=== PATIENT | female | born 1940 | race Caucasian/White ===

== ENCOUNTER 2018-01-03 17:01 | Observation (INO) | payer MEDICARE ==
[~2018-01-03] VITALS: Ht 162.6 cm; Wt 50.0 kg
[~2018-01-03 17:01] MED LIST: Z.0.NO CURRENT MEDS
[2018-01-03 17:28] VITALS: BP 103/55; PULSE 83; RESP 20; TEMP 98.4; O2SAT 91
[2018-01-03] MEDS ORDERED: LISI-515 PO (17:45)
[2018-01-03] MEDS ORDERED: ZOLO25TA PO (17:45)
[2018-01-03] MEDS ORDERED: SODIUM CHLOR 0.9% 1000 ML INJ 1,000 ML IV SCH (17:55)
[2018-01-03] MEDS ORDERED: SODIUM CHLORIDE 0.9% FLUSH 10 ML FLUSH IV FLUSH PRN ×2 (18:00→22:45)
[2018-01-03 18:01] VITALS: RESP 16; O2SAT 95
--- NOTE | 2018-01-03 18:01 | PD ---
HPI Chief Complaint: GI Complaint Time Seen by Provider: 17:40 Travel History International Travel<30 days: No Contact w/Intl Traveler<30days: No Traveled to known affect area: No History of Present Illness HPI 77-year-old female with PMH of anxiety, hypertension presents to the ED for evaluation at 3 day history of watery diarrhea. Patient estimates one episode of diarrhea every 30 minutes. She denies fevers, chills, nausea, vomiting, abdominal pain, dysuria, back pain. She states that she was recently hospitalized in [place]. She denies recent use of antibiotics. She denies alcohol use. She's never had a problem like this before. No treatment attempted at home. PFSH Past Medical History Arthritis: No Asthma: No Heart Rhythm Problems: No Cardiovascular Problems: No High Cholesterol: No Chest Pain: No Congestive Heart Failure: No COPD: No Cerebrovascular Accident: No Diminished Hearing: No GERD: No Genitourinary: No Headaches: No Hepatitis: No Hiatal Hernia: No Hypertension: Yes Kidney Stones: No Musculoskeletal: Yes Neurologic: Yes Reproductive: No Respiratory: No Migraines: No Myocardial Infarction: No Renal Failure: No Seizures: No Sleep Apnea: No Ulcer: No Past Surgical History Abdominal Surgery: Yes (APPENDECTOMY) Appendectomy: Yes Cardiac Surgery: No Section: Yes (X2) Cholecystectomy: No Ear Surgery: No Endocrine Surgery: No Eye Surgery: No Genitourinary Surgery: No Gynecologic Surgery: No Oral Surgery: Yes Thoracic Surgery: No Other Surgery: Yes Social History Alcohol Use: Yes ("WINE") Tobacco Use: No (DENIES) Substance Use: No (DENIES) Allergies-Medications (Allergen,Severity, Reaction): Coded Allergies: penicillin G (Verified Adverse Reaction, Severe, Nausea/Vomiting, 01/03/18) Reported Meds & Prescriptions Reported Meds & Active Scripts Active Flagyl (Metronidazole) 500 Mg Tab 500 Mg PO TID 14 Days Reported Zoloft (Sertraline HCl) 25 Mg Tab 25 Mg PO DAILY Lisinopril 20 Mg Tab 20 Mg PO DAILY Review of Systems Except as stated in HPI: all other systems reviewed are Neg Physical Exam Narrative GENERAL: Well-nourished, well-developed anxious white female in no acute distress. SKIN: Focused skin assessment warm/dry. HEAD: Normocephalic. EYES: No scleral icterus. No injection or drainage. NECK: Supple, trachea midline. No JVD or lymphadenopathy. CARDIOVASCULAR: Regular rate and rhythm without murmurs, gallops, or rubs. RESPIRATORY: Breath sounds clear and equal bilaterally. No accessory muscle use. GASTROINTESTINAL: Abdomen soft, non-tender, nondistended. Active bowel sounds. MUSCULOSKELETAL: No cyanosis, or edema. BACK: Nontender without obvious deformity. No CVA tenderness. Data Data Last Documented VS Vital Signs Date Time Temp Pulse Resp B/P (MAP) Pulse Ox O2 Delivery O2 Flow Rate FiO2 01/03/18 18:01 16 95 01/03/18 17:28 98.4 83 103/55 (71) Orders Orders Complete Blood Count With Diff (01/03/18 17:55) Comprehensive Metabolic Panel (01/03/18 17:55) Urinalysis - C+S If Indicated (01/03/18 17:55) Iv Access Insert/Monitor (01/03/18 17:55) Ecg Monitoring (01/03/18 17:55) Oximetry (01/03/18 17:55) Sodium Chlor 0.9% 1000 Ml Inj (Ns 1000 M (01/03/18 17:55) Sodium Chloride 0.9% Flush (Ns Flush) (01/03/18 18:00) C Diff Toxin Pcr (01/03/18 17:55) Stool Ova And Parasite Screen (01/03/18 17:55) ^Bedside Commode (01/03/18 17:55) ^ Straight Catheter (01/03/18 20:29) Metronidazole (Flagyl) (01/03/18 20:45) Alcohol Withdrawal Asmt-Ciwa ONCE (01/03/18 22:02) Flumazenil Inj (Romazicon Inj) (01/03/18 22:15) Lorazepam (Ativan) (01/03/18 22:15) Lorazepam Inj (Ativan Inj) (01/03/18 22:15) Lorazepam (Ativan) (01/03/18 22:15) Lorazepam Inj (Ativan Inj) (01/03/18 22:15) Lorazepam Inj (Ativan Inj) (01/03/18 22:15) Lorazepam Inj (Ativan Inj) (01/03/18 22:15) Psych Screen (01/03/18 22:03) Admit Order (Ed Use Only) (01/03/18 22:28) Labs Laboratory Tests Test 01/03/18 18:00 White Blood Count 12.9 TH/MM3 Red Blood Count 4.33 MIL/MM3 Hemoglobin 11.2 GM/DL Hematocrit 34.3 % Mean Corpuscular Volume 79.3 FL Mean Corpuscular Hemoglobin 25.8 PG Mean Corpuscular Hemoglobin Concent 32.6 % Red Cell Distribution Width 16.4 % Platelet Count 611 TH/MM3 Mean Platelet Volume 8.1 FL Neutrophils (%) (Auto) 86.8 % Lymphocytes (%) (Auto) 7.8 % Monocytes (%) (Auto) 4.4 % Eosinophils (%) (Auto) 0.1 % Basophils (%) (Auto) 0.9 % Neutrophils # (Auto) 11.2 TH/MM3 Lymphocytes # (Auto) 1.0 TH/MM3 Monocytes # (Auto) 0.6 TH/MM3 Eosinophils # (Auto) 0.0 TH/MM3 Basophils # (Auto) 0.1 TH/MM3 CBC Comment DIFF FINAL Differential Comment Blood Urea Nitrogen 9 MG/DL Creatinine 0.60 MG/DL Random Glucose 123 MG/DL Total Protein 7.0 GM/DL Albumin 2.9 GM/DL Calcium Level 8.7 MG/DL Alkaline Phosphatase 100 U/L Aspartate Amino Transf (AST/SGOT) 22 U/L Alanine Aminotransferase (ALT/SGPT) 16 U/L Total Bilirubin 0.2 MG/DL Sodium Level 133 MEQ/L Potassium Level 4.1 MEQ/L Chloride Level 97 MEQ/L Carbon Dioxide Level 18.8 MEQ/L Anion Gap 17 MEQ/L Estimat Glomerular Filtration Rate 97 ML/MIN [facility] Medical Decision Making Medical Screen Exam Complete: Yes Emergency Medical Condition: Yes Differential Diagnosis c difficile versus dehydration versus metabolic derangement versus other Narrative Course 77-year-old female with PMH of anxiety, hypertension presents to the ED for evaluation at 3 day history of watery diarrhea. Patient estimates one episode of diarrhea every 30 minutes. She denies fevers, chills, nausea, vomiting, abdominal pain, dysuria, back pain. She states that she was recently hospitalized in [place]. She denies recent use of antibiotics. She denies alcohol use. Temp 98.4, BP 103/55 on presentation. On exam this is a white female in no acute distress. Abdominal exam is unremarkable. The room smells like C. difficile. IV was established. Patient was administered 1 L normal saline. CBC: W BC 12.9. Hemoglobin 11.2. CMP: Sodium 133, chloride 97. BUN 9, creatinine 0.60. Glucose 123. Patient had no other episodes of diarrhea in the ED. She has been unable to produce a urine sample. She refuses catheterization for specimen. Initial plan was to discharge the patient with Flagyl and follow up by her primary care. However discharge the patient states that she does not want to go home. She has several conflicting stories as to where she lives and provides a phone number to case management. Case management spoke with the daughter states that the patient is a chronic alcoholic and has not lived at her [place] address for over 8 years. The daughter states that the last she heard the patient was admitted by court order to a psychiatric hospital in [place]. After discussing with this this with the patient she states that the hospital in [place] put her in ambulance and delivered her to warm and but is unable to say specifically where she was dropped off. Conveniently the patient has all her belongings at bedside. Patient was placed on CIWA protocol. Psych screen was ordered. I discussed patient with Dr. Navarro who agrees to accept the patient to the medicine service.. We'll observe the patient overnight and attempt SNF placement before discharge. Referrals: Primary Care Physician Patient Instructions: General Instructions Med/Other Pt SpecificInfo: Prescription(s) given Radha Prado Jan 03, 2018 18:01
[2018-01-03 18:26] LABS: AUTOMATED NEUTROPHIL # 11.2 TH/MM3 (1.8-7.7); BASOPHIL # 0.1 TH/MM3 (0-0.2); BASOPHIL % 0.9 % (0.0-2.0); EOSINOPHIL % 0.1 % (0.0-4.0); HEMATOCRIT 34.3 % (35.0-46.0); HEMOGLOBIN 11.2 GM/DL (11.6-15.3); LYMPH % 7.8 % (9.0-44.0); MEAN CELL VOLUME 79.3 FL (80.0-100.0); MEAN CORPUSCULAR HEMOGLOBIN 25.8 PG (27.0-34.0); MEAN CORPUSCULAR HGB CONC 32.6 % (32.0-36.0); MEAN PLATELET VOLUME 8.1 FL (7.0-11.0); MONO % 4.4 % (0.0-8.0); MONOCYTE # 0.6 TH/MM3 (0-0.9); NEUT % 86.8 % (16.0-70.0); PLATELET COUNT 611 TH/MM3 (150-450); RED BLOOD COUNT 4.33 MIL/MM3 (4.00-5.30); RED CELL DISTRIBUTION WIDTH 16.4 % (11.6-17.2); WHITE BLOOD COUNT 12.9 TH/MM3 (4.0-11.0)
[2018-01-03 18:39] LABS: ALBUMIN 2.9 GM/DL (3.4-5.0); AST (GOT) 22 U/L (15-37); BICARBONATE 18.8 MEQ/L (21.0-32.0); BLOOD UREA NITROGEN 9 MG/DL (7-18); CALCIUM 8.7 MG/DL (8.5-10.1); CHLORIDE 97 MEQ/L (98-107); GLOMERULAR FILTRATION RATE 97 ML/MIN (>89); GLUCOSE,RANDOM 123 MG/DL (74-106); SODIUM (NA) 133 MEQ/L (136-145)
[2018-01-03 18:42] LABS: ALKALINE PHOSPHATASE 100 U/L (45-117); ALT (GPT) 16 U/L (10-53); TOTAL BILIRUBIN ADULT 0.2 MG/DL (0.2-1.0)
[2018-01-03] MEDS ORDERED: METR-1 PO (20:40)
[2018-01-03] MEDS ORDERED: metroNIDAZOLE 500 MG TAB PO ONE (20:45)
[2018-01-03] MEDS ORDERED: LORazepam 2 MG TAB PO PRN (22:15)
[2018-01-03] MEDS ORDERED: FLUMAZENIL 0.5 MG/5 ML VIAL IV PUSH PRN (22:15)
[2018-01-03] MEDS ORDERED: LORazepam 1 MG TAB PO PRN (22:15)
[2018-01-03] MEDS ORDERED: LORazepam 2 MG/ML VIAL IV PUSH PRN ×4 (22:15)
--- NOTE | 2018-01-03 22:43 | HHI.HP ---
[facility] Unknown Admission Diagnosis r/o c difficile Diagnoses: (1) Diarrhea Diagnosis: Principal (2) Dehydration Diagnosis: Principal (3) Alcohol abuse Diagnosis: Principal Travel History International Travel<30 Days: No Contact w/Intl Traveler <30 Da: No Traveled to Known Affected Are: No History of Present Illness This is a 77-year-old female with a PMH of Anxiety, HTN and Alcohol Abuse who presented to the ER with complaints of watery diarrhea and abdominal pain x3 days. Pt poor historian, difficult to obtain history from, but states she was recently admitted to a Hospital in [place], however does not believe she was on antibiotics. Has been having approx 10 episodes of watery diarrhea per day. No nausea or vomiting. Reports generalized abdominal pain, non-radiating, no alleviating factors. On arrival, BP 103/55, HR 83, O2 sat 91% on RA, Afebrile. WBC 12.9. Chemistry unremarkable except for AG 17. LFTs normal. No further episodes of diarrhea while in the ER. s/p Flagyl PO. Daughter from out of state relayed pt w/ h/o chronic alcohol abuse, recently discharged from Hospital and living in a Hotel in [facility], however pt decided to leave there and called EMS. Currently homeless. Daughter concerned as pt unable to care for self. Review of Systems Except as stated in HPI: all other systems reviewed are Neg ROS: 14 point review of systems otherwise negative. Past Family Social History Past Medical History PMH: Anxiety, HTN and Alcohol Abuse Past Surgical History PAST SURGICAL HISTORY: Appendectomy, Allergies: Coded Allergies: penicillin G (Verified Adverse Reaction, Severe, Nausea/Vomiting, 01/03/18) Family History PAST FAMILY HISTORY: Reviewed. No h/o DM or CAD Social History PAST SOCIAL HISTORY: Positive for alcohol abuse, patient will not quantify. Negative for tobacco or drugs Physical Exam Vital Signs Vital Signs Date Time Temp Pulse Resp B/P (MAP) Pulse Ox O2 Delivery O2 Flow Rate FiO2 01/03/18 18:01 16 95 01/03/18 17:49 20 01/03/18 17:28 98.4 83 20 103/55 (92) 91 Physical Exam PE: GENERAL: Elderly female in no acute distress. HEENT: PERRLA, EOMI. No scleral icterus or conjunctival pallor. No lid lag or facial droop. CARDIOVASCULAR: Regular rate and rhythm. No obvious murmurs to auscultation. No chest tenderness to palpation. RESPIRATORY: No obvious rhonchi or wheezing. Clear to auscultation. Breath sounds equal bilaterally. GASTROINTESTINAL: Abdomen soft, non-tender, nondistended. BS normal. MUSCULOSKELETAL: Extremities without clubbing, cyanosis, or edema. No obvious deformities. NEUROLOGICAL: Awake, alert and oriented x4. No focal neurologic deficits. Moving both upper and lower extremities spontaneously. Laboratory Laboratory Tests Test 01/03/18 18:00 White Blood Count 12.9 Red Blood Count 4.33 Hemoglobin 11.2 Hematocrit 34.3 Mean Corpuscular Volume 79.3 Mean Corpuscular Hemoglobin 25.8 Mean Corpuscular Hemoglobin Concent 32.6 Red Cell Distribution Width 16.4 Platelet Count 611 Mean Platelet Volume 8.1 Neutrophils (%) (Auto) 86.8 Lymphocytes (%) (Auto) 7.8 Monocytes (%) (Auto) 4.4 Eosinophils (%) (Auto) 0.1 Basophils (%) (Auto) 0.9 Neutrophils # (Auto) 11.2 Lymphocytes # (Auto) 1.0 Monocytes # (Auto) 0.6 Eosinophils # (Auto) 0.0 Basophils # (Auto) 0.1 CBC Comment DIFF FINAL Differential Comment Blood Urea Nitrogen 9 Creatinine 0.60 Random Glucose 123 Total Protein 7.0 Albumin 2.9 Calcium Level 8.7 Alkaline Phosphatase 100 Aspartate Amino Transf (AST/SGOT) 22 Alanine Aminotransferase (ALT/SGPT) 16 Total Bilirubin 0.2 Sodium Level 133 Potassium Level 4.1 Chloride Level 97 Carbon Dioxide Level 18.8 Anion Gap 17 Estimat Glomerular Filtration Rate 97 Result Diagram: 01/03/18 1800 01/03/18 1800 Caprini VTE Risk Assessment Caprini VTE Risk Assessment: No/Low Risk (score <= 1) Caprini Risk Assessment Model Point Value = 1 Point Value = 2 Point Value = 3 Point Value = 5 Age 41-60 Minor surgery BMI > 25 kg/m2 Swollen legs Varicose veins or History of unexplained or recurrent spontaneous Oral contraceptives or hormone replacement Sepsis (< 1 month) Serious lung disease, including pneumonia (< 1 month) Abnormal pulmonary function Acute myocardial infarction Congestive heart failure (< 1 month) History of inflammatory bowel disease Medical patient at bed rest Age 61-74 Arthroscopic surgery Major open surgery (> 45 min) Laparoscopic surgery (> 45 min) Malignancy Confined to bed (> 72 hours) Immobilizing plaster cast Central venous access Age >= 75 History of VTE Family history of VTE Factor V Leiden Prothrombin [id number] Lupus anticoagulant Anticardiolipin antibodies Elevated serum homocysteine Heparin-induced thrombocytopenia Other congenital or acquired thrombophilia Stroke (< 1 month) Elective arthroplasty Hip, pelvis, or leg fracture Acute spinal cord injury (< 1 month) Prophylaxis Regimen Total Risk Factor Score Risk Level Prophylaxis Regimen 0-1 Low Early ambulation 2 Moderate Order ONE of the following: *Sequential Compression Device (SCD) *Heparin 5000 units SQ BID 3-4 Higher Order ONE of the following medications: *Heparin 5000 units SQ TID *Enoxaparin/Lovenox 40 mg SQ daily (WT < 150 kg, CrCl > 30 mL/min) *Enoxaparin/Lovenox 30 mg SQ daily (WT < 150 kg, CrCl > 10-29 mL/min) *Enoxaparin/Lovenox 30 mg SQ BID (WT < 150 kg, CrCl > 30 mL/min) AND/OR *Sequential Compression Device (SCD) 5 or more Highest Order ONE of the following medications: *Heparin 5000 units SQ TID (Preferred with Epidurals) *Enoxaparin/Lovenox 40 mg SQ daily (WT < 150 kg, CrCl > 30 mL/min) *Enoxaparin/Lovenox 30 mg SQ daily (WT < 150 kg, CrCl > 10-29 mL/min) *Enoxaparin/Lovenox 30 mg SQ BID (WT < 150 kg, CrCl > 30 mL/min) AND *Sequential Compression Device (SCD) Assessment and Plan Problem List: (1) Diarrhea ICD Code: R19.7 - Diarrhea, unspecified (2) Dehydration ICD Code: E86.0 - Dehydration (3) Alcohol abuse ICD Code: F10.10 - Alcohol abuse, uncomplicated Assessment and Plan A/P: 1. Diarrhea: reports watery diarrhea x3 days, no diarrhea while in ER. C diff /stool studies pending. WBC 12. S/p Flagyl in ER, will continue w/ empiric treatment on Flagyl 500mg po tid. 2. Dehydration: secondary to above, IVF for hydration. Check U/a to eval for underlying UTI. Repeat labs in am. 3. Alcohol Abuse: Daughter reports chronic alcohol abuse, pt denies. CIWA, Seizure Precautions, MVT/Thiamine/Folate replacement. 4. DVT Prophylaxis: SCD/Teds. 5. Social work for d/c planning as needed, Daughter states pt is currently Homeless, unable to care for self. 6. Case discussed at length w/ ER physician, labs/records/imaging reviewed by me. Marian Navarro MD Jan 03, 2018 22:43
[2018-01-03] MEDS ORDERED: SENNOSIDES 8.6 MG TAB PO PRN (22:45)
[2018-01-03] MEDS ORDERED: BISACODYL 10 MG SUPP RECTAL PRN (22:45)
[2018-01-03] MEDS ORDERED: ONDANSETRON HCL 4 MG/2 ML VIAL IVP PRN (22:45)
[2018-01-03] MEDS ORDERED: MAGNESIUM HYDROXIDE SUSP 30 ML CUP PO PRN (22:45)
[2018-01-03] MEDS ORDERED: ACETAMINOPHEN 325 MG TAB PO PRN (22:45)
[2018-01-03] MEDS ORDERED: LACTULOSE SYRUP 20 GM/30 ML CUP PO PRN (22:45)
[2018-01-03] MEDS: SODIUM CHLOR 0.9% 1000 ML INJ 1,000 ML IV SCH (23:15)
[2018-01-04 00:28] VITALS: BP 124/59; PULSE 61; RESP 18; TEMP 98.3; O2SAT 94
[2018-01-04] MEDS ORDERED: ZOLPIDEM TARTRATE 5 MG TAB PO ONE ×2 (01:30→23:30)
[2018-01-04 03:50] VITALS: BP 119/55; PULSE 78; RESP 18; TEMP 98.4; O2SAT 92
[2018-01-04 05:31] LABS: ALBUMIN 2.8 GM/DL (3.4-5.0); AST (GOT) 22 U/L (15-37); BLOOD UREA NITROGEN 6 MG/DL (7-18); CALCIUM 8.3 MG/DL (8.5-10.1); CHLORIDE 101 MEQ/L (98-107); CREATININE 0.48 MG/DL (0.50-1.00); GLOMERULAR FILTRATION RATE 125 ML/MIN (>89); GLUCOSE,RANDOM 73 MG/DL (74-106); SODIUM (NA) 134 MEQ/L (136-145)
[2018-01-04 05:33] LABS: ALT (GPT) 14 U/L (10-53)
[2018-01-04 05:35] LABS: ALKALINE PHOSPHATASE 86 U/L (45-117); TOTAL BILIRUBIN ADULT 0.3 MG/DL (0.2-1.0); TOTAL PROTEIN 6.4 GM/DL (6.4-8.2)
[2018-01-04] MEDS: metroNIDAZOLE 500 MG TAB PO SCH ×3 (06:04→21:48)
[2018-01-04 06:48] LABS: AUTOMATED NEUTROPHIL # 5.2 TH/MM3 (1.8-7.7); BASOPHIL # 0.1 TH/MM3 (0-0.2); EOSINOPHIL # 0.1 TH/MM3 (0-0.4); HEMATOCRIT 32.4 % (35.0-46.0); HEMOGLOBIN 10.8 GM/DL (11.6-15.3); LYMPH % 18.1 % (9.0-44.0); LYMPHOCYTE # 1.4 TH/MM3 (1.0-4.8); MEAN CELL VOLUME 78.7 FL (80.0-100.0); MEAN CORPUSCULAR HEMOGLOBIN 26.3 PG (27.0-34.0); MEAN CORPUSCULAR HGB CONC 33.4 % (32.0-36.0); MEAN PLATELET VOLUME 8.2 FL (7.0-11.0); MONO % 8.6 % (0.0-8.0); MONOCYTE # 0.6 TH/MM3 (0-0.9); NEUT % 69.3 % (16.0-70.0); PLATELET COUNT 553 TH/MM3 (150-450); RED BLOOD COUNT 4.11 MIL/MM3 (4.00-5.30); RED CELL DISTRIBUTION WIDTH 16.4 % (11.6-17.2); WHITE BLOOD COUNT 7.5 TH/MM3 (4.0-11.0)
[2018-01-04 08:29] VITALS: BP 123/84; PULSE 69; RESP 12; TEMP 97.8; O2SAT 93
[2018-01-04] MEDS: SODIUM CHLOR 0.9% 1000 ML INJ 1,000 ML IV SCH ×2 (08:41→18:41)
[2018-01-04] MEDS: DOCUSATE SODIUM 50 MG/SENNA 8.6 MG TAB PO SCH ×2 (09:00→21:00)
[2018-01-04 11:02] VITALS: BP 133/63; PULSE 62; RESP 16; TEMP 98.2; O2SAT 95
[2018-01-04] MEDS: SODIUM CHLORIDE 0.9% FLUSH 10 ML FLUSH IV FLUSH SCH ×2 (13:55→21:00)
[2018-01-04 14:58] VITALS: BP 143/65; PULSE 65; RESP 16; TEMP 99; O2SAT 95
[2018-01-04] MEDS: SERTRALINE HCL 50 MG TAB PO SCH (16:17)
[2018-01-04] MEDS ORDERED: PILL SPLITTER OTHER PRN (16:30)
--- NOTE | 2018-01-04 18:38 | HHI.PR ---
Subjective Remarks Patient says she continues with nausea, vomiting, diarrhea. Objective Vital Signs Date Time Temp Pulse Resp B/P (MAP) Pulse Ox O2 Delivery O2 Flow Rate FiO2 01/04/18 14:58 99.0 65 16 143/65 (91) 95 01/04/18 11:02 98.2 62 16 133/63 (86) 95 01/04/18 08:29 97.8 69 12 123/84 (97) 93 01/04/18 03:50 98.4 78 18 119/55 (76) 92 01/04/18 00:28 98.3 61 18 124/59 (80) 94 I/O 01/03/18 01/03/18 01/03/18 01/04/18 01/04/18 01/04/18 07:00 15:00 23:00 07:00 15:00 23:00 Intake Total 500 ml 2550 ml Output Total 400 ml 300 ml Balance 100 ml 2250 ml Intake Oral 500 ml 750 ml IV Total 1800 ml Output Urine Total 400 ml Stool Total 300 ml Result Diagram: 01/04/1840401/04/18404 Objective Remarks GENERAL: Patient sitting up in bed. Appears comfortable. Nonbloody emesis at bedside. SKIN: Warm and dry. HEAD: Normocephalic. EYES: No scleral icterus. No injection or drainage. NECK: Supple, trachea midline. No JVD. CARDIOVASCULAR: Regular rate and rhythm without murmurs, gallops, or rubs. RESPIRATORY: Breath sounds equal bilaterally. No accessory muscle use. GASTROINTESTINAL: Abdomen soft, non-tender, nondistended. MUSCULOSKELETAL: No cyanosis, or edema. BACK: Nontender without obvious deformity. No CVA tenderness. A/P Assessment and Plan //Diarrhea: reports watery diarrhea x3 days, no diarrhea while in ER. C diff/ stool studies pending. WBC 12. S/p Flagyl in ER, will continue w/ empiric treatment on Flagyl 500mg po tid. = Diarrhea continues. Negative C. difficile. Continue antibiotics. Follow-up stool cryptosporidium and Giardia. Consult gastroenterology. //Dehydration: secondary to above, IVF for hydration. Check U/a to eval for underlying UTI. Repeat labs in am. //Alcohol Abuse: Daughter reports chronic alcohol abuse, pt denies. CIWA, Seizure Precautions, MVT/Thiamine/Folate replacement. //DVT Prophylaxis: SCD/Teds. Discharge Planning Pending gastroenterology evaluation. Still with intractable nausea, vomiting, diarrhea. Davian Seaman MD Jan 04, 2018 18:38
[2018-01-04 19:51] LABS: BILIRUBIN, URINE NEG (NEG); BLOOD, URINE SMALL (NEG); GLUCOSE,URINE NEG (NEG); KETONE, URINE NEG (NEG); NITRITE,URINE NEG (NEG); PH, URINE 7.5 (5.0-8.5); SQUAMOUS EPITHELIAL CELL URINE 1 /hpf (0-5); URINE COLOR COLORLESS (YELLW/STRAW); URINE LEUKOCYTE ESTERASE NEG (NEG)
[2018-01-04 21:22] VITALS: BP 133/63; PULSE 61; RESP 17; TEMP 98.5; O2SAT 93
[2018-01-05 00:26] VITALS: BP 131/69; PULSE 65; RESP 17; TEMP 98.2; O2SAT 93
[2018-01-05 03:46] VITALS: BP 155/67; PULSE 67; RESP 18; TEMP 98.2; O2SAT 92
[2018-01-05] MEDS: metroNIDAZOLE 500 MG TAB PO SCH ×3 (05:47→20:41)
[2018-01-05] MEDS: SODIUM CHLOR 0.9% 1000 ML INJ 1,000 ML IV SCH ×2 (05:47→13:55)
[2018-01-05 07:27] LABS: AUTOMATED NEUTROPHIL # 5.7 TH/MM3 (1.8-7.7); BASOPHIL # 0.1 TH/MM3 (0-0.2); BASOPHIL % 1.3 % (0.0-2.0); EOSINOPHIL # 0.2 TH/MM3 (0-0.4); EOSINOPHIL % 2.6 % (0.0-4.0); HEMATOCRIT 31.4 % (35.0-46.0); HEMOGLOBIN 10.4 GM/DL (11.6-15.3); LYMPH % 13.1 % (9.0-44.0); MEAN CELL VOLUME 78.5 FL (80.0-100.0); MEAN CORPUSCULAR HEMOGLOBIN 26.1 PG (27.0-34.0); MEAN CORPUSCULAR HGB CONC 33.3 % (32.0-36.0); MEAN PLATELET VOLUME 8.4 FL (7.0-11.0); MONO % 8.1 % (0.0-8.0); MONOCYTE # 0.6 TH/MM3 (0-0.9); NEUT % 74.9 % (16.0-70.0); PLATELET COUNT 529 TH/MM3 (150-450); RED CELL DISTRIBUTION WIDTH 16.1 % (11.6-17.2); WHITE BLOOD COUNT 7.7 TH/MM3 (4.0-11.0)
[2018-01-05 07:47] LABS: ALBUMIN 2.7 GM/DL (3.4-5.0); CALCIUM 8.3 MG/DL (8.5-10.1); CREATININE 0.37 MG/DL (0.50-1.00); MAGNESIUM 1.5 MG/DL (1.5-2.5); PHOSPHORUS 3.6 MG/DL (2.5-4.9)
[2018-01-05 08:25] VITALS: BP 128/58; PULSE 68; RESP 12; TEMP 98.1; O2SAT 90
[2018-01-05] MEDS: DOCUSATE SODIUM 50 MG/SENNA 8.6 MG TAB PO SCH ×2 (09:00→20:41)
[2018-01-05] MEDS: SERTRALINE HCL 50 MG TAB PO SCH (09:23)
[2018-01-05] MEDS: SODIUM CHLORIDE 0.9% FLUSH 10 ML FLUSH IV FLUSH SCH ×2 (09:24→20:41)
--- NOTE | 2018-01-05 09:54 | PD.CONS ---
HPI History of Present Illness This is a 77 year old female who was admitted to the hospital on 01/03/18. Patient is a poor historian but is answering some simple questions appropriately. Patient notes uncontrolled brown watery diarrhea and abdominal pain for 3 days before admission. Patient did note some nausea and vomiting 3 on 01/04/18 after coming to the hospital. Currently no nausea vomiting this a.m. According to the record patient had been living with her daughter in the [place] area but had also been treated in a facility for depression and anxiety. She left the facility; she is not sure why but then called EMS to bring her to the hospital. She does have some generalized abdominal soreness to light palpation, temp is 99, hemoglobin 10.4. Patient also notes some dysphagia when swallowing her meds and states this is been going on for greater than 6 months. She does state EGD and colonoscopy a long time ago but doesn't remember any other details. According to the note patient has chronic alcohol abuse. She states that she was a wine drinker daily, but has had no alcohol in at least 2 months. Patient states she is a , no history of tobacco abuse. (Adela Villegas) PFSH Past Medical History Anxiety, HTN and Alcohol Abuse Depression POOR historian Past Surgical History PAST SURGICAL HISTORY: Appendectomy, (Adela Villegas) Coded Allergies: penicillin G (Verified Adverse Reaction, Severe, Nausea/Vomiting, 01/03/18) Medications Administered Medications Medications (Trade) Dose Ordered Sig/Ruby Route PRN Reason Start Time Stop Time Status Last Admin Dose Admin Sodium Chloride 1,000 ml @ 100 mls/hr Q10H IV 01/03/18 22:41 01/05/18 05:47 Sodium Chloride (NS Flush) 2 ml BID IV FLUSH 01/04/18 09:00 01/05/18 09:24 Ondansetron HCl (Zofran Inj) 4 mg Q6H PRN IVP NAUSEA OR VOMITING 01/03/18 22:45 01/04/18 19:29 Oxycodone HCl (Roxicodone) 10 mg Q4H PRN PO PAIN SCALE 6 TO 10 01/03/18 22:45 01/04/18 17:04 Metronidazole (Flagyl) 500 mg Q8HR PO 3/26/18 06:00 01/05/18 05:47 Sertraline HCl (Zoloft) 25 mg DAILY PO 01/04/18 16:15 01/05/18 09:23 Family History PAST FAMILY HISTORY: Reviewed. No h/o DM or CAD Social History PAST SOCIAL HISTORY: Positive for alcohol abuse, daily wine consumption, but states none in the past 2 months. Negative for tobacco or drugs Patient is (Adela Villegas) Review of Systems Gastrointestinal: COMPLAINS OF: Diarrhea, Nausea, Vomiting, Difficulty Swallowing (heels) (Adela Villegas) GI Exam Vitals I&O Vital Signs Date Time Temp Pulse Resp B/P (MAP) Pulse Ox O2 Delivery O2 Flow Rate FiO2 01/05/18 08:25 98.1 68 12 128/58 (81) 90 01/05/18 03:46 98.2 67 18 155/67 (96) 92 01/05/18 00:26 98.2 65 17 131/69 (89) 93 01/04/18 21:22 98.5 61 17 133/63 (86) 93 01/04/18 14:58 99.0 65 16 143/65 (91) 95 01/04/18 11:02 98.2 62 16 133/63 (86) 95 I/O 01/04/18 01/04/18 01/04/18 01/05/18 01/05/18 01/05/18 07:00 15:00 23:00 07:00 15:00 23:00 Intake Total 500 ml 2550 ml Output Total 400 ml 300 ml Balance 100 ml 2250 ml Intake Oral 500 ml 750 ml IV Total 1800 ml Output Urine Total 400 ml Stool Total 300 ml Laboratory Test 01/04/18 18:54 01/05/18 06:05 Urine Color COLORLESS Urine Turbidity CLEAR Urine pH 7.5 Urine Specific Yoder 1.004 Urine Protein NEG mg/dL Urine Glucose (UA) NEG mg/dL Urine Ketones NEG mg/dL Urine Occult Blood SMALL Urine Nitrite NEG Urine Bilirubin NEG Urine Urobilinogen LESS THAN 2.0 MG/DL Urine Leukocyte Esterase NEG Urine RBC 1 /hpf Urine Squamous Epithelial Cells 1 /hpf Microscopic Urinalysis Comment CULT NOT INDICATED White Blood Count 7.7 TH/MM3 Red Blood Count 4.00 MIL/MM3 Hemoglobin 10.4 GM/DL Hematocrit 31.4 % Mean Corpuscular Volume 78.5 FL Mean Corpuscular Hemoglobin 26.1 PG Mean Corpuscular Hemoglobin Concent 33.3 % Red Cell Distribution Width 16.1 % Platelet Count 529 TH/MM3 Mean Platelet Volume 8.4 FL Neutrophils (%) (Auto) 74.9 % Lymphocytes (%) (Auto) 13.1 % Monocytes (%) (Auto) 8.1 % Eosinophils (%) (Auto) 2.6 % Basophils (%) (Auto) 1.3 % Neutrophils # (Auto) 5.7 TH/MM3 Lymphocytes # (Auto) 1.0 TH/MM3 Monocytes # (Auto) 0.6 TH/MM3 Eosinophils # (Auto) 0.2 TH/MM3 Basophils # (Auto) 0.1 TH/MM3 CBC Comment DIFF FINAL Differential Comment Blood Urea Nitrogen 3 MG/DL Creatinine 0.37 MG/DL Random Glucose 99 MG/DL Albumin 2.7 GM/DL Calcium Level 8.3 MG/DL Phosphorus Level 3.6 MG/DL Magnesium Level 1.5 MG/DL Sodium Level 136 MEQ/L Potassium Level 4.1 MEQ/L Chloride Level 103 MEQ/L Carbon Dioxide Level 25.0 MEQ/L Anion Gap 8 MEQ/L Estimat Glomerular Filtration Rate 169 ML/MIN Date/Time Source Procedure Growth Status 01/04/18 08:45 Stool Stool Cryptosporidium Exam Pending Received 01/04/18 08:45 Stool Stool Giardia Antigen (AIXA) Pending Received Physical Examination HEENT: Pupils round and reactive to light; normocephalic; atraumatic; no jaundice. Borderline frail NECK: Neck is supple, CHEST: Chest is clear, no obvious rhonchi CARDIAC: Regular rate and rhythm ABDOMEN: Flat, Soft, nondistended, enteral I's tenderness to light palpation; no hepatosplenomegaly; bowel sounds are present in all four quadrants. EXTREMITIES: No clubbing, cyanosis, or edema. SKIN: Turgor no rash; no jaundice. ELECTROPHYSIOLOGY NURSE PRACTITIONER: Oriented to current place, can answer simple questions (Adela Villegas) Assessment and Plan Plan Watery diarrhea onset approximately 5 days ago, incontinent, controlled for now , negative C. difficile Generalized abdominal pain probable secondary to the diarrhea and cramping Dysphagia greater than 6 months problems especially with pills. Nausea and vomiting within the past 24 hours Anemia probable secondary to her chronic diseases currently stable at 10.[address] of the abdomen with contrast today. If Negative will proceed with EGD and colonoscopy PPI Zofran as needed Flagyl by mouth Consent for EGD colonoscopy in the a.m. may possibly need esophageal dilatation Nothing by mouth except for needed meds at midnight Clear liquids today Magnesium citrate prep 3 bottles, 2 today and one in the early a.m. Further recommendations will be based on symptoms and findings Discussed alcohol abstinence Consider physical therapy evaluation for her stamina and discharge planning Patient was seen per myself and Dr. Nunn and, note was prepared on his behalf (Adela Villegas) Physician Comments Patient seen and examined Agree with above Continue with current supportive care Monitor labs Plan for an EGD and a colonoscopy tomorrow (Mandeep Nunn MD) Adela Villegas Jan 05, 2018 09:54 Mandeep Nunn MD Jan 05, 2018 22:10
[2018-01-05] MEDS ORDERED: DIATRIZOATE MEGLUM/DIATRIZOATE SOD 9 ML CUP PO ONE (10:14)
[2018-01-05 11:01] VITALS: BP 136/63; PULSE 72; RESP 16; TEMP 98; O2SAT 93
[2018-01-05] MEDS: MAGNESIUM CITRATE SOLN 300 ML BTL PO SCH ×2 (12:04→17:33)
--- NOTE | 2018-01-05 14:11 | HHI.PR ---
Subjective Remarks Patient reports further episode of loose diarrhea today. Some nausea with IV contrast p.o., this has improved. Denies any chest pain or shortness of breath. Objective Vital Signs Date Time Temp Pulse Resp B/P (MAP) Pulse Ox O2 Delivery O2 Flow Rate FiO2 01/05/18 11:01 98.0 72 16 136/63 (87) 93 01/05/18 08:25 98.1 68 12 128/58 (81) 90 01/05/18 03:46 98.2 67 18 155/67 (96) 92 01/05/18 00:26 98.2 65 17 131/69 (89) 93 01/04/18 21:22 98.5 61 17 133/63 (86) 93 01/04/18 14:58 99.0 65 16 143/65 (91) 95 I/O 01/04/18 01/04/18 01/04/18 01/05/18 01/05/18 01/05/18 07:00 15:00 23:00 07:00 15:00 23:00 Intake Total 500 ml 2550 ml 900 ml Output Total 400 ml 300 ml Balance 100 ml 2250 ml 900 ml Intake Oral 500 ml 750 ml IV Total 1800 ml 900 ml Output Urine Total 400 ml Stool Total 300 ml Result Diagram: 01/05/1860401/05/18 06 Objective Remarks GENERAL: Patient sitting up in bed. Appears comfortable. SKIN: Warm and dry. HEAD: Normocephalic. EYES: No scleral icterus. No injection or drainage. NECK: Supple, trachea midline. No JVD. CARDIOVASCULAR: Regular rate and rhythm without murmurs, gallops, or rubs. RESPIRATORY: Breath sounds equal bilaterally. No accessory muscle use. GASTROINTESTINAL: Abdomen soft, non-tender, nondistended. MUSCULOSKELETAL: No cyanosis, or edema. BACK: Nontender without obvious deformity. No CVA tenderness. A/P Assessment and Plan //Diarrhea: reports watery diarrhea x3 days, no diarrhea while in ER. C diff/ stool studies pending. WBC 12. S/p Flagyl in ER, will continue w/ empiric treatment on Flagyl 500mg po tid. = Diarrhea continues. Negative C. difficile. Continue antibiotics. Follow-up stool cryptosporidium and Giardia. Consult gastroenterology. = Continues. Gastroenterology following. Appreciate assistance. Plan for endoscopy tomorrow. CT abdomen and pelvis read pending. //Dehydration: secondary to above, IVF for hydration. Check U/a to eval for underlying UTI. Repeat labs in am. = Improved. Continue IV fluids. //Alcohol Abuse: Daughter reports chronic alcohol abuse, pt denies. CIWA, Seizure Precautions, MVT/Thiamine/Folate replacement. = No signs of withdrawal. Stop CIWA protocol. //DVT Prophylaxis: SCD/Teds. Discharge Planning Likely endoscopy tomorrow. Still with diarrhea. Still with intractable nausea , vomiting, diarrhea. Davian Seaman MD Jan 05, 2018 14:11
--- NOTE | 2018-01-05 14:12 | RADRPT ---
EXAM DATE/TIME: 01/05/2018 13:31 [place] COMPARISON: No previous studies available for comparison. INDICATIONS : Abdominal pain and diarrhea ORAL CONTRAST: Prescribed oral contrast ingested. RADIATION DOSE: 4.49 CTDIvol (mGy) MEDICAL HISTORY : Hypertension. SURGICAL HISTORY : Appendectomy. ENCOUNTER: Initial ACUITY: 1 day PAIN SCALE: 3/10 LOCATION: abdomen TECHNIQUE: Volumetric scanning of the abdomen and pelvis was performed. Using automated exposure control and ad justment of the mA and/or kV according to patient size, radiation dose was kept as low as reasonably achievable to obtain optimal diagnostic quality images. DICOM format image data is available electro nically for review and comparison. FINDINGS: Small bilateral pleural effusions. Mild distal aortic disease at the bases. No acute findings in the liver, spleen, adrenals, kidneys or pancreas. Calcified granulomata present in the liver and spleen. There is no free fluid. No bowel obstruction. No adenopathy. There is fixation proximal left femur. Numerous colonic diverticula present without evidence for dive rticulitis. CONCLUSION: 1. Small bilateral pleural effusions with mild distal airway disease at the lung bases. 2. Previous amandeep fixation proximal left femur. Colonic diverticula without evidence for diverticulitis . Dallas Barragan MD on January 05, 2018 at 14:06 Board Certified Radiologist. This report was verified electronically.
[2018-01-05 15:18] VITALS: BP 126/58; PULSE 72; RESP 16; TEMP 98.5; O2SAT 88
[2018-01-05] MEDS ORDERED: ZOLPIDEM TARTRATE 5 MG TAB PO ONE (23:00)
[2018-01-05 23:04] VITALS: BP 154/67; PULSE 75; RESP 18; O2SAT 95
[2018-01-06] MEDS: SODIUM CHLOR 0.9% 1000 ML INJ 1,000 ML IV SCH ×3 (00:41→20:41)
[2018-01-06] MEDS ORDERED: LACTATED RINGER'S 1000 ML IV PRN (03:00)
[2018-01-06] MEDS ORDERED: SODIUM CHLORID 0.9% 500 ML IV PRN (03:00)
[2018-01-06] MEDS ORDERED: CHLORHEXIDINE GLUCONATE 2 % 1 PACK (2 CLOTHS) TOPICAL PRN (03:00)
[2018-01-06] MEDS ORDERED: POVIDONE IODINE 5% (ANTISEPSIS KIT) 4 APPLICATIONS EACH NARE PRN (03:00)
[2018-01-06] MEDS ORDERED: MAGNESIUM CITRATE SOLN 300 ML BTL PO ONE (04:30)
[2018-01-06] MEDS: metroNIDAZOLE 500 MG TAB PO SCH ×3 (04:58→21:16)
[2018-01-06 04:59] VITALS: BP 148/67; PULSE 81; RESP 16; TEMP 99; O2SAT 87
[2018-01-06 07:55] VITALS: BP 165/73; PULSE 67; RESP 16; TEMP 98.2; O2SAT 92
[2018-01-06] MEDS: DOCUSATE SODIUM 50 MG/SENNA 8.6 MG TAB PO SCH ×2 (09:03→21:00)
[2018-01-06] MEDS: SERTRALINE HCL 50 MG TAB PO SCH (09:04)
[2018-01-06] MEDS ORDERED: LORazepam 2 MG/ML VIAL IV PUSH ONE (09:30)
[2018-01-06] MEDS: SODIUM CHLORIDE 0.9% FLUSH 10 ML FLUSH IV FLUSH SCH ×2 (10:14→21:00)
[2018-01-06] MEDS ORDERED: PROPOFOL 200 MG/20 ML AMP IV ONE (12:00)
[2018-01-06] MEDS ORDERED: LIDOCAINE HCL 1% PF 5 ML SYRINGE OTHER ONE (12:00)
[2018-01-06 16:05] VITALS: BP 140/63; PULSE 65; RESP 16; TEMP 98; O2SAT 92
--- NOTE | 2018-01-06 20:45 | PD.PROCEDR ---
GI Procedure PROCEDURE PERFORMED EGD with biopsy and dilation followed by a colonoscopy with snare polypectomy and biopsy and cautery INDICATION FOR PROCEDURE Dysphagia, abdominal pain, diarrhea PROCEDURE: The procedure, risks and benefits were discussed with Ms. Lewis and informed consent was obtained. Anesthesia sedated her with Diprivan. She was placed in the left lateral decubitus position. EGD: The Pentax videoscope was introduced through the oropharynx and advanced to the second portion of the duodenum under direct visualization. Retroflexion was performed in the stomach. FINDINGS: The esophagus there was a severe proximal esophageal stricture that prevented the scope from advancing and so a guidewire was placed and a dilation was performed with a savory dilator size 10 and then 12 postdilatation view reveals a medium size rent and I was able to advance the scope at this point just distal to this stricture was an area of erythema and friability suggestive of esophagitis of unclear significance this was biopsied The stomach there was a moderate size hiatal hernia otherwise the gastric mucosa appeared to be unremarkable and within normal limits The duodenum appeared to be unremarkable and within normal limits random biopsies were taken for further evaluation of diarrhea Colonoscopy: The Pentax videoscope was introduced through the rectum and advanced to cecum where the ileocecal valve and appendiceal orifice were identified. Retroflexion was performed in the rectum. Colonic prep was good FINDINGS: Colonic withdrawal time greater than 6 minutes. As the scope was slowly withdrawn colonic mucosa was carefully inspected the patient was noted to have a couple of AVMs in the cecum these were cauterized there was a significant amount of erythema noted in the cecum and ascending colon and it was not quite clear with this was some form of neovascularization versus other and so random biopsies were taken for further evaluation especially from the proximal descending colon this would also be helpful for evaluation of diarrhea as the scope was further withdrawn the patient was noted to have several polyps there was a medium sized sessile polyp in the ascending colon and a smaller polyp in the sigmoid and rectum all polyps were excised using hot snare technique and were retrieved for further evaluation patient was also noted to have scattered diverticuli throughout the colon most significant though in the descending and sigmoid random biopsies were taken from the descending colon for further evaluation of diarrhea and on retroflexion in the rectum noted medium size internal hemorrhoids and rectal examination did reveal medium size external hemorrhoids ESTIMATED BLOOD LOSS: None SPECIMENS REMOVED: Biopsies from the esophagus and the duodenum and the colon COMPLICATIONS: None IMPRESSION: Esophageal stricture Esophagitis Hiatal hernia Cecal AVMs A ascending colon erythema Colon polyps Diverticulosis Internal and external hemorrhoids PLAN: Await biopsies High-fiber diet Monitor labs and transfuse as needed Colonoscopy in 1 year Endoscopy as needed with possible dilation Recommend PPI Mandeep Nunn MD Jan 06, 2018 20:45
[2018-01-06 20:57] VITALS: BP 140/60; PULSE 75; RESP 16; TEMP 98; O2SAT 92
[2018-01-06] MEDS: ZOLPIDEM TARTRATE 5 MG TAB PO PRN (21:16)
--- NOTE | 2018-01-06 22:49 | EKG ---
Date Performed: 01/05/2018 Time Performed: 16:08:46 PTAGE: 77 years EKG: Sinus rhythm NORMAL ECG NO PREVIOUS TRACING DOCTOR: Mayra Tracey Interpretating Date/Time 01/06/2018 22:48:02
--- NOTE | 2018-01-06 23:57 | HHI.PR ---
Subjective Remarks patient reports continued diarrhea, however this may be secondary to colonic prep. Denies any vomiting today. Objective Vital Signs Date Time Temp Pulse Resp B/P (MAP) Pulse Ox O2 Delivery O2 Flow Rate FiO2 01/06/18 20:57 98.0 75 16 140/60 (86) 92 01/06/18 16:05 98.0 65 16 140/63 (88) 92 01/06/18 07:55 98.2 67 16 165/73 (103) 92 01/06/18 04:59 99.0 81 16 148/67 (94) 87 I/O 01/06/18 01/06/18 01/06/18 01/07/18 01/07/18 01/07/18 07:00 15:00 23:00 07:00 15:00 23:00 Intake Total 700 ml Balance 700 ml Other 700 ml Result Diagram: 01/05/1860401/05/18604 Objective Remarks GENERAL: Patient sitting up in bed. Appears comfortable. exam unchanged from yesterday SKIN: Warm and dry. HEAD: Normocephalic. EYES: No scleral icterus. No injection or drainage. NECK: Supple, trachea midline. No JVD. CARDIOVASCULAR: Regular rate and rhythm without murmurs, gallops, or rubs. RESPIRATORY: Breath sounds equal bilaterally. No accessory muscle use. GASTROINTESTINAL: Abdomen soft, non-tender, nondistended. MUSCULOSKELETAL: No cyanosis, or edema. BACK: Nontender without obvious deformity. No CVA tenderness. A/P Assessment and Plan //Diarrhea: reports watery diarrhea x3 days, no diarrhea while in ER. C diff/ stool studies pending. WBC 12. S/p Flagyl in ER, will continue w/ empiric treatment on Flagyl 500mg po tid. = Diarrhea continues. Negative C. difficile. Continue antibiotics. Follow-up stool cryptosporidium and Giardia. Consult gastroenterology. = Continues. Gastroenterology following. Appreciate assistance. Plan for endoscopy tomorrow. CT abdomen and pelvis read pending. =endoscopy with a Senning colitis. Continue management as per GI. Cryptosporidium and Giardia PCR pending. Who //esophageal stricture status post dilation on 01/06. Follow-up GI as outpatient //Dehydration: secondary to above, IVF for hydration. Check U/a to eval for underlying UTI. Repeat labs in am. = Improved. Continue IV fluids. //Alcohol Abuse: Daughter reports chronic alcohol abuse, pt denies. CIWA, Seizure Precautions, MVT/Thiamine/Folate replacement. = No signs of withdrawal. Stop CIWA protocol. //DVT Prophylaxis: SCD/Teds. Discharge Planning still diarrhea. If stable, can likely discharge home tomorrow. Davian Seaman MD Jan 06, 2018 23:57
[2018-01-07 03:27] VITALS: BP 147/70; PULSE 70; RESP 15; TEMP 98.3; O2SAT 92
[2018-01-07] MEDS: metroNIDAZOLE 500 MG TAB PO SCH ×3 (05:20→22:02)
[2018-01-07] MEDS: SODIUM CHLOR 0.9% 1000 ML INJ 1,000 ML IV SCH ×2 (05:21→16:41)
[2018-01-07 05:54] VITALS: BP 134/64; PULSE 71; RESP 18; TEMP 98.3; O2SAT 94
[2018-01-07 06:59] LABS: AUTOMATED NEUTROPHIL # 6.6 TH/MM3 (1.8-7.7); BASOPHIL # 0.1 TH/MM3 (0-0.2); BASOPHIL % 0.8 % (0.0-2.0); EOSINOPHIL # 0.5 TH/MM3 (0-0.4); HEMATOCRIT 32.2 % (35.0-46.0); HEMOGLOBIN 10.9 GM/DL (11.6-15.3); LYMPHOCYTE # 0.9 TH/MM3 (1.0-4.8); MEAN CELL VOLUME 78.7 FL (80.0-100.0); MEAN CORPUSCULAR HEMOGLOBIN 26.5 PG (27.0-34.0); MEAN CORPUSCULAR HGB CONC 33.7 % (32.0-36.0); MEAN PLATELET VOLUME 8.2 FL (7.0-11.0); MONO % 7.2 % (0.0-8.0); MONOCYTE # 0.6 TH/MM3 (0-0.9); PLATELET COUNT 496 TH/MM3 (150-450); RED CELL DISTRIBUTION WIDTH 16.8 % (11.6-17.2); WHITE BLOOD COUNT 8.7 TH/MM3 (4.0-11.0)
[2018-01-07 07:58] VITALS: BP 145/66; PULSE 66; RESP 16; TEMP 98.2; O2SAT 92
[2018-01-07] MEDS: DOCUSATE SODIUM 50 MG/SENNA 8.6 MG TAB PO SCH ×2 (09:00→21:00)
[2018-01-07] MEDS: SERTRALINE HCL 50 MG TAB PO SCH (09:04)
[2018-01-07] MEDS: SODIUM CHLORIDE 0.9% FLUSH 10 ML FLUSH IV FLUSH SCH ×2 (09:36→22:03)
--- NOTE | 2018-01-07 10:37 | HHI.GIFU ---
Subjective Remarks Pt with continued loose stool and incontinence Per RN she spoke with pts daughter who states pt was not taking care of herself and was often covered in feces She was supposed to be at a rehab in [place] for alcohol However, pt was transported from a local [facility] to the hospital Per RN she has been refusing to eat Pt minimally answering my questions (Caryl Rutherford) Objective Vitals I&O Vital Signs Date Time Temp Pulse Resp B/P (MAP) Pulse Ox O2 Delivery O2 Flow Rate FiO2 01/07/18 07:58 98.2 66 16 145/66 (92) 92 01/07/18 05:54 98.3 71 18 134/64 (87) 94 01/07/18 03:27 98.3 70 15 147/70 (95) 92 01/06/18 20:57 98.0 75 16 140/60 (86) 92 01/06/18 16:05 98.0 65 16 140/63 (88) 92 I/O 01/06/18 01/06/18 01/06/18 01/07/18 01/07/18 01/07/18 07:00 15:00 23:00 07:00 15:00 23:00 Intake Total 700 ml Balance 700 ml Other 700 ml Laboratory Laboratory Tests Test 01/07/18 06:29 White Blood Count 8.7 Red Blood Count 4.10 Hemoglobin 10.9 Hematocrit 32.2 Mean Corpuscular Volume 78.7 Mean Corpuscular Hemoglobin 26.5 Mean Corpuscular Hemoglobin Concent 33.7 Red Cell Distribution Width 16.8 Platelet Count 496 Mean Platelet Volume 8.2 Neutrophils (%) (Auto) 76.0 Lymphocytes (%) (Auto) 10.0 Monocytes (%) (Auto) 7.2 Eosinophils (%) (Auto) 6.0 Basophils (%) (Auto) 0.8 Neutrophils # (Auto) 6.6 Lymphocytes # (Auto) 0.9 Monocytes # (Auto) 0.6 Eosinophils # (Auto) 0.5 Basophils # (Auto) 0.1 CBC Comment DIFF FINAL Differential Comment Date/Time Source Procedure Growth Status 01/04/18 08:45 Stool Stool Cryptosporidium Exam Pending Received 01/04/18 08:45 Stool Stool Giardia Antigen (AIXA) Pending Received Imaging Last Impressions Abdomen/Pelvis CT 01/05/18 0000 Signed Impressions: Service Date/Time: Friday, January 05, 2018 13:31 - CONCLUSION: 1. Small bilateral pleural effusions with mild distal airway disease at the lung bases. 2. Previous amandeep fixation proximal left femur. Colonic diverticula without evidence for diverticulitis. Dallas Barragan MD Physical Exam HEENT: Normocephalic; atraumatic CHEST: Even/unlabored CARDIAC: RRR Abdomen: Soft, nondistended, nontender, bowel sounds active MOISTURE METER OPERATOR: No focal deficits; alert and oriented times three. (Caryl Rutherford) Assessment and Plan Plan Assessment: - Diarrhea- States for a few days prior to arrival. However RN spoke with daughter who states that pt was having issues with incontinence and was not taking care of herself and would be covered in feces. C. Diff negative. Ova and parasites pending. Will add enteric pathogen stool culture. S/P colonoscopy (01/06)- --> Cecal AVMs. Ascending colon erythema. Colon polyps. Diverticulosis. Internal and external hemorrhoids. - Dysphagia- S/P EGD (01/06) --> Esophageal stricture. Esophagitis. Hiatal hernia. - Poor PO intake- Per RN pt is refusing to eat - ETOH abuse- pt was supposed to be in a rehab in [place]? however she state she is currently living in a hotel in [facility], unclear when last ETOH drink was CT abdomen and pelvis WO IV contrast (01/05) --> Colonic diverticula without evidence for diverticulitis. Plan Encourage PO intake Stool enteric pathogens Probiotics Start Cholestyramine EGD/colon biopsies pending Monitor stool count Alcohol withdraw per attending Further recommendations based on clinical course Pt has been seen and examined by myself and Dr. Nunn and this note is written on his behalf (Caryl Rutherford) Physician Comments Seen and examined Agree with above Continue with current supportive care Monitor labs (Mandeep Nunn MD) Caryl Rutherford Jan 07, 2018 10:37 Mandeep Nunn MD Jan 07, 2018 22:04
[2018-01-07 12:15] VITALS: BP 164/76; PULSE 62; RESP 16; TEMP 98.7; O2SAT 92
[2018-01-07 16:00] VITALS: BP 135/65; PULSE 63; RESP 16; TEMP 98.1; O2SAT 94
--- NOTE | 2018-01-07 18:41 | HHI.PR ---
Subjective Remarks She says the diarrhea continues. Denies any chest pain or shortness of breath. Objective Vital Signs Date Time Temp Pulse Resp B/P (MAP) Pulse Ox O2 Delivery O2 Flow Rate FiO2 01/07/18 16:00 98.1 63 16 135/65 (88) 94 01/07/18 12:15 98.7 62 16 164/76 (105) 92 01/07/18 07:58 98.2 66 16 145/66 (92) 92 01/07/18 05:54 98.3 71 18 134/64 (87) 94 01/07/18 03:27 98.3 70 15 147/70 (95) 92 01/06/18 20:57 98.0 75 16 140/60 (86) 92 I/O 01/06/18 01/06/18 01/06/18 01/07/18 01/07/18 01/07/18 07:00 15:00 23:00 07:00 15:00 23:00 Intake Total 700 ml Balance 700 ml Other 700 ml Result Diagram: 01/07/18 0629 01/05/18 0605 Objective Remarks GENERAL: Patient sitting up in bed. Appears comfortable. Oriented to place, not to year. As before SKIN: Warm and dry. HEAD: Normocephalic. EYES: No scleral icterus. No injection or drainage. NECK: Supple, trachea midline. No JVD. CARDIOVASCULAR: Regular rate and rhythm without murmurs, gallops, or rubs. RESPIRATORY: Breath sounds equal bilaterally. No accessory muscle use. GASTROINTESTINAL: Abdomen soft, non-tender, nondistended. MUSCULOSKELETAL: No cyanosis, or edema. BACK: Nontender without obvious deformity. No CVA tenderness. A/P Assessment and Plan //Diarrhea: reports watery diarrhea x3 days, no diarrhea while in ER. C diff/ stool studies pending. WBC 12. S/p Flagyl in ER, will continue w/ empiric treatment on Flagyl 500mg po tid. = Diarrhea continues. Negative C. difficile. Continue antibiotics. Follow-up stool cryptosporidium and Giardia. Consult gastroenterology. = Continues. Gastroenterology following. Appreciate assistance. Plan for endoscopy tomorrow. CT abdomen and pelvis read pending. =endoscopy with a Senning colitis. Continue management as per GI. Cryptosporidium and Giardia PCR pending. Who = Diarrhea continues. GI following. Starting cholestyramine. If diarrhea can be controlled, hopefully can discharge to SNF. Difficult discharge. Appreciate case management assistance. Will check stool ova and parasites //esophageal stricture status post dilation on 01/06. Follow-up GI as outpatient //Dehydration: secondary to above, IVF for hydration. Check U/a to eval for underlying UTI. Repeat labs in am. = Improved. Continue IV fluids. //Alcohol Abuse: Daughter reports chronic alcohol abuse, pt denies. CIWA, Seizure Precautions, MVT/Thiamine/Folate replacement. = No signs of withdrawal. = Patient received single dose of Ativan today for self-reported anxiety as per my discussion with nurse. Will stop CIWAprotocol //Suspected chronic dementia. Patient unable to take care of self. Will go back to daughter's house. Diarrhea has made mass in multiple hotel rooms. Hopefully can get diarrhea control and discharge to SNF. //DVT Prophylaxis: SCD/Teds. Discharge Planning still diarrhea. Patient cannot be discharged home due to dementia. Cannot go home with daughter due social issues. Case management following. Appreciate assistance. Davian Seaman MD Jan 07, 2018 18:41
[2018-01-07 20:22] VITALS: BP 133/65; PULSE 69; RESP 16; TEMP 98.8; O2SAT 96
[2018-01-07] MEDS: CHOLESTYRAMINE 4 GM PACKET PO SCH (21:00)
[2018-01-07] MEDS: ZOLPIDEM TARTRATE 5 MG TAB PO PRN (22:02)
[2018-01-08] VITALS (7 sets, daily range): BP systolic 139–164; BP diastolic 64–96; PULSE 66–78; RESP 16; TEMP 98–99.1; O2SAT 92–96
[2018-01-08] MEDS: SODIUM CHLOR 0.9% 1000 ML INJ 1,000 ML IV SCH ×3 (02:41→21:16)
[2018-01-08] MEDS: metroNIDAZOLE 500 MG TAB PO SCH ×3 (06:03→21:12)
[2018-01-08] MEDS: CHOLESTYRAMINE 4 GM PACKET PO SCH ×2 (08:29→21:00)
[2018-01-08] MEDS: DOCUSATE SODIUM 50 MG/SENNA 8.6 MG TAB PO SCH ×2 (08:30→21:00)
[2018-01-08] MEDS: SERTRALINE HCL 50 MG TAB PO SCH (08:31)
[2018-01-08] MEDS: LACTOBACILLUS ACIDOPHILUS TAB PO SCH (08:31)
[2018-01-08] MEDS: SODIUM CHLORIDE 0.9% FLUSH 10 ML FLUSH IV FLUSH SCH ×2 (08:31→21:00)
--- NOTE | 2018-01-08 09:07 | HHI.GIFU ---
Subjective Remarks Pt resting in bed in NAD. c/o of nausea and diarrhea still. "I just want to be left alone." (Joanna Mark [facility]) Objective Vitals I&O Vital Signs Date Time Temp Pulse Resp B/P (MAP) Pulse Ox O2 Delivery O2 Flow Rate FiO2 01/08/18 08:19 99.1 70 16 148/70 (96) 96 01/08/18 03:51 98.3 66 16 146/96 (113) 93 01/08/18 00:05 98.8 78 16 161/83 (109) 95 01/07/18 20:22 98.8 69 16 133/65 (87) 96 01/07/18 16:00 98.1 63 16 135/65 (88) 94 01/07/18 12:15 98.7 62 16 164/76 (105) 92 Laboratory Date/Time Source Procedure Growth Status 01/04/18 08:45 Stool Stool Cryptosporidium Exam - Final NEGATIVE - NO CRYPTOSPORIDIUM ANTIGEN... Complete 01/04/18 08:45 Stool Stool Giardia Antigen (AIXA) - Final NEGATIVE - NO GIARDIA ANTIGEN DETECTE... Complete Imaging Last Impressions Abdomen/Pelvis CT 01/05/18 0000 Signed Impressions: Service Date/Time: Friday, January 05, 2018 13:31 - CONCLUSION: 1. Small bilateral pleural effusions with mild distal airway disease at the lung bases. 2. Previous amandeep fixation proximal left femur. Colonic diverticula without evidence for diverticulitis. Dallas Barragan MD Physical Exam HEENT: Normocephalic; atraumatic CHEST: Even/unlabored CARDIAC: RRR Abdomen: Soft, nondistended, nontender, bowel sounds active POSTAGE MACHINE OPERATOR: No focal deficits; alert and oriented times three. (Joanna Mark [facility]) Assessment and Plan Plan Assessment: - Diarrhea- States for a few days prior to arrival. However RN spoke with daughter who states that pt was having issues with incontinence and was not taking care of herself and would be covered in feces. C. Diff negative. Ova and parasites pending. Will add enteric pathogen stool culture. S/P colonoscopy (01/06)- --> Cecal AVMs. Ascending colon erythema. Colon polyps. Diverticulosis. Internal and external hemorrhoids. - Dysphagia- S/P EGD (01/06) --> Esophageal stricture. Esophagitis. Hiatal hernia. - Poor PO intake- Per RN pt is refusing to eat - ETOH abuse- pt was supposed to be in a rehab in [place]? however she state she is currently living in a hotel in [facility], unclear when last ETOH drink was CT abdomen and pelvis WO IV contrast (01/05) --> Colonic diverticula without evidence for diverticulitis. 01/08/18 still with diarrhea, nausea. stool studies pending. bx pending. Plan Encourage PO intake await Stool enteric pathogens Probiotics continue cholestyramine await EGD/colon biopsies supportive care Pt has been seen and examined by myself and Dr. Nunn and this note is written on his behalf (Joanna Mark) Physician Comments Patient seen and examined Agree with above Continue with current supportive care Monitor labs May use Lomotil or Imodium so as to slow down the diarrhea and obviously need to avoid laxatives (Mandeep Nunn MD) Joanna Mark Jan 08, 2018 09:07 Mandeep Nunn MD Jan 08, 2018 23:42
--- NOTE | 2018-01-08 16:28 | HHI.PR ---
Subjective Remarks Patient says the diarrhea continues. Denies any chest pain or shortness of breath. Says she is very anxious, Zoloft helped her in the past, she would like to restart it. Objective Vital Signs Date Time Temp Pulse Resp B/P (MAP) Pulse Ox O2 Delivery O2 Flow Rate FiO2 01/08/18 15:35 98.3 67 16 139/68 (91) 92 01/08/18 12:30 98.0 78 16 164/67 (99) 95 01/08/18 08:19 99.1 70 16 148/70 (96) 96 01/08/18 03:51 98.3 66 16 146/96 (113) 93 01/08/18 00:05 98.8 78 16 161/83 (109) 95 01/07/18 20:22 98.8 69 16 133/65 (87) 96 I/O 01/07/18 01/07/18 01/07/18 01/08/18 01/08/18 01/08/18 07:00 15:00 23:00 07:00 15:00 23:00 # Voids 1 # Bowel Movements 1 Result Diagram: 01/07/18 0629 01/05/18 0605 Objective Remarks GENERAL: Patient sitting up in bed. Appears comfortable. Oriented to place, not to year. No change from previously SKIN: Warm and dry. HEAD: Normocephalic. EYES: No scleral icterus. No injection or drainage. NECK: Supple, trachea midline. No JVD. CARDIOVASCULAR: Regular rate and rhythm without murmurs, gallops, or rubs. RESPIRATORY: Breath sounds equal bilaterally. No accessory muscle use. GASTROINTESTINAL: Abdomen soft, non-tender, nondistended. MUSCULOSKELETAL: No cyanosis, or edema. BACK: Nontender without obvious deformity. No CVA tenderness. A/P Assessment and Plan //Diarrhea: reports watery diarrhea x3 days, no diarrhea while in ER. C diff/ stool studies pending. WBC 12. S/p Flagyl in ER, will continue w/ empiric treatment on Flagyl 500mg po tid. = Diarrhea continues. Negative C. difficile. Continue antibiotics. Follow-up stool cryptosporidium and Giardia. Consult gastroenterology. = Continues. Gastroenterology following. Appreciate assistance. Plan for endoscopy tomorrow. CT abdomen and pelvis read pending. =endoscopy with a Senning colitis. Continue management as per GI. Cryptosporidium and Giardia PCR pending. Who = Diarrhea continues. GI following. Starting cholestyramine. If diarrhea can be controlled, hopefully can discharge to SNF. Difficult discharge. Appreciate case management assistance. Will check stool ova and parasites //esophageal stricture status post dilation on 01/06. Follow-up GI as outpatient //Dehydration: secondary to above, IVF for hydration. Check U/a to eval for underlying UTI. Repeat labs in am. = Improved. Continue IV fluids. //Alcohol Abuse: Daughter reports chronic alcohol abuse, pt denies. CIWA, Seizure Precautions, MVT/Thiamine/Folate replacement. = No signs of withdrawal. = Patient received single dose of Ativan today for self-reported anxiety as per my discussion with nurse. Will stop CIWAprotocol /Depression. Patient does appears somewhat anxious with flat affect. Will restart Zoloft //Suspected chronic dementia. Patient unable to take care of self. Will go back to daughter's house. Diarrhea has made mass in multiple hotel rooms. Hopefully can get diarrhea control and discharge to SNF. //DVT Prophylaxis: SCD/Teds. Discharge Planning still diarrhea. Patient cannot be discharged home due to dementia. Cannot go home with daughter due social issues. Case management following. Appreciate assistance. Davian Seaman MD Jan 08, 2018 16:28
[2018-01-08] MEDS: ALPRAZolam 0.25 MG TAB PO PRN (16:55)
[2018-01-08] MEDS: ZOLPIDEM TARTRATE 5 MG TAB PO PRN (21:12)
[2018-01-09 03:23] VITALS: BP 126/58; PULSE 65; RESP 16; TEMP 98.6; O2SAT 94
[2018-01-09] MEDS: metroNIDAZOLE 500 MG TAB PO SCH ×2 (06:51→13:26)
[2018-01-09 07:23] VITALS: BP 136/63; PULSE 60; RESP 18; TEMP 98.7; O2SAT 94
[2018-01-09] MEDS: SODIUM CHLOR 0.9% 1000 ML INJ 1,000 ML IV SCH (08:41)
[2018-01-09] MEDS: CHOLESTYRAMINE 4 GM PACKET PO SCH (09:00)
[2018-01-09] MEDS: DOCUSATE SODIUM 50 MG/SENNA 8.6 MG TAB PO SCH (09:00)
[2018-01-09] MEDS: LACTOBACILLUS ACIDOPHILUS TAB PO SCH (09:47)
[2018-01-09] MEDS: SODIUM CHLORIDE 0.9% FLUSH 10 ML FLUSH IV FLUSH SCH (09:47)
[2018-01-09] MEDS: SERTRALINE HCL 50 MG TAB PO SCH (09:47)
[2018-01-09] MEDS: ALPRAZolam 0.25 MG TAB PO PRN (09:51)
--- NOTE | 2018-01-09 10:02 | HHI.GIFU ---
Subjective Remarks Resting in the bed watching TV early a.m. States she is still going to bedside commode with loose diarrhea stools but is showing some gradual improvement Doesn't know exactly how many stools in the past 24 hours but still greater than 5 patient states Afebrile Still has some mild mid abdominal discomfort (Adela Villegas) Objective Vitals I&O Vital Signs Date Time Temp Pulse Resp B/P (MAP) Pulse Ox O2 Delivery O2 Flow Rate FiO2 01/09/18 07:23 98.7 60 18 136/63 (87) 94 01/09/18 03:23 98.6 65 16 126/58 (80) 94 01/08/18 23:23 98.4 67 16 156/74 (101) 93 01/08/18 20:52 98.4 69 16 140/64 (89) 95 01/08/18 15:35 98.3 67 16 139/68 (91) 92 01/08/18 12:30 98.0 78 16 164/67 (99) 95 I/O 01/08/18 01/08/18 01/08/18 01/09/18 01/09/18 01/09/18 07:00 15:00 23:00 07:00 15:00 23:00 # Voids 1 1 # Bowel Movements 1 Laboratory Date/Time Source Procedure Growth Status 01/08/18 21:22 Stool Stool Cryptosporidium Exam Pending Received 01/08/18 21:22 Stool Stool Giardia Antigen (AIXA) Pending Received Imaging Last Impressions Abdomen/Pelvis CT 01/05/18 0000 Signed Impressions: Service Date/Time: Friday, January 05, 2018 13:31 - CONCLUSION: 1. Small bilateral pleural effusions with mild distal airway disease at the lung bases. 2. Previous amandeep fixation proximal left femur. Colonic diverticula without evidence for diverticulitis. Dallas Barragan MD Physical Exam HEENT: Normocephalic; atraumatic CHEST: Even/unlabored CARDIAC: RRR Abdomen: Soft, nondistended, nontender, bowel sounds active FINISH OFF OPERATOR: No focal deficits; alert and oriented times three. (Adela Villegas) Assessment and Plan Plan Assessment: - Diarrhea- States for a few days prior to arrival. However RN spoke with daughter who states that pt was having issues with incontinence and was not taking care of herself and would be covered in feces. C. Diff negative. Ova and parasites pending. Will add enteric pathogen stool culture. S/P colonoscopy (01/06)- --> Cecal AVMs. Ascending colon erythema. Colon polyps. Diverticulosis. Internal and external hemorrhoids. - Dysphagia- S/P EGD (01/06) --> Esophageal stricture. Esophagitis. Hiatal hernia. - Poor PO intake- Per RN pt is refusing to eat - ETOH abuse- pt was supposed to be in a rehab in [place]? however she state she is currently living in a hotel in [facility], unclear when last ETOH drink was CT abdomen and pelvis WO IV contrast (01/05) --> Colonic diverticula without evidence for diverticulitis. 01/08/18 still with diarrhea, nausea. stool studies pending. bx pending. 01/09/18, patient continues greater than 5 diarrhea stools a day she states, getting up to bedside commode. Still has some mid abdominal discomfort but does state gradual improvement. Current hemoglobin 10.9 without obvious bleeding. Stool studies negative for pathogens. Mild gradual improvement with abdominal pain and diarrhea. Plan Encourage PO intake and diet Probiotics continue cholestyramine Anti-emetics Flagyl await EGD/colon biopsies supportive care Monitor hemoglobin and labs Pt has been seen and examined by myself and Dr. Nunn and this note is written on his behalf (Adela Villegas) Physician Comments Patient seen and examined Agree with above Monitor labs I did stop all her laxatives I am starting Imodium for diarrhea Her biopsies are basically unremarkable as far as cause for diarrhea the polyps were benign Continue with current supportive care (Mandeep Nunn MD) Adela Villegas Jan 09, 2018 10:02 Mandeep Nunn MD Jan 09, 2018 15:33
[2018-01-09 13:16] VITALS: BP 169/72; PULSE 58; RESP 16; TEMP 98.1; O2SAT 95
[2018-01-09] MEDS ORDERED: LOPERAMIDE HCL 2 MG CAP PO PRN (13:30)
[2018-01-09] MEDS ORDERED: ALPR.25 PO ×2 (13:59→14:18)
[2018-01-09] MEDS ORDERED: LISI-515 PO ×2 (13:59→14:18)
[2018-01-09] MEDS ORDERED: LOPE2CAP2 PO ×2 (13:59→14:18)
[2018-01-09] MEDS ORDERED: VITA100T54 PO ×2 (14:03→14:18)
--- NOTE | 2018-01-09 14:10 | HHI.PR ---
Subjective Remarks She is feeling well. Reports diarrhea is improving. Objective Vital Signs Date Time Temp Pulse Resp B/P (MAP) Pulse Ox O2 Delivery O2 Flow Rate FiO2 01/09/18 13:16 98.1 58 16 169/72 (104) 95 01/09/18 07:23 98.7 60 18 136/63 (87) 94 01/09/18 03:23 98.6 65 16 126/58 (80) 94 01/08/18 23:23 98.4 67 16 156/74 (101) 93 01/08/18 20:52 98.4 69 16 140/64 (89) 95 01/08/18 15:35 98.3 67 16 139/68 (91) 92 I/O 01/08/18 01/08/18 01/08/18 01/09/18 01/09/18 01/09/18 07:00 15:00 23:00 07:00 15:00 23:00 # Voids 1 1 # Bowel Movements 1 Result Diagram: 01/07/18 0629 01/05/18 0605 Objective Remarks GENERAL: Patient sitting up in bed. Appears comfortable. Patient alert and oriented 4. Oriented to date, year SKIN: Warm and dry. HEAD: Normocephalic. EYES: No scleral icterus. No injection or drainage. NECK: Supple, trachea midline. No JVD. CARDIOVASCULAR: Regular rate and rhythm without murmurs, gallops, or rubs. RESPIRATORY: Breath sounds equal bilaterally. No accessory muscle use. GASTROINTESTINAL: Abdomen soft, non-tender, nondistended. MUSCULOSKELETAL: No cyanosis, or edema. BACK: Nontender without obvious deformity. No CVA tenderness. A/P Assessment and Plan //Diarrhea: reports watery diarrhea x3 days, no diarrhea while in ER. C diff/ stool studies pending. WBC 12. S/p Flagyl in ER, will continue w/ empiric treatment on Flagyl 500mg po tid. = Diarrhea continues. Negative C. difficile. Continue antibiotics. Follow-up stool cryptosporidium and Giardia. Consult gastroenterology. = Continues. Gastroenterology following. Appreciate assistance. Plan for endoscopy tomorrow. CT abdomen and pelvis read pending. =endoscopy with a Senning colitis. Continue management as per GI. Cryptosporidium and Giardia PCR pending. Who = Diarrhea continues. GI following. Starting cholestyramine. If diarrhea can be controlled, hopefully can discharge to SNF. Difficult discharge. Appreciate case management assistance. Will check stool ova and parasites = Failure improved on loperamide and cholestyramine. GI assistance appreciated. //esophageal stricture status post dilation on 01/06. Follow-up GI as outpatient //Dehydration: secondary to above, IVF for hydration. Check U/a to eval for underlying UTI. Repeat labs in am. = Improved. Continue IV fluids. //Alcohol Abuse: Daughter reports chronic alcohol abuse, pt denies. CIWA, Seizure Precautions, MVT/Thiamine/Folate replacement. = No signs of withdrawal. = Patient received single dose of Ativan today for self-reported anxiety as per my discussion with nurse. Will stop CIWAprotocol /Depression. Patient does appears somewhat anxious with flat affect. Will restart Zoloft //Suspected chronic dementia. Patient unable to take care of self. Will go back to daughter's house. Diarrhea has made mess in multiple hotel rooms. Hopefully can get diarrhea control and discharge to SNF. = Patient is oriented 4. Likely some degree of vitamin deficiency which has improved. Thiamine. //DVT Prophylaxis: SCD/Teds. Discharge Planning Dementia has improved. Diarrhea has improved. Discharge. Davian Seaman MD Jan 09, 2018 14:10
[2018-01-09] MEDS ORDERED: CHOL4POW3 PO ×2 (14:15→14:18)
[2018-01-09] MEDS ORDERED: ZOLO25TA PO (14:18)
--- NOTE | 2018-01-09 14:21 | HHI.DS ---
Discharge Summary Admission Date Jan 03, 2018 at 22:30 Discharge Date: Jan 09, 2018 Admitting Diagnosis r/o c difficile (1) Diarrhea ICD Code: R19.7 - Diarrhea, unspecified (2) Dehydration ICD Code: E86.0 - Dehydration (3) Alcohol abuse ICD Code: F10.10 - Alcohol abuse, uncomplicated Brief History - From Admission This is a 77-year-old female with a PMH of Anxiety, HTN and Alcohol Abuse who presented to the ER with complaints of watery diarrhea and abdominal pain x3 days. Pt poor historian, difficult to obtain history from, but states she was recently admitted to a Hospital in [place], however does not believe she was on antibiotics. Has been having approx 10 episodes of watery diarrhea per day. No nausea or vomiting. Reports generalized abdominal pain, non-radiating, no alleviating factors. On arrival, BP 103/55, HR 83, O2 sat 91% on RA, Afebrile. WBC 12.9. Chemistry unremarkable except for AG 17. LFTs normal. No further episodes of diarrhea while in the ER. s/p Flagyl PO. Daughter from out of state relayed pt w/ h/o chronic alcohol abuse, recently discharged from Hospital and living in a Hotel in [facility], however pt decided to leave there and called EMS. Currently homeless. Daughter concerned as pt unable to care for self. CBC/BMP: 01/07/18 0629 01/05/18 0605 Significant Findings Laboratory Tests Test 01/07/18 06:29 Hemoglobin 10.9 GM/DL (11.6-15.3) Hematocrit 32.2 % (35.0-46.0) Mean Corpuscular Volume 78.7 FL (80.0-100.0) Mean Corpuscular Hemoglobin 26.5 PG (27.0-34.0) Platelet Count 496 TH/MM3 (150-450) Neutrophils (%) (Auto) 76.0 % (16.0-70.0) Eosinophils (%) (Auto) 6.0 % (0.0-4.0) Lymphocytes # (Auto) 0.9 TH/MM3 (1.0-4.8) Eosinophils # (Auto) 0.5 TH/MM3 (0-0.4) Imaging Last Impressions Abdomen/Pelvis CT 01/05/18 0000 Signed Impressions: Service Date/Time: Friday, January 05, 2018 13:31 - CONCLUSION: 1. Small bilateral pleural effusions with mild distal airway disease at the lung bases. 2. Previous amandeep fixation proximal left femur. Colonic diverticula without evidence for diverticulitis. Dallas Barragan MD Hospital Course //Diarrhea: reports watery diarrhea x3 days, no diarrhea while in ER. C diff/ stool studies pending. WBC 12. S/p Flagyl in ER, will continue w/ empiric treatment on Flagyl 500mg po tid. = Diarrhea continues. Negative C. difficile. Continue antibiotics. Follow-up stool cryptosporidium and Giardia. Consult gastroenterology. = Continues. Gastroenterology following. Appreciate assistance. Plan for endoscopy tomorrow. CT abdomen and pelvis read pending. =endoscopy with a Senning colitis. Continue management as per GI. Cryptosporidium and Giardia PCR pending. Who = Diarrhea continues. GI following. Starting cholestyramine. If diarrhea can be controlled, hopefully can discharge to SNF. Difficult discharge. Appreciate case management assistance. Will check stool ova and parasites = Failure improved on loperamide and cholestyramine. GI assistance appreciated. //esophageal stricture status post dilation on 01/06. Follow-up GI as outpatient //Dehydration: secondary to above, IVF for hydration. Check U/a to eval for underlying UTI. Repeat labs in am. = Improved. Continue IV fluids. //Alcohol Abuse: Daughter reports chronic alcohol abuse, pt denies. CIWA, Seizure Precautions, MVT/Thiamine/Folate replacement. = No signs of withdrawal. = Patient received single dose of Ativan today for self-reported anxiety as per my discussion with nurse. Will stop CIWAprotocol /Depression. Patient does appears somewhat anxious with flat affect. Will restart Zoloft //Suspected chronic dementia. Patient unable to take care of self. Will go back to daughter's house. Diarrhea has made mess in multiple hotel rooms. Hopefully can get diarrhea control and discharge to SNF. = Patient is oriented 4. Likely some degree of vitamin deficiency which has improved. Thiamine. //DVT Prophylaxis: SCD/Teds. Discharge Planning Dementia has improved. Diarrhea has improved. Discharge. Pt Condition on Discharge: Good Discharge Disposition: Discharge Home Discharge Time: > 30 minutes Discharge Instructions DIET: Follow Instructions for: As Tolerated, No Restrictions Activities you can perform: Regular-No Restrictions Follow up Referrals: Gastroenterology - 1 Week with Mandeep Nunn MD PCP Follow-up - 1 Week New Medications: Cholestyramine (Cholestyramine) 4 Gm/Dose Powd 4 GM PO BID for Dyslipidemia, #1 CAN 0 Refills 1 level scoopful of powder contains 4 grams of cholestyramine. Thiamine (Vitamin B-1) 100 Mg Tab 100 MG PO DAILY for Nutritional Supplement for 30 Days, #30 TAB 0 Refills Alprazolam (Xanax) 0.25 Mg Tab 0.25 MG PO Q8H PRN for ANXIETY for 30 Days, #20 TAB Loperamide HCl (Hm Loperamide HCl) 2 Mg Cap 2 MG PO Q6H PRN for diarrhea for 30 Days, #120 CAP Changed Medications: Lisinopril (Lisinopril) 20 Mg Tab 20 MG PO DAILY for 30 Days, #30 TAB 0 Refills (Medication details modified) Sertraline (Zoloft) 25 Mg Tab 25 MG PO DAILY for Depression Control, #30 TAB 0 Refills (Medication details modified) Davian Seaman MD Jan 09, 2018 14:21
== END 2018-01-09 17:43 | disposition home or self-care (01) ==
LOC: NEPE 17:01 → NEDA 22:30 → NEPGCP 23:32
PROVIDERS: ADMIT Internal Medicine; ATTEND Internal Medicine
DX: R19.7 Diarrhea, unspecified (principal); E86.0 Dehydration; F10.10 Alcohol abuse, uncomplicated; K22.2 Esophageal obstruction; K20.9 Esophagitis, unspecified; K44.9 Diaphragmatic hernia without obstruction or gangrene; K63.5 Polyp of colon; K55.20 Angiodysplasia of colon without hemorrhage; K57.90 Diverticulosis of intestine, part unspecified, without perforation or abscess without bleeding; K64.4 Residual hemorrhoidal skin tags; K64.8 Other hemorrhoids; D64.9 Anemia, unspecified; E56.9 Vitamin deficiency, unspecified; I10 Essential (primary) hypertension; F41.9 Anxiety disorder, unspecified
CPT/HCPCS: 00813; 43239; 43248; 45380; 45385; 74176; 80053; 80069; 81001; 83735; 85025; 87328; 87329; 87493; 87506; 88305; 88312; 93005; 96361; 96374; 97161; 99285; C1769; G0378; G8987; G8988; J2060; J2405; J7030; J7120; Q9963

== ENCOUNTER 2018-01-10 18:46 | Inpatient (IN) | payer MEDICARE ==
[~2018-01-10] VITALS: Ht 162.6 cm; Wt 46.5 kg
[~2018-01-10 18:46] MED LIST changes: +ALPR.25 PO; +CHOL4POW3 PO; +LISI-515 PO; +LOPE2CAP2 PO; +VITA100T54 PO; -Z.0.NO CURRENT MEDS; +ZOLO25TA PO
[2018-01-10 19:22] VITALS: BP 99/55; PULSE 72; RESP 17; TEMP 98.4; O2SAT 95
--- NOTE | 2018-01-10 20:28 | PD ---
HPI Chief Complaint: Psychiatric Symptoms Time Seen by Provider: 19:14 Travel History International Travel<30 days: No Contact w/Intl Traveler<30days: No Traveled to known affect area: No History of Present Illness HPI Patient is a 77 -year-old female presenting to the emergency department under Valadez act for psychiatric evaluation. Patient was found disoriented, it was assumed that she had been drinking. She reported that she wanted to . Patient continues to state that she wants to and that nobody cares about her. She denies any drug or alcohol use. She states that she has not been eating or drinking because she does not feel like it. She has been having several episodes of loose stools. She is not forthcoming with any further information. [facility] Past Medical History Anxiety: Yes Depression: Yes Gastrointestinal Disorders: Yes (chronic diarrhea) Hypertension: Yes Psychiatric: Yes Tetanus Vaccination: Unknown Past Surgical History Abdominal Surgery: Yes (APPENDECTOMY) Appendectomy: Yes Section: Yes (X2) Oral Surgery: Yes Other Surgery: Yes (breast augmentation) Social History Alcohol Use: Yes ("WINE") Tobacco Use: No Substance Use: No Allergies-Medications (Allergen,Severity, Reaction): Coded Allergies: penicillin G (Verified Adverse Reaction, Severe, Nausea/Vomiting, 01/10/18) Reported Meds & Prescriptions Reported Meds & Active Scripts Active Cholestyramine 4 Gm/Dose Powd 4 Gm PO BID 1 level scoopful of powder contains 4 grams of cholestyramine. Vitamin B-1 (Thiamine HCl) 100 Mg Tab 100 Mg PO DAILY 30 Days Xanax (Alprazolam) 0.25 Mg Tab 0.25 Mg PO Q8H PRN 30 Days Hm Loperamide HCl (Loperamide HCl) 2 Mg Cap 2 Mg PO Q6H PRN 30 Days Lisinopril 20 Mg Tab 20 Mg PO DAILY 30 Days Zoloft (Sertraline HCl) 25 Mg Tab 25 Mg PO DAILY Review of Systems ROS Limitations: Refused Except as stated in HPI: all other systems reviewed are Neg Psychiatric: Positive: Depression, Suicidal Ideations Physical Exam Narrative GENERAL: Disheveled, thin elderly female. In no acute distress. SKIN: Warm and dry. Mild erythema to bilateral buttocks HEAD: Atraumatic. Normocephalic. EYES: Pupils equal and round. No scleral icterus. No injection or drainage. ENT: No nasal bleeding or discharge. Mucous membranes pink and moist. NECK: Trachea midline. No JVD. CARDIOVASCULAR: Regular rate and rhythm. RESPIRATORY: No accessory muscle use. Clear to auscultation. Breath sounds equal bilaterally. GASTROINTESTINAL: Abdomen soft, non-tender, nondistended. Hepatic and splenic margins not palpable. MUSCULOSKELETAL: Extremities without clubbing, cyanosis, or edema. No obvious deformities. NEUROLOGICAL: Awake and alert. No obvious cranial nerve deficits. Motor grossly within normal limits. Five out of 5 muscle strength in the arms and legs. Normal speech. PSYCHIATRIC: Depressed mood and flat affect Data Data Last Documented VS Vital Signs Date Time Temp Pulse Resp B/P (MAP) Pulse Ox O2 Delivery O2 Flow Rate FiO2 01/10/18 19:22 98.4 72 17 99/55 (70) 95 Orders Orders Complete Blood Count With Diff (01/10/18 19:37) Comprehensive Metabolic Panel (01/10/18 19:37) Thyroid Stimulating Hormone (01/10/18 19:37) Psych Screen (01/10/18 19:37) Alcohol (Ethanol) (01/10/18 19:37) Salicylates (Aspirin) (01/10/18 19:37) Tylenol (Acetaminophen) (01/10/18 19:37) Labs Laboratory Tests Test 01/10/18 20:05 White Blood Count 10.3 TH/MM3 Red Blood Count 4.75 MIL/MM3 Hemoglobin 12.6 GM/DL Hematocrit 38.4 % Mean Corpuscular Volume 80.7 FL Mean Corpuscular Hemoglobin 26.4 PG Mean Corpuscular Hemoglobin Concent 32.7 % Red Cell Distribution Width 17.8 % Platelet Count 494 TH/MM3 Mean Platelet Volume 8.6 FL Neutrophils (%) (Auto) 78.7 % Lymphocytes (%) (Auto) 11.8 % Monocytes (%) (Auto) 7.3 % Eosinophils (%) (Auto) 1.2 % Basophils (%) (Auto) 1.0 % Neutrophils # (Auto) 8.1 TH/MM3 Lymphocytes # (Auto) 1.2 TH/MM3 Monocytes # (Auto) 0.8 TH/MM3 Eosinophils # (Auto) 0.1 TH/MM3 Basophils # (Auto) 0.1 TH/MM3 CBC Comment DIFF FINAL Differential Comment Blood Urea Nitrogen 4 MG/DL Creatinine 0.54 MG/DL Random Glucose 87 MG/DL Total Protein 7.1 GM/DL Albumin 3.0 GM/DL Calcium Level 7.9 MG/DL Alkaline Phosphatase 87 U/L Aspartate Amino Transf (AST/SGOT) 200 U/L Alanine Aminotransferase (ALT/SGPT) 50 U/L Total Bilirubin 0.3 MG/DL Sodium Level 132 MEQ/L Potassium Level 3.2 MEQ/L Chloride Level 100 MEQ/L Carbon Dioxide Level 17.4 MEQ/L Anion Gap 15 MEQ/L Estimat Glomerular Filtration Rate 109 ML/MIN Thyroid Stimulating Hormone 3rd Gen 1.440 uIU/ML Salicylates Level LESS THAN 1.7 MG/DL Acetaminophen Level LESS THAN 2.0 MCG/ML Ethyl Alcohol Level 312 MG/DL [facility] Medical Decision Making Medical Screen Exam Complete: Yes Emergency Medical Condition: Yes Medical Record Reviewed: Yes Interpretation(s) Laboratory Tests Test 01/10/18 20:05 White Blood Count 10.3 TH/MM3 Red Blood Count 4.75 MIL/MM3 Hemoglobin 12.6 GM/DL Hematocrit 38.4 % Mean Corpuscular Volume 80.7 FL Mean Corpuscular Hemoglobin 26.4 PG Mean Corpuscular Hemoglobin Concent 32.7 % Red Cell Distribution Width 17.8 % Platelet Count 494 TH/MM3 Mean Platelet Volume 8.6 FL Neutrophils (%) (Auto) 78.7 % Lymphocytes (%) (Auto) 11.8 % Monocytes (%) (Auto) 7.3 % Eosinophils (%) (Auto) 1.2 % Basophils (%) (Auto) 1.0 % Neutrophils # (Auto) 8.1 TH/MM3 Lymphocytes # (Auto) 1.2 TH/MM3 Monocytes # (Auto) 0.8 TH/MM3 Eosinophils # (Auto) 0.1 TH/MM3 Basophils # (Auto) 0.1 TH/MM3 CBC Comment DIFF FINAL Differential Comment Blood Urea Nitrogen 4 MG/DL Creatinine 0.54 MG/DL Random Glucose 87 MG/DL Total Protein 7.1 GM/DL Albumin 3.0 GM/DL Calcium Level 7.9 MG/DL Alkaline Phosphatase 87 U/L Aspartate Amino Transf (AST/SGOT) 200 U/L Alanine Aminotransferase (ALT/SGPT) 50 U/L Total Bilirubin 0.3 MG/DL Sodium Level 132 MEQ/L Potassium Level 3.2 MEQ/L Chloride Level 100 MEQ/L Carbon Dioxide Level 17.4 MEQ/L Anion Gap 15 MEQ/L Estimat Glomerular Filtration Rate 109 ML/MIN Thyroid Stimulating Hormone 3rd Gen 1.440 uIU/ML Salicylates Level LESS THAN 1.7 MG/DL Acetaminophen Level LESS THAN 2.0 MCG/ML Ethyl Alcohol Level 312 MG/DL Vital Signs Date Time Temp Pulse Resp B/P (MAP) Pulse Ox O2 Delivery O2 Flow Rate FiO2 01/10/18 19:22 98.4 72 17 99/55 (70) 95 Differential Diagnosis Dementia versus depression versus suicidal ideations versus metabolic abnormality versus intoxication versus other Narrative Course Patient presented under Valadez act for psychiatric evaluation after being found disoriented from suspected alcohol intoxication. Patient denies alcohol use. Discussed with case management. Patient was discharged from [facility] yesterday evening at 530, transport took her to a home in [place], nurse case management believes it was her daughter's home. She was not allowed into her daughter's home, the male at the residents gave patient an unknown amount of money and transport brought her back to the hospital lobby. She sat here for an unknown amount of time is uncertain where she went after that. Apparently she has been going from hotel to hotel, case management stated that she had allegedly been destroying hotel rooms. She has been having bowel movements in the room. Patient was admitted on 01/04/18 for diarrhea, dehydration and suspected alcohol abuse. Patient was placed on CIWA protocol however she never exhibited any signs of withdrawal according to discharge summary. Mental health screening discussed with the patient. Psychiatric screen ordered. Labs reviewed, CBC with no acute finding. Chemistry with a sodium of 132, potassium 3.2, AST 200, oral potassium replacement ordered. Alcohol level is 312. IV access and IV fluids ordered. Patient was initially refusing. Will attempt again. Patient is medically cleared for psychiatric evaluation at this time. Patient will likely need case management involvement for placement as she cannot care for herself. Diagnosis Primary Impression: Medical clearance for psychiatric admission Additional Impression: Suicidal ideation Condition: Stable Carrie Chinchilla Jan 10, 2018 20:28
[2018-01-10 20:47] LABS: AUTOMATED NEUTROPHIL # 8.1 TH/MM3 (1.8-7.7); BASOPHIL # 0.1 TH/MM3 (0-0.2); EOSINOPHIL # 0.1 TH/MM3 (0-0.4); EOSINOPHIL % 1.2 % (0.0-4.0); HEMATOCRIT 38.4 % (35.0-46.0); HEMOGLOBIN 12.6 GM/DL (11.6-15.3); LYMPH % 11.8 % (9.0-44.0); LYMPHOCYTE # 1.2 TH/MM3 (1.0-4.8); MEAN CELL VOLUME 80.7 FL (80.0-100.0); MEAN CORPUSCULAR HEMOGLOBIN 26.4 PG (27.0-34.0); MEAN CORPUSCULAR HGB CONC 32.7 % (32.0-36.0); MEAN PLATELET VOLUME 8.6 FL (7.0-11.0); MONO % 7.3 % (0.0-8.0); MONOCYTE # 0.8 TH/MM3 (0-0.9); NEUT % 78.7 % (16.0-70.0); PLATELET COUNT 494 TH/MM3 (150-450); RED BLOOD COUNT 4.75 MIL/MM3 (4.00-5.30); RED CELL DISTRIBUTION WIDTH 17.8 % (11.6-17.2); WHITE BLOOD COUNT 10.3 TH/MM3 (4.0-11.0)
[2018-01-10 21:15] LABS: AST (GOT) 200 U/L (15-37); BICARBONATE 17.4 MEQ/L (21.0-32.0); BLOOD UREA NITROGEN 4 MG/DL (7-18); CALCIUM 7.9 MG/DL (8.5-10.1); CHLORIDE 100 MEQ/L (98-107); CREATININE 0.54 MG/DL (0.50-1.00); GLOMERULAR FILTRATION RATE 109 ML/MIN (>89); GLUCOSE,RANDOM 87 MG/DL (74-106); SODIUM (NA) 132 MEQ/L (136-145)
[2018-01-10 21:16] LABS: ALT (GPT) 50 U/L (10-53)
[2018-01-10 21:26] LABS: ACETAMINOPHEN LESS THAN 2.0 MCG/ML (10.0-30.0); ALKALINE PHOSPHATASE 87 U/L (45-117); TOTAL BILIRUBIN ADULT 0.3 MG/DL (0.2-1.0); TOTAL PROTEIN 7.1 GM/DL (6.4-8.2)
[2018-01-10] MEDS ORDERED: POTASSIUM CHLORIDE 20 MEQ CONTROLLED RELEASE TAB PO ONE (21:45)
[2018-01-10] MEDS ORDERED: SODIUM CHLOR 0.9% 1000 ML INJ 1,000 ML IV ONE (22:00)
[2018-01-10] MEDS ORDERED: ZINC OXIDE 40% OINT 60 GM TUBE TOPICAL ONE (22:00)
[2018-01-10] MEDS ORDERED: POTASSIUM CHLOR 20 MEQ PREMIX 100 ML IV ONE (22:15)
[2018-01-11 04:00] VITALS: PULSE 84; RESP 16; O2SAT 94
[2018-01-11] MEDS ORDERED: LORazepam 0.5 MG TAB PO PRN (08:45)
[2018-01-11] MEDS ORDERED: LORazepam 2 MG/ML VIAL IM PRN ×2 (08:45)
[2018-01-11] MEDS ORDERED: FLUMAZENIL 0.5 MG/5 ML VIAL IV PUSH PRN (08:45)
[2018-01-11] MEDS ORDERED: LORazepam 2 MG/ML VIAL IV PUSH PRN ×4 (08:45)
[2018-01-11] MEDS ORDERED: ALUMINUM/MAGNESIUM/SIMETH 30 ML CUP PO PRN (08:45)
[2018-01-11] MEDS ORDERED: LORazepam 2 MG TAB PO PRN (08:45)
[2018-01-11] MEDS ORDERED: MAGNESIUM HYDROXIDE SUSP 30 ML CUP PO PRN (08:45)
[2018-01-11] MEDS ORDERED: LORazepam 1 MG TAB PO PRN (08:45)
[2018-01-11] MEDS ORDERED: NICOTINE 21 MG/24 HR PATCH T-DERMAL SCH (09:00)
[2018-01-11] MEDS: SERTRALINE HCL 50 MG TAB PO SCH (10:00)
[2018-01-11] MEDS: LISINOPRIL 20 MG TAB PO SCH (10:00)
[2018-01-11] MEDS: THIAMINE HCL 100 MG TAB PO SCH (10:00)
[2018-01-11 10:15] VITALS: BP 143/63
[2018-01-11 10:37] VITALS: BP 145/67; PULSE 80; RESP 18; TEMP 98; O2SAT 97
[2018-01-11] MEDS: LORazepam 1 MG TAB PO PRN (10:56)
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
--- NOTE | 2018-01-11 17:16 | PD.CONS ---
HPI Service [facility] Hospitalists Consult Requested By Ruben De La Cruz MD. Reason for Consult Medical management. Primary Care Physician Unknown Diagnoses: History of Present Illness This is a pleasant 77 y/o Female with Hypertension, Anxiety disorder, alcohol abuse, who was recently admitted due to Diarrhea, and Abdominal pain, She was discharged on January 09 2018, received Flagyl in emergency room, and continue Empiric management with Flagyl 500 mg TID, Negative C Diff, has Esophageal Stricture status post Dilation 01/06, Dehydration improved with IV fluids, has Depression, discharged on Cholestyramine, Thiamine, Alprazolam, Loperamide Admitted by Psychiatry specialist with Suspected Major Neurocognitive disorder with behavioral disturbance, Rule out alcohol induced major NCD, Neurodegenerative NCD, Pseudo-Dementia, cognitive impairment due to GMC, alcohol dependence the patient was brought in to ER under Valadez act, told officers she wanted to and was disoriented in an intoxicated state. Alcohol level on presentation here was 312. will need placement as per Psychiatry specialist, consulted Neuropsychology, also asked for head CT, RPR, HIV, hepatitis panel as well as B12, MMA, thiamine , RBC folate, ammonia level as part of a neurocognitive disorder workup. Check CMP. Review of Systems Constitutional: DENIES: Fever, Chills, Change in appetite Endocrine: DENIES: Heat/cold intolerance Eyes: DENIES: Blurred vision, Eye pain Except as stated in HPI: all other systems reviewed are Neg Past Family Social History Allergies: Coded Allergies: penicillin G (Verified Adverse Reaction, Severe, Nausea/Vomiting, 01/10/18) Past Medical History Anxiety disorder Hypertension Alcohol Abuse Past Surgical History Appendectomy C Section Reported Medications Reported Meds & Active Scripts Active Cholestyramine 4 Gm/Dose Powd 4 Gm PO BID 1 level scoopful of powder contains 4 grams of cholestyramine. Vitamin B-1 (Thiamine HCl) 100 Mg Tab 100 Mg PO DAILY 30 Days Xanax (Alprazolam) 0.25 Mg Tab 0.25 Mg PO Q8H PRN 30 Days Hm Loperamide HCl (Loperamide HCl) 2 Mg Cap 2 Mg PO Q6H PRN 30 Days Lisinopril 20 Mg Tab 20 Mg PO DAILY 30 Days Zoloft (Sertraline HCl) 25 Mg Tab 25 Mg PO DAILY Active Ordered Medications Current Medications Medications (Trade) Dose Ordered Sig/Ruby Route Start Time Stop Time Status Last Admin (Questran 4 Gm Pkt) 4 gm BID@0700,1900 PO 01/11/18 19:00 (Prinivil) 20 mg DAILY PO 01/11/18 10:00 01/11/18 10:00 (Imodium) 2 mg Q6H PRN PO 01/11/18 08:45 (Zoloft) 25 mg DAILY PO 01/11/18 10:00 Future Hold (Vitamin B1) 100 mg DAILY PO 01/11/18 10:00 01/11/18 10:00 (Ativan) 0.5 mg Q12H PRN PO 01/11/18 08:45 Future Hold (Ativan Inj) 0.5 mg Q12H PRN IM 01/11/18 08:45 Future Hold (Tylenol) 650 mg Q4H PRN PO 01/11/18 08:45 (Milk Of Magnesia Liq) 30 ml DAILY PRN PO 01/11/18 08:45 (Mag-Al Plus Susp Liq) 30 ml Q6H PRN PO 01/11/18 08:45 (Romazicon Inj) 0.2 mg Q1M PRN IV PUSH 01/11/18 08:45 (Ativan) 1 mg Q4H PRN PO 01/11/18 08:45 01/11/18 10:56 (Ativan Inj) 1 mg Q4H PRN IV PUSH 01/11/18 08:45 (Ativan) 2 mg Q2H PRN PO 01/11/18 08:45 (Ativan Inj) 2 mg Q2H PRN IV PUSH 01/11/18 08:45 (Ativan Inj) 2 mg Q1H PRN IV PUSH 01/11/18 08:45 (Ativan Inj) 2 mg Q15M PRN IV PUSH 01/11/18 08:45 (Folate) 1 mg DAILY PO 01/12/18 09:00 Family History Asked and denied. Social History Positive for alcohol abuse, patient will not quantify. Negative for tobacco or drugs Physical Exam Vital Signs Vital Signs Date Time Temp Pulse Resp B/P (MAP) Pulse Ox O2 Delivery O2 Flow Rate FiO2 01/11/18 10:37 98.0 80 18 145/67 (93) 97 01/11/18 10:15 72 16 143/63 (89) 96 01/11/18 04:00 84 16 94 Room Air 01/10/18 19:22 98.4 72 17 99/55 (32) 95 Physical Exam GENERAL: Elderly female in no acute distress. HEENT: PERRLA, EOMI. No scleral icterus or conjunctival pallor. No lid lag or facial droop. CARDIOVASCULAR: Regular rate and rhythm. No obvious murmurs to auscultation. No chest tenderness to palpation. RESPIRATORY: No obvious rhonchi or wheezing. Clear to auscultation. Breath sounds equal bilaterally. GASTROINTESTINAL: Abdomen soft, non-tender, nondistended. BS normal. MUSCULOSKELETAL: Extremities without clubbing, cyanosis, or edema. No obvious deformities. NEUROLOGICAL: Awake, alert and oriented x4. No focal neurologic deficits. Moving both upper and lower extremities spontaneously. Laboratory Laboratory Tests Test 01/10/18 20:05 White Blood Count 10.3 Red Blood Count 4.75 Hemoglobin 12.6 Hematocrit 38.4 Mean Corpuscular Volume 80.7 Mean Corpuscular Hemoglobin 26.4 Mean Corpuscular Hemoglobin Concent 32.7 Red Cell Distribution Width 17.8 Platelet Count 494 Mean Platelet Volume 8.6 Neutrophils (%) (Auto) 78.7 Lymphocytes (%) (Auto) 11.8 Monocytes (%) (Auto) 7.3 Eosinophils (%) (Auto) 1.2 Basophils (%) (Auto) 1.0 Neutrophils # (Auto) 8.1 Lymphocytes # (Auto) 1.2 Monocytes # (Auto) 0.8 Eosinophils # (Auto) 0.1 Basophils # (Auto) 0.1 CBC Comment DIFF FINAL Differential Comment Blood Urea Nitrogen 4 Creatinine 0.54 Random Glucose 87 Total Protein 7.1 Albumin 3.0 Calcium Level 7.9 Alkaline Phosphatase 87 Aspartate Amino Transf (AST/SGOT) 200 Alanine Aminotransferase (ALT/SGPT) 50 Total Bilirubin 0.3 Sodium Level 132 Potassium Level 3.2 Chloride Level 100 Carbon Dioxide Level 17.4 Anion Gap 15 Estimat Glomerular Filtration Rate 109 Thyroid Stimulating Hormone 3rd Gen 1.440 Salicylates Level LESS THAN 1.7 Acetaminophen Level LESS THAN 2.0 Ethyl Alcohol Level 312 Result Diagram: 01/10/18200401/10/182004 Imaging No new Imaging studies. Assessment and Plan Assessment and Plan 1. Major Neurocognitive Disorder with behavioral disturbance seen inside Psychiatric Unit, to rule out Alcohol ;induced major NCD, Neurodegenerative NCD. as per Psychiatry specialist 2. Hypertension to continue home medicines 3. Alcohol intoxication and abuse on CIWA protocol, strongly recommended to stop drinking behavior 4. Recent admission with Diarrhea was on Flagyl, Negative C Diff, has Esophageal Stricture status post Dilation 01/06 5. Pseudodementia 6. Electrolyte derangement probable related to alcohol abuse, receiving replacement DVT prophylaxis patient is active no need for chemical prophylaxis at this time. Following laboratory asked by Psychiatry specialist. Code Status Full code Discussed Condition With patient and nurse in the room. Nish Weber MD Jan 11, 2018 17:16
[2018-01-11] MEDS: CHOLESTYRAMINE 4 GM PACKET PO SCH (18:13)
[2018-01-11] MEDS: LOPERAMIDE HCL 2 MG CAP PO PRN (22:21)
[2018-01-12 06:33] VITALS: BP 138/64; PULSE 77; RESP 18; TEMP 98.4; O2SAT 97
[2018-01-12] MEDS: CHOLESTYRAMINE 4 GM PACKET PO SCH ×2 (06:49→18:29)
[2018-01-12] MEDS: THIAMINE HCL 100 MG TAB PO SCH (08:54)
[2018-01-12] MEDS: LISINOPRIL 20 MG TAB PO SCH (08:54)
[2018-01-12] MEDS: FOLIC ACID 1 MG TAB PO SCH (08:54)
--- NOTE | 2018-01-12 09:10 | HHI.PYPN ---
Subjective Chief Complaint: Self-care deficit, possible NCD Remarks Patient seen and examined. Chart reviewed. Case discussed with nursing staff reports patient refused laboratories but has been no real behavioral problem. Case discussed in treatment team. On my examination today, patient continues to refuse laboratories even after I explained their import. She complains of anxiety but does not appear anxious, and in context this complaint seems to be in service of seeking for benzodiazepines. I have emphasized that the Ativan she has ordered is for withdrawal. She denies any SI or HI. No depressive symptoms reported. No psychotic symptoms. No physical complaints. Review of Systems ROS Limitations: Poor Historian Except as stated in HPI: all other systems reviewed are Neg Mental Status Examination Appearance: Disheveled Consciousness: Alert Orientation: Person, Place (At least) Motor Activity: Other (No motor abnormalities noted. No signs of withdrawal noted.) Speech: Unremarkable Language: Adequate Fund of Knowledge: Inadequate Attention and Concentration: Inadequate Memory: Impaired Mood: Other (Calm) Affect: Blunt Thought Process & Associations: Other (slowed) Thought Content: Other (Some poverty of thought) Hallucination Type: None Delusion Type: None Suicidal Ideation: No Homicidal Ideation: No Insight: Poor Judgment: Poor Results Labs Patient refused lab work. Head CT ordered, pending. Vitals/IOs Vital Signs Date Time Temp Pulse Resp B/P (MAP) Pulse Ox O2 Delivery O2 Flow Rate FiO2 01/12/18 06:33 98.4 77 18 138/64 (88) 97 01/11/18 04:00 Room Air Intake and Output 01/12/18 01/12/18 01/13/18 08:00 16:00 00:00 Intake Total 120 ml Balance 120 ml Assessment & Plan Problem List: (1) Dementia with behavioral disturbance ICD Codes: F03.91 - Unspecified dementia with behavioral disturbance (2) Alcohol dependence ICD Codes: F10.20 - Alcohol dependence, uncomplicated Assessment & Plan Awaiting neuropsych eval and OT eval. Continue CIWA for any withdrawal. Although patient does not wish family to serve as HCS, I have asked counselor to see whether we may contact them for collateral. Hospitalist input appreciated. Continue to monitor on the inpatient unit. Continue other medications and care as ordered. Justification for Cont. Inpt. Concern for impairment in self-care. Risk for decompensation in less restrictive environment. Discharge Planning Pending further observation Request HC Surrog/Guard Advoc?: Yes Chaiffetz,Ruben B. MD Jan 12, 2018 09:10
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
--- NOTE | 2018-01-12 12:22 | PD.WCN.NOT ---
Wound Consult Description: Wound consult ordered by Dr.Caliendo HANDY for buttocks rash Communicated with: Viviana SIFUENTES, Recommendation: 1. Encourage patient to reposition every 2 hours for comfort and offloading 2. Apply Desitin zinc cream and Remedy antifungal cream 50/50 mix to inner buttocks as needed for incontinence/ loose stools Additional Information: Patient was seen today by automobile service writer in [facility] adult psyche today.Patient resting with eyes closed upon writers arrival verbal consent obtained to visualize buttocks area.Patient noted to have blanchable erythema to inner buttocks in which automobile service writer suspects moisture/incontinence/fungal associated erythema.Inner buttocks cleansed with normal saline pat dry ,left open to air till creams available then nurse Viviana will apply.Patient repositioned to left side for comfort bed left in lowest position for safety. Vy Hernández [facility] Jan 12, 2018 12:22
[2018-01-12] MEDS: ACETAMINOPHEN 325 MG TAB PO PRN (12:53)
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
--- NOTE | 2018-01-12 13:14 | HHI.PR ---
Subjective Remarks Follow-up visit for diarrhea, dehydration, and alcohol abuse. Patient recently hydrated with IV fluids, stool testing negative, seen and evaluated by GI services. Patient reports no BM today, denies any abdominal pain or discomfort. She does endorse nausea, no vomiting. Denies any fevers, chills, headache, dizziness, cough, shortness of breath or chest pain. She repots that she is having anxiety today, more than before. Objective Vitals Vital Signs Date Time Temp Pulse Resp B/P (MAP) Pulse Ox O2 Delivery O2 Flow Rate FiO2 01/12/18 06:33 98.4 77 18 138/64 (88) 97 I/O 01/11/18 01/11/18 01/11/18 01/12/18 01/12/18 01/12/18 07:00 15:00 23:00 07:00 15:00 23:00 Intake Total 1100 ml 120 ml 120 ml Balance 1100 ml 120 ml 120 ml Intake Oral 120 ml 120 ml IV Total 1100 ml Result Diagram: 01/10/18200401/10/182004 Objective Remarks GENERAL: Well developed, elderly female who appears stated age ambulating in the gongora in no acute distress. SKIN: Warm and dry. HEAD: Normocephalic. EYES: No scleral icterus. No injection or drainage. NECK: Supple, trachea midline. No JVD. CARDIOVASCULAR: Regular rate and rhythm without murmurs, gallops, or rubs. RESPIRATORY: Breath sounds equal bilaterally. No accessory muscle use. No rhonchi, wheezing or crackles noted. GASTROINTESTINAL: Abdomen soft, non-tender, nondistended. Normoactive bowel sounds, no guarding. MUSCULOSKELETAL: No cyanosis, or edema. NEUROLOGICAL: Patient is awake, alert, and oriented. Moving all extremities spontaneously, ambulating without assistance. No facial droop, speech is clear. A/P Assessment and Plan 77-year-old female with past medical history of anxiety, hypertension, and alcohol abuse recently treated for acute dehydration secondary to diarrhea. She was discharged home however [place] acted by law enforcement after she was found to be intoxicated with suicidal statements. Patient is now in inpatient psychiatry unit, [facility] consulted to assist with ongoing medical management. Dementia/ suicidal statements Anxiety - Treatment per psychiatry, appreciate treatment Diarrhea Dehydration Nausea w/o vomiting - Recently DC from CDU on 01/09, stool testing negative, IV hydration - GI consulted, started on Cholestyramine and Imodium as needed, no diarrhea today reported - S/p colonoscopy in 01/06: Cecal AVMs. Ascending colon erythema. Colon polyps. Diverticulosis. Internal and external hemorrhoids. s/p EGD on 01/06: Esophageal stricture. Esophagitis. Hiatal hernia. Pending biopsies, follow-up as outpatient with GI services. - esophageal strictures s/p dilation on 01/06. Reports eating and drinking without issues. -Hemodynamically stable, BMP pending - Zofran as needed for nausea or vomiting Alcohol abuse - [facility] protocol - LFT's pending, prior AST elevated at 200, likely due to ETOH abuse, check hepatitis panel - Thiamine and B12 pending - Monitor or withdraws and if needed transfer to medical psych floor. DVT prophylaxis-ambulation Discussed with nurse and patient. Frank Couch Jan 12, 2018 13:14
[2018-01-12] MEDS ORDERED: ZINC OXIDE 40% OINT 60 GM TUBE TOPICAL PRN (14:45)
[2018-01-12] MEDS ORDERED: ONDANSETRON ODT 4 MG TAB PO PRN (16:45)
[2018-01-12 16:49] LABS: ALBUMIN 2.9 GM/DL (3.4-5.0); BICARBONATE 21.7 MEQ/L (21.0-32.0); BLOOD UREA NITROGEN 3 MG/DL (7-18); CALCIUM 8.4 MG/DL (8.5-10.1); CHLORIDE 98 MEQ/L (98-107); CREATININE 0.56 MG/DL (0.50-1.00); GLOMERULAR FILTRATION RATE 105 ML/MIN (>89); GLUCOSE,RANDOM 91 MG/DL (74-106); SODIUM (NA) 131 MEQ/L (136-145)
[2018-01-12 16:50] LABS: ALT (GPT) 43 U/L (10-53); AST (GOT) 58 U/L (15-37); CHOLESTEROL 163 MG/DL (120-200); TRIGLYCERIDES 110 MG/DL (42-150)
[2018-01-12 17:16] LABS: ALKALINE PHOSPHATASE 86 U/L (45-117); CHOLESTEROL/ HDL RATIO 2.93 RATIO; HDL CHOLESTEROL 55.6 MG/DL (40.0-60.0); LDL CHOLESTEROL 85 MG/DL (0-99); TOTAL BILIRUBIN ADULT 0.4 MG/DL (0.2-1.0); TOTAL PROTEIN 6.6 GM/DL (6.4-8.2)
[2018-01-12 18:27] VITALS: BP 115/56; PULSE 65; RESP 16; TEMP 98.4; O2SAT 97
[2018-01-12 18:30] LABS: HEMOGLOBIN A1C 5.9 % (4.3-6.0)
[2018-01-13 06:02] VITALS: BP 112/56; PULSE 76; RESP 18; TEMP 98.1; O2SAT 95
[2018-01-13] MEDS: CHOLESTYRAMINE 4 GM PACKET PO SCH ×2 (06:42→19:56)
[2018-01-13] MEDS: FOLIC ACID 1 MG TAB PO SCH (08:27)
[2018-01-13] MEDS: THIAMINE HCL 100 MG TAB PO SCH (08:27)
[2018-01-13] MEDS: LISINOPRIL 20 MG TAB PO SCH (08:27)
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
[2018-01-13] MEDS: LORazepam 1 MG TAB PO PRN ×2 (12:45→20:54)
[2018-01-13] MEDS ORDERED: POTASSIUM CHLORIDE 10 MEQ CONTROLLED RELEASE TAB PO ONE (13:30)
[2018-01-13] MEDS ORDERED: SODIUM CHLORIDE 1 GRAM TAB PO SCH (13:30)
--- NOTE | 2018-01-13 13:35 | HHI.PR ---
Subjective Remarks Follow-up visit for diarrhea, dehydration, and alcohol abuse. Patient seen and examined in the day room today, reports she continues to have ongoing soft stools, denies any nausea, vomiting, or abdominal pain. She denies any fevers, chills, cough, shortness of breath, dizziness or lightheadedness. Spoke with nurse who does not voice any acute concerns other than patient's anxiety. Objective Vitals Vital Signs Date Time Temp Pulse Resp B/P (MAP) Pulse Ox O2 Delivery O2 Flow Rate FiO2 01/13/18 06:02 98.1 76 18 112/56 (74) 95 01/12/18 18:27 98.4 65 16 115/56 (75) 97 I/O 01/12/18 01/12/18 01/12/18 01/13/18 01/13/18 01/13/18 07:00 15:00 23:00 07:00 15:00 23:00 Intake Total 120 ml Balance 120 ml Intake Oral 120 ml Result Diagram: 01/10/18200401/12/18 1555 Objective Remarks GENERAL: Well developed, elderly female who appears stated age ambulating in the gongora in no acute distress. SKIN: Warm and dry. HEAD: Normocephalic. EYES: No scleral icterus. No injection or drainage. NECK: Supple, trachea midline. No JVD. CARDIOVASCULAR: Regular rate and rhythm without murmurs, gallops, or rubs. RESPIRATORY: Breath sounds equal bilaterally. No accessory muscle use. No rhonchi, wheezing or crackles noted. GASTROINTESTINAL: Abdomen soft, non-tender, nondistended. Normoactive bowel sounds, no guarding. MUSCULOSKELETAL: No cyanosis, or edema. NEUROLOGICAL: Patient is awake, alert, and oriented. Moving all extremities spontaneously, ambulating without assistance. No facial droop, speech is clear. A/P Assessment and Plan 77-year-old female with past medical history of anxiety, hypertension, and alcohol abuse recently treated for acute dehydration secondary to diarrhea. She was discharged home however [place] acted by law enforcement after she was found to be intoxicated with suicidal statements. Patient is now in inpatient psychiatry unit, [facility] consulted to assist with ongoing medical management. Dementia/ suicidal statements Anxiety - Treatment per psychiatry, appreciate treatment Diarrhea Dehydration Nausea w/o vomiting - Recently DC from CDU on 01/09, stool testing negative, IV hydration - GI consulted, started on Cholestyramine and Imodium as needed, soft stools reported today - S/p colonoscopy in 01/06: Cecal AVMs. Ascending colon erythema. Colon polyps. Diverticulosis. Internal and external hemorrhoids. s/p EGD on 01/06: Esophageal stricture. Esophagitis. Hiatal hernia. Pending biopsies, follow-up as outpatient with GI services. - esophageal strictures s/p dilation on 01/06. Reports eating and drinking without issues. -Hemodynamically stable, BMP from yesterday reviewed with hyponatremia and hypokalemia. P.o. replacements - Zofran as needed for nausea or vomiting Elevated LFTs -AST elevated initially at 200--> 58 -Hepatitis panel with positive hep B surface antigen, hep B core IgM antibody negative. 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 -Can follow-up as outpatient determine if this is chronic infection. Hyponatremia Hypokalemia -Likely due to ongoing diarrhea. -Potassium p.o. replacement today, start sodium tablets 1 g daily, continue following labs Alcohol abuse - CIWA protocol - LFT's pending, prior AST elevated at 200, likely due to ETOH abuse - Thiamine and B12 pending - Monitor or withdraws and if needed transfer to medical psych floor. DVT prophylaxis-ambulation Discussed with nurse and patient. Frank Couch Jan 13, 2018 13:35
[2018-01-13 18:04] VITALS: BP 103/52; PULSE 78; RESP 18; TEMP 98.2; O2SAT 96
[2018-01-13 20:11] LABS: BICARBONATE 25.1 MEQ/L (21.0-32.0); CALCIUM 7.7 MG/DL (8.5-10.1); CREATININE 0.49 MG/DL (0.50-1.00); MAGNESIUM 1.2 MG/DL (1.5-2.5)
[2018-01-14] MEDS: CHOLESTYRAMINE 4 GM PACKET PO SCH ×2 (06:17→06:24)
[2018-01-14 06:25] VITALS: BP 108/58; PULSE 75; RESP 15; TEMP 98.1; O2SAT 98
[2018-01-14] MEDS ORDERED: POTASSIUM CHLORIDE 10 MEQ CONTROLLED RELEASE TAB PO ONE (07:00)
[2018-01-14] MEDS ORDERED: MAGNESIUM OXIDE 400 MG TAB PO ONE ×2 (07:30→18:30)
[2018-01-14 09:15] LABS: BICARBONATE 25.5 MEQ/L (21.0-32.0)
[2018-01-14 09:20] LABS: CALCIUM 8.2 MG/DL (8.5-10.1); CREATININE 0.59 MG/DL (0.50-1.00)
[2018-01-14] MEDS: THIAMINE HCL 100 MG TAB PO SCH (09:36)
[2018-01-14] MEDS: FOLIC ACID 1 MG TAB PO SCH (09:36)
[2018-01-14] MEDS: SODIUM CHLORIDE 1 GRAM TAB PO SCH ×2 (09:36→21:29)
[2018-01-14] MEDS: SERTRALINE HCL 50 MG TAB PO SCH (09:39)
[2018-01-14 11:17] LABS: METHYLMALONIC ACID 0.18 nmol/mL (<=0.40)
--- NOTE | 2018-01-14 12:45 | HHI.PYPN ---
Subjective Chief Complaint: Self-care deficit, probable NCD Remarks Patient seen and examined with nurse following [place] [address]. Chart reviewed. Case discussed with nursing staff. On my exam, patient is somewhat dysphoric. She denies SI presently but says in a somewhat petulant fashion "I might soon. I just don't care." She wants to be placed on Zoloft 75mg daily and says that this was the dose she took most recently. However, nurse has contacted pharmacy, and patient was prescribed Celexa most recently and has not had Zoloft in almost 2 years. Continues to minimize EtOH use and functional impairment prior to admission. No acute physical complaints. Patient's case was presented to the [employer] court and placed in continuance for 4 weeks with daughter to serve as health care surrogate. Review of Systems ROS Limitations: Poor Historian Except as stated in HPI: all other systems reviewed are Neg Mental Status Examination Appearance: Disheveled Consciousness: Alert Orientation: Person, Place (At least) Motor Activity: Other (No signs of withdrawal noted.) Speech: Unremarkable Language: Adequate Fund of Knowledge: Inadequate Attention and Concentration: Inadequate Memory: Impaired Mood: Other (Dysphoric) Affect: Blunt Thought Process & Associations: Other (slowed) Thought Content: Other (ongoing poverty of thought) Hallucination Type: None Delusion Type: None Suicidal Ideation: No Suicidal Plan: No Suicidal Intention: No Homicidal Ideation: No Insight: Poor Judgment: Poor Results Labs Test 01/13/18 19:10 01/14/18 08:24 Blood Urea Nitrogen 2 MG/DL 2 MG/DL Creatinine 0.49 MG/DL 0.59 MG/DL Random Glucose 111 MG/DL 113 MG/DL Calcium Level 7.7 MG/DL 8.2 MG/DL Magnesium Level 1.2 MG/DL Sodium Level 131 MEQ/L 134 MEQ/L Potassium Level 3.2 MEQ/L 3.6 MEQ/L Chloride Level 98 MEQ/L 100 MEQ/L Carbon Dioxide Level 25.1 MEQ/L 25.5 MEQ/L Anion Gap 8 MEQ/L 9 MEQ/L Estimat Glomerular Filtration Rate 122 ML/MIN 99 ML/MIN Labs reviewed Vitals/IOs Vital Signs Date Time Temp Pulse Resp B/P (MAP) Pulse Ox O2 Delivery O2 Flow Rate FiO2 01/14/18 06:25 98.1 75 15 108/58 (75) 98 01/11/18 04:00 Room Air Intake and Output 01/14/18 01/14/18 01/15/18 08:00 16:00 00:00 Intake Total 120 ml Balance 120 ml Assessment & Plan Problem List: (1) Dementia with behavioral disturbance ICD Codes: F03.91 - Unspecified dementia with behavioral disturbance (2) Alcohol dependence ICD Codes: F10.20 - Alcohol dependence, uncomplicated Assessment & Plan Plan to titrate Zoloft, slowly in light of GI issues, back to previously reported 75mg dose to target dysphoria. Monitor use of CIWA Ativan. CIWA scores seem driven primarily by anxiety, and patient has sought for benzos earlier in the hospital stay; I have discussed this issue with nursing. To consider d/c'ing CIWA tomorrow as patient is now several days from last EtOH. Continue to monitor on inpatient unit. Continue other medications and care as ordered. Justification for Cont. Inpt. Risk for decompensation in less restrictive environment. Discharge Planning Placement. Case discussed with counselor. Request HC Surrog/Guard Advoc?: Yes Ruben De La Cruz MD Jan 14, 2018 12:45
--- NOTE | 2018-01-14 17:20 | HHI.PR ---
Subjective Remarks Follow-up visit for diarrhea, dehydration, and alcohol abuse. Patient seen and examined in day room today. She denies any fevers, chills, nausea, vomiting, headache, dizziness, cough, shortness of breath or chest pain. Reports that she continues to have diarrhea, 4 bowel movements today. She denies requesting any thing for diarrhea or any abdominal pain or discomfort. Eating and drinking with no issues. She continues to complain of anxiety and states that she is been unable to get Ativan. Spoke with nurse who reports patient had episode of vomiting early this morning following administration of magnesium and potassium. Patient has also not voiced any diarrhea to nurse. Objective Vitals Vital Signs Date Time Temp Pulse Resp B/P (MAP) Pulse Ox O2 Delivery O2 Flow Rate FiO2 01/14/18 06:25 98.1 75 15 108/58 (75) 98 01/13/18 18:04 98.2 78 18 103/52 (69) 96 I/O 01/13/18 01/13/18 01/13/18 01/14/18 01/14/18 01/14/18 07:00 15:00 23:00 07:00 15:00 23:00 Intake Total 480 ml 120 ml 1320 ml Balance 480 ml 120 ml 1320 ml Intake Oral 480 ml 120 ml 1320 ml # Voids 2 2 # Bowel Movements 2 Result Diagram: 01/10/18200401/14/18 0824 Objective Remarks GENERAL: Well developed, elderly female who appears stated age ambulating in the [place] in no acute distress. SKIN: Warm and dry. HEAD: Normocephalic. EYES: No scleral icterus. No injection or drainage. NECK: Supple, trachea midline. No JVD. CARDIOVASCULAR: Regular rate and rhythm without murmurs, gallops, or rubs. RESPIRATORY: Breath sounds equal bilaterally. No accessory muscle use. No rhonchi, wheezing or crackles noted. GASTROINTESTINAL: Abdomen soft, non-tender, nondistended. Normoactive bowel sounds, no guarding. MUSCULOSKELETAL: No cyanosis, or edema. NEUROLOGICAL: Patient is awake, alert, and oriented. Moving all extremities spontaneously, ambulating without assistance. No facial droop, speech is clear. A/P Assessment and Plan 77-year-old female with past medical history of anxiety, hypertension, and alcohol abuse recently treated for acute dehydration secondary to diarrhea. She was discharged home however [place] acted by law enforcement after she was found to be intoxicated with suicidal statements. Patient is now in inpatient psychiatry unit, [facility] consulted to assist with ongoing medical management. Dementia/ suicidal statements Anxiety - Treatment per psychiatry, appreciate treatment Diarrhea Dehydration Nausea w/o vomiting - Recently DC from CDU on 01/09, stool testing negative, IV hydration - GI recommended cholestyramine and Imodium as needed, diarrhea continues today. -Increase Questran to 3 times a day, Lactinex, discussed with nurse to administer Imodium. - S/p colonoscopy in 01/06: Cecal AVMs. Ascending colon erythema. Colon polyps. Diverticulosis. Internal and external hemorrhoids. s/p EGD on 01/06: Esophageal stricture. Esophagitis. Hiatal hernia. Pending biopsies, follow-up as outpatient with GI services. - esophageal strictures s/p dilation on 01/06. Reports eating and drinking without issues. -Hemodynamically stable - Zofran as needed for nausea or vomiting Elevated LFTs -AST elevated initially at 200--> 58 -Hepatitis panel with positive hep B surface antigen, hep B core IgM antibody negative. 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 -Can follow-up as outpatient determine if this is chronic infection. Hyponatremia Hypokalemia Hypomagnesemia -Likely due to ongoing diarrhea. -BMP this morning with sodium 134, potassium 3.6. Continue sodium tabs 1 g twice daily -Magnesium yesterday night 1.2, replaced with 800 p.o. however vomited shortly after. Will administer today -Recheck labs tomorrow HTN, controlled - BP this AM 108/58, discontinue lisinopril -Continue monitoring blood pressure Alcohol abuse - CIWA protocol - LFT's pending, prior AST elevated at 200, likely due to ETOH abuse - Thiamine and B12 WML DVT prophylaxis-ambulation Discussed with nurse and patient. Frank Couch Jan 14, 2018 17:20
[2018-01-14 18:10] VITALS: BP 114/56; PULSE 71; RESP 16; TEMP 98; O2SAT 97
[2018-01-14] MEDS ORDERED: MAGNESIUM OXIDE 400 MG TAB PO SCH (21:00)
[2018-01-14] MEDS: LACTOBACILLUS ACIDOPHILUS TAB PO SCH (21:28)
[2018-01-14] MEDS: LORazepam 1 MG TAB PO PRN (21:28)
[2018-01-15 04:44] VITALS: BP 117/68; PULSE 76; RESP 16; TEMP 98; O2SAT 98
[2018-01-15] MEDS: SODIUM CHLORIDE 1 GRAM TAB PO SCH ×3 (09:00→22:10)
[2018-01-15] MEDS: CHOLESTYRAMINE 4 GM PACKET PO SCH ×3 (09:00→18:00)
[2018-01-15] MEDS: THIAMINE HCL 100 MG TAB PO SCH (11:00)
[2018-01-15] MEDS: FOLIC ACID 1 MG TAB PO SCH (11:00)
[2018-01-15] MEDS: MAGNESIUM OXIDE 400 MG TAB PO SCH ×2 (11:01→22:10)
[2018-01-15] MEDS: LACTOBACILLUS ACIDOPHILUS TAB PO SCH ×2 (11:01→22:10)
[2018-01-15] MEDS: SERTRALINE HCL 50 MG TAB PO SCH (11:03)
--- NOTE | 2018-01-15 13:52 | HHI.PYPN ---
Subjective Chief Complaint: Self-care deficit, probable NCD Remarks Patient seen and examined. Chart reviewed. Case discussed with nursing staff. On my examination today, the patient is sitting in the day area. She does seem to be in much better spirits today. She was complaining of some anxiety overnight, and I believe the CIWA score is being driven by complaints of anxiety as she has no other signs of withdrawal. No SI or HI. Mood is subjectively improved. No side effects from medications. No physical complaints. I did endeavor to reach out to patient's daughter/HCS to discuss addition of an as needed anxiolytic and left a voicemail requesting a call back. Review of Systems ROS Limitations: Poor Historian Except as stated in HPI: all other systems reviewed are Neg Mental Status Examination Appearance: Disheveled Consciousness: Alert Orientation: Person, Place Motor Activity: Other (No signs of any withdrawal noted) Speech: Unremarkable Language: Adequate Fund of Knowledge: Inadequate Attention and Concentration: Inadequate Memory: Impaired Mood: Other (Mood improved today) Affect: Other (Significantly more euthymic today) Thought Process & Associations: Other (slowed) Thought Content: Other (ongoing poverty of thought) Hallucination Type: None Delusion Type: None Suicidal Ideation: No Suicidal Plan: No Suicidal Intention: No Homicidal Ideation: No Insight: Poor Judgment: Poor Results Labs Labs reviewed Vitals/IOs Vital Signs Date Time Temp Pulse Resp B/P (MAP) Pulse Ox O2 Delivery O2 Flow Rate FiO2 01/15/18 04:44 98.0 76 16 117/68 (84) 98 Intake and Output 01/15/18 01/15/18 01/16/18 08:00 16:00 00:00 Intake Total 720 ml Balance 720 ml Assessment & Plan Problem List: (1) Dementia with behavioral disturbance ICD Codes: F03.91 - Unspecified dementia with behavioral disturbance (2) Alcohol dependence ICD Codes: F10.20 - Alcohol dependence, uncomplicated Assessment & Plan Titrate Zoloft to 50 mg daily for mood as improvement today likely reflects day- to-day variation. I would like to provide the patient with an as needed anxiolytic and would likely prefer a non-benzodiazepine option given her history of alcohol use issues. Continue to monitor on the inpatient unit. Continue other medications and care as ordered. Justification for Cont. Inpt. Risk for decompensation in less restrictive environment. Medication changes. Discharge Planning Possible placement. Request HC Surrog/Guard Advoc?: Yes Ruben De La Cruz MD Jan 15, 2018 13:52
--- NOTE | 2018-01-15 15:01 | HHI.PR ---
Subjective Remarks Follow-up visit for diarrhea, dehydration, and alcohol abuse. Patient seen and examined in the day room today, she continues to complain of anxiety. Reports that she has ongoing diarrhea. Denies any abdominal pain or discomfort, eating and drinking without issues, denies nausea, vomiting or abdominal pain. Spoke with nurse who has not had any repots from patient regarding diarrhea, patient also refused AM labs and some of her medications. Spent time discussing with patient the importance of labs as well as medication indications, is agreeable to have labs drawn. Objective Vitals Vital Signs Date Time Temp Pulse Resp B/P (MAP) Pulse Ox O2 Delivery O2 Flow Rate FiO2 01/15/18 04:44 98.0 76 16 117/68 (84) 98 01/14/18 18:10 98.0 71 16 114/56 (75) 97 I/O 01/14/18 01/14/18 01/14/18 01/15/18 01/15/18 01/15/18 07:00 15:00 23:00 07:00 15:00 23:00 Intake Total 120 ml 1560 ml 240 ml 480 ml Balance 120 ml 1560 ml 240 ml 480 ml Intake Oral 120 ml 1560 ml 240 ml 480 ml # Voids 2 2 # Bowel Movements 2 Result Diagram: 01/14/18 0824 Objective Remarks GENERAL: Well developed, elderly female who appears stated age ambulating in the [place] in no acute distress. SKIN: Warm and dry. HEAD: Normocephalic. EYES: No scleral icterus. No injection or drainage. NECK: Supple, trachea midline. No JVD. CARDIOVASCULAR: Regular rate and rhythm without murmurs, gallops, or rubs. RESPIRATORY: Breath sounds equal bilaterally. No accessory muscle use. No rhonchi, wheezing or crackles noted. GASTROINTESTINAL: Abdomen soft, non-tender, nondistended. Normoactive bowel sounds, no guarding. MUSCULOSKELETAL: No cyanosis, or edema. NEUROLOGICAL: Patient is awake, alert, and oriented. Moving all extremities spontaneously, ambulating without assistance. No facial droop, speech is clear. A/P Assessment and Plan 77-year-old female with past medical history of anxiety, hypertension, and alcohol abuse recently treated for acute dehydration secondary to diarrhea. She was discharged home however [place] acted by law enforcement after she was found to be intoxicated with suicidal statements. Patient is now in inpatient psychiatry unit, [facility] consulted to assist with ongoing medical management. Dementia/ suicidal statements Anxiety - Treatment per psychiatry, appreciate treatment Diarrhea Dehydration Nausea w/o vomiting - Recently DC from CDU on 01/09, stool testing negative, IV hydration - GI recommended cholestyramine and Imodium as needed -Increase Questran to 3 times a day, Lactinex, discussed with nurse to administer Imodium. - S/p colonoscopy in 01/06: Cecal AVMs. Ascending colon erythema. Colon polyps. Diverticulosis. Internal and external hemorrhoids. s/p EGD on 01/06: Esophageal stricture. Esophagitis. Hiatal hernia. Pending biopsies, follow-up as outpatient with GI services. - esophageal strictures s/p dilation on 01/06. Reports eating and drinking without issues. -Hemodynamically stable - Patient refusing Questran, discussed trying Imodium Elevated LFTs -AST elevated initially at 200--> 58 -Hepatitis panel with positive hep B surface antigen, hep B core IgM antibody negative. 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 -Can follow-up as outpatient determine if this is chronic infection. Hyponatremia Hypokalemia Hypomagnesemia -Likely due to ongoing diarrhea. -BMP on 12/14 sodium 134, potassium 3.6. Continue sodium tabs 1 g twice daily -Magnesium 400mg BID -Labs not yet done today, patient is agreeable now. Discussed with nurse who will be calling lab. HTN, controlled - BP this AM 117/68, off lisinopril -Continue monitoring blood pressure Alcohol abuse - [facility] protocol - LFT's pending, prior AST elevated at 200, likely due to ETOH abuse - Thiamine and B12 WML DVT prophylaxis-ambulation Discussed with nurse and patient. Frank Couch Jan 15, 2018 15:01
[2018-01-15] MEDS: LOPERAMIDE HCL 2 MG CAP PO PRN (16:06)
[2018-01-15 17:23] VITALS: BP 132/68; PULSE 70; RESP 20; TEMP 98.7; O2SAT 96
[2018-01-15] MEDS: ACETAMINOPHEN 325 MG TAB PO PRN (22:10)
[2018-01-16 06:07] VITALS: BP 129/58; PULSE 69; RESP 15; TEMP 98.2; O2SAT 95
[2018-01-16] MEDS: CHOLESTYRAMINE 4 GM PACKET PO SCH ×2 (09:00→13:00)
[2018-01-16] MEDS: SODIUM CHLORIDE 1 GRAM TAB PO SCH (09:32)
[2018-01-16] MEDS: FOLIC ACID 1 MG TAB PO SCH (09:32)
[2018-01-16] MEDS: MAGNESIUM OXIDE 400 MG TAB PO SCH (09:32)
[2018-01-16] MEDS: SERTRALINE HCL 50 MG TAB PO SCH (09:33)
[2018-01-16] MEDS: THIAMINE HCL 100 MG TAB PO SCH (09:33)
[2018-01-16] MEDS: LACTOBACILLUS ACIDOPHILUS TAB PO SCH ×2 (09:33→21:00)
--- NOTE | 2018-01-16 13:31 | HHI.PYPN ---
Subjective Chief Complaint: Self-care deficit, probable NCD Remarks Reviewed electronic medical record discussed case with staff. Follow-up was performed in the exam room with nurse present. Patient advises that she has not been sleeping at all but reports that her appetite is better. Staff states that she has been compliant with her medications. Patient reports feeling depressed and admits to a history of depression. Her mood is fairly good although she becomes irritable during interview and states "I do not understand why I have to have someone signed for me for my medications". Her affect is fairly euthymic. Call has been placed in the message left to receive consent from the court ordered guardian for Atarax as needed and diphenhydramine to help with sleep. Nurse reports patient has not needed the [facility] protocol. Mental Status Examination Appearance: Disheveled Consciousness: Alert Orientation: Person, Place Motor Activity: Other (No signs of any withdrawal noted) Speech: Unremarkable Language: Adequate Fund of Knowledge: Inadequate Attention and Concentration: Inadequate Memory: Impaired Mood: Other (Mood improved today) Affect: Other (Significantly more euthymic today) Thought Process & Associations: Other (slowed) Thought Content: Other (ongoing poverty of thought) Hallucination Type: None Delusion Type: None Suicidal Ideation: No Suicidal Plan: No Suicidal Intention: No Homicidal Ideation: No Insight: Poor Judgment: Poor Results Vitals/IOs Vital Signs Date Time Temp Pulse Resp B/P (MAP) Pulse Ox O2 Delivery O2 Flow Rate FiO2 01/16/18 06:07 98.2 69 15 129/58 (81) 95 Assessment & Plan Problem List: (1) Dementia with behavioral disturbance ICD Codes: F03.91 - Unspecified dementia with behavioral disturbance (2) Alcohol dependence ICD Codes: F10.20 - Alcohol dependence, uncomplicated Assessment & Plan Estimated LOS: Placement and discharge planning in progress. Per nurse there appears to be tissues with placement. Patient will continue to be stabilized on her medication. Justification for Cont. Inpt. Moving this patient to a lower level of care would likely result in a decompensation. She has been deemed to lack capacity for self care. Request HC Surrog/Guard Advoc?: Yes Tonya Marin Jan 16, 2018 13:31
--- NOTE | 2018-01-16 14:46 | HHI.PR ---
Subjective Remarks Follow-up visit for diarrhea, dehydration, and alcohol abuse. Patient seen and examined in her room, reports she is ongoing diarrhea but it is not much. Denies any fevers, chills, nausea, vomiting, headache, dizziness, cough, shortness of breath or chest pain. Discussed with nurse who continues to encourage patient to provide stool sample. Objective Vitals Vital Signs Date Time Temp Pulse Resp B/P (MAP) Pulse Ox O2 Delivery O2 Flow Rate FiO2 01/16/18 06:07 98.2 69 15 129/58 (81) 95 01/15/18 17:23 98.7 70 20 132/68 (89) 96 I/O 01/15/18 01/15/18 01/15/18 01/16/18 01/16/18 01/16/18 07:00 15:00 23:00 07:00 15:00 23:00 Intake Total 240 ml 480 ml 2280 ml Balance 240 ml 480 ml 2280 ml Intake Oral 240 ml 480 ml 2280 ml # Voids 3 # Bowel Movements 2 Result Diagram: 01/14/18 0824 Objective Remarks GENERAL: Well developed, elderly female who appears stated age ambulating in the [place] in no acute distress. SKIN: Warm and dry. HEAD: Normocephalic. EYES: No scleral icterus. No injection or drainage. NECK: Supple, trachea midline. No JVD. CARDIOVASCULAR: Regular rate and rhythm without murmurs, gallops, or rubs. RESPIRATORY: Breath sounds equal bilaterally. No accessory muscle use. No rhonchi, wheezing or crackles noted. GASTROINTESTINAL: Abdomen soft, non-tender, nondistended. Normoactive bowel sounds, no guarding. MUSCULOSKELETAL: No cyanosis, or edema. NEUROLOGICAL: Patient is awake, alert, and oriented. Moving all extremities spontaneously, ambulating without assistance. No facial droop, speech is clear. A/P Assessment and Plan 77-year-old female with past medical history of anxiety, hypertension, and alcohol abuse recently treated for acute dehydration secondary to diarrhea. She was discharged home however [place] acted by law enforcement after she was found to be intoxicated with suicidal statements. Patient is now in inpatient psychiatry unit, [facility] consulted to assist with ongoing medical management. Dementia/ suicidal statements Anxiety - Treatment per psychiatry, appreciate treatment Diarrhea Dehydration Nausea w/o vomiting - Recently DC from CDU on 01/09, stool testing negative, IV hydration - GI recommended cholestyramine and Imodium as needed -Increase Questran to 3 times a day, Lactinex, discussed with nurse to administer Imodium. - S/p colonoscopy in 01/06: Cecal AVMs. Ascending colon erythema. Colon polyps. Diverticulosis. Internal and external hemorrhoids. s/p EGD on 01/06: Esophageal stricture. Esophagitis. Hiatal hernia. Pending biopsies, follow-up as outpatient with GI services. - esophageal strictures s/p dilation on 01/06. Reports eating and drinking without issues. -Hemodynamically stable - Patient refusing Questran, will DC this since she is not taking it - Discussed C.diff stool testing with patient and nursing. Elevated LFTs -AST elevated initially at 200--> 58 -Hepatitis panel with positive hep B surface antigen, hep B core IgM antibody negative. 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 -Can follow-up as outpatient determine if this is chronic infection. Hyponatremia Hypokalemia Hypomagnesemia -Likely due to ongoing diarrhea. -BMP on 12/14 sodium 134, potassium 3.6. - D/C PO mag as this could contribute to diarrhea, D/C Na as last check with close to normal - Order labs for tomorrow at 10am in the hopes that patient will not refuse to state it is too early. HTN, controlled - BP stable, off lisinopril -Continue monitoring blood pressure Alcohol abuse - [facility] protocol - LFT's pending, prior AST elevated at 200, likely due to ETOH abuse - Thiamine and B12 WML DVT prophylaxis-ambulation Discussed with nurse and patient. Frank Couch Jan 16, 2018 14:46
[2018-01-16 17:42] VITALS: BP 128/58; PULSE 62; RESP 15; TEMP 98; O2SAT 96
[2018-01-16] MEDS: ACETAMINOPHEN 325 MG TAB PO PRN ×2 (18:11→22:23)
[2018-01-17 05:47] VITALS: BP 137/63; PULSE 55; RESP 17; TEMP 98.2; O2SAT 95
[2018-01-17] MEDS: LACTOBACILLUS ACIDOPHILUS TAB PO SCH ×2 (09:00→20:39)
[2018-01-17] MEDS: THIAMINE HCL 100 MG TAB PO SCH (09:00)
[2018-01-17] MEDS: FOLIC ACID 1 MG TAB PO SCH (09:00)
[2018-01-17] MEDS: SERTRALINE HCL 50 MG TAB PO SCH (09:07)
[2018-01-17 13:25] LABS: CALCIUM 7.8 MG/DL (8.5-10.1); CREATININE 0.5 MG/DL (0.50-1.00); MAGNESIUM 1.6 MG/DL (1.5-2.5)
--- NOTE | 2018-01-17 14:54 | HHI.PR ---
Subjective Remarks Follow-up visit for diarrhea, dehydration, and alcohol abuse. Patient seen and examined in bed, she repots that she has been doing "okay". Had 2 BM today, and one yesterday. Denies any fevers chills, nausea, vomiting. Spoke with nurse who reports no acute concerns. Objective Vitals Vital Signs Date Time Temp Pulse Resp B/P (MAP) Pulse Ox O2 Delivery O2 Flow Rate FiO2 01/17/18 05:47 98.2 55 17 137/63 (87) 95 01/16/18 19:19 16 01/16/18 17:42 98.0 62 15 128/58 (81) 96 I/O 01/16/18 01/16/18 01/16/18 01/17/18 01/17/18 01/17/18 07:00 15:00 23:00 07:00 15:00 23:00 Intake Total 240 ml Balance 240 ml Intake Oral 240 ml Result Diagram: 01/17/18 1238 Objective Remarks GENERAL: Well developed, elderly female who appears stated age ambulating in the [place] in no acute distress. SKIN: Warm and dry. HEAD: Normocephalic. EYES: No scleral icterus. No injection or drainage. NECK: Supple, trachea midline. No JVD. CARDIOVASCULAR: Regular rate and rhythm without murmurs, gallops, or rubs. RESPIRATORY: Breath sounds equal bilaterally. No accessory muscle use. No rhonchi, wheezing or crackles noted. GASTROINTESTINAL: Abdomen soft, non-tender, nondistended. Normoactive bowel sounds, no guarding. MUSCULOSKELETAL: No cyanosis, or edema. NEUROLOGICAL: Patient is awake, alert, and oriented. Moving all extremities spontaneously, ambulating without assistance. No facial droop, speech is clear. A/P Assessment and Plan 77-year-old female with past medical history of anxiety, hypertension, and alcohol abuse recently treated for acute dehydration secondary to diarrhea. She was discharged home however [place] acted by law enforcement after she was found to be intoxicated with suicidal statements. Patient is now in inpatient psychiatry unit, [facility] consulted to assist with ongoing medical management. Dementia/ suicidal statements Anxiety - Treatment per psychiatry, appreciate treatment Diarrhea Dehydration Nausea w/o vomiting - Recently DC from CDU on 01/09, stool testing negative, IV hydration - GI recommended cholestyramine and Imodium as needed -Increase Questran to 3 times a day, Lactinex, discussed with nurse to administer Imodium. - S/p colonoscopy in 01/06: Cecal AVMs. Ascending colon erythema. Colon polyps. Diverticulosis. Internal and external hemorrhoids. s/p EGD on 01/06: Esophageal stricture. Esophagitis. Hiatal hernia. Pending biopsies, follow-up as outpatient with GI services. - esophageal strictures s/p dilation on 01/06. Reports eating and drinking without issues. -Hemodynamically stable - Patient refusing Questran, will DC this since she is not taking it - Discussed C.diff stool testing with patient and nursing. Elevated LFTs -AST elevated initially at 200--> 58 -Hepatitis panel with positive hep B surface antigen, hep B core IgM antibody negative. 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 -Can follow-up as outpatient determine if this is chronic infection. Hyponatremia Hypokalemia Hypomagnesemia - NA toady 131, will resume Na 1gram tab daily - Mag 1.6 - can monitor periodically HTN, controlled - BP stable, off lisinopril -Continue monitoring blood pressure Alcohol abuse - CIWA protocol - LFT's pending, prior AST elevated at 200, likely due to ETOH abuse - Thiamine and B12 WML DVT prophylaxis-ambulation Discussed with nurse and patient. [facility] will sign off, please reconsult if needed. Frank Couch Jan 17, 2018 14:54
[2018-01-17] MEDS: ACETAMINOPHEN 325 MG TAB PO PRN ×2 (16:09→20:49)
--- NOTE | 2018-01-17 16:20 | HHI.PYPN ---
Subjective Chief Complaint: Self-care deficit, probable NCD Remarks Reviewed electronic medical records and discussed case with staff. Nurse reports that patient has been compliant with her sertraline but none of her other medications. Court-appointed guardian never returned my call from yesterday. Patient reports that she is "not so good". She states that she has a lot of problems but would prefer not to discuss them. She states that she has not really slept and that her appetite has been "better". Patient again expresses her dissatisfaction at being held involuntarily. Mental Status Examination Appearance: Disheveled Consciousness: Alert Orientation: Person, Place Motor Activity: Other (No signs of any withdrawal noted) Speech: Unremarkable Language: Adequate Fund of Knowledge: Inadequate Attention and Concentration: Inadequate Memory: Impaired Mood: Sad Affect: Sad Thought Process & Associations: Other (slowed) Thought Content: Other (ongoing poverty of thought) Hallucination Type: None Delusion Type: None Suicidal Ideation: No Suicidal Plan: No Suicidal Intention: No Homicidal Ideation: No Insight: Poor Judgment: Poor Results Labs Test 01/17/18 12:38 01/17/18 15:55 Blood Urea Nitrogen 3 MG/DL Creatinine 0.50 MG/DL Random Glucose 95 MG/DL Calcium Level 7.8 MG/DL Magnesium Level 1.6 MG/DL Sodium Level 131 MEQ/L Potassium Level 3.8 MEQ/L Chloride Level 97 MEQ/L Carbon Dioxide Level 25.0 MEQ/L Anion Gap 9 MEQ/L Estimat Glomerular Filtration Rate 119 ML/MIN Vitals/IOs Vital Signs Date Time Temp Pulse Resp B/P (MAP) Pulse Ox O2 Delivery O2 Flow Rate FiO2 01/17/18 05:47 98.2 55 17 137/63 (87) 95 Intake and Output 01/17/18 01/17/18 01/18/18 08:00 16:00 00:00 Intake Total 240 ml Balance 240 ml Assessment & Plan Problem List: (1) Dementia with behavioral disturbance ICD Codes: F03.91 - Unspecified dementia with behavioral disturbance (2) Alcohol dependence ICD Codes: F10.20 - Alcohol dependence, uncomplicated Assessment & Plan Estimated LOS: We will continue to attempt to get consent for medication. Days Justification for Cont. Inpt. Moving this patient to a lower level of care would likely result in decompensation. Request HC Surrog/Guard Advoc?: Yes Tonya Marin Jan 17, 2018 16:20
[2018-01-17 18:26] VITALS: BP 111/52; PULSE 77; RESP 16; TEMP 98.1; O2SAT 96
[2018-01-18] MEDS: LOPERAMIDE HCL 2 MG CAP PO PRN (01:48)
[2018-01-18 06:15] VITALS: BP 124/57; PULSE 93; RESP 16; TEMP 100; O2SAT 92
[2018-01-18] MEDS: THIAMINE HCL 100 MG TAB PO SCH (08:43)
[2018-01-18] MEDS: LACTOBACILLUS ACIDOPHILUS TAB PO SCH ×3 (08:44→18:26)
[2018-01-18] MEDS: FOLIC ACID 1 MG TAB PO SCH (09:00)
[2018-01-18] MEDS: SERTRALINE HCL 50 MG TAB PO SCH (09:00)
[2018-01-18] MEDS: VANCOMYCIN 500 MG VIAL (FOR ORAL USE ONLY) PO SCH ×4 (09:00→20:22)
[2018-01-18] MEDS: SODIUM CHLORIDE 1 GRAM TAB PO SCH (09:00)
--- NOTE | 2018-01-18 10:49 | HHI.PYPN ---
Subjective Chief Complaint: Self-care deficit, probable NCD Remarks Patient seen and examined. Chart reviewed. I note the patient has tested positive for C. difficile and that Dr. Blankenship has reconsult of the hospitalist, who has started the patient on oral vancomycin. The patient will be moved to the medical psychiatric unit for further management. On my examination today, the patient presents as somewhat irritable and dysphoric. She complains of ongoing anxiety. She denies any SI or HI. Denies any AVH. No side effects from medications. Patient complains of ongoing diarrhea. Spoke with patient's daughter/HCS Della Varghese over the phone. We discuss diarrhea/C. difficile and treatment of this problem. We discuss discharge planning, and Ms. Varghese notes that she is looking at facilities to accept the patient now. We discussed patient's complaints of anxiety and discussed the various pharmacotherapeutic agents that might be utilized for this problem. After discussion of R/B/A for various agents, we settle on addition of low- dose typical antipsychotic. QTc was wnl when last checked in December. Review of Systems ROS Limitations: Poor Historian Except as stated in HPI: all other systems reviewed are Neg Mental Status Examination Appearance: Disheveled Consciousness: Alert Orientation: Person, Place Motor Activity: Other (No signs of any withdrawal noted. No motoric abnormalities noted.) Speech: Unremarkable Language: Adequate Fund of Knowledge: Inadequate Attention and Concentration: Inadequate Memory: Impaired Mood: Anxious Affect: Anxious, Other (Dysphoric) Thought Process & Associations: Other (slowed) Thought Content: Other (ongoing poverty of thought) Hallucination Type: None Delusion Type: None Suicidal Ideation: No Suicidal Plan: No Suicidal Intention: No Homicidal Ideation: No Insight: Poor Judgment: Poor Results Labs Test 01/17/18 12:38 01/17/18 15:55 Blood Urea Nitrogen 3 MG/DL Creatinine 0.50 MG/DL Random Glucose 95 MG/DL Calcium Level 7.8 MG/DL Magnesium Level 1.6 MG/DL Sodium Level 131 MEQ/L Potassium Level 3.8 MEQ/L Chloride Level 97 MEQ/L Carbon Dioxide Level 25.0 MEQ/L Anion Gap 9 MEQ/L Estimat Glomerular Filtration Rate 119 ML/MIN Stool C. difficile Toxin (PCR) POSITIVE Stl C. difficile Toxin Epiderm 027 PRESUMPTIVE POSITIVE Labs reviewed. In addition to C. difficile positivity, note mild hyponatremia. Vitals/IOs Vital Signs Date Time Temp Pulse Resp B/P (MAP) Pulse Ox O2 Delivery O2 Flow Rate FiO2 01/18/18 06:15 100.0 93 16 124/57 (79) 92 Intake and Output 01/18/18 01/18/18 01/19/18 08:00 16:00 00:00 Intake Total 480 ml Balance 480 ml Assessment & Plan Problem List: (1) Dementia with behavioral disturbance ICD Codes: F03.91 - Unspecified dementia with behavioral disturbance (2) Alcohol dependence ICD Codes: F10.20 - Alcohol dependence, uncomplicated Assessment & Plan Add low-dose Haldol 0.5 mg every 8 hours as needed for anxiety. Continue Zoloft as ordered. Patient is on salt tabs for hyponatremia, monitor. Transfer from geropsychiatry unit to medical psychiatric unit. Hospitalist input appreciated. Continue other medications and care as ordered. Justification for Cont. Inpt. Complicating conditions. Medication changes. Risk for decompensation in less restrictive environment. Discharge Planning Placement. Case discussed with counselor. Request HC Surrog/Guard Advoc?: Yes Ruben De La Cruz MD Jan 18, 2018 10:49
--- NOTE | 2018-01-18 14:01 | HHI.PR ---
Subjective Remarks Follow-up visit for diarrhea, dehydration, and alcohol abuse. Patient seen and examined in bed, she repots that today she has had 4 BM's. She denies any abdominal pain or discomfort, does repots nausea but no vomiting. Discussed the importance of oral hydration given diarrhea and is asking for Ana Paula Mariama to drink. She denies any fevers, chills, headache, dizziness, lightheadedness, SOB , cough or chest pain. Objective Vitals Vital Signs Date Time Temp Pulse Resp B/P (MAP) Pulse Ox O2 Delivery O2 Flow Rate FiO2 01/18/18 06:15 100.0 93 16 124/57 (79) 92 01/17/18 18:26 98.1 77 16 111/52 (71) 96 01/17/18 17:10 16 I/O 01/17/18 01/17/18 01/17/18 01/18/18 01/18/18 01/18/18 07:00 15:00 23:00 07:00 15:00 23:00 Intake Total 240 ml 480 ml 480 ml Balance 240 ml 480 ml 480 ml Intake Oral 240 ml 480 ml 480 ml # Voids 3 1 # Bowel Movements 3 2 Result Diagram: 01/17/18 1238 Objective Remarks GENERAL: Well developed, elderly female who appears stated age in no acute distress. SKIN: Warm and dry. HEAD: Normocephalic. EYES: No scleral icterus. No injection or drainage. NECK: Supple, trachea midline. No JVD. CARDIOVASCULAR: Regular rate and rhythm without murmurs, gallops, or rubs. RESPIRATORY: Breath sounds equal bilaterally. No accessory muscle use. No rhonchi, wheezing or crackles noted. GASTROINTESTINAL: Abdomen soft, non-tender, nondistended. Hyperactive bowel sounds, no guarding. MUSCULOSKELETAL: No cyanosis, or edema. NEUROLOGICAL: Patient is awake, alert, and oriented. Moving all extremities spontaneously, ambulating without assistance. No facial droop, speech is clear. A/P Assessment and Plan 77-year-old female with past medical history of anxiety, hypertension, and alcohol abuse recently treated for acute dehydration secondary to diarrhea. She was discharged home however [place] acted by law enforcement after she was found to be intoxicated with suicidal statements. Patient is now in inpatient psychiatry unit, [facility] consulted to assist with ongoing medical management. Dementia/ suicidal statements Anxiety - Treatment per psychiatry, appreciate treatment C.diff 027 + - Recently DC from CDU on 01/09, stool testing negative, IV hydration - GI recommended cholestyramine and Imodium as needed - S/p colonoscopy in 01/06: Cecal AVMs. Ascending colon erythema. Colon polyps. Diverticulosis. Internal and external hemorrhoids. s/p EGD on 01/06: Esophageal stricture. Esophagitis. Hiatal hernia. Pending biopsies, follow-up as outpatient with GI services. - esophageal strictures s/p dilation on 01/06. - Hemodynamically stable - C.diff +, started on PO Vancomycin - Reluctant on taking Questran, continue Lactinex - Discussed with patient PO hydration, monitor CBC and BMP closely for dehydration, if needed give IVF. -T-Max 100.0, labs yet to be drawn, discussed with nurse. Please call lab to request lab draw. - Special contact Isolation Elevated LFTs -AST elevated initially at 200--> 58 -Hepatitis panel with positive hep B surface antigen, hep B core IgM antibody negative. 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 -Can follow-up as outpatient determine if this is chronic infection. Hyponatremia Hypokalemia Hypomagnesemia - NA yesterday 131, Na 1gram tab daily - Labs yet to be drawn HTN, controlled - BP stable, off lisinopril -Continue monitoring blood pressure Alcohol abuse - CIWA protocol - LFT's pending, prior AST elevated at 200, likely due to ETOH abuse - Thiamine and B12 WML DVT prophylaxis-ambulation Discussed with nurse and patient. Frank Couch Jan 18, 2018 14:01
[2018-01-18 18:00] VITALS: BP 125/57; PULSE 83; RESP 18; TEMP 98.2; O2SAT 94
[2018-01-19 05:33] VITALS: BP 138/75; PULSE 69; RESP 17; TEMP 97.7; O2SAT 95
[2018-01-19 08:49] LABS: AUTOMATED NEUTROPHIL # 10.2 TH/MM3 (1.8-7.7); BASOPHIL % 0.3 % (0.0-2.0); EOSINOPHIL # 0.1 TH/MM3 (0-0.4); EOSINOPHIL % 0.6 % (0.0-4.0); HEMATOCRIT 36.2 % (35.0-46.0); HEMOGLOBIN 11.8 GM/DL (11.6-15.3); LYMPH % 5.9 % (9.0-44.0); LYMPHOCYTE # 0.7 TH/MM3 (1.0-4.8); MEAN CELL VOLUME 79.4 FL (80.0-100.0); MEAN CORPUSCULAR HEMOGLOBIN 25.9 PG (27.0-34.0); MEAN CORPUSCULAR HGB CONC 32.6 % (32.0-36.0); MEAN PLATELET VOLUME 8.4 FL (7.0-11.0); MONO % 4.6 % (0.0-8.0); MONOCYTE # 0.5 TH/MM3 (0-0.9); NEUT % 88.6 % (16.0-70.0); PLATELET COUNT 455 TH/MM3 (150-450); RED BLOOD COUNT 4.56 MIL/MM3 (4.00-5.30); RED CELL DISTRIBUTION WIDTH 17.8 % (11.6-17.2); WHITE BLOOD COUNT 11.5 TH/MM3 (4.0-11.0)
[2018-01-19] MEDS: FOLIC ACID 1 MG TAB PO SCH (08:53)
[2018-01-19] MEDS: SODIUM CHLORIDE 1 GRAM TAB PO SCH (08:53)
[2018-01-19] MEDS: LACTOBACILLUS ACIDOPHILUS TAB PO SCH ×3 (08:53→17:30)
[2018-01-19] MEDS: SERTRALINE HCL 50 MG TAB PO SCH (08:54)
[2018-01-19] MEDS: VANCOMYCIN 500 MG VIAL (FOR ORAL USE ONLY) PO SCH ×4 (08:57→20:44)
[2018-01-19] MEDS: THIAMINE HCL 100 MG TAB PO SCH (08:57)
[2018-01-19 09:07] LABS: BICARBONATE 26.6 MEQ/L (21.0-32.0); CALCIUM 8.2 MG/DL (8.5-10.1); CREATININE 0.48 MG/DL (0.50-1.00)
--- NOTE | 2018-01-19 09:23 | HHI.PYPN ---
Subjective Chief Complaint: Self-care deficit, probable NCD Remarks Patient seen and examined. Chart reviewed. Patient has not required any Haldol p.r.n.. Case discussed with nursing staff. Case discussed in treatment team. Counselor informs me that patient has been accepted at [facility] but cannot go there today as they do not have any isolation rooms available given patient's C. difficile. On my examination today, the patient reports that her anxiety is somewhat decreased and "not quite as bad." She seems to be in better spirits generally and smiles at intervals. She denies any SI or HI. No side effects from medications. Continues to complain of diarrhea but no other physical complaints. I have encouraged ample hydration. Review of Systems Except as stated in HPI: all other systems reviewed are Neg Mental Status Examination Appearance: Disheveled Consciousness: Alert Orientation: Person, Place Motor Activity: Other (No motor abnormalities noted) Speech: Unremarkable Language: Adequate Fund of Knowledge: Inadequate Attention and Concentration: Inadequate Memory: Impaired Mood: Anxious (Decreased) Affect: Other (Less dysphoric) Thought Process & Associations: Other (slowed) Thought Content: Other (ongoing poverty of thought) Hallucination Type: None Delusion Type: None Suicidal Ideation: No Homicidal Ideation: No Insight: Poor Judgment: Poor Results Labs Test 01/19/18 08:24 White Blood Count 11.5 TH/MM3 Red Blood Count 4.56 MIL/MM3 Hemoglobin 11.8 GM/DL Hematocrit 36.2 % Mean Corpuscular Volume 79.4 FL Mean Corpuscular Hemoglobin 25.9 PG Mean Corpuscular Hemoglobin Concent 32.6 % Red Cell Distribution Width 17.8 % Platelet Count 455 TH/MM3 Mean Platelet Volume 8.4 FL Neutrophils (%) (Auto) 88.6 % Lymphocytes (%) (Auto) 5.9 % Monocytes (%) (Auto) 4.6 % Eosinophils (%) (Auto) 0.6 % Basophils (%) (Auto) 0.3 % Neutrophils # (Auto) 10.2 TH/MM3 Lymphocytes # (Auto) 0.7 TH/MM3 Monocytes # (Auto) 0.5 TH/MM3 Eosinophils # (Auto) 0.1 TH/MM3 Basophils # (Auto) 0.0 TH/MM3 CBC Comment DIFF FINAL Differential Comment Blood Urea Nitrogen 4 MG/DL Creatinine 0.48 MG/DL Random Glucose 95 MG/DL Calcium Level 8.2 MG/DL Sodium Level 131 MEQ/L Potassium Level 3.8 MEQ/L Chloride Level 97 MEQ/L Carbon Dioxide Level 26.6 MEQ/L Anion Gap 7 MEQ/L Estimat Glomerular Filtration Rate 125 ML/MIN Labs reviewed. Mild leukocytosis. Ongoing mild hyponatremia. No evidence of renal compromise. Vitals/IOs Vital Signs Date Time Temp Pulse Resp B/P (MAP) Pulse Ox O2 Delivery O2 Flow Rate FiO2 01/19/18 05:33 97.7 69 17 138/75 (96) 95 Intake and Output 01/19/18 01/19/18 01/20/18 08:00 16:00 00:00 Intake Total 120 ml 120 ml Balance 120 ml 120 ml Assessment & Plan Problem List: (1) Dementia with behavioral disturbance ICD Codes: F03.91 - Unspecified dementia with behavioral disturbance (2) Alcohol dependence ICD Codes: F10.20 - Alcohol dependence, uncomplicated Assessment & Plan Continue Zoloft and Haldol p.r.n. as ordered. Hospitalist input noted and appreciated. Continue to monitor on inpatient unit. Continue other medications and care as ordered. Justification for Cont. Inpt. Complicating conditions. Risk for decompensation in less restrictive environment. Discharge Planning Placement Request HC Surrog/Guard Advoc?: Yes Ruben De La Cruz MD Jan 19, 2018 09:23
[2018-01-19] MEDS: HALOPERIDOL 0.5 MG TAB PO PRN ×2 (14:12→22:29)
--- NOTE | 2018-01-19 15:50 | HHI.PR ---
Subjective Remarks Follow-up visit for diarrhea, dehydration, and alcohol abuse. Patient seen and examined. Patient still with loose stools but has decreased in frequency. States she has had 3 or 4 today which is better than yesterday. She denies any nausea or vomiting. She reports occasional mild abdominal cramping. She denies any fever or chills. Objective Vitals Vital Signs Date Time Temp Pulse Resp B/P (MAP) Pulse Ox O2 Delivery O2 Flow Rate FiO2 01/19/18 05:33 97.7 69 17 138/75 (96) 95 01/18/18 18:00 98.2 83 18 125/57 (79) 94 I/O 01/18/18 01/18/18 01/18/18 01/19/18 01/19/18 01/19/18 07:00 15:00 23:00 07:00 15:00 23:00 Intake Total 480 ml 120 ml 120 ml 120 ml 240 ml Balance 480 ml 120 ml 120 ml 120 ml 240 ml Intake Oral 480 ml 120 ml 120 ml 120 ml 240 ml # Voids 1 1 1 # Bowel Movements 2 Result Diagram: 01/19/1882301/19/18823 Objective Remarks GENERAL: Well developed, elderly female who appears stated age in no acute distress. Awake and alert. SKIN: Warm and dry. HEAD: Atraumatic. Normocephalic. EYES: EOMI. No scleral icterus. No injection or drainage. NECK: Supple, trachea midline. CARDIOVASCULAR: Regular rate and rhythm without murmurs, gallops, or rubs. RESPIRATORY: Breath sounds equal bilaterally. Non labored. No rhonchi, wheezing or crackles noted. GASTROINTESTINAL: Abdomen soft, non-tender, nondistended. No guarding. MUSCULOSKELETAL: No cyanosis, or edema. NEUROLOGICAL: Patient is awake, alert, and oriented. Moving all extremities spontaneously. Nonfocal. Speech is clear. PSYCHIATRIC: Calm and cooperative. Medications and IVs Current Medications Medications (Trade) Dose Ordered Sig/Ruby Route Start Time Stop Time Status Last Admin (Prinivil) 20 mg DAILY PO 01/11/18 10:00 Future Hold 01/13/18 08:27 (Vitamin B1) 100 mg DAILY PO 01/11/18 10:00 01/19/18 08:57 (Tylenol) 650 mg Q4H PRN PO 01/11/18 08:45 01/17/18 20:49 (Milk Of Magnesia Liq) 30 ml DAILY PRN PO 01/11/18 08:45 (Mag-Al Plus Susp Liq) 30 ml Q6H PRN PO 01/11/18 08:45 (Folate) 1 mg DAILY PO 01/12/18 09:00 01/19/18 08:53 (Desitin 40% Oint) 1 applic DAILY PRN TOPICAL 01/12/18 14:45 01/13/18 10:02 (Zofran Odt) 4 mg Q6H PRN PO 01/12/18 16:45 01/12/18 21:55 (Zoloft) 50 mg DAILY PO 01/16/18 09:00 01/19/18 08:54 (Sodium Chloride) 1 gm DAILY PO 01/18/18 09:00 01/19/18 08:53 (Lactinex) 1 tab TID PO 01/18/18 09:00 01/19/18 12:44 (VANCOMYCIN for oral use only) 125 mg QID PO 01/18/18 09:00 01/19/18 12:44 (Haldol) 0.5 mg Q8H PRN PO 01/18/18 11:45 01/19/18 14:12 A/P Assessment and Plan 77-year-old female with past medical history of anxiety, hypertension, and alcohol abuse recently treated for acute dehydration secondary to diarrhea. She was discharged home however [place] acted by law enforcement after she was found to be intoxicated with suicidal statements. Patient is now in inpatient psychiatry unit, [facility] consulted to assist with ongoing medical management. Dementia/ suicidal statements Anxiety - Management per psychiatric team C.diff 027 + - Recently DC from CDU on 01/09, stool testing negative, IV hydration - GI recommended cholestyramine and Imodium as needed - S/p colonoscopy in 01/06: Cecal AVMs. Ascending colon erythema. Colon polyps. Diverticulosis. Internal and external hemorrhoids. s/p EGD on 01/06: Esophageal stricture. Esophagitis. Hiatal hernia. Pending biopsies, follow-up as outpatient with GI services. - esophageal strictures s/p dilation on 01/06. - Hemodynamically stable - continue on PO Vancomycin - Reluctant on taking Questran, continue Lactinex - Discussed with patient PO hydration, monitor CBC and BMP closely for dehydration, if needed give IVF. - Special contact Isolation Elevated LFTs -AST elevated initially at 200--> 58 -Hepatitis panel with positive hep B surface antigen, hep B core IgM antibody negative. 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 -Can follow-up as outpatient determine if this is chronic infection. Hyponatremia, appears chronic, Na 132 03/12/09 Hypokalemia Hypomagnesemia - NA yesterday 131, Na 1gram tab daily - K 3.8. Mag level added on/pending - continue to monitor HTN, controlled - BP stable, off lisinopril - Continue monitoring blood pressure Alcohol abuse - CIWA protocol - MVI/Thiamin/Folate daily - monitor for signs of withdrawal Transaminitis - likely 2/2 EtOH use - trending down - avoid nephrotoxic agents DVT prophylaxis-ambulation Jacqueline Amaya Jan 19, 2018 15:50
[2018-01-19 18:08] VITALS: BP 128/62; PULSE 68; RESP 16; TEMP 97.9; O2SAT 95
[2018-01-19] MEDS: ACETAMINOPHEN 325 MG TAB PO PRN (20:45)
[2018-01-20 05:35] VITALS: BP 138/65; PULSE 62; RESP 16; TEMP 98.1; O2SAT 95
[2018-01-20] MEDS: MULTIVITAMIN TAB PO SCH (09:00)
[2018-01-20] MEDS ORDERED: MAGNESIUM OXIDE 400 MG TAB PO SCH (09:00)
[2018-01-20] MEDS: FOLIC ACID 1 MG TAB PO SCH (09:00)
[2018-01-20] MEDS: LACTOBACILLUS ACIDOPHILUS TAB PO SCH ×3 (09:00→17:25)
[2018-01-20] MEDS: THIAMINE HCL 100 MG TAB PO SCH (09:00)
[2018-01-20] MEDS: SODIUM CHLORIDE 1 GRAM TAB PO SCH (09:00)
[2018-01-20] MEDS: SERTRALINE HCL 50 MG TAB PO SCH (09:00)
[2018-01-20] MEDS: VANCOMYCIN 500 MG VIAL (FOR ORAL USE ONLY) PO SCH ×4 (09:00→20:42)
[2018-01-20] MEDS: HALOPERIDOL 0.5 MG TAB PO PRN ×2 (09:49→22:25)
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
[2018-01-20] MEDS ORDERED: WALKER WHEELS/F1 MIS (11:42)
[2018-01-20] MEDS: NYSTATIN 100,000 U/GM PWD 15 GM BTL TOPICAL SCH ×2 (11:45→20:55)
--- NOTE | 2018-01-20 11:52 | HHI.PR ---
Subjective Remarks Follow-up visit for diarrhea, dehydration, and alcohol abuse. Patient seen and examined. Patient complaining of nausea this morning. Reports one episode of diarrhea. (+)abdominal cramping. Denies any fever or chills. Denies any vomiting. She denies any dysuria. Discussed with nursing staff. Objective Vitals Vital Signs Date Time Temp Pulse Resp B/P (MAP) Pulse Ox O2 Delivery O2 Flow Rate FiO2 01/20/18 05:35 98.1 62 16 138/65 (89) 95 01/19/18 18:08 97.9 68 16 128/62 (84) 95 I/O 01/19/18 01/19/18 01/19/18 01/20/18 01/20/18 01/20/18 07:00 15:00 23:00 07:00 15:00 23:00 Intake Total 120 ml 240 ml 2040 ml 0 ml 240 ml Balance 120 ml 240 ml 2040 ml 0 ml 240 ml Intake Oral 120 ml 240 ml 2040 ml 0 ml 240 ml # Voids 1 1 2 Result Diagram: 01/19/1882301/19/1824 Objective Remarks GENERAL: Well developed, elderly female who appears stated age in no acute distress. Awake and alert. Lying in hospital bed. SKIN: Warm and dry. Erythematous rash with few satellite lesions along intergluteal folds with small amount of loose stool noted along buttock crease. HEAD: Atraumatic. Normocephalic. EYES: EOMI. No scleral icterus. No injection or drainage. NECK: Supple, trachea midline. CARDIOVASCULAR: Regular rate and rhythm without murmurs, gallops, or rubs. RESPIRATORY: Breath sounds equal bilaterally. Non labored. No rhonchi, wheezing or crackles noted. GASTROINTESTINAL: Abdomen soft, nondistended. No guarding. (+)Mild tenderness to palpation diffusely. (+)BS. MUSCULOSKELETAL: No cyanosis, or edema. NEUROLOGICAL: Patient is awake, alert, and oriented. Moving all extremities spontaneously. Nonfocal. Speech is clear. PSYCHIATRIC: Calm and cooperative. Medications and IVs Current Medications Medications (Trade) Dose Ordered Sig/Ruby Route Start Time Stop Time Status Last Admin (Prinivil) 20 mg DAILY PO 01/11/18 10:00 Future Hold 01/13/18 08:27 (Vitamin B1) 100 mg DAILY PO 01/11/18 10:00 01/20/18 09:00 (Tylenol) 650 mg Q4H PRN PO 01/11/18 08:45 01/19/18 20:45 (Milk Of Magnesia Liq) 30 ml DAILY PRN PO 01/11/18 08:45 (Mag-Al Plus Susp Liq) 30 ml Q6H PRN PO 01/11/18 08:45 (Folate) 1 mg DAILY PO 01/12/18 09:00 01/20/18 09:00 (Desitin 40% Oint) 1 applic DAILY PRN TOPICAL 01/12/18 14:45 01/13/18 10:02 (Zofran Odt) 4 mg Q6H PRN PO 01/12/18 16:45 01/12/18 21:55 (Zoloft) 50 mg DAILY PO 01/16/18 09:00 01/20/18 09:00 (Sodium Chloride) 1 gm DAILY PO 01/18/18 09:00 01/20/18 09:00 (Lactinex) 1 tab TID PO 01/18/18 09:00 01/20/18 09:00 (VANCOMYCIN for oral use only) 125 mg QID PO 01/18/18 09:00 01/20/18 09:00 (Haldol) 0.5 mg Q8H PRN PO 01/18/18 11:45 01/20/18 09:49 (Theragran) 1 tab DAILY PO 01/20/18 09:00 01/20/18 09:00 (Mag-Ox) 400 mg Q12HR PO 01/20/18 09:00 01/20/18 21:01 A/P Assessment and Plan 77-year-old female with past medical history of anxiety, hypertension, and alcohol abuse recently treated for acute dehydration secondary to diarrhea. She was discharged home however [place] acted by law enforcement after she was found to be intoxicated with suicidal statements. Patient is now in inpatient psychiatry unit, [facility] consulted to assist with ongoing medical management. Dementia/ suicidal statements Anxiety - Management per psychiatric team C.diff 027 + - Recently DC from CDU on 01/09, stool testing negative, IV hydration - GI recommended cholestyramine and Imodium as needed - S/p colonoscopy in 01/06: Cecal AVMs. Ascending colon erythema. Colon polyps. Diverticulosis. Internal and external hemorrhoids. s/p EGD on 01/06: Esophageal stricture. Esophagitis. Hiatal hernia s/p dilation. Pending biopsies, follow-up as outpatient with GI services. - continue on PO Vancomycin - Reluctant on taking Questran, continue Lactinex - Discussed with patient PO hydration, monitor CBC and BMP closely for dehydration, if needed give IVF. - Special contact Isolation - 01/19 c/o nausea, abdominal cramping, patient is afebrile, repeat lab studies, UA ordered yesterday still pending, new nursing order placed to obtain UA specimen Candidal intertrigo - erythematous rash with few satellite lesions along intergluteal folds - Nystatin - keep area clean of stool. Discussed with nursing staff - discussed with patient repositioning every 2 hours for comfort and offloading Transaminitis -suspect secondary to EtOH use -avoid hepatotoxic agents -AST elevated initially at 200--> 58 -Hepatitis panel with positive hep B surface antigen, hep B core IgM antibody negative. 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 -Can follow-up as outpatient determine if this is chronic infection. Hyponatremia, appears chronic, Na 132 03/12/09 Hypokalemia Hypomagnesemia - NA yesterday 131, Na 1gram tab daily, repeat CMP - K 3.8. - Mag level low normal, give po repletion x 2 doses - continue to monitor HTN, controlled - BP stable, off lisinopril - Continue monitoring blood pressure Alcohol abuse - [facility] protocol - MVI/Thiamin/Folate daily - monitor for signs of withdrawal DVT prophylaxis-Heparin sq Jacqueline Amaya Jan 20, 2018 11:52
[2018-01-20 14:07] LABS: AUTOMATED NEUTROPHIL # 8.4 TH/MM3 (1.8-7.7); BASOPHIL % 0.4 % (0.0-2.0); EOSINOPHIL # 0.1 TH/MM3 (0-0.4); EOSINOPHIL % 1.4 % (0.0-4.0); HEMATOCRIT 34.1 % (35.0-46.0); HEMOGLOBIN 11.1 GM/DL (11.6-15.3); LYMPH % 6.3 % (9.0-44.0); LYMPHOCYTE # 0.6 TH/MM3 (1.0-4.8); MEAN CELL VOLUME 78.9 FL (80.0-100.0); MEAN CORPUSCULAR HEMOGLOBIN 25.8 PG (27.0-34.0); MEAN CORPUSCULAR HGB CONC 32.7 % (32.0-36.0); MEAN PLATELET VOLUME 8.6 FL (7.0-11.0); MONO % 8.5 % (0.0-8.0); MONOCYTE # 0.9 TH/MM3 (0-0.9); NEUT % 83.4 % (16.0-70.0); PLATELET COUNT 456 TH/MM3 (150-450); RED BLOOD COUNT 4.32 MIL/MM3 (4.00-5.30); RED CELL DISTRIBUTION WIDTH 17.5 % (11.6-17.2); WHITE BLOOD COUNT 10.1 TH/MM3 (4.0-11.0)
[2018-01-20 14:25] LABS: ALBUMIN 2.7 GM/DL (3.4-5.0); AST (GOT) 22 U/L (15-37); BICARBONATE 27.9 MEQ/L (21.0-32.0); BLOOD UREA NITROGEN 4 MG/DL (7-18); CALCIUM 8.1 MG/DL (8.5-10.1); CHLORIDE 95 MEQ/L (98-107); CREATININE 0.45 MG/DL (0.50-1.00); GLOMERULAR FILTRATION RATE 135 ML/MIN (>89); GLUCOSE,RANDOM 83 MG/DL (74-106); SODIUM (NA) 131 MEQ/L (136-145)
[2018-01-20 14:27] LABS: ALT (GPT) 19 U/L (10-53); PHOSPHORUS 3.4 MG/DL (2.5-4.9)
[2018-01-20 14:29] LABS: ALKALINE PHOSPHATASE 86 U/L (45-117); TOTAL BILIRUBIN ADULT 0.2 MG/DL (0.2-1.0); TOTAL PROTEIN 6.4 GM/DL (6.4-8.2)
--- NOTE | 2018-01-20 14:47 | HHI.PYPN ---
Subjective Chief Complaint: Self-care deficit, probable NCD Remarks Reviewed electronic medical record discussed case with staff. Follow-up was conducted in patient's room. Patient remains under contact precautions due to her diagnosis of C. difficile. Her mood is irritated as is her affect. She reports that she has not been sleeping very well and her appetite has been okay. Mental Status Examination Appearance: Disheveled Consciousness: Alert Orientation: Person, Place Motor Activity: Other (No motor abnormalities noted) Speech: Unremarkable Language: Adequate Fund of Knowledge: Inadequate Attention and Concentration: Inadequate Memory: Impaired Mood: Anxious (Decreased) Affect: Other (Less dysphoric) Thought Process & Associations: Other (slowed) Thought Content: Other (ongoing poverty of thought) Hallucination Type: None Delusion Type: None Suicidal Ideation: No Homicidal Ideation: No Insight: Poor Judgment: Poor Results Labs Test 01/20/18 13:30 White Blood Count 10.1 TH/MM3 Red Blood Count 4.32 MIL/MM3 Hemoglobin 11.1 GM/DL Hematocrit 34.1 % Mean Corpuscular Volume 78.9 FL Mean Corpuscular Hemoglobin 25.8 PG Mean Corpuscular Hemoglobin Concent 32.7 % Red Cell Distribution Width 17.5 % Platelet Count 456 TH/MM3 Mean Platelet Volume 8.6 FL Neutrophils (%) (Auto) 83.4 % Lymphocytes (%) (Auto) 6.3 % Monocytes (%) (Auto) 8.5 % Eosinophils (%) (Auto) 1.4 % Basophils (%) (Auto) 0.4 % Neutrophils # (Auto) 8.4 TH/MM3 Lymphocytes # (Auto) 0.6 TH/MM3 Monocytes # (Auto) 0.9 TH/MM3 Eosinophils # (Auto) 0.1 TH/MM3 Basophils # (Auto) 0.0 TH/MM3 CBC Comment DIFF FINAL Differential Comment Blood Urea Nitrogen 4 MG/DL Creatinine 0.45 MG/DL Random Glucose 83 MG/DL Total Protein 6.4 GM/DL Albumin 2.7 GM/DL Calcium Level 8.1 MG/DL Phosphorus Level 3.4 MG/DL Alkaline Phosphatase 86 U/L Aspartate Amino Transf (AST/SGOT) 22 U/L Alanine Aminotransferase (ALT/SGPT) 19 U/L Total Bilirubin 0.2 MG/DL Sodium Level 131 MEQ/L Potassium Level 3.7 MEQ/L Chloride Level 95 MEQ/L Carbon Dioxide Level 27.9 MEQ/L Anion Gap 8 MEQ/L Estimat Glomerular Filtration Rate 135 ML/MIN Lipase 130 U/L Vitals/IOs Vital Signs Date Time Temp Pulse Resp B/P (MAP) Pulse Ox O2 Delivery O2 Flow Rate FiO2 01/20/18 05:35 98.1 62 16 138/65 (89) 95 Intake and Output 01/20/18 01/20/18 01/21/18 08:00 16:00 00:00 Intake Total 240 ml 240 ml Balance 240 ml 240 ml Assessment & Plan Problem List: (1) Dementia with behavioral disturbance ICD Codes: F03.91 - Unspecified dementia with behavioral disturbance (2) Alcohol dependence ICD Codes: F10.20 - Alcohol dependence, uncomplicated Assessment & Plan Estimated LOS: Patient is currently being treated for C. difficile. Safe placement is being sought. Discharge planning is in progress. Days Justification for Cont. Inpt. Moving this patient to a lower level of care would likely result in decompensation. Request HC Surrog/Guard Advoc?: Yes Tonya Marin Jan 20, 2018 14:47
[2018-01-20 18:00] VITALS: BP 142/64; PULSE 66; RESP 16; TEMP 98.2; O2SAT 98
[2018-01-20 19:38] LABS: BILIRUBIN, URINE NEG (NEG); BLOOD, URINE NEG (NEG); GLUCOSE,URINE NEG (NEG); KETONE, URINE NEG (NEG); NITRITE,URINE NEG (NEG); PH, URINE 6.5 (5.0-8.5); SQUAMOUS EPITHELIAL CELL URINE 1 /hpf (0-5); URINE COLOR LIGHT-YELLOW (YELLW/STRAW); URINE LEUKOCYTE ESTERASE SMALL (NEG)
[2018-01-20] MEDS: HEPARIN SODIUM - SQ 10,000 UNITS/ML VIAL SQ SCH (20:46)
[2018-01-20] MEDS: ACETAMINOPHEN 325 MG TAB PO PRN (22:25)
[2018-01-21 06:00] VITALS: BP 131/65; PULSE 64; RESP 18; TEMP 97.6; O2SAT 93
[2018-01-21] MEDS: LACTOBACILLUS ACIDOPHILUS TAB PO SCH ×3 (09:15→18:00)
[2018-01-21] MEDS: SERTRALINE HCL 50 MG TAB PO SCH (09:15)
[2018-01-21] MEDS: FOLIC ACID 1 MG TAB PO SCH (09:15)
[2018-01-21] MEDS: MULTIVITAMIN TAB PO SCH (09:15)
[2018-01-21] MEDS: THIAMINE HCL 100 MG TAB PO SCH (09:15)
[2018-01-21] MEDS: SODIUM CHLORIDE 1 GRAM TAB PO SCH ×2 (09:15→20:23)
[2018-01-21] MEDS: VANCOMYCIN 500 MG VIAL (FOR ORAL USE ONLY) PO SCH ×4 (09:15→20:22)
[2018-01-21] MEDS: HEPARIN SODIUM - SQ 10,000 UNITS/ML VIAL SQ SCH ×2 (09:22→20:22)
[2018-01-21] MEDS: NYSTATIN 100,000 U/GM PWD 15 GM BTL TOPICAL SCH ×2 (09:23→20:23)
--- NOTE | 2018-01-21 10:56 | HHI.PYPN ---
Subjective Chief Complaint: Self-care deficit, probable NCD Remarks Patient seen and examined. Chart reviewed. Case discussed with nurse. Case discussed with counselor. Nurse reports that patient complains of some ongoing depressive symptoms. On my examination today, the patient reports that she feels a little bit better. Anxiety level is decreased, and patient reports that Haldol p.r.n. was at least partially helpful for this indication. No SI or HI. No side effects from medications. Diarrhea is abating and patient has no other acute physical complaints. Review of Systems ROS Limitations: Poor Historian Except as stated in HPI: all other systems reviewed are Neg Mental Status Examination Appearance: Disheveled (improving) Consciousness: Alert Orientation: Person, Place Motor Activity: Other (no abnormal motor movements noted) Speech: Unremarkable Language: Adequate Fund of Knowledge: Inadequate Attention and Concentration: Inadequate Memory: Impaired Mood: Other (mildly dysphoric) Affect: Blunt Thought Process & Associations: Other (slowed) Thought Content: Other (ongoing poverty of thought) Hallucination Type: None Delusion Type: None Suicidal Ideation: No Homicidal Ideation: No Insight: Poor Judgment: Poor Results Labs Test 01/20/18 13:30 White Blood Count 10.1 TH/MM3 Red Blood Count 4.32 MIL/MM3 Hemoglobin 11.1 GM/DL Hematocrit 34.1 % Mean Corpuscular Volume 78.9 FL Mean Corpuscular Hemoglobin 25.8 PG Mean Corpuscular Hemoglobin Concent 32.7 % Red Cell Distribution Width 17.5 % Platelet Count 456 TH/MM3 Mean Platelet Volume 8.6 FL Neutrophils (%) (Auto) 83.4 % Lymphocytes (%) (Auto) 6.3 % Monocytes (%) (Auto) 8.5 % Eosinophils (%) (Auto) 1.4 % Basophils (%) (Auto) 0.4 % Neutrophils # (Auto) 8.4 TH/MM3 Lymphocytes # (Auto) 0.6 TH/MM3 Monocytes # (Auto) 0.9 TH/MM3 Eosinophils # (Auto) 0.1 TH/MM3 Basophils # (Auto) 0.0 TH/MM3 CBC Comment DIFF FINAL Differential Comment Blood Urea Nitrogen 4 MG/DL Creatinine 0.45 MG/DL Random Glucose 83 MG/DL Total Protein 6.4 GM/DL Albumin 2.7 GM/DL Calcium Level 8.1 MG/DL Phosphorus Level 3.4 MG/DL Alkaline Phosphatase 86 U/L Aspartate Amino Transf (AST/SGOT) 22 U/L Alanine Aminotransferase (ALT/SGPT) 19 U/L Total Bilirubin 0.2 MG/DL Sodium Level 131 MEQ/L Potassium Level 3.7 MEQ/L Chloride Level 95 MEQ/L Carbon Dioxide Level 27.9 MEQ/L Anion Gap 8 MEQ/L Estimat Glomerular Filtration Rate 135 ML/MIN Lipase 130 U/L Labs reviewed. Mild microcytic anemia noted; will monitor. Vitals/IOs Vital Signs Date Time Temp Pulse Resp B/P (MAP) Pulse Ox O2 Delivery O2 Flow Rate FiO2 01/21/18 06:00 97.6 64 18 131/65 (87) 93 Intake and Output 01/21/18 01/21/18 01/22/18 08:00 16:00 00:00 Intake Total 360 ml Balance 360 ml Assessment & Plan Problem List: (1) Dementia with behavioral disturbance ICD Codes: F03.91 - Unspecified dementia with behavioral disturbance (2) Alcohol dependence ICD Codes: F10.20 - Alcohol dependence, uncomplicated Assessment & Plan Titrate Zoloft 75 mg daily to manage dysphoria. Hospitalist input noted and appreciated. Continue to monitor on the inpatient unit. Continue other medications and care as ordered. Justification for Cont. Inpt. Complicating condition. Risk for decompensation in less restrictive environment. Discharge Planning Placement following resolution of C. difficile diarrhea. Request HC Surrog/Guard Advoc?: Yes Ruben De La Cruz MD Jan 21, 2018 10:56
--- NOTE | 2018-01-21 11:42 | HHI.PR ---
Subjective Remarks Follow-up visit for diarrhea, dehydration, and alcohol abuse. Patient seen and examined. Patient reports she feels a little better today. 3 loose stools yesterday, none so far today. Mild nausea but no vomiting. Able to eat breakfast. No fever or chills. No chest pain or dyspnea. No dysuria. Objective Vitals Vital Signs Date Time Temp Pulse Resp B/P (MAP) Pulse Ox O2 Delivery O2 Flow Rate FiO2 01/21/18 06:00 97.6 64 18 131/65 (87) 93 01/20/18 18:00 98.2 66 16 142/64 (90) 98 I/O 01/20/18 01/20/18 01/20/18 01/21/18 01/21/18 01/21/18 07:00 15:00 23:00 07:00 15:00 23:00 Intake Total 0 ml 960 ml 1080 ml 360 ml Balance 0 ml 960 ml 1080 ml 360 ml Intake Oral 0 ml 960 ml 1080 ml 360 ml # Voids 2 1 Result Diagram: 01/20/18 1330 01/20/18 1330 Objective Remarks GENERAL: Well developed, elderly female who appears stated age in no acute distress. Awake and alert. Sitting up in hospital bed. SKIN: Warm and dry. Erythematous rash with few satellite lesions along intergluteal folds with small amount of loose stool noted along buttock crease. HEAD: Atraumatic. Normocephalic. EYES: EOMI. No scleral icterus. No injection or drainage. NECK: Supple, trachea midline. CARDIOVASCULAR: Regular rate and rhythm without murmurs, gallops, or rubs. RESPIRATORY: Breath sounds equal bilaterally. Non labored. No rhonchi, wheezing or crackles noted. GASTROINTESTINAL: Abdomen soft, nondistended. No guarding. (+)Mild tenderness to palpation diffusely. (+)BS. MUSCULOSKELETAL: No cyanosis, or edema. NEUROLOGICAL: Patient is awake, alert, and oriented. Moving all extremities spontaneously. Nonfocal. Speech is clear. PSYCHIATRIC: Calm and cooperative. Medications and IVs Current Medications Medications (Trade) Dose Ordered Sig/Ruby Route Start Time Stop Time Status Last Admin (Prinivil) 20 mg DAILY PO 01/11/18 10:00 Future Hold 01/13/18 08:27 (Vitamin B1) 100 mg DAILY PO 01/11/18 10:00 01/21/18 09:15 (Tylenol) 650 mg Q4H PRN PO 01/11/18 08:45 01/20/18 22:25 (Milk Of Magnesia Liq) 30 ml DAILY PRN PO 01/11/18 08:45 (Mag-Al Plus Susp Liq) 30 ml Q6H PRN PO 01/11/18 08:45 (Folate) 1 mg DAILY PO 01/12/18 09:00 01/21/18 09:15 (Desitin 40% Oint) 1 applic DAILY PRN TOPICAL 01/12/18 14:45 01/13/18 10:02 (Zofran Odt) 4 mg Q6H PRN PO 01/12/18 16:45 01/12/18 21:55 (Zoloft) 50 mg DAILY PO 01/16/18 09:00 01/21/18 09:15 (Sodium Chloride) 1 gm DAILY PO 01/18/18 09:00 01/21/18 09:15 (Lactinex) 1 tab TID PO 01/18/18 09:00 01/21/18 09:15 (VANCOMYCIN for oral use only) 125 mg QID PO 01/18/18 09:00 01/21/18 09:15 (Haldol) 0.5 mg Q8H PRN PO 01/18/18 11:45 01/20/18 22:25 (Theragran) 1 tab DAILY PO 01/20/18 09:00 01/21/18 09:15 (Heparin Inj) 5,000 units Q12HR SQ 01/20/18 21:00 01/21/18 09:22 (Mycostatin Powder) 1 applic Q12HR TOPICAL 01/20/18 11:45 01/21/18 09:23 A/P Assessment and Plan 77-year-old female with past medical history of anxiety, hypertension, and alcohol abuse recently treated for acute dehydration secondary to diarrhea. She was discharged home however [place] acted by law enforcement after she was found to be intoxicated with suicidal statements. Patient is now in inpatient psychiatry unit, [facility] consulted to assist with ongoing medical management. Dementia/ suicidal statements Anxiety - Management per psychiatric team C.diff 027 + - Recently DC from CDU on 01/09, stool testing negative, IV hydration - GI recommended cholestyramine and Imodium as needed - S/p colonoscopy in 01/06: Cecal AVMs. Ascending colon erythema. Colon polyps. Diverticulosis. Internal and external hemorrhoids. s/p EGD on 01/06: Esophageal stricture. Esophagitis. Hiatal hernia s/p dilation. Pending biopsies, follow-up as outpatient with GI services. - continue on PO Vancomycin - Reluctant on taking Questran, continue Lactinex - Discussed with patient PO hydration, monitor CBC and BMP closely for dehydration, if needed give IVF. - Special contact Isolation - 01/20 c/o nausea, abdominal cramping, patient is afebrile, UA unremarkable, white count WNL - 01/21 patient better today, still with nausea but mild, no vomiting. Tolerated breakfast. No loose stools so far today. Candidal intertrigo - erythematous rash with few satellite lesions along intergluteal folds - Nystatin - keep area clean of stool. Discussed with nursing staff - discussed with patient repositioning every 2 hours for comfort and offloading Transaminitis, resolved -suspect secondary to EtOH use -avoid hepatotoxic agents -Hepatitis panel with positive hep B surface antigen, hep B core IgM antibody negative. 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 -Can follow-up as outpatient determine if this is chronic infection. Hyponatremia, appears chronic, Na 132 03/12/09 Hypokalemia Hypomagnesemia - NA 131, increase salt tabs to BID - K 3.8. - Mag level low normal, give po repletion x 2 doses - continue to monitor HTN, controlled - BP stable, off lisinopril - Continue monitoring blood pressure Alcohol abuse - [facility] protocol - MVI/Thiamin/Folate daily - monitor for signs of withdrawal DVT prophylaxis-Heparin sq Jacqueline Amaya Jan 21, 2018 11:42
[2018-01-21] MEDS ORDERED: PILL SPLITTER OTHER PRN (14:00)
[2018-01-21 18:20] VITALS: BP 141/63; PULSE 70; RESP 17; TEMP 97.9; O2SAT 96
[2018-01-21] MEDS: ACETAMINOPHEN 325 MG TAB PO PRN (20:23)
[2018-01-21] MEDS: HALOPERIDOL 0.5 MG TAB PO PRN (22:12)
[2018-01-22] MEDS: SODIUM CHLORIDE 1 GRAM TAB PO SCH ×3 (08:36→22:02)
[2018-01-22] MEDS: MULTIVITAMIN TAB PO SCH (08:36)
[2018-01-22] MEDS: SERTRALINE HCL 50 MG TAB PO SCH (08:39)
[2018-01-22] MEDS: LACTOBACILLUS ACIDOPHILUS TAB PO SCH ×3 (08:41→18:00)
[2018-01-22] MEDS: FOLIC ACID 1 MG TAB PO SCH (08:41)
[2018-01-22] MEDS: THIAMINE HCL 100 MG TAB PO SCH (08:41)
[2018-01-22] MEDS: HEPARIN SODIUM - SQ 10,000 UNITS/ML VIAL SQ SCH ×2 (08:45→21:40)
[2018-01-22] MEDS: VANCOMYCIN 500 MG VIAL (FOR ORAL USE ONLY) PO SCH ×4 (08:48→21:39)
[2018-01-22] MEDS: NYSTATIN 100,000 U/GM PWD 15 GM BTL TOPICAL SCH ×2 (08:48→21:40)
--- NOTE | 2018-01-22 09:52 | HHI.PYPN ---
Subjective Chief Complaint: Self-care deficit, probable NCD Remarks Reviewed electronic medical record and discussed case with staff. Follow-up performed in patient's room. Patient found sitting up on bed watching television alert and oriented. Her mood seems improved and her affect is euthymic. She states that she feels better has had no diarrhea today. She does state that she has difficulty sleeping at night but, her appetite has been okay. She reports feeling a little anxious. Mental Status Examination Appearance: Disheveled (improving) Consciousness: Alert Orientation: Person, Place Motor Activity: Other (no abnormal motor movements noted) Speech: Unremarkable Language: Adequate Fund of Knowledge: Inadequate Attention and Concentration: Inadequate Memory: Impaired Mood: Other (mildly dysphoric) Affect: Blunt Thought Process & Associations: Other (slowed) Thought Content: Other (ongoing poverty of thought) Hallucination Type: None Delusion Type: None Suicidal Ideation: No Homicidal Ideation: No Insight: Poor Judgment: Poor Results Vitals/IOs Vital Signs Date Time Temp Pulse Resp B/P (MAP) Pulse Ox O2 Delivery O2 Flow Rate FiO2 01/21/18 18:20 97.9 70 17 141/63 (89) 96 Intake and Output 01/22/18 01/22/18 01/23/18 08:00 16:00 00:00 Intake Total 0 ml 360 ml Balance 0 ml 360 ml Assessment & Plan Problem List: (1) Dementia with behavioral disturbance ICD Codes: F03.91 - Unspecified dementia with behavioral disturbance (2) Alcohol dependence ICD Codes: F10.20 - Alcohol dependence, uncomplicated Assessment & Plan Estimated LOS: Patient continues to be treated for C. difficile. Awaiting safe placement. Days Justification for Cont. Inpt. Moving this patient to a lower level of care would likely result in decompensation. Awaiting for safe placement. Request HC Surrog/Guard Advoc?: Yes Tonya Marin Jan 22, 2018 09:52
--- NOTE | 2018-01-22 12:49 | HHI.PR ---
Subjective Remarks Follow-up visit for diarrhea, dehydration, and alcohol abuse. Patient seen and examined. Patient reports that she feels okay. No diarrhea today. Discussed with nursing staff, 3 BMs yesterday that were slightly more formed and pasty. She continues to have mild nausea but is able to tolerate breakfast and lunch although she does not like what [place] stirrups. She reports intermittent mild abdominal cramping. She denies any dysuria. Denies any fever or chills. Denies any chest pain or shortness of breath. Objective Vitals Vital Signs Date Time Temp Pulse Resp B/P (MAP) Pulse Ox O2 Delivery O2 Flow Rate FiO2 01/21/18 18:20 97.9 70 17 141/63 (89) 96 I/O 01/21/18 01/21/18 01/21/18 01/22/18 01/22/18 01/22/18 07:00 15:00 23:00 07:00 15:00 23:00 Intake Total 720 ml 1920 ml 0 ml 360 ml Balance 720 ml 1920 ml 0 ml 360 ml Intake Oral 720 ml 1920 ml 0 ml 360 ml # Voids 4 2 # Bowel Movements 4 2 Result Diagram: 01/20/18 1330 01/20/18 1330 Objective Remarks GENERAL: Well developed, elderly female who appears stated age in no acute distress. Awake and alert. Sitting up in hospital bed watching TV. SKIN: Warm and dry. HEAD: Atraumatic. Normocephalic. EYES: EOMI. No scleral icterus. No injection or drainage. NECK: Supple, trachea midline. CARDIOVASCULAR: Regular rate and rhythm without murmurs, gallops, or rubs. RESPIRATORY: Breath sounds equal bilaterally. Non labored. No rhonchi, wheezing or crackles noted. GASTROINTESTINAL: Abdomen soft, nondistended. No guarding. (+)Mild tenderness to palpation diffusely. (+)BS. MUSCULOSKELETAL: No cyanosis, or edema. NEUROLOGICAL: Patient is awake, alert, and oriented. Moving all extremities spontaneously. Nonfocal. Speech is clear. PSYCHIATRIC: Calm and cooperative. Medications and IVs Current Medications Medications (Trade) Dose Ordered Sig/Ruby Route Start Time Stop Time Status Last Admin (Prinivil) 20 mg DAILY PO 01/11/18 10:00 Future Hold 01/13/18 08:27 (Vitamin B1) 100 mg DAILY PO 01/11/18 10:00 01/22/18 08:41 (Tylenol) 650 mg Q4H PRN PO 01/11/18 08:45 01/21/18 20:23 (Milk Of Magnesia Liq) 30 ml DAILY PRN PO 01/11/18 08:45 (Mag-Al Plus Susp Liq) 30 ml Q6H PRN PO 01/11/18 08:45 (Folate) 1 mg DAILY PO 01/12/18 09:00 01/22/18 08:41 (Desitin 40% Oint) 1 applic DAILY PRN TOPICAL 01/12/18 14:45 01/13/18 10:02 (Zofran Odt) 4 mg Q6H PRN PO 01/12/18 16:45 01/12/18 21:55 (Lactinex) 1 tab TID PO 01/18/18 09:00 01/22/18 08:41 (VANCOMYCIN for oral use only) 125 mg QID PO 01/18/18 09:00 01/22/18 08:48 (Haldol) 0.5 mg Q8H PRN PO 01/18/18 11:45 01/21/18 22:12 (Theragran) 1 tab DAILY PO 01/20/18 09:00 01/22/18 08:36 (Heparin Inj) 5,000 units Q12HR SQ 01/20/18 21:00 01/22/18 08:45 (Mycostatin Powder) 1 applic Q12HR TOPICAL 01/20/18 11:45 01/22/18 08:48 (Sodium Chloride) 1 gm BID PO 01/21/18 21:00 01/22/18 08:36 (Zoloft) 75 mg DAILY PO 01/22/18 09:00 01/22/18 08:39 (Pill Splitter) 1 ea UNSCH PRN OTHER 01/21/18 14:00 A/P Assessment and Plan 77-year-old female with past medical history of anxiety, hypertension, and alcohol abuse recently treated for acute dehydration secondary to diarrhea. She was discharged home however [place] acted by law enforcement after she was found to be intoxicated with suicidal statements. Patient is now in inpatient psychiatry unit, [facility] consulted to assist with ongoing medical management. Dementia/ suicidal statements Anxiety - Management per psychiatric team C.diff 027 + - Recently DC from CDU on 3/31, stool testing negative, IV hydration - GI recommended cholestyramine and Imodium as needed - S/p colonoscopy in 01/06: Cecal AVMs. Ascending colon erythema. Colon polyps. Diverticulosis. Internal and external hemorrhoids. s/p EGD on 01/06: Esophageal stricture. Esophagitis. Hiatal hernia s/p dilation. Pending biopsies, follow-up as outpatient with GI services. - continue on PO Vancomycin - continue Lactinex - Special contact Isolation - 01/20 c/o nausea, abdominal cramping, patient is afebrile, UA unremarkable, white count WNL - 01/21 patient better today, still with nausea but mild, no vomiting. Tolerated breakfast. No loose stools so far today. - 01/22 improving, no loose stool so far today. Discussed with nursing staff , 3 pasty BMs yesterday. Candidal intertrigo - erythematous rash with few satellite lesions along intergluteal folds - Nystatin application BID - keep area clean of stool. Discussed with nursing staff - discussed with patient repositioning every 2 hours for comfort and offloading Transaminitis, resolved -suspect secondary to EtOH use -avoid hepatotoxic agents -Hepatitis panel with positive hep B surface antigen, hep B core IgM antibody negative. 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 -Can follow-up as outpatient determine if this is chronic infection. Hyponatremia, appears chronic, Na 132 03/12/09 Hypokalemia Hypomagnesemia - NA 131, increase salt tabs to BID, repeat sodium level tomorrow - K 3.8. - Mag level low normal, give po repletion x 2 doses - continue to monitor HTN, chronic - BP slightly elevated, will resume lisinopril at lower dose of 5 mg daily - Continue monitoring blood pressure and adjust treatment accordingly Alcohol abuse - [facility] protocol - MVI/Thiamin/Folate daily - monitor for signs of withdrawal DVT prophylaxis-Heparin sq Discussed with patient, nursing staff Jacqueline Amaya Jan 22, 2018 12:49
[2018-01-22] MEDS: HALOPERIDOL 0.5 MG TAB PO PRN ×2 (13:48→22:00)
[2018-01-22 18:21] VITALS: BP 149/67; PULSE 69; RESP 16; TEMP 97.7; O2SAT 95
[2018-01-22] MEDS: ACETAMINOPHEN 325 MG TAB PO PRN (18:39)
[2018-01-23 06:00] VITALS: BP 170/73; PULSE 67; RESP 18; TEMP 98.5; O2SAT 97
[2018-01-23] MEDS ORDERED: LISINOPRIL 5 MG TAB PO SCH (09:00)
--- NOTE | 2018-01-23 09:43 | HHI.PYPN ---
Subjective Chief Complaint: Self-care deficit, probable NCD Remarks Patient was seen today for psychiatric reevaluation. Patient was calm, cooperative, logical, coherent and relevant. The patient reports feeling much better today. She denies suicidal and homicidal ideation, she denies visual and auditory hallucinations. She reports good sleep, denies side effects of medication, reports good appetite. Mental Status Examination Appearance: Disheveled (improving) Consciousness: Alert Orientation: Person, Place Motor Activity: Other (no abnormal motor movements noted) Speech: Unremarkable Language: Adequate Fund of Knowledge: Inadequate Attention and Concentration: Inadequate Memory: Impaired Mood: Other (mildly dysphoric) Affect: Blunt Thought Process & Associations: Other (slowed) Thought Content: Other (ongoing poverty of thought) Hallucination Type: None Delusion Type: None Suicidal Ideation: No Homicidal Ideation: No Insight: Poor Judgment: Poor Results Vitals/IOs Vital Signs Date Time Temp Pulse Resp B/P (MAP) Pulse Ox O2 Delivery O2 Flow Rate FiO2 01/23/18 06:00 98.5 67 18 170/73 (105) 97 Intake and Output 01/23/18 01/23/18 01/24/18 08:00 16:00 00:00 Intake Total 720 ml Balance 720 ml Assessment & Plan Problem List: (1) Dementia with behavioral disturbance ICD Codes: F03.91 - Unspecified dementia with behavioral disturbance Assessment & Plan: Continue current psychotropic regimen. Brief supportive psychotherapy provided. (2) Alcohol dependence ICD Codes: F10.20 - Alcohol dependence, uncomplicated Assessment & Plan Estimated LOS: days Justification for Cont. Inpt. Patient has an elevated risk to decompensate at a lower level of care. Request HC Surrog/Guard Advoc?: Yes Te Rutherford MD Jan 23, 2018 09:43
--- NOTE | 2018-01-23 09:57 | HHI.PR ---
Subjective Remarks Follow-up visit for diarrhea, dehydration, and alcohol abuse. Patient seen and examined. Patient states she feels better today. 3 pasty BMs yesterday, none so far today. Patient reports her nausea has improved. She denies any fever or chills. Denies any chest pain or dyspnea. Reports mild intermittent cramping. Denies any dysuria. Objective Vitals Vital Signs Date Time Temp Pulse Resp B/P (MAP) Pulse Ox O2 Delivery O2 Flow Rate FiO2 01/23/18 06:00 98.5 67 18 170/73 (105) 97 01/22/18 19:39 20 01/22/18 18:21 97.7 69 16 149/67 (94) 95 I/O 01/22/18 01/22/18 01/22/18 01/23/18 01/23/18 01/23/18 07:00 15:00 23:00 07:00 15:00 23:00 Intake Total 0 ml 960 ml 1320 ml 960 ml 720 ml Balance 0 ml 960 ml 1320 ml 960 ml 720 ml Intake Oral 0 ml 960 ml 1320 ml 960 ml 720 ml # Voids 2 1 # Bowel Movements 2 1 Result Diagram: 01/20/18 1330 01/20/18 1330 Objective Remarks GENERAL: Well developed, elderly female who appears stated age in no acute distress. Lying in bed asleep but easily awakens to voice. SKIN: Warm and dry. HEAD: Atraumatic. Normocephalic. EYES: EOMI. No scleral icterus. No injection or drainage. NECK: Supple, trachea midline. CARDIOVASCULAR: Regular rate and rhythm without murmurs, gallops, or rubs. RESPIRATORY: Breath sounds equal bilaterally. Non labored. No rhonchi, wheezing or crackles noted. GASTROINTESTINAL: Abdomen soft, nondistended. No guarding. (+)Mild tenderness to palpation diffusely. (+)BS. MUSCULOSKELETAL: No cyanosis, or edema. NEUROLOGICAL: Asleep, easily awakens to voice. Moving all extremities spontaneously. Nonfocal. Speech is clear. PSYCHIATRIC: Calm and cooperative. Medications and IVs Current Medications Medications (Trade) Dose Ordered Sig/Ruby Route Start Time Stop Time Status Last Admin (Vitamin B1) 100 mg DAILY PO 01/11/18 10:00 01/22/18 08:41 (Tylenol) 650 mg Q4H PRN PO 01/11/18 08:45 01/22/18 18:39 (Milk Of Magnesia Liq) 30 ml DAILY PRN PO 01/11/18 08:45 (Mag-Al Plus Susp Liq) 30 ml Q6H PRN PO 01/11/18 08:45 (Folate) 1 mg DAILY PO 01/12/18 09:00 01/22/18 08:41 (Desitin 40% Oint) 1 applic DAILY PRN TOPICAL 01/12/18 14:45 01/13/18 10:02 (Zofran Odt) 4 mg Q6H PRN PO 01/12/18 16:45 01/12/18 21:55 (Lactinex) 1 tab TID PO 01/18/18 09:00 01/22/18 18:00 (VANCOMYCIN for oral use only) 125 mg QID PO 01/18/18 09:00 01/22/18 21:39 (Haldol) 0.5 mg Q8H PRN PO 01/18/18 11:45 01/22/18 22:00 (Theragran) 1 tab DAILY PO 01/20/18 09:00 01/22/18 08:36 (Heparin Inj) 5,000 units Q12HR SQ 01/20/18 21:00 01/22/18 21:40 (Mycostatin Powder) 1 applic Q12HR TOPICAL 01/20/18 11:45 01/22/18 21:40 (Sodium Chloride) 1 gm BID PO 01/21/18 21:00 01/22/18 22:02 (Zoloft) 75 mg DAILY PO 01/22/18 09:00 01/22/18 08:39 (Pill Splitter) 1 ea UNSCH PRN OTHER 01/21/18 14:00 (Prinivil) 5 mg DAILY PO 01/23/18 09:00 A/P Assessment and Plan 77-year-old female with past medical history of anxiety, hypertension, and alcohol abuse recently treated for acute dehydration secondary to diarrhea. She was discharged home however [place] acted by law enforcement after she was found to be intoxicated with suicidal statements. Patient is now in inpatient psychiatry unit, [facility] consulted to assist with ongoing medical management. Dementia/ suicidal statements Anxiety - Management per psychiatric team C.diff 027 + - Recently DC from CDU on 01/09, stool testing negative, IV hydration - GI recommended cholestyramine and Imodium as needed - S/p colonoscopy in 01/06: Cecal AVMs. Ascending colon erythema. Colon polyps. Diverticulosis. Internal and external hemorrhoids. s/p EGD on 01/06: Esophageal stricture. Esophagitis. Hiatal hernia s/p dilation. Pending biopsies, follow-up as outpatient with GI services. - continue on PO Vancomycin - continue Lactinex - Special contact Isolation - 01/20 c/o nausea, abdominal cramping, patient is afebrile, UA unremarkable, white count WNL - 01/21 patient better today, still with nausea but mild, no vomiting. Tolerated breakfast. No loose stools so far today. - 01/22 improving, no loose stool so far today. Discussed with nursing staff , 3 pasty BMs yesterday. -01/23, continues to improve. stools more formed. No BM yet today. Continue to monitor. Candidal intertrigo - erythematous rash with few satellite lesions along intergluteal folds - Nystatin application BID - keep area clean of stool. Discussed with nursing staff - discussed with patient repositioning every 2 hours for comfort and offloading Transaminitis, resolved -suspect secondary to EtOH use -avoid hepatotoxic agents -Hepatitis panel with positive hep B surface antigen, hep B core IgM antibody negative. 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 -Can follow-up as outpatient determine if this is chronic infection. Hyponatremia, appears chronic, Na 132 03/12/09 Hypokalemia Hypomagnesemia - NA 131, increase salt tabs to BID, repeat sodium level pending - K 3.8. - Mag level low normal, give po repletion x 2 doses - continue to monitor Poor po intake -continue on MVI -add Enlive shakes and ensure pudding with meals -Treasury Director consulted, appreciate assistance -please weigh patient today and record in EMR HTN, chronic - BP elevated, resumed on lisinopril at lower dose of 5 mg daily, first dose today - Continue monitoring blood pressure and adjust treatment accordingly Alcohol abuse - [facility] protocol - MVI/Thiamin/Folate daily - monitor for signs of withdrawal DVT prophylaxis-Heparin sq Discussed with patient, nursing staff BEAR Green Shannon PA Jan 23, 2018 09:57
[2018-01-23] MEDS: FOLIC ACID 1 MG TAB PO SCH (10:18)
[2018-01-23] MEDS: LACTOBACILLUS ACIDOPHILUS TAB PO SCH ×3 (10:18→17:57)
[2018-01-23] MEDS: MULTIVITAMIN TAB PO SCH (10:19)
[2018-01-23] MEDS: SODIUM CHLORIDE 1 GRAM TAB PO SCH ×2 (10:19→21:24)
[2018-01-23] MEDS: VANCOMYCIN 500 MG VIAL (FOR ORAL USE ONLY) PO SCH ×4 (10:25→21:24)
[2018-01-23] MEDS: THIAMINE HCL 100 MG TAB PO SCH (10:25)
[2018-01-23] MEDS: SERTRALINE HCL 50 MG TAB PO SCH (10:26)
[2018-01-23] MEDS: HEPARIN SODIUM - SQ 10,000 UNITS/ML VIAL SQ SCH ×3 (10:27→21:25)
[2018-01-23] MEDS: NYSTATIN 100,000 U/GM PWD 15 GM BTL TOPICAL SCH ×2 (10:43→21:00)
[2018-01-23] MEDS: HALOPERIDOL 0.5 MG TAB PO PRN (13:45)
[2018-01-23 15:20] LABS: BICARBONATE 30.3 MEQ/L (21.0-32.0); CREATININE 0.4 MG/DL (0.50-1.00); MAGNESIUM 1.6 MG/DL (1.5-2.5)
[2018-01-23 17:15] VITALS: BP 161/70; PULSE 67; RESP 16; TEMP 98.5; O2SAT 97
[2018-01-23] MEDS: ACETAMINOPHEN 325 MG TAB PO PRN (17:57)
[2018-01-24] MEDS: HALOPERIDOL 0.5 MG TAB PO PRN ×3 (00:09→21:49)
[2018-01-24 06:10] VITALS: BP 178/76; PULSE 69; RESP 18; TEMP 97.6; O2SAT 95
[2018-01-24] MEDS: VANCOMYCIN 500 MG VIAL (FOR ORAL USE ONLY) PO SCH ×4 (09:25→21:49)
[2018-01-24] MEDS: FOLIC ACID 1 MG TAB PO SCH (09:25)
[2018-01-24] MEDS: LACTOBACILLUS ACIDOPHILUS TAB PO SCH ×3 (09:26→17:32)
[2018-01-24] MEDS: LISINOPRIL 10 MG TAB PO SCH (09:26)
[2018-01-24] MEDS: THIAMINE HCL 100 MG TAB PO SCH (09:28)
[2018-01-24] MEDS: MULTIVITAMIN TAB PO SCH (09:28)
[2018-01-24] MEDS: SERTRALINE HCL 50 MG TAB PO SCH (09:30)
[2018-01-24] MEDS: NYSTATIN 100,000 U/GM PWD 15 GM BTL TOPICAL SCH ×2 (09:45→21:50)
[2018-01-24] MEDS: HEPARIN SODIUM - SQ 10,000 UNITS/ML VIAL SQ SCH ×2 (09:46→21:00)
[2018-01-24] MEDS: SODIUM CHLORIDE 1 GRAM TAB PO SCH ×2 (09:46→21:49)
--- NOTE | 2018-01-24 10:22 | HHI.PR ---
Subjective Remarks Follow-up visit for diarrhea, dehydration, and alcohol abuse. Patient seen and examined. Patient reports feeling tired today. Still with diarrhea but more formed. She denies any fever or chills. Denies any chest pain or dyspnea. She reports intermittent nausea but denies any vomiting. She also endorses intermittent abdominal cramping. She denies any dysuria. Discussed with BEAR Green. Objective Vitals Vital Signs Date Time Temp Pulse Resp B/P (MAP) Pulse Ox O2 Delivery O2 Flow Rate FiO2 01/24/18 06:10 97.6 69 18 178/76 (110) 95 01/23/18 18:57 20 01/23/18 17:15 98.5 67 16 161/70 (100) 97 I/O 01/23/18 01/23/18 01/23/18 01/24/18 01/24/18 01/24/18 07:00 15:00 23:00 07:00 15:00 23:00 Intake Total 960 ml 1200 ml 1180 ml 240 ml 600 ml Balance 960 ml 1200 ml 1180 ml 240 ml 600 ml Intake Oral 960 ml 1200 ml 1180 ml 240 ml 600 ml # Voids 1 1 # Bowel Movements 1 1 Result Diagram: 01/20/18 1330 01/23/18 1445 Objective Remarks GENERAL: Well developed, elderly female who appears stated age in no acute distress. Awake and alert. Lying in bed. SKIN: Warm and dry. HEAD: Atraumatic. Normocephalic. EYES: EOMI. No scleral icterus. No injection or drainage. NECK: Supple, trachea midline. CARDIOVASCULAR: Regular rate and rhythm without murmurs, gallops, or rubs. RESPIRATORY: Breath sounds equal bilaterally. Non labored. No rhonchi, wheezing or crackles noted. GASTROINTESTINAL: Abdomen soft, nondistended. No guarding. (+)Mild tenderness to palpation diffusely. (+)BS. MUSCULOSKELETAL: No cyanosis, or edema. NEUROLOGICAL: Awake and alert. Moving all extremities spontaneously. Nonfocal. Speech is clear. PSYCHIATRIC: Calm and cooperative. Medications and IVs Current Medications Medications (Trade) Dose Ordered Sig/Ruby Route Start Time Stop Time Status Last Admin (Vitamin B1) 100 mg DAILY PO 01/11/18 10:00 01/24/18 09:28 (Tylenol) 650 mg Q4H PRN PO 01/11/18 08:45 01/23/18 17:57 (Milk Of Magnesia Liq) 30 ml DAILY PRN PO 01/11/18 08:45 (Mag-Al Plus Susp Liq) 30 ml Q6H PRN PO 01/11/18 08:45 (Folate) 1 mg DAILY PO 01/12/18 09:00 01/24/18 09:25 (Desitin 40% Oint) 1 applic DAILY PRN TOPICAL 01/12/18 14:45 01/13/18 10:02 (Zofran Odt) 4 mg Q6H PRN PO 01/12/18 16:45 01/12/18 21:55 (Lactinex) 1 tab TID PO 01/18/18 09:00 01/24/18 09:26 (VANCOMYCIN for oral use only) 125 mg QID PO 01/18/18 09:00 01/24/18 09:25 (Haldol) 0.5 mg Q8H PRN PO 01/18/18 11:45 01/24/18 00:09 (Theragran) 1 tab DAILY PO 01/20/18 09:00 01/24/18 09:28 (Heparin Inj) 5,000 units Q12HR SQ 01/20/18 21:00 01/23/18 10:27 (Mycostatin Powder) 1 applic Q12HR TOPICAL 01/20/18 11:45 01/23/18 21:00 (Sodium Chloride) 1 gm BID PO 01/21/18 21:00 01/24/18 09:46 (Zoloft) 75 mg DAILY PO 01/22/18 09:00 01/24/18 09:30 (Pill Splitter) 1 ea UNSCH PRN OTHER 01/21/18 14:00 (Prinivil) 10 mg DAILY PO 01/24/18 09:00 01/24/18 09:26 A/P Assessment and Plan 77-year-old female with past medical history of anxiety, hypertension, and alcohol abuse recently treated for acute dehydration secondary to diarrhea. She was discharged home however [place] acted by law enforcement after she was found to be intoxicated with suicidal statements. Patient is now in inpatient psychiatry unit, [facility] consulted to assist with ongoing medical management. Dementia/ suicidal statements Anxiety - Management per psychiatric team C.diff 027 + - Recently DC from CDU on 01/09, stool testing negative, IV hydration - GI recommended cholestyramine and Imodium as needed - S/p colonoscopy in 01/06: Cecal AVMs. Ascending colon erythema. Colon polyps. Diverticulosis. Internal and external hemorrhoids. s/p EGD on 01/06: Esophageal stricture. Esophagitis. Hiatal hernia s/p dilation. Pending biopsies, follow-up as outpatient with GI services. - continue on PO Vancomycin - continue Lactinex - Special contact Isolation - 01/20 c/o nausea, abdominal cramping, patient is afebrile, UA unremarkable, white count WNL - 01/21 patient better today, still with nausea but mild, no vomiting. Tolerated breakfast. No loose stools so far today. - 01/22 improving, no loose stool so far today. Discussed with nursing staff , 3 pasty BMs yesterday. - 01/23, continues to improve. stools more formed. No BM yet today. Continue to monitor. - 01/24, increased fatigue today. Still with diarrhea but more formed per nursing staff. Afebrile. Does not appear septic. VSS. Obtain CBC. Check Vit D level. Candidal intertrigo - erythematous rash with few satellite lesions along intergluteal folds - Nystatin application BID - keep area clean of stool. Discussed with nursing staff - discussed with patient repositioning every 2 hours for comfort and offloading Transaminitis, resolved -suspect secondary to EtOH use -avoid hepatotoxic agents -Hepatitis panel with positive hep B surface antigen, hep B core IgM antibody negative. 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 -Can follow-up as outpatient determine if this is chronic infection. Hyponatremia, appears chronic, Na 132 03/12/09 Hypokalemia Hypomagnesemia - NA 131, increased salt tabs to BID, repeat sodium level 133 - K 3.8. - continue to monitor Poor po intake - continue on MVI - Puppet Developer consulted, appreciate assistance. Calorie count 01/24 - 01/26 with recs 01/27 - Enlive shakes and ensure pudding with meals - patient refuses. Will add chocolate milk and yogurt with meals per senior net web developer recs. HTN, chronic - BP still not well controlled - increase Lisinopril dose to 10mg daily - Continue monitoring blood pressure and adjust treatment accordingly Alcohol abuse - [facility] protocol - MVI/Thiamin/Folate daily - monitor for signs of withdrawal DVT prophylaxis-Heparin sq Discussed with patient, nursing staff BEAR Green Shannon PA Jan 24, 2018 10:22
--- NOTE | 2018-01-24 12:50 | HHI.PYPN ---
Subjective Chief Complaint: Self-care deficit, probable NCD Remarks The patient was seen today for psychiatric reevaluation, the patient shows a better affect than yesterday. She reports improved mood, she says that she feels much better now, she talks about her plans once discharged, he says that she is planning to go to live with her sister. She denies suicidal and homicidal ideation, she denies visual and auditory hallucinations. The patient is oriented 3. Logical, coherent and relevant. Compliant with her medications , no significant side effects reported. Mental Status Examination Appearance: Disheveled (improving) Consciousness: Alert Orientation: Person, Place Motor Activity: Other (no abnormal motor movements noted) Speech: Unremarkable Language: Adequate Fund of Knowledge: Inadequate Attention and Concentration: Inadequate Memory: Impaired Mood: Other (mildly dysphoric) Affect: Blunt Thought Process & Associations: Other (slowed) Thought Content: Other (ongoing poverty of thought) Hallucination Type: None Delusion Type: None Suicidal Ideation: No Homicidal Ideation: No Insight: Poor Judgment: Poor Results Labs Test 01/23/18 14:45 Blood Urea Nitrogen 4 MG/DL Creatinine 0.40 MG/DL Random Glucose 93 MG/DL Calcium Level 8.0 MG/DL Magnesium Level 1.6 MG/DL Sodium Level 133 MEQ/L Potassium Level 3.9 MEQ/L Chloride Level 96 MEQ/L Carbon Dioxide Level 30.3 MEQ/L Anion Gap 7 MEQ/L Estimat Glomerular Filtration Rate 154 ML/MIN Vitals/IOs Vital Signs Date Time Temp Pulse Resp B/P (MAP) Pulse Ox O2 Delivery O2 Flow Rate FiO2 01/24/18 06:10 97.6 69 18 178/76 (110) 95 Intake and Output 01/24/18 01/24/18 01/25/18 08:00 16:00 00:00 Intake Total 240 ml 600 ml Balance 240 ml 600 ml Assessment & Plan Problem List: (1) Dementia with behavioral disturbance ICD Codes: F03.91 - Unspecified dementia with behavioral disturbance Assessment & Plan: Continue with current psychotropic regimen. (2) Alcohol dependence ICD Codes: F10.20 - Alcohol dependence, uncomplicated Assessment & Plan Estimated LOS: days Justification for Cont. Inpt. Patient without high risk to decompensate in a less structured environment Request HC Surrog/Guard Advoc?: Yes Te Rutherford MD Jan 24, 2018 12:50
[2018-01-24] MEDS: ACETAMINOPHEN 325 MG TAB PO PRN (17:32)
[2018-01-24 18:12] VITALS: BP 136/96; PULSE 70; RESP 15; TEMP 97.9; O2SAT 100
[2018-01-25 05:08] VITALS: BP 143/73; PULSE 65; RESP 15; TEMP 97.7; O2SAT 94
[2018-01-25] MEDS: SERTRALINE HCL 50 MG TAB PO SCH (09:00)
[2018-01-25] MEDS: HEPARIN SODIUM - SQ 10,000 UNITS/ML VIAL SQ SCH ×2 (09:00→20:48)
[2018-01-25] MEDS: FOLIC ACID 1 MG TAB PO SCH (09:22)
[2018-01-25] MEDS: SODIUM CHLORIDE 1 GRAM TAB PO SCH ×2 (09:22→20:48)
[2018-01-25] MEDS: LACTOBACILLUS ACIDOPHILUS TAB PO SCH ×3 (09:22→18:12)
[2018-01-25] MEDS: THIAMINE HCL 100 MG TAB PO SCH (09:22)
[2018-01-25] MEDS: LISINOPRIL 10 MG TAB PO SCH (09:22)
[2018-01-25] MEDS: MULTIVITAMIN TAB PO SCH (09:22)
[2018-01-25] MEDS: NYSTATIN 100,000 U/GM PWD 15 GM BTL TOPICAL SCH ×2 (09:23→20:51)
[2018-01-25] MEDS: VANCOMYCIN 500 MG VIAL (FOR ORAL USE ONLY) PO SCH ×4 (09:24→20:48)
--- NOTE | 2018-01-25 10:55 | HHI.PR ---
Subjective Remarks Follow-up visit for diarrhea, dehydration, and alcohol abuse. Patient seen and examined. She reports diarrhea this morning, this could not be confirmed by BEAR Chicas. Reportedly, patient had formed stool last night. Patient reports persistent intermittent nausea and abdominal cramping. She denies any fever or chills. Denies any chest pain or dyspnea. She denies any dysuria. Encouraged patient to get OOB as much as possible and turn frequently while in bed. Discussed with BEAR Chicas. Objective Vitals Vital Signs Date Time Temp Pulse Resp B/P (MAP) Pulse Ox O2 Delivery O2 Flow Rate FiO2 01/25/18 05:08 97.7 65 15 143/73 (96) 94 01/24/18 18:12 97.9 70 15 136/96 (109) 100 I/O 01/24/18 01/24/18 01/24/18 01/25/18 01/25/18 01/25/18 07:00 15:00 23:00 07:00 15:00 23:00 Intake Total 240 ml 600 ml 1020 ml 240 ml 360 ml Balance 240 ml 600 ml 1020 ml 240 ml 360 ml Intake Oral 240 ml 600 ml 1020 ml 240 ml 360 ml # Voids 1 6 1 # Bowel Movements 1 Result Diagram: 01/23/18 1445 Objective Remarks GENERAL: Well developed, elderly female who appears stated age in no acute distress. Awake and alert. Lying in bed. No significant change. SKIN: Warm and dry. (+)bogginess left heel and right heel with stage II dry pressure ulcer. HEAD: Atraumatic. Normocephalic. EYES: EOMI. No scleral icterus. No injection or drainage. NECK: Supple, trachea midline. CARDIOVASCULAR: Regular rate and rhythm without murmurs, gallops, or rubs. RESPIRATORY: Breath sounds equal bilaterally. Non labored. No rhonchi, wheezing or crackles noted. GASTROINTESTINAL: Abdomen soft, nondistended. No guarding. (+)Mild tenderness to palpation diffusely. (+)BS. MUSCULOSKELETAL: No cyanosis, or edema. NEUROLOGICAL: Awake and alert. Moving all extremities spontaneously. Nonfocal. Speech is clear. PSYCHIATRIC: Calm and cooperative. Medications and IVs Current Medications Medications (Trade) Dose Ordered Sig/Ruby Route Start Time Stop Time Status Last Admin (Vitamin B1) 100 mg DAILY PO 01/11/18 10:00 01/25/18 09:22 (Tylenol) 650 mg Q4H PRN PO 01/11/18 08:45 01/24/18 17:32 (Milk Of Magnesia Liq) 30 ml DAILY PRN PO 01/11/18 08:45 (Mag-Al Plus Susp Liq) 30 ml Q6H PRN PO 01/11/18 08:45 (Folate) 1 mg DAILY PO 01/12/18 09:00 01/25/18 09:22 (Desitin 40% Oint) 1 applic DAILY PRN TOPICAL 01/12/18 14:45 01/13/18 10:02 (Zofran Odt) 4 mg Q6H PRN PO 01/12/18 16:45 01/12/18 21:55 (Lactinex) 1 tab TID PO 01/18/18 09:00 01/25/18 09:22 (VANCOMYCIN for oral use only) 125 mg QID PO 01/18/18 09:00 01/25/18 09:24 (Haldol) 0.5 mg Q8H PRN PO 01/18/18 11:45 01/24/18 21:49 (Theragran) 1 tab DAILY PO 01/20/18 09:00 01/25/18 09:22 (Heparin Inj) 5,000 units Q12HR SQ 01/20/18 21:00 01/23/18 10:27 (Mycostatin Powder) 1 applic Q12HR TOPICAL 01/20/18 11:45 01/25/18 09:23 (Sodium Chloride) 1 gm BID PO 01/21/18 21:00 01/25/18 09:22 (Zoloft) 75 mg DAILY PO 01/22/18 09:00 01/25/18 09:00 (Pill Splitter) 1 ea UNSCH PRN OTHER 01/21/18 14:00 (Prinivil) 10 mg DAILY PO 01/24/18 09:00 01/25/18 09:22 A/P Assessment and Plan 77-year-old female with past medical history of anxiety, hypertension, and alcohol abuse recently treated for acute dehydration secondary to diarrhea. She was discharged home however Valadez acted by law enforcement after she was found to be intoxicated with suicidal statements. Patient is now in inpatient psychiatry unit, [facility] consulted to assist with ongoing medical management. Dementia/ suicidal statements Anxiety - Management per psychiatric team C.diff 027 + - S/p colonoscopy in 01/06: Cecal AVMs. Ascending colon erythema. Colon polyps. Diverticulosis. Internal and external hemorrhoids. s/p EGD on 01/06: Esophageal stricture. Esophagitis. Hiatal hernia s/p dilation. Biopsies showing multiple tubular adenomas, patient will need to follow-up as outpatient with GI services. - continue on PO Vancomycin - continue Lactinex - Special contact Isolation - 01/20 c/o nausea, abdominal cramping, patient is afebrile, UA unremarkable, white count WNL - 01/21 patient better today, still with nausea but mild, no vomiting. Tolerated breakfast. No loose stools so far today. - 01/22 improving, no loose stool so far today. Discussed with nursing staff , 3 pasty BMs yesterday. - 01/23, continues to improve. stools more formed. No BM yet today. Continue to monitor. - 01/24, increased fatigue today. Still with diarrhea but more formed per nursing staff. Afebrile. Does not appear septic. VSS. Obtain CBC. Check Vit D level. - 01/25, formed stool per nursing. Patient reports diarrhea this am, not confirmed by nurse. Patient instructed to contact nurse if she has another loose stool. Discussed with BEAR Chicas. Lab ordered yesterday not done as of yet. Candidal intertrigo - erythematous rash with few satellite lesions along intergluteal folds - Nystatin application BID - keep area clean of stool. Discussed with nursing staff - discussed with patient repositioning every 2 hours for comfort and offloading Stage II pressure ulcer right heel DTI left heel - discussed with nursing staff off loading measures, OOB as much as possible - Multipolus boots on while in bed - skin prep to heels bilaterally BID and Tegaderm right heel - Monitor Transaminitis, resolved -suspect secondary to EtOH use -avoid hepatotoxic agents -Hepatitis panel with positive hep B surface antigen, hep B core IgM antibody negative. 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 -Can follow-up as outpatient determine if this is chronic infection. Hyponatremia, appears chronic, Na 132 03/12/09 Hypokalemia, resolved Hypomagnesemia, resolved - NA 133, 01/23/18 - continue on salt tablets BID - K 3.9, Mag 1.6 - continue to monitor Poor po intake - continue on MVI - Farm Operations Manager consulted, appreciate assistance. Calorie count 01/24 - 01/26 with recs 01/27 - Enlive shakes and ensure pudding with meals - patient refuses. Will add chocolate milk and yogurt with meals per beauty operator recs. HTN, chronic - BP improving but not optimal - increase Lisinopril dose to 20mg daily - Continue monitoring blood pressure and adjust treatment accordingly Microcytic, hypochromic anemia, chronic, stable - B12/folate levels WNL - iron studies ordered/pending - hemoccult stool ordered - no signs of active bleeding - monitor Alcohol abuse - [facility] protocol - MVI/Thiamin/Folate daily - monitor for signs of withdrawal DVT prophylaxis-Heparin sq Discussed with patient, nursing staff BEAR Chicas Shannon PA Jan 25, 2018 10:55
--- NOTE | 2018-01-25 13:11 | HHI.PYPN ---
Subjective Chief Complaint: Self-care deficit, probable NCD Remarks Patient seen and examined with nurse. Chart reviewed. Case discussed with nursing staff. Patient reportedly experiencing ongoing loose stools, including in the shower this morning per tech. On my examination today, the patient remained somewhat depressed. She does not verbalize any SI or HI. She does complain of some poor sleep. No psychotic symptoms. No side effects from medications. No other physical complaints. Review of Systems ROS Limitations: Poor Historian Except as stated in HPI: all other systems reviewed are Neg Mental Status Examination Appearance: Disheveled Consciousness: Alert Orientation: Person, Place, Date/Time Motor Activity: Other (No motoric abnormalities noted) Speech: Unremarkable Language: Adequate Fund of Knowledge: Inadequate Attention and Concentration: Inadequate Memory: Impaired Mood: Other (Dysphoric) Affect: Blunt Thought Process & Associations: Other (slowed) Thought Content: Other (Some poverty of thought) Hallucination Type: None Delusion Type: None Suicidal Ideation: No Homicidal Ideation: No Insight: Poor Judgment: Poor Results Labs Labs reviewed Vitals/IOs Vital Signs Date Time Temp Pulse Resp B/P (MAP) Pulse Ox O2 Delivery O2 Flow Rate FiO2 01/25/18 05:08 97.7 65 15 143/73 (96) 94 Intake and Output 01/25/18 01/25/18 01/25/18 07:59 15:59 23:59 Intake Total 240 ml 600 ml Balance 240 ml 600 ml Assessment & Plan Problem List: (1) Dementia with behavioral disturbance ICD Codes: F03.91 - Unspecified dementia with behavioral disturbance (2) Alcohol dependence ICD Codes: F10.20 - Alcohol dependence, uncomplicated Assessment & Plan Titrate Zoloft to 100 mg daily to target low mood. Given the patient's complaints of poor sleep, might consider augmenting or replacing with, e.g. Remeron. I will reconsult neuropsychology for formal neuropsychological evaluation now that approximately 2 weeks has elapsed since admission. Hospitalist input noted and appreciated. Continue to monitor on the medical psychiatric unit. Continue other medications and care as ordered. Justification for Cont. Inpt. Med changes. Risk for decompensation in less restrictive environment. Discharge Planning Placement Request HC Surrog/Guard Advoc?: Yes Ruben De La Cruz MD Jan 25, 2018 13:11
[2018-01-25] MEDS: HALOPERIDOL 0.5 MG TAB PO PRN ×2 (14:39→20:48)
[2018-01-25 18:12] VITALS: BP 139/62; PULSE 71; RESP 15; TEMP 97.5; O2SAT 97
[2018-01-26 06:00] VITALS: BP 151/80; PULSE 66; RESP 15; TEMP 97.3; O2SAT 97
--- NOTE | 2018-01-26 08:01 | HHI.PYPN ---
Subjective Chief Complaint: Self-care deficit, probable NCD Remarks Patient seen and examined with nurse. Chart reviewed. Case discussed with nursing staff. Patient continues to have loose stools and had an episode of encopresis overnight. Case discussed in treatment team. Case discussed with hospitalist who reports she has previously tried to add Questran to firm up patient's stools but patient refused this. On my exam, patient reports that she had encopresis because she had BM while sleeping. I discuss need to comply with Questran should hospitalist opt to add this again, and patient says she will take this. Mood is "alright." Anxiety "alright." Patient denies suicidal or homicidal ideation. Denies side effects from medications. No other physical complaints. Review of Systems ROS Limitations: Poor Historian Except as stated in HPI: all other systems reviewed are Neg Mental Status Examination Appearance: Disheveled Consciousness: Alert Orientation: Person, Place (At least) Motor Activity: Other (No motoric abnormalities noted) Speech: Unremarkable Language: Adequate Fund of Knowledge: Inadequate Attention and Concentration: Inadequate Memory: Impaired Mood: Other ("alright") Affect: Blunt Thought Process & Associations: Other (slowed) Thought Content: Other (Some poverty of thought) Hallucination Type: None Delusion Type: None Suicidal Ideation: No Homicidal Ideation: No Insight: Poor Judgment: Poor Results Labs Labs reviewed. Vitals/IOs Vital Signs Date Time Temp Pulse Resp B/P (MAP) Pulse Ox O2 Delivery O2 Flow Rate FiO2 01/26/18 06:00 97.3 66 15 151/80 (103) 97 Intake and Output 01/26/18 01/26/18 01/27/18 08:00 16:00 00:00 Intake Total 240 ml Balance 240 ml Assessment & Plan Problem List: (1) Dementia with behavioral disturbance ICD Codes: F03.91 - Unspecified dementia with behavioral disturbance (2) Alcohol dependence ICD Codes: F10.20 - Alcohol dependence, uncomplicated Assessment & Plan Continue Zoloft as ordered. Hospitalist input noted and appreciated. Awaiting neuropsychology input. Continue to monitor on the medical psychiatric unit. Continue other medications and care as ordered. Justification for Cont. Inpt. Complicating condition. Risk for decompensation in less restrictive environment. Discharge Planning Placement. Case discussed with counselor. Request HC Surrog/Guard Advoc?: Yes Ruben De La Cruz MD Jan 26, 2018 08:01
--- NOTE | 2018-01-26 08:31 | HHI.PR ---
Subjective Remarks Follow-up visit for diarrhea, dehydration, and alcohol abuse. Patient seen and examined this morning resting in bed comfortably in no acute distress. She denies any nausea, vomiting, abdominal pain, fevers, chills, cough, shortness of breath or chest pain. She does continue to report diarrhea and states that she had one episode this morning. Spoke with nurse who tells me that patient has not been reporting any diarrhea. Objective Vitals Vital Signs Date Time Temp Pulse Resp B/P (MAP) Pulse Ox O2 Delivery O2 Flow Rate FiO2 01/26/18 06:00 97.3 66 15 151/80 (103) 97 01/25/18 18:12 97.5 71 15 139/62 (87) 97 I/O 01/25/18 01/25/18 01/25/18 01/26/18 01/26/18 01/26/18 07:00 15:00 23:00 07:00 15:00 23:00 Intake Total 240 ml 600 ml 600 ml 240 ml Balance 240 ml 600 ml 600 ml 240 ml Intake Oral 240 ml 600 ml 600 ml 240 ml # Voids 1 1 4 # Bowel Movements 1 Result Diagram: 01/23/18 1445 Objective Remarks GENERAL: Well developed, elderly female who appears stated age in no acute distress. SKIN: Warm and dry. HEAD: Normocephalic. EYES: No scleral icterus. No injection or drainage. NECK: Supple, trachea midline. No JVD. CARDIOVASCULAR: Regular rate and rhythm without murmurs, gallops, or rubs. RESPIRATORY: Breath sounds equal bilaterally. No accessory muscle use. No rhonchi, wheezing or crackles noted. GASTROINTESTINAL: Abdomen soft, non-tender, nondistended. Hyperactive bowel sounds, no guarding. MUSCULOSKELETAL: No cyanosis, or edema. NEUROLOGICAL: Patient is awake, alert, and oriented. Moving all extremities spontaneously, ambulating without assistance. No facial droop, speech is clear. A/P Assessment and Plan 77-year-old female with past medical history of anxiety, hypertension, and alcohol abuse recently treated for acute dehydration secondary to diarrhea. She was discharged home however [place] acted by law enforcement after she was found to be intoxicated with suicidal statements. Patient is now in inpatient psychiatry unit, [facility] consulted to assist with ongoing medical management. Dementia/ suicidal statements Anxiety - Management per psychiatric team C.diff 027 + - Recently DC from CDU on 3/31, stool testing negative, IV hydration - GI recommended cholestyramine and Imodium as needed - S/p colonoscopy in 01/06: Cecal AVMs. Ascending colon erythema. Colon polyps. Diverticulosis. Internal and external hemorrhoids. s/p EGD on 01/06: Esophageal stricture. Esophagitis. Hiatal hernia s/p dilation. Pending biopsies, follow-up as outpatient with GI services. - continue on PO Vancomycin - continue Lactinex - Special contact Isolation - 01/20 c/o nausea, abdominal cramping, patient is afebrile, UA unremarkable, white count WNL - 01/21 patient better today, still with nausea but mild, no vomiting. Tolerated breakfast. No loose stools so far today. - 01/22 improving, no loose stool so far today. Discussed with nursing staff , 3 pasty BMs yesterday. - 01/23, continues to improve. stools more formed. No BM yet today. Continue to monitor. - 01/24, increased fatigue today. Still with diarrhea but more formed per nursing staff. Afebrile. Does not appear septic. VSS. Obtain CBC. Check Vit D level. - 01/26 ongoing diarrhea, add Questran, and Lomotil as needed, discussed with patient and nurse. Nurse to please contact lab regarding pending labs from and . Candidal intertrigo - erythematous rash with few satellite lesions along intergluteal folds - Nystatin application BID - keep area clean of stool. - discussed with patient repositioning every 2 hours for comfort and offloading Transaminitis, resolved -suspect secondary to EtOH use -avoid hepatotoxic agents -Hepatitis panel with positive hep B surface antigen, hep B core IgM antibody negative. 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 -Can follow-up as outpatient determine if this is chronic infection. Hyponatremia, appears chronic, Na 132 03/12/09 Hypokalemia Hypomagnesemia - Last NA 133 - K 3.9 - continue to monitor - Pending labs Poor po intake - continue on MVI - [employer] consulted, appreciate assistance. Calorie count 01/24 - 01/26 with recs 01/27 - Enlive shakes and ensure pudding with meals - patient refuses. Chocolate milk and yogurt with meals added per record filing clerk recs. HTN, chronic - BP still not well controlled, this AM 151/80 -Received Lisinopril 20mg this AM. - Continue monitoring blood pressure and adjust treatment accordingly Alcohol abuse - [facility] protocol - MVI/Thiamin/Folate daily - monitor for signs of withdrawal DVT prophylaxis-Heparin sq Discussed with patient and nurse. Frank Couch Jan 26, 2018 08:30
[2018-01-26] MEDS: FOLIC ACID 1 MG TAB PO SCH (08:39)
[2018-01-26] MEDS: THIAMINE HCL 100 MG TAB PO SCH (08:39)
[2018-01-26] MEDS: MULTIVITAMIN TAB PO SCH (08:39)
[2018-01-26] MEDS: SODIUM CHLORIDE 1 GRAM TAB PO SCH ×2 (08:39→20:34)
[2018-01-26] MEDS: LOPERAMIDE HCL 2 MG CAP PO PRN (08:39)
[2018-01-26] MEDS: NYSTATIN 100,000 U/GM PWD 15 GM BTL TOPICAL SCH ×2 (08:39→20:38)
[2018-01-26] MEDS: LACTOBACILLUS ACIDOPHILUS TAB PO SCH ×3 (08:39→17:51)
[2018-01-26] MEDS: VANCOMYCIN 500 MG VIAL (FOR ORAL USE ONLY) PO SCH ×4 (08:40→20:36)
[2018-01-26] MEDS: SERTRALINE HCL 50 MG TAB PO SCH (08:40)
[2018-01-26] MEDS: LISINOPRIL 20 MG TAB PO SCH (08:40)
[2018-01-26] MEDS: HEPARIN SODIUM - SQ 10,000 UNITS/ML VIAL SQ SCH ×3 (08:42→21:00)
[2018-01-26] MEDS: CHOLESTYRAMINE 4 GM PACKET PO SCH ×2 (13:50→20:54)
[2018-01-26] MEDS: ACETAMINOPHEN 325 MG TAB PO PRN ×2 (14:03→20:35)
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
[2018-01-26 18:32] VITALS: BP 142/66; PULSE 67; RESP 16; TEMP 97.8
[2018-01-26] MEDS: HALOPERIDOL 0.5 MG TAB PO PRN (20:56)
[2018-01-27] MEDS: CHOLESTYRAMINE 4 GM PACKET PO SCH ×4 (05:56→22:00)
[2018-01-27 06:00] VITALS: BP 169/71; PULSE 63; RESP 14; TEMP 97.6; O2SAT 95
--- NOTE | 2018-01-27 08:05 | HHI.PR ---
Subjective Remarks Follow-up visit for diarrhea, dehydration, and alcohol abuse. Patient is seen and examined this morning in bed eating breakfast this morning. She repots that she is having trouble sleeping at night. Diarrhea is better today, nurse reports no bowel movement today. Denies any fevers, chills, nausea, vomiting, abdominal pain or discomfort, she has been eating and drinking with no issues. Episode of nausea yesterday, but no vomiting. Spoke with nurse regarding documentation of formed bowel movements yesterday however nursing may be documenting bowel movements as well as SURGEON ASSISTANT/tech. Objective Vitals Vital Signs Date Time Temp Pulse Resp B/P (MAP) Pulse Ox O2 Delivery O2 Flow Rate FiO2 01/27/18 06:00 97.6 63 14 169/71 (103) 95 01/26/18 18:32 97.8 67 16 142/66 (91) I/O 01/26/18 01/26/18 01/26/18 01/27/18 01/27/18 01/27/18 06:59 14:59 22:59 06:59 14:59 22:59 Intake Total 480 ml 720 ml 1200 ml 240 ml Balance 480 ml 720 ml 1200 ml 240 ml Intake Oral 480 ml 720 ml 1200 ml 240 ml # Voids 4 3 4 # Bowel Movements 1 4 Result Diagram: 01/23/18 1445 Objective Remarks GENERAL: Well developed, elderly female who appears stated age in no acute distress. SKIN: Warm and dry. HEAD: Normocephalic. EYES: No scleral icterus. No injection or drainage. NECK: Supple, trachea midline. No JVD. CARDIOVASCULAR: Regular rate and rhythm without murmurs, gallops, or rubs. RESPIRATORY: Breath sounds equal bilaterally. No accessory muscle use. No rhonchi, wheezing or crackles noted. GASTROINTESTINAL: Abdomen soft, non-tender, nondistended. Hyperactive bowel sounds, no guarding. MUSCULOSKELETAL: No cyanosis, or edema. NEUROLOGICAL: Patient is awake, alert, and oriented. Moving all extremities spontaneously, ambulating without assistance. No facial droop, speech is clear. A/P Assessment and Plan 77-year-old female with past medical history of anxiety, hypertension, and alcohol abuse recently treated for acute dehydration secondary to diarrhea. She was discharged home however [place] acted by law enforcement after she was found to be intoxicated with suicidal statements. Patient is now in inpatient psychiatry unit, [facility] consulted to assist with ongoing medical management. Dementia/ suicidal statements Anxiety - Management per psychiatric team C.diff 027 + - Recently DC from CDU on 01/09, stool testing negative, IV hydration - GI recommended cholestyramine and Imodium as needed - S/p colonoscopy in 01/06: Cecal AVMs. Ascending colon erythema. Colon polyps. Diverticulosis. Internal and external hemorrhoids. s/p EGD on 01/06: Esophageal stricture. Esophagitis. Hiatal hernia s/p dilation. Pending biopsies, follow-up as outpatient with GI services. - continue on PO Vancomycin - continue Lactinex - Special contact Isolation - 01/20 c/o nausea, abdominal cramping, patient is afebrile, UA unremarkable, white count WNL - 01/21 patient better today, still with nausea but mild, no vomiting. Tolerated breakfast. No loose stools so far today. - 01/22 improving, no loose stool so far today. Discussed with nursing staff , 3 pasty BMs yesterday. - 01/23, continues to improve. stools more formed. No BM yet today. Continue to monitor. - 01/24, increased fatigue today. Still with diarrhea but more formed per nursing staff. Afebrile. Does not appear septic. VSS. Obtain CBC. Check Vit D level. - 01/26 ongoing diarrhea, add Questran, and Lomotil as needed, discussed with patient and nurse. Nurse to please contact lab regarding pending labs from and . - 01/27 diarrhea improved per patient, no BP this AM, continue Questran, probiotic and PO vanc. Candidal intertrigo - erythematous rash with few satellite lesions along intergluteal folds - Nystatin application BID - keep area clean of stool. - discussed with patient repositioning every 2 hours for comfort and offloading Transaminitis, resolved -suspect secondary to EtOH use -avoid hepatotoxic agents -Hepatitis panel with positive hep B surface antigen, hep B core IgM antibody negative. 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 -Can follow-up as outpatient determine if this is chronic infection. Hyponatremia, appears chronic, Na 132 03/12/09 Hypokalemia Hypomagnesemia - NA 132, K 4.6, and mag 1.6 - Continue PO NA tabs - Monitor labs periodically Poor po intake - continue on MVI - [employer] consulted, appreciate assistance. Calorie count 01/24 - 01/26 with recs 01/27 - Enlive shakes and ensure pudding with meals - patient refuses. Chocolate milk and yogurt with meals added per screedman recs. HTN, chronic - BP still not well controlled, this AM 169/71 - Lisinopril 20mg, will increase to 30mg QD - Continue monitoring blood pressure and adjust treatment accordingly Microcytic anemia, iron deficiency - H&H 11.1/33.5, Iron studies with iron level 28, TIBC 290, %sat 9.7 - Start ferrous sulfate replacement, monitor for bleeding, check stool for occult blood -Monitor H&H Alcohol abuse - [facility] protocol - MVI/Thiamin/Folate daily - monitor for signs of withdrawal DVT prophylaxis-Heparin sq Discussed with patient and nurse. Frank Couch Jan 27, 2018 08:05
--- NOTE | 2018-01-27 08:48 | HHI.PYPN ---
Subjective Chief Complaint: Self-care deficit, probable NCD Remarks Patient seen and examined. Chart reviewed. Case discussed with nursing staff. On my examination today, the patient continues to complain of some low mood. Sleep is reportedly poor. She denies any suicidal or homicidal ideation. No psychotic symptoms. Denies side effects from medications. Bowel movements are reportedly somewhat firmer. No acute physical complaints. Review of Systems ROS Limitations: Poor Historian Except as stated in HPI: all other systems reviewed are Neg Mental Status Examination Appearance: Disheveled Consciousness: Alert Orientation: Person, Place (At least) Motor Activity: Other (No abnormal motor movements noted) Speech: Unremarkable Language: Adequate Fund of Knowledge: Inadequate Attention and Concentration: Inadequate Memory: Impaired Mood: Other (Dysphoric) Affect: Blunt Thought Process & Associations: Other (slowed) Thought Content: Other (Some poverty of thought) Hallucination Type: None Delusion Type: None Suicidal Ideation: No Homicidal Ideation: No Insight: Poor Judgment: Poor Results Labs Labs reviewed: Item Value Date Time White Blood Count 10.3 TH/MM3 01/27/18 1026 Hemoglobin 11.1 GM/DL L 01/27/18 1026 Platelet Count 648 TH/MM3 H # 01/27/18 1026 Sodium Level 132 MEQ/L L 01/27/18 1026 Potassium Level 4.6 MEQ/L 01/27/18 1026 Chloride Level 97 MEQ/L L 01/27/18 1026 Anion Gap 9 MEQ/L 01/27/18 1026 Blood Urea Nitrogen 5 MG/DL L 01/27/18 1026 Carbon Dioxide Level 26.0 MEQ/L 01/27/18 1026 Creatinine 0.50 MG/DL 01/27/18 1026 Estimat Glomerular Filtration Rate 119 ML/MIN 01/27/18 1026 Random Glucose 85 MG/DL 01/27/18 1026 Magnesium Level 1.6 MG/DL 01/27/18 1026 25-Hydroxy Vitamin D Total 12.0 ng/ML L 01/27/18 1026 Iron Level 28 MCG/DL L 01/27/18 1026 Total Iron Binding Capacity 290 MCG/DL 01/27/18 1026 Percent Iron Saturation 9.7 % L 01/27/18 1026 Ferritin 19 NG/ML 01/27/18 1026 Vitals/IOs Vital Signs Date Time Temp Pulse Resp B/P (MAP) Pulse Ox O2 Delivery O2 Flow Rate FiO2 01/27/18 06:00 97.6 63 14 169/71 (103) 95 Intake and Output 01/27/18 01/27/18 01/28/18 08:00 16:00 00:00 Intake Total 240 ml Balance 240 ml Assessment & Plan Problem List: (1) Dementia with behavioral disturbance ICD Codes: F03.91 - Unspecified dementia with behavioral disturbance (2) Alcohol dependence ICD Codes: F10.20 - Alcohol dependence, uncomplicated Assessment & Plan Patient complaining of some ongoing low mood and poor sleep. As an alternative to ongoing titration of patient's Zoloft, we might consider adding a sedating antidepressant like Remeron, either in addition to or in place of the Zoloft. I have left a VM for patient's daughter/HCS requesting a call back to discuss the matter. Neuropsychologist reports he will be in to see patient today. Hospitalist input noted and appreciated. I have started replacement for low vitamin D. Continue to monitor on medical psychiatric unit. Continue other medications and care as ordered. Justification for Cont. Inpt. Complicating condition. Risk for decompensation in less restrictive environment. Discharge Planning Placement. Request HC Surrog/Guard Advoc?: Yes Ruben De La Cruz MD Jan 27, 2018 08:48
[2018-01-27] MEDS: NYSTATIN 100,000 U/GM PWD 15 GM BTL TOPICAL SCH ×3 (09:00→20:55)
[2018-01-27] MEDS: HEPARIN SODIUM - SQ 10,000 UNITS/ML VIAL SQ SCH ×2 (09:09→20:55)
[2018-01-27] MEDS: LACTOBACILLUS ACIDOPHILUS TAB PO SCH ×3 (09:09→17:25)
[2018-01-27] MEDS: SODIUM CHLORIDE 1 GRAM TAB PO SCH ×2 (09:09→20:53)
[2018-01-27] MEDS: VANCOMYCIN 500 MG VIAL (FOR ORAL USE ONLY) PO SCH ×4 (09:09→20:54)
[2018-01-27] MEDS: LISINOPRIL 20 MG TAB PO SCH (09:09)
[2018-01-27] MEDS: MULTIVITAMIN TAB PO SCH (09:10)
[2018-01-27] MEDS: FOLIC ACID 1 MG TAB PO SCH (09:10)
[2018-01-27] MEDS: SERTRALINE HCL 50 MG TAB PO SCH (09:10)
[2018-01-27] MEDS: THIAMINE HCL 100 MG TAB PO SCH (09:10)
[2018-01-27 10:44] LABS: AUTOMATED NEUTROPHIL # 8.4 TH/MM3 (1.8-7.7); BASOPHIL # 0.1 TH/MM3 (0-0.2); BASOPHIL % 0.8 % (0.0-2.0); EOSINOPHIL # 0.2 TH/MM3 (0-0.4); EOSINOPHIL % 2.1 % (0.0-4.0); HEMATOCRIT 33.5 % (35.0-46.0); HEMOGLOBIN 11.1 GM/DL (11.6-15.3); LYMPH % 9.4 % (9.0-44.0); MEAN CELL VOLUME 77.3 FL (80.0-100.0); MEAN CORPUSCULAR HEMOGLOBIN 25.5 PG (27.0-34.0); MEAN PLATELET VOLUME 7.9 FL (7.0-11.0); MONO % 6.7 % (0.0-8.0); MONOCYTE # 0.7 TH/MM3 (0-0.9); PLATELET COUNT 648 TH/MM3 (150-450); RED BLOOD COUNT 4.34 MIL/MM3 (4.00-5.30); RED CELL DISTRIBUTION WIDTH 17.8 % (11.6-17.2); WHITE BLOOD COUNT 10.3 TH/MM3 (4.0-11.0)
[2018-01-27 11:05] LABS: BLOOD UREA NITROGEN 5 MG/DL (7-18); CALCIUM 8.6 MG/DL (8.5-10.1); CHLORIDE 97 MEQ/L (98-107); GLOMERULAR FILTRATION RATE 119 ML/MIN (>89); GLUCOSE,RANDOM 85 MG/DL (74-106); MAGNESIUM 1.6 MG/DL (1.5-2.5); SODIUM (NA) 132 MEQ/L (136-145)
[2018-01-27 11:06] LABS: IRON (FE) 28 MCG/DL (50-170)
[2018-01-27 11:10] LABS: % SATURATION IRON PROFILE 9.7 % (20-50); FERRITIN 19 NG/ML (8-252); TOTAL IRON BINDING CAPACITY 290 MCG/DL (250-450)
[2018-01-27] MEDS: ACETAMINOPHEN 325 MG TAB PO PRN ×5 (12:43→22:21)
[2018-01-27] MEDS: HALOPERIDOL 0.5 MG TAB PO PRN ×2 (12:50→20:56)
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
[2018-01-27] MEDS ORDERED: ERGOCALCIFEROL (VIT D2) 50,000 UNIT CAP PO SCH (14:00)
[2018-01-27] MEDS: LOPERAMIDE HCL 2 MG CAP PO PRN (16:10)
[2018-01-27 18:00] VITALS: BP 156/67; PULSE 63; RESP 15; TEMP 98; O2SAT 99
[2018-01-27] MEDS: MIRTAZAPINE ODT 15 MG TAB PO SCH (20:53)
[2018-01-27] MEDS: FERROUS SULFATE 325 MG (65 MG ELEMENTAL IRON) TAB PO SCH (20:53)
[2018-01-28] MEDS: CHOLESTYRAMINE 4 GM PACKET PO SCH ×3 (05:29→22:00)
[2018-01-28 06:27] VITALS: BP 139/58; PULSE 65; RESP 16; TEMP 97.6; O2SAT 94
--- NOTE | 2018-01-28 07:58 | HHI.PYPN ---
Subjective Chief Complaint: Self-care deficit, probable NCD Remarks Patient seen and examined with nurse. Chart reviewed. I note patient refused a dose of Questran. Case discussed with nursing staff. On my examination today , patient reports that she slept better with the addition of Remeron. Affect somewhat blunted but not really dysphoric. She denies any SI or HI. Denies side effects from medications. No physical complaints. I have encouraged adherence to all medications. I endeavored to discuss neuropsychology evaluation with the patient, but she does not seem to believe she has any cognitive or functional limitations. She notes that if we discharge her back to a hotel as before "I'll be fine." Review of Systems ROS Limitations: Poor Historian Except as stated in HPI: all other systems reviewed are Neg Mental Status Examination Appearance: Disheveled Consciousness: Alert Orientation: Person, Place Motor Activity: Other (No abnormal motor movements noted) Speech: Unremarkable Language: Adequate Fund of Knowledge: Inadequate Attention and Concentration: Inadequate Memory: Impaired Mood: Appropriate Affect: Blunt Thought Process & Associations: Other (slowed) Thought Content: Other (Poverty of thought) Hallucination Type: None Delusion Type: None Suicidal Ideation: No Homicidal Ideation: No Insight: Poor Judgment: Poor Results Labs Test 01/27/18 10:26 White Blood Count 10.3 TH/MM3 Red Blood Count 4.34 MIL/MM3 Hemoglobin 11.1 GM/DL Hematocrit 33.5 % Mean Corpuscular Volume 77.3 FL Mean Corpuscular Hemoglobin 25.5 PG Mean Corpuscular Hemoglobin Concent 33.0 % Red Cell Distribution Width 17.8 % Platelet Count 648 TH/MM3 Mean Platelet Volume 7.9 FL Neutrophils (%) (Auto) 81.0 % Lymphocytes (%) (Auto) 9.4 % Monocytes (%) (Auto) 6.7 % Eosinophils (%) (Auto) 2.1 % Basophils (%) (Auto) 0.8 % Neutrophils # (Auto) 8.4 TH/MM3 Lymphocytes # (Auto) 1.0 TH/MM3 Monocytes # (Auto) 0.7 TH/MM3 Eosinophils # (Auto) 0.2 TH/MM3 Basophils # (Auto) 0.1 TH/MM3 CBC Comment DIFF FINAL Differential Comment Blood Urea Nitrogen 5 MG/DL Creatinine 0.50 MG/DL Random Glucose 85 MG/DL Calcium Level 8.6 MG/DL Magnesium Level 1.6 MG/DL Sodium Level 132 MEQ/L Potassium Level 4.6 MEQ/L Chloride Level 97 MEQ/L Carbon Dioxide Level 26.0 MEQ/L Anion Gap 9 MEQ/L Estimat Glomerular Filtration Rate 119 ML/MIN Iron Level 28 MCG/DL Total Iron Binding Capacity 290 MCG/DL Percent Iron Saturation 9.7 % Ferritin 19 NG/ML 25-Hydroxy Vitamin D Total 12.0 ng/ML Labs reviewed Vitals/IOs Vital Signs Date Time Temp Pulse Resp B/P (MAP) Pulse Ox O2 Delivery O2 Flow Rate FiO2 01/28/18 06:27 97.6 65 16 139/58 (85) 94 Intake and Output 01/28/18 01/28/18 01/29/18 08:00 16:00 00:00 Intake Total 160 ml Balance 160 ml Assessment & Plan Problem List: (1) Substance-induced persisting dementia ICD Codes: F19.97 - Other psychoactive substance use, unspecified with psychoactive substance-induced persisting dementia (2) Alcohol dependence in controlled environment ICD Codes: F10.20 - Alcohol dependence, uncomplicated (3) Major depressive disorder, recurrent ICD Codes: F33.9 - Major depressive disorder, recurrent, unspecified Assessment & Plan Continue Remeron as ordered. Neuropsychology input noted and appreciated; I have adjusted the diagnostic schema in accordance with neuropsychology findings. Hospitalist input noted and appreciated. Continue to monitor on inpatient unit. Continue other medications and care as ordered. Justification for Cont. Inpt. High risk for decompensation in less restrictive environment. Discharge Planning Placement Request HC Surrog/Guard Advoc?: Yes Ruben De La Cruz MD Jan 28, 2018 07:58
--- NOTE | 2018-01-28 08:12 | HHI.PR ---
Subjective Remarks Follow-up visit for C. diff, diarrhea, HTN and hyponatremia. Patient seen and examined this morning in bed in no acute distress. She reports that she did have about 3 bowel movements yesterday but diarrhea in consistency are improving. She denies any abdominal pain, nausea, vomiting, fevers, chills, headaches, cough or shortness of breath. Spoke with nurse who does not report any acute concerns today or overnight. Objective Vitals Vital Signs Date Time Temp Pulse Resp B/P (MAP) Pulse Ox O2 Delivery O2 Flow Rate FiO2 01/28/18 06:27 97.6 65 16 139/58 (85) 94 01/27/18 18:00 98.0 63 15 156/67 (96) 99 I/O 01/27/18 01/27/18 01/27/18 01/28/18 01/28/18 01/28/18 06:59 14:59 22:59 06:59 14:59 22:59 Intake Total 240 ml 1200 ml 240 ml 160 ml Balance 240 ml 1200 ml 240 ml 160 ml Intake Oral 240 ml 1200 ml 240 ml 160 ml # Voids 4 Result Diagram: 01/27/18 1026 01/27/18 1026 Objective Remarks GENERAL: Well developed, elderly female who appears stated age in no acute distress. SKIN: Warm and dry. Perineal and buttocks excoriation and erythema noted. HEAD: Normocephalic. EYES: No scleral icterus. No injection or drainage. NECK: Supple, trachea midline. No JVD. CARDIOVASCULAR: Regular rate and rhythm without murmurs, gallops, or rubs. RESPIRATORY: Breath sounds equal bilaterally. No accessory muscle use. No rhonchi, wheezing or crackles noted. GASTROINTESTINAL: Abdomen soft, non-tender, nondistended. Hyperactive bowel sounds, no guarding. MUSCULOSKELETAL: No cyanosis, or edema. NEUROLOGICAL: Patient is awake, alert, and oriented. Moving all extremities spontaneously, ambulating without assistance. No facial droop, speech is clear. A/P Assessment and Plan 77-year-old female with past medical history of anxiety, hypertension, and alcohol abuse recently treated for acute dehydration secondary to diarrhea. She was discharged home however Valadez acted by law enforcement after she was found to be intoxicated with suicidal statements. Patient is now in inpatient psychiatry unit, [facility] consulted to assist with ongoing medical management. Dementia/ suicidal statements Anxiety - Management per psychiatric team C.diff 027 + - Recently DC from [facility] on 01/09, stool testing negative, IV hydration - GI recommended cholestyramine and Imodium as needed - S/p colonoscopy in 01/06: Cecal AVMs. Ascending colon erythema. Colon polyps. Diverticulosis. Internal and external hemorrhoids. s/p EGD on 01/06: Esophageal stricture. Esophagitis. Hiatal hernia s/p dilation. Pending biopsies, follow-up as outpatient with GI services. - continue on PO Vancomycin - continue Lactinex - Special contact Isolation - 01/20 c/o nausea, abdominal cramping, patient is afebrile, UA unremarkable, white count WNL - 01/21 patient better today, still with nausea but mild, no vomiting. Tolerated breakfast. No loose stools so far today. - 01/22 improving, no loose stool so far today. Discussed with nursing staff , 3 pasty BMs yesterday. - 01/23, continues to improve. stools more formed. No BM yet today. Continue to monitor. - 01/24, increased fatigue today. Still with diarrhea but more formed per nursing staff. Afebrile. Does not appear septic. VSS. Obtain CBC. Check Vit D level. - 01/26 ongoing diarrhea, add Questran, and Lomotil as needed, discussed with patient and nurse. Nurse to please contact lab regarding pending labs from and . - 01/27 diarrhea improved per patient, no BP this AM, continue Questran, probiotic and PO vanc. -01/28 diarrhea improving per patient in terms of consistency and amount. Encouraged to continue Questran. Candidal intertrigo Perineal excoriation - Nystatin application BID -Discussed with patient and nurse, need to clean stool off appropriately and apply barrier ointment afterwards. 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 -Can follow-up as outpatient determine if this is chronic infection. Hyponatremia, appears chronic, Na 132 03/12/09 Hypokalemia Hypomagnesemia -Labs from 01/27 NA 132, K 4.6, and mag 1.6 - Continue PO NA tabs - Monitor labs periodically Poor po intake - continue on MVI - [employer] Software Developer consulted, appreciate assistance. Calorie count 01/24 - 01/26 with recs 01/27 - Enlive shakes and ensure pudding with meals - patient refuses. Chocolate milk and yogurt with meals added per freight loader recs. HTN, chronic, controlled - BP still not well controlled, this AM 169/71 - Lisinopril 30mg QD -BP this morning better, continue monitoring and adjusting accordingly. Microcytic anemia, iron deficiency - H&H 11.1/33.5, Iron studies with iron level 28, TIBC 290, %sat 9.7 - ferrous sulfate replacement, monitor for bleeding, check stool for occult blood, yet to be collected. -Monitor H&H Alcohol abuse - [facility] protocol - MVI/Thiamin/Folate daily - monitor for signs of withdrawal DVT prophylaxis-Heparin sq Discussed with patient and nurse. Frank Couch Jan 28, 2018 08:12
[2018-01-28] MEDS: NYSTATIN 100,000 U/GM PWD 15 GM BTL TOPICAL SCH (09:00)
[2018-01-28] MEDS: THIAMINE HCL 100 MG TAB PO SCH ×2 (09:00→09:57)
[2018-01-28] MEDS: FERROUS SULFATE 325 MG (65 MG ELEMENTAL IRON) TAB PO SCH ×3 (09:00→20:24)
[2018-01-28] MEDS: HEPARIN SODIUM - SQ 10,000 UNITS/ML VIAL SQ SCH ×3 (09:00→20:26)
[2018-01-28] MEDS: LISINOPRIL 10 MG TAB PO SCH ×2 (09:00→09:57)
[2018-01-28] MEDS: FOLIC ACID 1 MG TAB PO SCH ×2 (09:00→09:57)
[2018-01-28] MEDS: VANCOMYCIN 500 MG VIAL (FOR ORAL USE ONLY) PO SCH ×5 (09:00→20:25)
[2018-01-28] MEDS: MULTIVITAMIN TAB PO SCH ×2 (09:00→09:57)
[2018-01-28] MEDS: LACTOBACILLUS ACIDOPHILUS TAB PO SCH ×4 (09:00→18:00)
[2018-01-28] MEDS: SODIUM CHLORIDE 1 GRAM TAB PO SCH ×3 (09:00→20:23)
[2018-01-28 18:35] VITALS: BP 131/65; PULSE 70; RESP 16; TEMP 97.8; O2SAT 98
[2018-01-28] MEDS: HALOPERIDOL 0.5 MG TAB PO PRN (20:24)
[2018-01-28] MEDS: ACETAMINOPHEN 325 MG TAB PO PRN (20:24)
[2018-01-28] MEDS: MIRTAZAPINE ODT 15 MG TAB PO SCH (20:39)
[2018-01-29] MEDS: NYSTATIN 100,000 U/GM PWD 15 GM BTL TOPICAL SCH ×3 (01:48→21:30)
[2018-01-29] MEDS: CHOLESTYRAMINE 4 GM PACKET PO SCH ×3 (06:00→21:30)
--- NOTE | 2018-01-29 07:56 | HHI.PR ---
Subjective Remarks Follow-up visit for C. diff, diarrhea, HTN and hyponatremia. Patient seen and examined this morning in bed. Denies any fevers, chills, vomiting, abdominal pain, dizziness, cough, shortness of breath or chest pain. She also feels as if her diarrhea is improving. Does report some nausea this morning. Spoke with nurse who has no concerns. Objective Vitals Vital Signs Date Time Temp Pulse Resp B/P (MAP) Pulse Ox O2 Delivery O2 Flow Rate FiO2 01/28/18 18:35 97.8 70 16 131/65 (87) 98 I/O 01/28/18 01/28/18 01/28/18 01/29/18 01/29/18 01/29/18 07:00 15:00 23:00 07:00 15:00 23:00 Intake Total 160 ml 2160 ml 1440 ml Balance 160 ml 2160 ml 1440 ml Intake Oral 160 ml 2160 ml 1440 ml # Voids 3 1 # Bowel Movements 1 Result Diagram: 01/27/18 1026 01/27/18 1026 Objective Remarks GENERAL: Well developed, elderly female who appears stated age in no acute distress. SKIN: Warm and dry. Perineal and buttocks excoriation and erythema noted. HEAD: Normocephalic. EYES: No scleral icterus. No injection or drainage. NECK: Supple, trachea midline. No JVD. CARDIOVASCULAR: Regular rate and rhythm without murmurs, gallops, or rubs. RESPIRATORY: Breath sounds equal bilaterally. No accessory muscle use. No rhonchi, wheezing or crackles noted. GASTROINTESTINAL: Abdomen soft, non-tender, nondistended. Hyperactive bowel sounds, no guarding. MUSCULOSKELETAL: No cyanosis, or edema. NEUROLOGICAL: Patient is awake, alert, and oriented. Moving all extremities spontaneously, ambulating without assistance. No facial droop, speech is clear. A/P Assessment and Plan 77-year-old female with past medical history of anxiety, hypertension, and alcohol abuse recently treated for acute dehydration secondary to diarrhea. She was discharged home however Valadez acted by law enforcement after she was found to be intoxicated with suicidal statements. Patient is now in inpatient psychiatry unit, [facility] consulted to assist with ongoing medical management. Dementia/ suicidal statements Anxiety - Management per psychiatric team C.diff 027 + - Recently DC from [facility] on 01/09, stool testing negative, IV hydration - GI recommended cholestyramine and Imodium as needed - S/p colonoscopy in 01/06: Cecal AVMs. Ascending colon erythema. Colon polyps. Diverticulosis. Internal and external hemorrhoids. s/p EGD on 01/06: Esophageal stricture. Esophagitis. Hiatal hernia s/p dilation. Pending biopsies, follow-up as outpatient with GI services. - continue on PO Vancomycin - continue Lactinex - Special contact Isolation - diarrhea continues to improve per patient, of note she has been refusing Questran, reiterated the importance of medications. Candidal intertrigo Perineal excoriation - Nystatin application BID -Discussed with patient and nurse, need to clean stool off appropriately and apply barrier ointment afterwards. 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 -Can follow-up as outpatient determine if this is chronic infection. Hyponatremia, appears chronic, Na 132 03/12/09 Hypokalemia Hypomagnesemia -Labs from 01/27 NA 132, K 4.6, and mag 1.6 - Continue PO NA tabs - Monitor labs periodically Poor po intake - continue on MVI - [employer] consulted, appreciate assistance. Calorie count 01/24 - 01/26 with recs 01/27 - Enlive shakes and ensure pudding with meals - patient refuses. Chocolate milk and yogurt with meals added per truck switcher recs. HTN, chronic, controlled - Lisinopril 30mg QD -BP this morning stable, continue monitoring and adjusting accordingly. Microcytic anemia, iron deficiency - H&H 11.1/33.5, Iron studies with iron level 28, TIBC 290, %sat 9.7 - ferrous sulfate replacement, monitor for bleeding, check stool for occult blood, yet to be collected. -Monitor H&H Alcohol abuse - [facility] protocol - MVI/Thiamin/Folate daily - monitor for signs of withdrawal DVT prophylaxis-Heparin sq Discussed with patient and nurse. Placement status still being worked out. Frank Couch Jan 29, 2018 07:56
[2018-01-29 08:19] VITALS: BP 137/58; PULSE 67; RESP 16; TEMP 97.8; O2SAT 94
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
[2018-01-29] MEDS: FERROUS SULFATE 325 MG (65 MG ELEMENTAL IRON) TAB PO SCH ×2 (10:33→21:31)
[2018-01-29] MEDS: FOLIC ACID 1 MG TAB PO SCH (10:33)
[2018-01-29] MEDS: LISINOPRIL 10 MG TAB PO SCH (10:33)
[2018-01-29] MEDS: MULTIVITAMIN TAB PO SCH (10:33)
[2018-01-29] MEDS: SODIUM CHLORIDE 1 GRAM TAB PO SCH ×2 (10:33→21:30)
[2018-01-29] MEDS: LACTOBACILLUS ACIDOPHILUS TAB PO SCH ×3 (10:33→18:00)
[2018-01-29] MEDS: THIAMINE HCL 100 MG TAB PO SCH (10:34)
[2018-01-29] MEDS: VANCOMYCIN 500 MG VIAL (FOR ORAL USE ONLY) PO SCH ×4 (10:34→21:31)
[2018-01-29] MEDS: HEPARIN SODIUM - SQ 10,000 UNITS/ML VIAL SQ SCH ×2 (10:34→21:31)
[2018-01-29] MEDS: ACETAMINOPHEN 325 MG TAB PO PRN ×2 (11:40→18:00)
--- NOTE | 2018-01-29 13:25 | HHI.PYPN ---
Subjective Chief Complaint: Substance-induced persisting dementia Remarks Patient seen and examined. Chart reviewed. Case discussed with nursing staff who reports patient is occasionally refusing medications and continues to have some liquid stools. Nurse also reports that night staff are requesting a different medication for anxiety than the Haldol, although patient has always reported to me that she found it efficacious. On my examination today, the patient is somewhat oppositional. She says that she wants to be put back on her Zoloft. She does not like how the Remeron makes her feel, she tells me. In context, this request for med change seems like an effort to maintain some degree of control over her situation. She denies SI/HI. Denies AVH. No side effects from meds. Besides the GI issue, no acute physical complaints. Again tried to discuss neuropsych findings with patient, but she tells me she does not put much stock in the testing. Left a generic VM for daughter/HCS requesting a call back to discuss the case. Review of Systems ROS Limitations: Poor Historian Except as stated in HPI: all other systems reviewed are Neg Mental Status Examination Appearance: Disheveled Consciousness: Alert Orientation: Person, Place Motor Activity: Other (No abnormal motor movements appreciated) Speech: Unremarkable Language: Adequate Fund of Knowledge: Inadequate Attention and Concentration: Inadequate Memory: Impaired Mood: Oppositional, Other (Mildly dysphoric) Affect: Blunt Thought Process & Associations: Other (slowed) Thought Content: Other (Ongoing poverty of thought) Hallucination Type: None Delusion Type: None Suicidal Ideation: No Homicidal Ideation: No Insight: Poor Judgment: Poor Results Labs Labs reviewed Vitals/IOs Vital Signs Date Time Temp Pulse Resp B/P (MAP) Pulse Ox O2 Delivery O2 Flow Rate FiO2 01/29/18 08:19 97.8 67 16 137/58 (84) 94 Assessment & Plan Problem List: (1) Substance-induced persisting dementia ICD Codes: F19.97 - Other psychoactive substance use, unspecified with psychoactive substance-induced persisting dementia (2) Alcohol dependence in controlled environment ICD Codes: F10.20 - Alcohol dependence, uncomplicated (3) Major depressive disorder, recurrent ICD Codes: F33.9 - Major depressive disorder, recurrent, unspecified Assessment & Plan Awaiting callback from healthcare surrogate. I will continue Remeron as ordered for now. Hospitalist input appreciated. Continue other medications and care as ordered. Justification for Cont. Inpt. Complicating conditions Discharge Planning Patient has a bed at [facility] once medically cleared. I have asked the nurse to have the hospitalist give us a better sense about when patient will be cleared for d/c. Request HC Surrog/Guard Advoc?: Yes Ruben De La Cruz MD Jan 29, 2018 13:25
[2018-01-29] MEDS: HALOPERIDOL 0.5 MG TAB PO PRN ×2 (14:45→21:30)
[2018-01-29] MEDS: SERTRALINE HCL 100 MG TAB PO SCH (14:47)
[2018-01-29 18:58] VITALS: BP 104/64; PULSE 72; RESP 16; TEMP 97.1; O2SAT 96
[2018-01-30 05:43] VITALS: BP 150/58; PULSE 66; RESP 17; TEMP 97.8; O2SAT 98
[2018-01-30] MEDS: CHOLESTYRAMINE 4 GM PACKET PO SCH ×3 (06:00→22:02)
[2018-01-30] MEDS: THIAMINE HCL 100 MG TAB PO SCH (09:11)
[2018-01-30] MEDS: FOLIC ACID 1 MG TAB PO SCH (09:11)
[2018-01-30] MEDS: LISINOPRIL 10 MG TAB PO SCH (09:11)
[2018-01-30] MEDS: MULTIVITAMIN TAB PO SCH (09:11)
[2018-01-30] MEDS: FERROUS SULFATE 325 MG (65 MG ELEMENTAL IRON) TAB PO SCH ×2 (09:11→22:02)
[2018-01-30] MEDS: SODIUM CHLORIDE 1 GRAM TAB PO SCH ×2 (09:11→17:33)
[2018-01-30] MEDS: LACTOBACILLUS ACIDOPHILUS TAB PO SCH ×3 (09:11→17:33)
[2018-01-30] MEDS: SERTRALINE HCL 100 MG TAB PO SCH (09:11)
[2018-01-30] MEDS: HEPARIN SODIUM - SQ 10,000 UNITS/ML VIAL SQ SCH ×2 (09:12→22:02)
[2018-01-30] MEDS: VANCOMYCIN 500 MG VIAL (FOR ORAL USE ONLY) PO SCH ×4 (09:12→22:02)
[2018-01-30] MEDS: NYSTATIN 100,000 U/GM PWD 15 GM BTL TOPICAL SCH ×2 (09:12→22:02)
--- NOTE | 2018-01-30 09:16 | HHI.PR ---
Subjective Remarks Follow-up visit for C. difficile, diarrhea, HTN, and hyponatremia. Patient seen and examined in her room resting, does not appear to be in any acute distress. Today she is not as talkative or interested in conversation than previously. Reports she is "just not feeling good" reports that she is having about 3 bowel movements, diarrhea improving per patient. She denies any nausea , vomiting, fevers, chills, headache, cough or shortness of breath. When discussed with patient the need for lab work as well as repeat abdominal x-ray at first she is reluctant however later is agreeable to this. Objective Vitals Vital Signs Date Time Temp Pulse Resp B/P (MAP) Pulse Ox O2 Delivery O2 Flow Rate FiO2 01/30/18 05:43 97.8 66 17 150/58 (88) 98 01/29/18 18:58 97.1 72 16 104/64 (77) 96 I/O 01/29/18 01/29/18 01/29/18 01/30/18 01/30/18 01/30/18 07:00 15:00 23:00 07:00 15:00 23:00 Intake Total 1320 ml 480 ml Balance 1320 ml 480 ml Intake Oral 1320 ml 480 ml # Voids 1 # Bowel Movements 1 Result Diagram: 01/27/18 1026 01/27/18 1026 Imaging Last Impressions Abdomen X-Ray 01/30/18 0000 Signed Impressions: Service Date/Time: Tuesday, January 30, 2018 09:41 - CONCLUSION: Nonspecific, nonobstructive bowel gas pattern. Yoan Leslie MD Objective Remarks GENERAL: Well developed, elderly female who appears stated age in no acute distress. SKIN: Warm and dry. Perineal and buttocks excoriation and erythema noted. HEAD: Normocephalic. EYES: No scleral icterus. No injection or drainage. NECK: Supple, trachea midline. No JVD. CARDIOVASCULAR: Regular rate and rhythm without murmurs, gallops, or rubs. RESPIRATORY: Breath sounds equal bilaterally. No accessory muscle use. No rhonchi, wheezing or crackles noted. GASTROINTESTINAL: Abdomen soft, nondistended. Normoactive bowel sounds, no guarding. Tenderness to left mid abdomen palpation. MUSCULOSKELETAL: No cyanosis, or edema. NEUROLOGICAL: Patient is awake, alert, and oriented. Moving all extremities spontaneously, ambulating without assistance. No facial droop, speech is clear. A/P Assessment and Plan 77-year-old female with past medical history of anxiety, hypertension, and alcohol abuse recently treated for acute dehydration secondary to diarrhea. She was discharged home however [place] acted by law enforcement after she was found to be intoxicated with suicidal statements. Patient is now in inpatient psychiatry unit, [facility] consulted to assist with ongoing medical management. Dementia/ suicidal statements Anxiety - Management per psychiatric team C.diff 027 + - Recently DC from CDU on 01/09, stool testing negative, IV hydration - GI recommended cholestyramine and Imodium as needed - S/p colonoscopy in 01/06: Cecal AVMs. Ascending colon erythema. Colon polyps. Diverticulosis. Internal and external hemorrhoids. s/p EGD on 01/06: Esophageal stricture. Esophagitis. Hiatal hernia s/p dilation. Pending biopsies, follow-up as outpatient with GI services. - On PO Vancomycin started on 01/18 - continue Lactinex - Special contact Isolation - diarrhea improved per patient, compliant with medications. -Some abdominal tenderness noted on left side, CBC consistent with priors, patient afebrile, KUB 01/30 reviewed, nonspecific, nonobstructive bowel gas pattern. Candidal intertrigo Perineal excoriation - Nystatin application BID -Discussed with patient and nurse, need to clean stool off appropriately and apply barrier ointment afterwards. -Reposition every 2 hours for offloading. 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 -Can follow-up as outpatient determine if this is chronic infection. Hyponatremia, appears chronic Hypokalemia Hypomagnesemia -NA 129, of note I did notice 1 of patient's tablets still on her bedside table when I was into examine her, ? If patient has been taking all of her medications. -We will provide patient with 500 mL's of NS IV, increase sodium tablets 2 3 times daily -Magnesium 1.8 -Recheck BMP tomorrow Poor po intake - continue on MVI - Employment Officer consulted, appreciate assistance. Calorie count 01/24 - 01/26 with recs 01/27 - Enlive shakes and ensure pudding with meals - patient refuses. Chocolate milk and yogurt with meals added per personal injury law specialist recs. HTN, chronic, controlled - Lisinopril 30mg QD -BP this morning stable, continue monitoring and adjusting accordingly. Microcytic anemia, iron deficiency - H&H 11.1/33.5-->10.7/31.8 Iron studies with iron level 28, TIBC 290, %sat 9.7 - ferrous sulfate replacement, monitor for bleeding, order once again placed for occult blood . -Monitor H&H Alcohol abuse - [facility] protocol - MVI/Thiamin/Folate daily - monitor for signs of withdrawal DVT prophylaxis-Heparin sq Discussed with patient and nurse. Placement status still being worked out. Frank Couch Jan 30, 2018 09:16
--- NOTE | 2018-01-30 10:35 | RADRPT ---
EXAM DATE/TIME: 01/30/2018 09:41 [place] COMPARISON: CT ABDOMEN & PELVIS W/O CONTRAST, January 05, 2018, 13:31. INDICATIONS : Abdominal pain and history of diarrhea.. MEDICAL HISTORY : Hypertension. SURGICAL HISTORY : Appendectomy. ENCOUNTER: Subsequent ACUITY: 4 - 6 days PAIN SCORE: 5/10 LOCATION: Abdomen. FINDINGS: A single AP supine view of the abdomen was obtained and demonstrates multiple loops of nondilated air -containing small bowel. Gas and stool is noted segmentally and portions of the colon. There is no ev idence of free air or mass effect on this supine study. There is diffuse osteopenia. There is a compr ession fracture deformity of the L1 vertebral body. The lung bases appear clear. There are costochond ral calcifications. Postoperative changes are noted in the left hip. CONCLUSION: Nonspecific, nonobstructive bowel gas pattern. Yoan Leslie MD on January 30, 2018 at 10:32 Board Certified Radiologist. This report was verified electronically.
[2018-01-30 11:33] LABS: AUTOMATED NEUTROPHIL # 6.8 TH/MM3 (1.8-7.7); BASOPHIL # 0.1 TH/MM3 (0-0.2); BASOPHIL % 1.1 % (0.0-2.0); EOSINOPHIL # 0.2 TH/MM3 (0-0.4); EOSINOPHIL % 2.4 % (0.0-4.0); HEMATOCRIT 31.8 % (35.0-46.0); HEMOGLOBIN 10.7 GM/DL (11.6-15.3); LYMPHOCYTE # 0.9 TH/MM3 (1.0-4.8); MEAN CELL VOLUME 77.6 FL (80.0-100.0); MEAN CORPUSCULAR HEMOGLOBIN 26.1 PG (27.0-34.0); MEAN CORPUSCULAR HGB CONC 33.6 % (32.0-36.0); MEAN PLATELET VOLUME 7.9 FL (7.0-11.0); MONO % 8.3 % (0.0-8.0); MONOCYTE # 0.7 TH/MM3 (0-0.9); NEUT % 78.2 % (16.0-70.0); PLATELET COUNT 576 TH/MM3 (150-450); RED CELL DISTRIBUTION WIDTH 18.3 % (11.6-17.2); WHITE BLOOD COUNT 8.7 TH/MM3 (4.0-11.0)
[2018-01-30 11:56] LABS: BICARBONATE 26.5 MEQ/L (21.0-32.0); CALCIUM 8.5 MG/DL (8.5-10.1); CREATININE 0.55 MG/DL (0.50-1.00); MAGNESIUM 1.8 MG/DL (1.5-2.5)
[2018-01-30] MEDS: HALOPERIDOL 0.5 MG TAB PO PRN ×2 (13:30→22:02)
[2018-01-30] MEDS ORDERED: SODIUM CHLORID 0.9% 500 ML INJ 500 ML IV ONE (14:15)
--- NOTE | 2018-01-30 16:45 | HHI.PYPN ---
Subjective Chief Complaint: Substance-induced persisting dementia Remarks Patient was seen and case discussed with nursing. Patient is pleasant and cooperative with exam. Alert and oriented 3. She is no longer oppositional with medications and is now compliant. Mood today is "a little down." She does deny suicidal or homicidal ideation intent or plan. sHe is behaving well in the unit. No outbursts Mental Status Examination Appearance: Disheveled Consciousness: Alert Orientation: Person, Place Motor Activity: Other (No abnormal motor movements appreciated) Speech: Unremarkable Language: Adequate Fund of Knowledge: Inadequate Attention and Concentration: Inadequate Memory: Impaired Mood: Oppositional, Other (Mildly dysphoric) Affect: Blunt Thought Process & Associations: Other (slowed) Thought Content: Other (Ongoing poverty of thought) Hallucination Type: None Delusion Type: None Suicidal Ideation: No Homicidal Ideation: No Insight: Poor Judgment: Poor Results Labs Test 01/30/18 10:56 White Blood Count 8.7 TH/MM3 Red Blood Count 4.10 MIL/MM3 Hemoglobin 10.7 GM/DL Hematocrit 31.8 % Mean Corpuscular Volume 77.6 FL Mean Corpuscular Hemoglobin 26.1 PG Mean Corpuscular Hemoglobin Concent 33.6 % Red Cell Distribution Width 18.3 % Platelet Count 576 TH/MM3 Mean Platelet Volume 7.9 FL Neutrophils (%) (Auto) 78.2 % Lymphocytes (%) (Auto) 10.0 % Monocytes (%) (Auto) 8.3 % Eosinophils (%) (Auto) 2.4 % Basophils (%) (Auto) 1.1 % Neutrophils # (Auto) 6.8 TH/MM3 Lymphocytes # (Auto) 0.9 TH/MM3 Monocytes # (Auto) 0.7 TH/MM3 Eosinophils # (Auto) 0.2 TH/MM3 Basophils # (Auto) 0.1 TH/MM3 CBC Comment DIFF FINAL Differential Comment Blood Urea Nitrogen 11 MG/DL Creatinine 0.55 MG/DL Random Glucose 95 MG/DL Calcium Level 8.5 MG/DL Magnesium Level 1.8 MG/DL Sodium Level 129 MEQ/L Potassium Level 4.7 MEQ/L Chloride Level 96 MEQ/L Carbon Dioxide Level 26.5 MEQ/L Anion Gap 7 MEQ/L Estimat Glomerular Filtration Rate 107 ML/MIN Vitals/IOs Vital Signs Date Time Temp Pulse Resp B/P (MAP) Pulse Ox O2 Delivery O2 Flow Rate FiO2 01/30/18 05:43 97.8 66 17 150/58 (88) 98 Intake and Output 01/30/18 01/30/18 01/31/18 08:00 16:00 00:00 Intake Total 1320 ml Balance 1320 ml Assessment & Plan Problem List: (1) Substance-induced persisting dementia ICD Codes: F19.97 - Other psychoactive substance use, unspecified with psychoactive substance-induced persisting dementia (2) Alcohol dependence in controlled environment ICD Codes: F10.20 - Alcohol dependence, uncomplicated (3) Major depressive disorder, recurrent ICD Codes: F33.9 - Major depressive disorder, recurrent, unspecified Assessment & Plan Continue current treatment plan Justification for Cont. Inpt. Patient would decompensate in a less restrictive setting Request HC Surrog/Guard Advoc?: Yes Ki Alexis DO Jan 30, 2018 16:45
[2018-01-30] MEDS: ACETAMINOPHEN 325 MG TAB PO PRN (17:33)
[2018-01-30 18:00] VITALS: BP 167/73; PULSE 105; RESP 16; TEMP 98.1; O2SAT 98
[2018-01-31 05:59] VITALS: BP 175/81; PULSE 78; RESP 17; TEMP 97.9; O2SAT 93
[2018-01-31] MEDS: CHOLESTYRAMINE 4 GM PACKET PO SCH ×3 (06:14→20:04)
--- NOTE | 2018-01-31 08:17 | HHI.PR ---
Subjective Remarks Follow up visit for C. difficile diarrhea, hypertension, and hyponatremia. Patient seen and examined in her room this morning, more talkative and interactive. She reports that the diarrhea is back, still has some left-sided abdominal tenderness. She denies any fevers, chills, nausea, vomiting, shortness of breath or cough. Spoke with nurse who reports patient has not received any Imodium, did make sure that she took medications yesterday. Objective Vitals Vital Signs Date Time Temp Pulse Resp B/P (MAP) Pulse Ox O2 Delivery O2 Flow Rate FiO2 01/31/18 05:59 97.9 78 17 175/81 (112) 93 01/30/18 18:00 98.1 105 16 167/73 (104) 98 I/O 01/30/18 01/30/18 01/30/18 01/31/18 01/31/18 01/31/18 06:59 14:59 22:59 06:59 14:59 22:59 Intake Total 1320 ml 480 ml Balance 1320 ml 480 ml Intake Oral 1320 ml 480 ml # Voids 4 1 2 # Bowel Movements 2 1 Result Diagram: 01/30/18 1056 01/30/18 1056 Imaging Last Impressions Abdomen X-Ray 01/30/18 0000 Signed Impressions: Service Date/Time: Tuesday, January 30, 2018 09:41 - CONCLUSION: Nonspecific, nonobstructive bowel gas pattern. Yoan Leslie MD Objective Remarks GENERAL: Well developed, elderly female who appears stated age in no acute distress. SKIN: Warm and dry. Perineal and buttocks excoriation and erythema noted. HEAD: Normocephalic. EYES: No scleral icterus. No injection or drainage. NECK: Supple, trachea midline. No JVD. CARDIOVASCULAR: Regular rate and rhythm without murmurs, gallops, or rubs. RESPIRATORY: Breath sounds equal bilaterally. No accessory muscle use. No rhonchi, wheezing or crackles noted. GASTROINTESTINAL: Abdomen soft, nondistended. Normoactive bowel sounds, no guarding. Tenderness to left mid abdomen palpation. MUSCULOSKELETAL: No cyanosis, or edema. NEUROLOGICAL: Patient is awake, alert, and oriented. Moving all extremities spontaneously, ambulating without assistance. No facial droop, speech is clear. A/P Assessment and Plan 77-year-old female with past medical history of anxiety, hypertension, and alcohol abuse recently treated for acute dehydration secondary to diarrhea. She was discharged home however Valadez acted by law enforcement after she was found to be intoxicated with suicidal statements. Patient is now in inpatient psychiatry unit, [facility] consulted to assist with ongoing medical management. Dementia/ suicidal statements Anxiety - Management per psychiatric team C.diff 027 + - Recently DC from CDU on 01/09, stool testing negative, IV hydration - GI recommended cholestyramine and Imodium as needed - S/p colonoscopy in 01/06: Cecal AVMs. Ascending colon erythema. Colon polyps. Diverticulosis. Internal and external hemorrhoids. s/p EGD on 01/06: Esophageal stricture. Esophagitis. Hiatal hernia s/p dilation. Pending biopsies, follow-up as outpatient with GI services. - On PO Vancomycin started on 01/18, 2 week completion date on 02/01 -Currently on Lactinex, and Questran. - Special contact Isolation -Ongoing abdominal tenderness noted on left side, CBC consistent with priors , patient afebrile, KUB 01/30 reviewed, nonspecific, nonobstructive bowel gas pattern. -Discussed with Dr. Carrera, will consult ID for further recommendations Candidal intertrigo Perineal excoriation - Nystatin application BID -Discussed with patient and nurse, need to clean stool off appropriately and apply barrier ointment afterwards. -Reposition every 2 hours for offloading. 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 -Can follow-up as outpatient determine if this is chronic infection. Hyponatremia, appears chronic Hypokalemia Hypomagnesemia -NA 129, s/p 500 mL of IV NS bolus, sodium tablets increased to 1 g 3 times daily. Sodium level this morning 131 -Magnesium 1.8 -Likely secondary to ongoing diarrhea, see above. Continue monitoring electrolytes closely. Poor po intake - continue on MVI - Green Pipefitter consulted, appreciate assistance. Calorie count 01/24 - 01/26 with recs 01/27 - Enlive shakes and ensure pudding with meals - patient refuses. Chocolate milk and yogurt with meals added per records management clerk recs. HTN, chronic, uncontrolled - Lisinopril 30mg QD -BP this morning 175/81, will add amlodipine 5 mg daily. Microcytic anemia, iron deficiency - H&H 11.1/33.5-->10.7/31.8 Iron studies with iron level 28, TIBC 290, %sat 9.7 - ferrous sulfate replacement, discussed with nurse and patient, need for Hemoccult. -Monitor H&H Alcohol abuse - [facility] protocol - MVI/Thiamin/Folate daily - monitor for signs of withdrawal DVT prophylaxis-Heparin sq Discussed with patient and nurse. Placement status still being worked out. Frank Couch Jan 31, 2018 08:17
[2018-01-31] MEDS: FERROUS SULFATE 325 MG (65 MG ELEMENTAL IRON) TAB PO SCH ×2 (08:56→20:01)
[2018-01-31] MEDS: LOPERAMIDE HCL 2 MG CAP PO PRN ×2 (08:57→17:58)
[2018-01-31] MEDS: FOLIC ACID 1 MG TAB PO SCH (08:57)
[2018-01-31] MEDS: LISINOPRIL 10 MG TAB PO SCH (08:57)
[2018-01-31] MEDS: VANCOMYCIN 500 MG VIAL (FOR ORAL USE ONLY) PO SCH ×4 (08:57→20:01)
[2018-01-31] MEDS: SERTRALINE HCL 100 MG TAB PO SCH (08:57)
[2018-01-31] MEDS: THIAMINE HCL 100 MG TAB PO SCH (08:57)
[2018-01-31] MEDS: MULTIVITAMIN TAB PO SCH (08:57)
[2018-01-31] MEDS: LACTOBACILLUS ACIDOPHILUS TAB PO SCH ×3 (08:57→17:58)
[2018-01-31] MEDS: NYSTATIN 100,000 U/GM PWD 15 GM BTL TOPICAL SCH ×2 (08:58→20:03)
[2018-01-31] MEDS: SODIUM CHLORIDE 1 GRAM TAB PO SCH ×3 (08:58→17:58)
[2018-01-31] MEDS: HEPARIN SODIUM - SQ 10,000 UNITS/ML VIAL SQ SCH ×2 (08:58→20:02)
[2018-01-31 10:25] LABS: CALCIUM 8.5 MG/DL (8.5-10.1); CREATININE 0.44 MG/DL (0.50-1.00)
--- NOTE | 2018-01-31 13:09 | PD.CONS ---
History of Present Illness Service Infectious Disease Consult Requested By Dr Cool Reason for Consult Evaluate patient with C. difficile, has been on treatment, has worsening diarrhea Primary Care Physician Unknown Diagnoses: History of Present Illness Patient seen and examined. Records reviewed. Patient is a 77-year-old female, has been in the psychiatric unit since January 10 , [place] acted after she told the police officers that she wanted to and she was intoxicated and disoriented at that time. She has been in the hospital and was being managed. While in the psychiatric unit she started having diarrhea, and stool for C. difficile from January 17 came back positive. Back in December she was admitted to the hospital the last week of December and she had diarrhea at that time, but her stool for C. difficile came back negative. She was treated empirically with oral Flagyl. In the psych unit her diarrhea improved, but the last several days the diarrhea started getting worse again. Coincident with that is that she has started increasing her oral intake. She has some mild abdominal cramping when she has diarrhea. She has not had any fever or chills. Infectious disease consultation has been requested to assist with evaluation and treatment. Review of Systems Constitutional: DENIES: Fever, Chills Eyes: DENIES: Eye pain Ears, nose, mouth, throat: DENIES: Oral lesions, Throat pain, Ear Pain, Sinus Pain Respiratory: DENIES: Cough, Shortness of breath Cardiovascular: DENIES: Chest pain, Palpitations, Syncope, Dyspnea on Exertion Gastrointestinal: COMPLAINS OF: Abdominal pain, Diarrhea, DENIES: Nausea, Vomiting, Difficulty Swallowing Genitourinary: DENIES: Urgency, Dysuria Musculoskeletal: DENIES: Joint pain, Muscle aches, Joint Swelling Integumentary: DENIES: Rash Neurologic: DENIES: Localized weakness Psychiatric: COMPLAINS OF: Mood changes Past Family Social History Allergies: Coded Allergies: penicillin G (Verified Adverse Reaction, Severe, Nausea/Vomiting, 01/10/18) Past Medical History Anxiety disorder Hypertension Alcohol Abuse Past Surgical History Appendectomy C Section Active Ordered Medications Current Medications Medications (Trade) Dose Ordered Sig/Ruby Route Start Time Stop Time Status Last Admin (Vitamin B1) 100 mg DAILY PO 01/11/18 10:00 01/31/18 08:57 (Tylenol) 650 mg Q4H PRN PO 01/11/18 08:45 01/30/18 17:33 (Milk Of Magnesia Liq) 30 ml DAILY PRN PO 01/11/18 08:45 (Mag-Al Plus Susp Liq) 30 ml Q6H PRN PO 01/11/18 08:45 (Folate) 1 mg DAILY PO 01/12/18 09:00 01/31/18 08:57 (Desitin 40% Oint) 1 applic DAILY PRN TOPICAL 01/12/18 14:45 01/13/18 10:02 (Zofran Odt) 4 mg Q6H PRN PO 01/12/18 16:45 01/12/18 21:55 (Lactinex) 1 tab TID PO 01/18/18 09:00 01/31/18 08:57 (VANCOMYCIN for oral use only) 125 mg QID PO 01/18/18 09:00 01/31/18 08:57 (Haldol) 0.5 mg Q8H PRN PO 01/18/18 11:45 01/30/18 22:02 (Theragran) 1 tab DAILY PO 01/20/18 09:00 01/31/18 08:57 (Heparin Inj) 5,000 units Q12HR SQ 01/20/18 21:00 01/31/18 08:58 (Mycostatin Powder) 1 applic Q12HR TOPICAL 01/20/18 11:45 01/31/18 08:58 (Pill Splitter) 1 ea UNSCH PRN OTHER 01/21/18 14:00 (Questran 4 Gm Pkt) 4 gm Q8HR PO 01/26/18 14:00 01/31/18 06:14 (Imodium) 2 mg Q6H PRN PO 01/26/18 08:00 01/31/18 08:57 (Ferrous Sulfate) 325 mg BID PO 01/27/18 21:00 01/31/18 08:56 (Drisdol) 50,000 units Q7D PO 01/27/18 14:00 01/27/18 16:10 (Prinivil) 30 mg DAILY PO 01/28/18 09:00 01/31/18 08:57 (Zoloft) 100 mg DAILY PO 01/29/18 14:00 01/31/18 08:57 (Sodium Chloride) 1 gm TID PO 01/30/18 18:00 01/31/18 08:58 (Norvasc) 5 mg DAILY PO 02/01/18 09:00 Family History Noncontributory Social History (+) ETOH abuse No smoking No illicit drugs Physical Exam Vital Signs Vital Signs Date Time Temp Pulse Resp B/P (MAP) Pulse Ox O2 Delivery O2 Flow Rate FiO2 01/31/18 05:59 97.9 78 17 175/81 (112) 93 01/30/18 18:00 98.1 105 16 167/73 (104) 98 Physical Exam GENERAL: Patient is a well-nourished, well-developed female, awake and alert , not in respiratory distress. SKIN: Cool and dry. No generalized rash, no ecchymoses and no evidence of embolic lesions. HEAD: Atraumatic. Normocephalic. No temporal wasting, or tenderness. EYES: [place] conjunctiva. No petechia or hemorrhage. Pupils equal, round and reactive to light. Extraocular movements full and intact. No scleral icterus. No injection or drainage. EARS, NOSE AND THROAT: Nose without bleeding or purulent nasal discharge. No sinus tenderness. Mucous membranes pink and moist. No oral lesions noted. No exudate. No oral thrush. NECK: Trachea midline. Supple and not tender, no meningeal signs CARDIOVASCULAR: Regular rate and rhythm. No murmurs, rubs or gallops heard RESPIRATORY: Clear to auscultation. Breath sounds equal bilaterally. No rales , wheezing or rhonchi ABDOMEN: Soft, nondistended, bowel sounds present and normoactive.Mild tenderness mark on L side, no guarding. No rebound. No organomegaly. EXTREMITIES: No clubbing, cyanosis, or edema.No joint effusion, has good ROM. No calf tenderness. Well perfused and warm. NEUROLOGICAL: Awake and alert. Cranial nerves grossly intact. Motor grossly within normal limits. PSYCHIATRIC: looks depressed, cooperative LINE: No evidence of infection Laboratory Laboratory Tests Test 01/31/18 09:36 Blood Urea Nitrogen 8 Creatinine 0.44 Random Glucose 68 Calcium Level 8.5 Sodium Level 131 Potassium Level 5.0 Chloride Level 96 Carbon Dioxide Level 29.0 Anion Gap 6 Estimat Glomerular Filtration Rate 138 Result Diagram: 01/30/18 1056 01/31/18 0936 Assessment and Plan Assessment and Plan IMPRESSION C difficile colitis, got better, and increased again - ?failure - ?due to increased oral intake Depression Hx ETOH abuse RECOMMENDATION Send stool for C diff If (+), will switch to Dificid Try Asacol to help with diarrhea Continue oral Vancomycin Monitor clinical progress I will follow along with you Thank you for this consultation Nancy Upton MD Jan 31, 2018 13:09
--- NOTE | 2018-01-31 14:19 | HHI.PYPN ---
Subjective Chief Complaint: Substance-induced persisting dementia Remarks Patient was seen and case discussed with nursing. She continues to be compliant with her medications and is behaving well on the unit. Per nursing, patient is eating and sleeping well. She describes her mood today as "discouraged." However, she denies any suicidal or homicidal ideation intent or plan. Tolerating medications well Mental Status Examination Appearance: Disheveled Consciousness: Alert Orientation: Person, Place Motor Activity: Other (No abnormal motor movements appreciated) Speech: Unremarkable Language: Adequate Fund of Knowledge: Inadequate Attention and Concentration: Inadequate Memory: Impaired Mood: Oppositional, Other (Mildly dysphoric) Affect: Blunt Thought Process & Associations: Other (slowed) Thought Content: Other (Ongoing poverty of thought) Hallucination Type: None Delusion Type: None Suicidal Ideation: No Homicidal Ideation: No Insight: Poor Judgment: Poor Results Labs Test 01/31/18 09:36 Blood Urea Nitrogen 8 MG/DL Creatinine 0.44 MG/DL Random Glucose 68 MG/DL Calcium Level 8.5 MG/DL Sodium Level 131 MEQ/L Potassium Level 5.0 MEQ/L Chloride Level 96 MEQ/L Carbon Dioxide Level 29.0 MEQ/L Anion Gap 6 MEQ/L Estimat Glomerular Filtration Rate 138 ML/MIN Vitals/IOs Vital Signs Date Time Temp Pulse Resp B/P (MAP) Pulse Ox O2 Delivery O2 Flow Rate FiO2 01/31/18 05:59 97.9 78 17 175/81 (112) 93 Intake and Output 01/31/18 01/31/18 02/01/18 08:00 16:00 00:00 Intake Total 120 ml 120 ml Balance 120 ml 120 ml Assessment & Plan Problem List: (1) Substance-induced persisting dementia ICD Codes: F19.97 - Other psychoactive substance use, unspecified with psychoactive substance-induced persisting dementia (2) Alcohol dependence in controlled environment ICD Codes: F10.20 - Alcohol dependence, uncomplicated (3) Major depressive disorder, recurrent ICD Codes: F33.9 - Major depressive disorder, recurrent, unspecified Assessment & Plan Continue current treatment plan Justification for Cont. Inpt. Patient would decompensate in a less restrictive setting Request HC Surrog/Guard Advoc?: Yes Ki Alexis DO Jan 31, 2018 14:19
[2018-01-31] MEDS: HALOPERIDOL 0.5 MG TAB PO PRN ×2 (14:28→20:01)
[2018-01-31] MEDS: MESALAMINE HD 800 MG DELAYED RELEASE TAB PO SCH ×2 (14:28→22:00)
[2018-01-31] MEDS: ACETAMINOPHEN 325 MG TAB PO PRN (14:29)
[2018-01-31 17:26] VITALS: BP 132/63; PULSE 75; RESP 17; TEMP 98; O2SAT 93
[2018-02-01] MEDS: ACETAMINOPHEN 325 MG TAB PO PRN ×2 (02:30→12:01)
[2018-02-01] MEDS: HALOPERIDOL 0.5 MG TAB PO PRN ×2 (05:38→13:31)
[2018-02-01] MEDS: MESALAMINE HD 800 MG DELAYED RELEASE TAB PO SCH ×2 (05:38→13:31)
[2018-02-01] MEDS: CHOLESTYRAMINE 4 GM PACKET PO SCH ×2 (05:38→13:31)
[2018-02-01 06:27] VITALS: BP 157/74; PULSE 76; RESP 16; TEMP 98.2; O2SAT 96
--- NOTE | 2018-02-01 07:31 | HHI.PYPN ---
Subjective Chief Complaint: Substance-induced persisting dementia Mental Status Examination Appearance: Disheveled Consciousness: Alert Orientation: Person, Place Motor Activity: Other (No abnormal motor movements appreciated) Speech: Unremarkable Language: Adequate Fund of Knowledge: Inadequate Attention and Concentration: Inadequate Memory: Impaired Mood: Oppositional, Other (Mildly dysphoric) Affect: Blunt Thought Process & Associations: Other (slowed) Thought Content: Other (Ongoing poverty of thought) Hallucination Type: None Delusion Type: None Suicidal Ideation: No Homicidal Ideation: No Insight: Poor Judgment: Poor Results Labs Test 01/31/18 09:36 01/31/18 18:00 Blood Urea Nitrogen 8 MG/DL Creatinine 0.44 MG/DL Random Glucose 68 MG/DL Calcium Level 8.5 MG/DL Sodium Level 131 MEQ/L Potassium Level 5.0 MEQ/L Chloride Level 96 MEQ/L Carbon Dioxide Level 29.0 MEQ/L Anion Gap 6 MEQ/L Estimat Glomerular Filtration Rate 138 ML/MIN Stool C. difficile Toxin (PCR) NEGATIVE Stl C. difficile Toxin Epiderm 027 PRESUMPTIVE NEGATIVE Vitals/IOs Vital Signs Date Time Temp Pulse Resp B/P (MAP) Pulse Ox O2 Delivery O2 Flow Rate FiO2 02/01/18 06:27 98.2 76 16 157/74 (101) 96 Intake and Output 02/01/18 02/01/18 02/02/18 08:00 16:00 00:00 Intake Total 2 ml Balance 2 ml Assessment & Plan Problem List: (1) Substance-induced persisting dementia ICD Codes: F19.97 - Other psychoactive substance use, unspecified with psychoactive substance-induced persisting dementia (2) Alcohol dependence in controlled environment ICD Codes: F10.20 - Alcohol dependence, uncomplicated (3) Major depressive disorder, recurrent ICD Codes: F33.9 - Major depressive disorder, recurrent, unspecified Assessment & Plan Estimated LOS: days Request HC Surrog/Guard Advoc?: Yes Ruben De La Cruz MD Feb 01, 2018 07:31
--- NOTE | 2018-02-01 08:24 | HHI.PR ---
Subjective Remarks Follow-up visit for C. difficile diarrhea, HTN, and hyponatremia. Patient seen and examined in bed eating breakfast this morning. She denies any fevers, chills, nausea, vomiting, abdominal pain or discomfort. She reports that she feels like diarrhea is improving, has been compliant with medications. Spoke with nursing staff and director of casework department possible discharge today. Objective Vitals Vital Signs Date Time Temp Pulse Resp B/P (MAP) Pulse Ox O2 Delivery O2 Flow Rate FiO2 02/01/18 06:27 98.2 76 16 157/74 (101) 96 02/01/18 03:30 20 01/31/18 17:26 98.0 75 17 132/63 (86) 93 I/O 01/31/18 01/31/18 01/31/18 02/01/18 02/01/18 02/01/18 07:00 15:00 23:00 07:00 15:00 23:00 Intake Total 240 ml 1200 ml 2 ml Balance 240 ml 1200 ml 2 ml Intake Oral 240 ml 1200 ml 2 ml # Voids 2 2 2 # Bowel Movements 1 Result Diagram: 01/30/18 1056 01/31/18 0936 Imaging Last Impressions Abdomen X-Ray 01/30/18 0000 Signed Impressions: Service Date/Time: Tuesday, January 30, 2018 09:41 - CONCLUSION: Nonspecific, nonobstructive bowel gas pattern. Yoan Leslie MD Objective Remarks GENERAL: Well developed, elderly female who appears stated age in no acute distress. SKIN: Warm and dry. Perineal and buttocks erythema, blanchable. HEAD: Normocephalic. EYES: No scleral icterus. No injection or drainage. NECK: Supple, trachea midline. No JVD. CARDIOVASCULAR: Regular rate and rhythm without murmurs, gallops, or rubs. RESPIRATORY: Breath sounds equal bilaterally. No accessory muscle use. No rhonchi, wheezing or crackles noted. GASTROINTESTINAL: Abdomen soft, nondistended. Normoactive bowel sounds, no guarding. No tenderness. MUSCULOSKELETAL: No cyanosis, or edema. NEUROLOGICAL: Patient is awake, alert, and oriented. Moving all extremities spontaneously, ambulating without assistance. No facial droop, speech is clear. A/P Assessment and Plan 77-year-old female with past medical history of anxiety, hypertension, and alcohol abuse recently treated for acute dehydration secondary to diarrhea. She was discharged home however [place] acted by law enforcement after she was found to be intoxicated with suicidal statements. Patient is now in inpatient psychiatry unit, [facility] consulted to assist with ongoing medical management. Dementia/ suicidal statements Anxiety - Management per psychiatric team C.diff 027 + - Recently DC from [facility]U on 01/09, stool testing negative, IV hydration - GI recommended cholestyramine and Imodium as needed - S/p colonoscopy in 01/06: Cecal AVMs. Ascending colon erythema. Colon polyps. Diverticulosis. Internal and external hemorrhoids. s/p EGD on 01/06: Esophageal stricture. Esophagitis. Hiatal hernia s/p dilation. Pending biopsies, follow-up as outpatient with GI services. - On PO Vancomycin started on 01/18, 2 week completion date on 02/01 -Currently on Lactinex, and Questran. - Special contact Isolation -CBC consistent with priors, patient afebrile, KUB 01/30 reviewed, nonspecific , nonobstructive bowel gas pattern. -ID consulted, greatly appreciate recommendations. -C. difficile checked, negative. ID added oral mesalamine, patient reports diarrhea has improved. Candidal intertrigo Perineal excoriation - Nystatin application BID -Discussed with patient and nurse, need to clean stool off appropriately and apply barrier ointment afterwards. -Reposition every 2 hours for offloading. 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 -Can follow-up as outpatient determine if this is chronic infection. Hyponatremia, appears chronic Hypokalemia Hypomagnesemia -NA 129, s/p 500 mL of IV NS bolus, sodium tablets increased to 1 g 3 times daily. Sodium level 131 yesterday -Magnesium 1.8 -Check BMP this morning if sodium improving can continue sodium tablets once discharged and follow-up sodium levels as outpatient Poor po intake - continue on MVI - Repair Servicer consulted, appreciate assistance. Calorie count 01/24 - 01/26 with recs 01/27 - Enlive shakes and ensure pudding with meals - patient refuses. Chocolate milk and yogurt with meals added per direct marketing analyst recs. HTN, chronic, uncontrolled - Lisinopril 30mg QD, first dose of amlodipine this morning -BP this morning 157/74 Microcytic anemia, iron deficiency - H&H 11.1/33.5-->10.7/31.8 Iron studies with iron level 28, TIBC 290, %sat 9.7 - ferrous sulfate replacement, discussed with nurse and patient, need for Hemoccult. -Monitor H&H Alcohol abuse - [facility] protocol - MVI/Thiamin/Folate daily - monitor for signs of withdrawal DVT prophylaxis-Heparin sq Discussed with patient, nurse, and . Recheck for C. difficile was negative, patient's last dose of oral vancomycin would be today, patient reports diarrhea has improved. If sodium level has improved okay to discharge. Stat BMP pending Frank Couch Feb 01, 2018 08:24
[2018-02-01] MEDS: SODIUM CHLORIDE 1 GRAM TAB PO SCH ×3 (09:00→12:01)
[2018-02-01] MEDS: LACTOBACILLUS ACIDOPHILUS TAB PO SCH ×3 (09:00→12:01)
[2018-02-01] MEDS: HEPARIN SODIUM - SQ 10,000 UNITS/ML VIAL SQ SCH ×2 (09:00→09:53)
[2018-02-01] MEDS: FOLIC ACID 1 MG TAB PO SCH ×2 (09:00→09:52)
[2018-02-01] MEDS ORDERED: amLODIPine BESYLATE 5 MG TAB PO SCH (09:00)
[2018-02-01] MEDS: MULTIVITAMIN TAB PO SCH ×2 (09:00→09:52)
[2018-02-01] MEDS: THIAMINE HCL 100 MG TAB PO SCH ×2 (09:00→09:52)
[2018-02-01] MEDS: NYSTATIN 100,000 U/GM PWD 15 GM BTL TOPICAL SCH (09:00)
[2018-02-01] MEDS: VANCOMYCIN 500 MG VIAL (FOR ORAL USE ONLY) PO SCH ×2 (09:50→12:01)
[2018-02-01] MEDS: LOPERAMIDE HCL 2 MG CAP PO PRN (09:52)
[2018-02-01] MEDS: FERROUS SULFATE 325 MG (65 MG ELEMENTAL IRON) TAB PO SCH (09:52)
[2018-02-01] MEDS: SERTRALINE HCL 100 MG TAB PO SCH (09:52)
[2018-02-01] MEDS: LISINOPRIL 10 MG TAB PO SCH (09:52)
[2018-02-01] MEDS ORDERED: MESA1TAB2 PO (11:48)
[2018-02-01] MEDS ORDERED: ZOLO100T PO (11:48)
[2018-02-01] MEDS ORDERED: LACT PO (11:48)
[2018-02-01] MEDS ORDERED: FERR325T20 PO (11:48)
[2018-02-01] MEDS ORDERED: SODI1TAB PO (11:48)
[2018-02-01] MEDS ORDERED: AMLO5 PO (11:48)
[2018-02-01] MEDS ORDERED: LISI10TA3 PO (11:48)
[2018-02-01] MEDS ORDERED: VITA500012 PO (11:48)
[2018-02-01] MEDS ORDERED: CHOL4POW4 PO (11:48)
--- NOTE | 2018-02-01 11:49 | HHI.DS ---
Psychiatry Discharge Summary Inpatient Psychiatric care?: Yes Advance Directive: No Mental Health AdvanceDirective: No Health Care Proxy: No Admission Admission Date Jan 11, 2018 at 08:43 Admission Diagnosis: (1) Dementia with behavioral disturbance ICD Code: F03.91 - Unspecified dementia with behavioral disturbance (2) Alcohol dependence ICD Code: F10.20 - Alcohol dependence, uncomplicated Brief History Ms. Puckett is 77-year-old female with a reported history of depression who presents under a Valadez act by law enforcement alleging that the patient told officers she wanted to and was disoriented in an intoxicated state. Alcohol level on presentation here was 312. Reviewing the electronic medical record, I note that the patient was discharged Thursday from the medical unit where she had been hospitalized for diarrhea. According to the ED provider note , "Patient was discharged from [facility] yesterday evening at 530, transport took her to a home in [place], field nurse case manager believes it was her daughter's home. She was not allowed into her daughter's home, the male at the residents gave patient an unknown amount of money and transport brought her back to the hospital lobby. She sat here for an unknown amount of time is uncertain where she went after that. Apparently she has been going from hotel to hotel, case management stated that she had allegedly been destroying hotel rooms. She has been having bowel movements in the room." I also note patient was seen in consultation by Dr. Lozano in 2008 and some degree of neurocognitive disorder was suspected at that time and a history of alcohol use issues was noted then as well.Patient seen and examined with nurse. Chart reviewed. Case discussed with nursing staff. On my examination today, the patient is a vague historian. Bedside mental status testing with MOCA reveals score of 19/30, suggestive of cognitive impairment. Patient describes mood as "so-so" although she admits she has recently been feeling depressed. She is somewhat anhedonic. She reports poor sleep and poor appetite. She denies any suicidal or homicidal ideation presently. She denies any audiovisual hallucinations. I can elicit no delusional material. She reports a significant trauma history but describes no symptoms of PTSD. Her insight into cognitive deficits and functional impairment seems poor. Remainder of the psychiatric ROS is negative. No acute physical complaints although patient notes that diarrhea is ongoing with some associated abdominal pain but no blood in stool or black, tarry stools. Tobacco Use In Past 30 Days: No Tobacco Past 30 Days Alcohol Use: 2-4 Times Per Month Hospital Course Patient was admitted to a locked, inpatient psychiatric unit. A general medical consultation was obtained. An infectious disease consultation was obtained for assistance in management of diarrhea. A neuropsychological evaluation was obtained. Appropriate precautions were in place throughout patient's hospital stay. Patient was seen and examined on the unit by psychiatry and also visited by counselor. Psychotropic medications were adjusted. Patient tolerated medication changes well without side effects. There was no evidence of any suicidality or homicidality on the inpatient unit. Patient remained in good behavioral control. Collateral information was obtained from patient's daughter. Working with family, counselor has arranged for placement in SNF. On the day of discharge: Patient seen and examined. Chart reviewed. Case discussed with nursing staff. No behavioral issues noted overnight. Case discussed with counselor. Patient may proceed to SNF today. Case discussed with mid-level provider from the hospitalist service who reports that the patient will be medically cleared today pending results from BMP. On my examination today, the patient denies any suicidal or homicidal ideation, intent or plan. Mood is improved versus admission, and I can elicit no severe depressive or hypomanic/manic symptoms. She denies any audiovisual hallucinations. I can elicit no delusional beliefs. She denies side effects from medications. No acute physical complaints. Suicide and violence risk assessment on discharge both suggest lower imminent risk from mental illness, and the patient's level of function is adequate for planned level of outpatient care. Patient has maximized benefit from this inpatient psychiatric hospital stay and will be discharged to SNF today once medically cleared by the hospitalist. Patient is to follow up with primary care and with GI. Mental health follow-up through patient's facility. Patient to abstain from substances of abuse. Patient to return to psychiatric emergency room for any concerning psychiatric symptoms as part of a general safety plan. Results Blood Pressure 157 / 74 Vital Signs Date Time Temp Pulse Resp B/P (MAP) Pulse Ox O2 Delivery O2 Flow Rate FiO2 02/01/18 06:27 98.2 76 16 157/74 (101) 96 Laboratory Tests Test 01/30/18 10:56 01/31/18 09:36 01/31/18 18:00 Hemoglobin 10.7 GM/DL (11.6-15.3) Hematocrit 31.8 % (35.0-46.0) Mean Corpuscular Volume 77.6 FL (80.0-100.0) Mean Corpuscular Hemoglobin 26.1 PG (27.0-34.0) Red Cell Distribution Width 18.3 % (11.6-17.2) Platelet Count 576 TH/MM3 (150-450) Neutrophils (%) (Auto) 78.2 % (16.0-70.0) Monocytes (%) (Auto) 8.3 % (0.0-8.0) Lymphocytes # (Auto) 0.9 TH/MM3 (1.0-4.8) Sodium Level 129 MEQ/L (136-145) 131 MEQ/L (136-145) Chloride Level 96 MEQ/L (98-107) 96 MEQ/L (98-107) Creatinine 0.44 MG/DL (0.50-1.00) Random Glucose 68 MG/DL (74-106) Laboratory Results Test 01/12/18 15:55 Cholesterol Level 163 MG/DL (120-200) HDL Cholesterol 55.6 MG/DL (40.0-60.0) Hemoglobin A1c 5.9 % (4.3-6.0) LDL Cholesterol 85 MG/DL (0-99) Triglycerides Level 110 MG/DL (42-150) Summary of Procedures . Imaging Last Impressions Abdomen X-Ray 01/30/18 0000 Signed Impressions: Service Date/Time: Tuesday, January 30, 2018 09:41 - CONCLUSION: Nonspecific, nonobstructive bowel gas pattern. Yoan Leslie MD Pending results at discharge: Yes (BMP) Medications # of Antipsychotic meds at D/C: 0 Approp Antipsych med options 1 - Minimum of three failed multiple trials of monotherapy. 2 - Documented plan to taper to monotherapy due to previous use of multiple meds OR cross-taper in progress at D/C. 3 - Documentation of augmentation of Clozapine. 4 - Justification other than those listed in allowable values 1-3, document here : Discharge Discharge Date: Feb 01, 2018 Discharge Diagnosis: (1) Substance-induced persisting dementia Diagnosis: Principal ICD Code: F19.97 - Other psychoactive substance use, unspecified with psychoactive substance-induced persisting dementia (2) Alcohol dependence in controlled environment Diagnosis: Secondary ICD Code: F10.20 - Alcohol dependence, uncomplicated (3) Major depressive disorder, recurrent Diagnosis: Secondary (improved versus admission) ICD Code: F33.9 - Major depressive disorder, recurrent, unspecified Pt Condition on Discharge: Stable Discharge Disposition: Discharge to SNF Discharge Instructions Diet Instructions: Heart Healthy Diet Activities you can perform: Weight Bearing as Blanquita Scheduled Appointment: [facility] provider New Orders: BASIC METABOLIC PROF - 1 Week CBC NO DIFF - 1 Week New Medications: Walker with Front Wheels (Walker with Front Wheels) 1 Mis Mis EA .XX DIRECTED, #1 0 Refills Amlodipine (Norvasc) 5 Mg Tab 5 MG PO DAILY for Blood Pressure Management for 30 Days, #30 TAB 0 Refills Cholestyramine (Cholestyramine) 4 Gm/Pkt Powd 4 GM PO Q8HR for Health for 30 Days, PACKET 0 Refills 1 packet contains 4 grams of cholestyramine. Ergocalciferol (Ergocalciferol) 50,000 Unit Cap 18997 UNITS PO Q7D for Nutritional Supplement, #7 CAP 0 Refills Ferrous Sulfate (Ferosul) 325 Mg (65 Mg Iron) Tablet 325 MG PO BID for Nutritional Supplement for 30 Days, TAB 0 Refills Lactobacillus Acidophilus (Acidophilus/l-Sporogenes) 35 Million Cell-25 Million Cell Tab 1 TAB PO TID for Health for 30 Days, TAB 0 Refills Lisinopril (Lisinopril) 10 Mg Tab 30 MG PO DAILY for Blood Pressure Management for 30 Days, #90 TAB [address] (Mesalamine DR) 800 Mg Tab 1600 MG PO Q8HR for Health for 30 Days, TAB 0 Refills Sertraline (Zoloft) 100 Mg Tab 100 MG PO DAILY for Mental Health for 30 Days, #30 TAB 0 Refills Sodium Chloride (Sodium Chloride) 1 Gram Tab 1 GM PO TID for Nutritional Supplement for 30 Days, TAB 0 Refills Continued Medications: Loperamide HCl (Hm Loperamide HCl) 2 Mg Cap 2 MG PO Q6H PRN for diarrhea for 30 Days, #120 CAP Thiamine (Vitamin B-1) 100 Mg Tab 100 MG PO DAILY for Nutritional Supplement for 30 Days, #30 TAB 0 Refills Discontinued Medications: Alprazolam (Xanax) 0.25 Mg Tab 0.25 MG PO Q8H PRN for ANXIETY for 30 Days, #20 TAB Cholestyramine (Cholestyramine) 4 Gm/Dose Powd 4 GM PO BID for Dyslipidemia, #1 CAN 0 Refills 1 level scoopful of powder contains 4 grams of cholestyramine. Lisinopril (Lisinopril) 20 Mg Tab 20 MG PO DAILY for 30 Days, #30 TAB 0 Refills Sertraline (Zoloft) 25 Mg Tab 25 MG PO DAILY for Depression Control, #30 TAB 0 Refills Discharge Time > 30 minutes Mental Status Examination Appearance: Other (fair) Consciousness: Alert Orientation: Person, Place (at least) Motor Activity: Other (No motor abnormalities noted) Speech: Unremarkable Language: Adequate Fund of Knowledge: Inadequate Attention and Concentration: Inadequate Memory: Impaired Mood: Appropriate Affect: Blunt Thought Process & Associations: Other (slowed) Thought Content: Other (Poverty of thought) Hallucination Type: None Delusion Type: None Suicidal Ideation: No Suicidal Plan: No Suicidal Intention: No Homicidal Ideation: No Homicidal Plan: No Homicidal Intention: No Insight: Poor (Chronic condition) Judgment: Poor (Chronic condition) Discharge/Advance Care Plan Health Problems: (1) Substance-induced persisting dementia (2) Alcohol dependence in controlled environment (3) Major depressive disorder, recurrent Goals to promote your health * To prevent worsening of your condition and complications * To maintain your health at the optimal level Directions to meet your goals Take your medications as prescribed Follow your dietary instruction Follow activity as directed Keep your appointments as scheduled Take your immunizations and boosters as scheduled If your symptoms worsen call your PCP, if no PCP go to Urgent Care Center or Emergency Room For 04/05 questions related to your inpatient stay or results of tests pending at discharge, please contact Dr. Ruben De La Cruz at Smoking is Dangerous to Your Health. Avoid second hand smoking Ruben De La Cruz MD Feb 01, 2018 11:49
[2018-02-01 13:15] VITALS: RESP 16
== END 2018-02-01 14:10 | DRG 897 ==
LOC: NEPD 18:46 → NEDA 01-11 08:43 → H260 01-11 10:15 → H250 01-13 15:30 → H260 01-15 18:18 → H250 01-17 19:14 → H4EA 01-18 11:14
PROVIDERS: ADMIT Psychiatry & Neurology Psychiatry; ATTEND Psychiatry & Neurology Psychiatry
DX: F10.27 Alcohol dependence with alcohol-induced persisting dementia (principal); A04.72 Enterocolitis due to Clostridium difficile, not specified as recurrent; F01.51 Vascular dementia, unspecified severity, with behavioral disturbance; K22.2 Esophageal obstruction; E83.42 Hypomagnesemia; R45.851 Suicidal ideations; E87.1 Hypo-osmolality and hyponatremia; F10.229 Alcohol dependence with intoxication, unspecified; L89.612 Pressure ulcer of right heel, stage 2; E86.0 Dehydration; I10 Essential (primary) hypertension; F41.9 Anxiety disorder, unspecified; Y90.8 Blood alcohol level of 240 mg/100 ml or more; F32.9 Major depressive disorder, single episode, unspecified; K64.8 Other hemorrhoids; B37.2 Candidiasis of skin and nail; K64.4 Residual hemorrhoidal skin tags; K57.90 Diverticulosis of intestine, part unspecified, without perforation or abscess without bleeding; D50.9 Iron deficiency anemia, unspecified; L30.4 Erythema intertrigo; K44.9 Diaphragmatic hernia without obstruction or gangrene; S30.814A Abrasion of vagina and vulva, initial encounter; K63.5 Polyp of colon; K20.9 Esophagitis, unspecified; E87.6 Hypokalemia; Z79.899 Other long term (current) drug therapy; Z88.0 Allergy status to penicillin
CPT/HCPCS: 74018; 76937; 80048; 80053; 80061; 80074; 80307; 81001; 82140; 82306; 82607; 82728; 82747; 83036; 83540; 83550; 83690; 83735; 83921; 84100; 84425; 84443; 85025; 86592; 86703; 87493; 94150; 96365; 96366; J1644; J3480; J7030; J7040

== ENCOUNTER 2018-08-20 20:17 | Inpatient (IN) ==
--- NOTE | 2018-08-20 20:47 | ED ---
HPI General Chief complaint: Medical Clearance Stated complaint: Marcos johnson Time Seen by Provider: 08/20/18 20:43 Source: patient and EMS Mode of arrival: EMS Limitations: no limitations History of Present Illness HPI Narrative: 78-year-old female patient presents to the ER today sent in by EMS apparently was at her hotel and was walking around complaining that she wanted to . She actually told the ER nurse in the hospital that she wanted to as well. She denies any chest pains, trouble breathing, vomiting, fevers , or other symptoms. She does not go into further details as to why she wanted to harm herself. Home Medications Medication Instructions Recorded Confirmed lisinopril 20 mg PO DAILY 06/10/18 08/20/18 sertraline [Zoloft] 100 mg PO DAILY 06/10/18 08/20/18 Previous Rx's Medication Instructions Recorded lisinopril 20 mg PO DAILY #30 tab 06/10/18 sertraline [Zoloft] 100 mg PO DAILY #30 tab 06/10/18 Allergies Allergy/AdvReac Type Severity Reaction Status Date / Time penicillin G AdvReac Severe Nausea/Vomi Verified 08/20/18 20:32 ting Review of Systems ROS: all other systems reviewed are negative [facility] Medical History Medical History Anxiety (Acute) Cholecystitis (Acute) Depression (Acute) HTN (hypertension) (Acute) Social History Social History Substance History: No History of Abuse Second Hand Smoke Exposure: No Smoking Status: Never smoker How Often Do You Have a Drink Containing Alcohol: 4 or more times a week Recent Travel in [facility] within the Last 8 Weeks: No Recent Out of Country Travel within the Last 8 Weeks: No Immunization History Tetanus Immunization: Unsure Exam Narrative Exam Narrative: GENERAL: Well-developed elderly white female patient currently in mild distress. Awake, alert, oriented x3. SKIN: Focused skin assessment warm/dry. HEAD: Atraumatic. Normocephalic. EYES: Pupils equal and round. No scleral icterus. No injection or drainage. ENT: No nasal bleeding or discharge. Mucous membranes pink and moist. NECK: Trachea midline. No JVD. CARDIOVASCULAR: Regular rate and rhythm. No murmur appreciated. RESPIRATORY: No accessory muscle use. Clear to auscultation. Breath sounds equal bilaterally. GASTROINTESTINAL: Abdomen soft, non-tender, nondistended. Hepatic and splenic margins not palpable. MUSCULOSKELETAL: No obvious deformities. No clubbing. No cyanosis. No edema. NEUROLOGICAL: Awake and alert. No obvious cranial nerve deficits. Motor grossly within normal limits. Normal speech. PSYCHIATRIC: Mildly agitated mood and affect; insight and judgment poor. Course Initial Documented Vital Signs Temperature 98.1 F 08/20/18 20:26 Pulse Rate 72 08/20/18 20:26 Respiratory Rate 20 08/20/18 20:26 Blood Pressure 136/71 08/20/18 20:26 Pulse Oximetry 95 08/20/18 20:26 Last Documented Vital Signs Temperature 98.1 F 08/20/18 20:26 Pulse Rate 72 08/20/18 20:26 Respiratory Rate 20 08/20/18 20:26 Blood Pressure 136/71 08/20/18 20:26 Pulse Oximetry 95 08/20/18 20:26 Medical Decision Making MDM Narrative Medical decision making narrative: Lab work is reviewed. It appears that she is intoxicated with alcohol. Vital signs are stable in the ER. At this point, patient has been Valadez acted and my plan would be to medically clear her for psychiatric evaluation in the morning. Medical Screen Exam Complete: Yes Emergency Medical Condition: Yes Differential Diagnosis Differential Diagnosis: Suicidal ideation/Valadez act Lab Data Lab results reviewed: Yes I reviewed the patient's lab results. Result diagrams: 08/20/18 21:05 08/20/18 21:05 Lab Results 08/20/18 08/20/18 08/20/18 Range/Units 21:00 21:05 21:05 WBC 6.8 (4.0-11.0) th/mm3 RBC 4.06 (4.00-5.30) mil/mm3 Hgb 11.5 L (11.6-15.3) gm/dL Hct 34.3 L (35.0-46.0) % MCV 84.6 (80.0-100.0) fL MCH 28.5 (27.0-34.0) pg MCHC 33.6 (32.0-36.0) % RDW 15.3 (11.6-17.2) % Plt Count 527 H (150-450) th/mm3 MPV 7.9 (7.0-11.0) fL Neut % (Auto) 65.4 (16.0-70.0) % Lymph % (Auto) 25.3 (9.0-44.0) % [place] % (Auto) 6.5 (0.0-8.0) % Eos % (Auto) 2.1 (0.0-4.0) % Baso % (Auto) 0.7 (0.0-2.0) % Neut # (Auto) 4.4 (1.8-7.7) th/mm3 Lymph # (Auto) 1.7 (1.0-4.8) th/mm3 [place] # (Auto) 0.4 (0.0-0.9) th/mm3 Eos # (Auto) 0.1 (0.0-0.4) th/mm3 Baso # (Auto) 0.1 (0.0-0.2) th/mm3 WBC Differential . Differential Comment Auto diff final Sodium 133 L (136-145) meq/L Potassium 3.9 (3.5-5.1) meq/L Chloride 97 L (98-107) meq/L Carbon Dioxide 24.9 (21.0-32.0) meq/L Anion Gap 11 (5-15) meq/L BUN 4 L (7-18) mg/dL Creatinine 0.42 L (0.50-1.00) mg/dL Estimated GFR Greater than 89 (>89) mL/min Random Glucose 78 (74-106) mg/dL Calcium 8.0 L (8.5-10.1) mg/dL Magnesium 1.6 (1.5-2.5) mg/dL AST 18 (15-37) U/L ALT 13 (10-53) U/L Albumin 2.9 L (3.4-5.0) g/dL Urine Opiates Screen Neg (Neg) Ur Barbiturates Screen Neg (Neg) Ur Amphetamines Screen Neg (Neg) U Benzodiazepines Scrn Neg (Neg) Urine Cocaine Screen Neg (Neg) U Cannabinoids Screen Neg (Neg) Serum Alcohol 290 H (0-5) mg/dL Discharge Plan Discharge Disposition Patient Disposition: 30 Still Patient Discharge Condition Condition: Stable Discharge Details Anticipated Discharge Date: 08/21/18 Diagnosis: Alcohol abuse, Suicidal ideation Physicians Team ED Provider: Jaziel Cabral Primary Care Provider: UNKNOWN, Rxs /Orders / Referrals /Forms Prescriptions: No Action lisinopril 20 mg Tablet 20 mg PO DAILY RF: 0 sertraline [Zoloft] 100 mg Tablet 100 mg PO DAILY RF: 0 lisinopril 20 mg tablet 20 mg PO DAILY Qty: 30 RF: 1 sertraline [Zoloft] 100 mg tablet 100 mg PO DAILY Qty: 30 RF: 1 Status ED Status: With Doctor
[2018-08-20 21:22] LABS: Baso # (Auto) 0.1 th/mm3 (0.0-0.2); Baso % (Auto) 0.7 % (0.0-2.0); Eos # (Auto) 0.1 th/mm3 (0.0-0.4); Eos % (Auto) 2.1 % (0.0-4.0); Hematocrit 34.3 % (35.0-46.0); Hemoglobin 11.5 gm/dL (11.6-15.3); Lymph # (Auto) 1.7 th/mm3 (1.0-4.8); Lymph % (Auto) 25.3 % (9.0-44.0); Mean Corpuscular HGB Conc 33.6 % (32.0-36.0); Mean Corpuscular Hemoglobin 28.5 pg (27.0-34.0); Mean Corpuscular Volume 84.6 fL (80.0-100.0); Mean Platelet Volume 7.9 fL (7.0-11.0); Mono # (Auto) 0.4 th/mm3 (0.0-0.9); Mono % (Auto) 6.5 % (0.0-8.0); Neut # (Auto) 4.4 th/mm3 (1.8-7.7); Neut % (Auto) 65.4 % (16.0-70.0); Platelet Count 527 th/mm3 (150-450); Red Blood Count 4.06 mil/mm3 (4.00-5.30); Red Cell Distribution Width 15.3 % (11.6-17.2); White Blood Count 6.8 th/mm3 (4.0-11.0)
[2018-08-20 21:27] LABS: Amphetamine Screen,Urine Neg (Neg); Barbiturate Screen,Urine Neg (Neg); Cannabinoid Screen,Urine Neg (Neg); Cocaine Screen,Urine Neg (Neg)
[2018-08-20 21:33] LABS: Opiate Screen,Urine Neg (Neg)
[2018-08-20 21:44] LABS: Albumin 2.9 g/dL (3.4-5.0); Anion Gap 11 meq/L (5-15); Aspartate Aminotransferase 18 U/L (15-37); Blood Urea Nitrogen 4 mg/dL (7-18); Carbon Dioxide 24.9 meq/L (21.0-32.0); Chloride 97 meq/L (98-107); Glomerular Filtration Rate Greater Than 89 mL/min (>89); Glucose,Random 78 mg/dL (74-106); Magnesium 1.6 mg/dL (1.5-2.5); Potassium 3.9 meq/L (3.5-5.1); Sodium 133 meq/L (136-145)
[2018-08-20 21:45] LABS: Alanine Aminotransferase 13 U/L (10-53)
[2018-08-20 21:47] LABS: Alcohol 290 mg/dL (0-5)
[2018-08-20 21:55] LABS: Alkaline Phosphatase 115 U/L (45-117)
[2018-08-21] MEDS ORDERED: Sertraline 100 MG Tablet PO ONE (09:34)
[2018-08-21] MEDS ORDERED: Haloperidol Inj 5 MG/ML Ampul IV.PUSH PRN (11:17)
[2018-08-21] MEDS: LORazepam 1 MG Tablet PO PRN ×2 (11:47→21:27)
--- NOTE | 2018-08-21 12:28 | ED ---
HPI - Psych - General Source: patient, EMS, old records reviewed Mode of arrival: EMS Limitations: no limitations - General Chief Complaint: Medical Clearance Stated Complaint: Marcos johnson Time Seen by Provider: 08/21/18 12:15 - History of Present Illness HPI Narrative: History of Present Illness HPI Narrative: 78-year-old female patient presents to the ER today sent in by EMS apparently was at her hotel and was walking around complaining that she wanted to . She actually told the ER nurse in the hospital that she wanted to as well. She denies any chest pains, trouble breathing, vomiting, fevers , or other symptoms. She does not go into further details as to why she wanted to harm herself. (Karen Smith) - Related Data Home Medications Medication Instructions Recorded Confirmed lisinopril 20 mg PO DAILY 06/10/18 08/20/18 sertraline [Zoloft] 100 mg PO DAILY 06/10/18 08/20/18 Previous Rx's Medication Instructions Recorded lisinopril 20 mg PO DAILY #30 tab 06/10/18 sertraline [Zoloft] 100 mg PO DAILY #30 tab 06/10/18 Allergies Allergy/AdvReac Type Severity Reaction Status Date / Time penicillin G AdvReac Severe Nausea/Vomi Verified 08/20/18 20:32 ting PMFSH - History History Provided By: Patient - Medical History Medical History: Medical History (Last Reviewed 08/20/18 @ 20:46 by Jaziel Cabral MD) Anxiety Cholecystitis Depression HTN (hypertension) - Tobacco History Second Hand Smoke Exposure: No Smoking Status: Never smoker - Alcohol History How Often Do You Have a Drink Containing Alcohol: 4 or more times a week - Substance Use History Substance History: Active Abuse - Substance Use Type Alcohol Status: Active Route Used: By Mouth Frequency: per patient a few glasses of white wine per day Comment: Patient states she drinks to decrease her anxiety - Travel History Recent Travel in the [place] Within the Last 8 Weeks: No Recent Travel Out of the Country Within the Last 8 Weeks: No - Immunization History Tetanus Immunization: Unsure Psychiatric History - Psychiatric History Psychiatric Treatment History: History of Hospitalization in a Psychiatric Facility Firearms in Home: No Physical Exam - General Limitations: no limitations Mental Status Examination Consciousness: Alert Orientation: x4 Motor Activity: Normal gait Speech: Unremarkable Language: Adequate Fund of Knowledge: Adequate Attention and Concentration: Adequate Memory: Unremarkable Mood: Sad Affect: Appropriate Thought Process & Associations: Intact, Logical, Goal directed Thought Content: Appropriate Hallucination Type: None Delusion Type: None Suicidal Ideation: Yes (pasive) Suicidal Plan: No Suicidal Intention: No Homicidal Ideation: No Homicidal Plan: No Homicidal Intention: No Insight: Fair Judgment: Adequate Initial Documented Vital Signs Temperature 98.1 F 08/20/18 20:26 Pulse Rate 72 08/20/18 20:26 Respiratory Rate 20 08/20/18 20:26 Blood Pressure 136/71 08/20/18 20:26 Pulse Oximetry 95 08/20/18 20:26 Last Documented Vital Signs Temperature 98.2 F 08/21/18 09:00 Pulse Rate 85 08/21/18 09:00 Respiratory Rate 18 08/21/18 09:00 Blood Pressure 159/72 H 08/21/18 09:00 Pulse Oximetry 96 08/21/18 09:00 [facility] - Psych - Lab Data Result diagrams: 08/20/18 21:05 08/20/18 21:05 - [facility] Narrative Medical decision making narrative: Admit for safety, stabilization and medication. (Karen Smith) - Lab Data Lab Results 08/20/18 08/20/18 08/20/18 Range/Units 21:00 21:05 21:05 WBC 6.8 (4.0-11.0) th/mm3 RBC 4.06 (4.00-5.30) mil/mm3 Hgb 11.5 L (11.6-15.3) gm/dL Hct 34.3 L (35.0-46.0) % MCV 84.6 (80.0-100.0) fL MCH 28.5 (27.0-34.0) pg MCHC 33.6 (32.0-36.0) % RDW 15.3 (11.6-17.2) % Plt Count 527 H (150-450) th/mm3 MPV 7.9 (7.0-11.0) fL Neut % (Auto) 65.4 (16.0-70.0) % Lymph % (Auto) 25.3 (9.0-44.0) % [place] % (Auto) 6.5 (0.0-8.0) % Eos % (Auto) 2.1 (0.0-4.0) % Baso % (Auto) 0.7 (0.0-2.0) % Neut # (Auto) 4.4 (1.8-7.7) th/mm3 Lymph # (Auto) 1.7 (1.0-4.8) th/mm3 [place] # (Auto) 0.4 (0.0-0.9) th/mm3 Eos # (Auto) 0.1 (0.0-0.4) th/mm3 Baso # (Auto) 0.1 (0.0-0.2) th/mm3 WBC Differential . Differential Comment Auto diff final Sodium 133 L (136-145) meq/L Potassium 3.9 (3.5-5.1) meq/L Chloride 97 L (98-107) meq/L Carbon Dioxide 24.9 (21.0-32.0) meq/L Anion Gap 11 (5-15) meq/L BUN 4 L (7-18) mg/dL Creatinine 0.42 L (0.50-1.00) mg/dL Estimated GFR Greater than 89 (>89) mL/min Random Glucose 78 (74-106) mg/dL Calcium 8.0 L (8.5-10.1) mg/dL Magnesium 1.6 (1.5-2.5) mg/dL Total Bilirubin 0.1 L (0.2-1.0) mg/dL AST 18 (15-37) U/L ALT 13 (10-53) U/L Alkaline Phosphatase 115 (45-117) U/L Total Protein 7.0 (6.4-8.2) g/dL Albumin 2.9 L (3.4-5.0) g/dL TSH 1.580 (0.358-3.740) uIU/mL Urine Opiates Screen Neg (Neg) Ur Barbiturates Screen Neg (Neg) Ur Amphetamines Screen Neg (Neg) U Benzodiazepines Scrn Neg (Neg) Urine Cocaine Screen Neg (Neg) U Cannabinoids Screen Neg (Neg) Serum Alcohol 290 H (0-5) mg/dL
[2018-08-21] MEDS: Aluminum/Magnesium/Simethacone Susp 30 ML UDC PO PRN ×2 (16:17→22:51)
[2018-08-22 09:32] LABS: Calcium 8.1 mg/dL (8.5-10.1); Carbon Dioxide 30.4 meq/L (21.0-32.0); Potassium 3.4 meq/L (3.5-5.1)
[2018-08-22 10:00] LABS: Chol/HDL Ratio 1.76 Ratio; HDL Cholesterol 89.4 mg/dL (40.0-60.0); Thyroid Stimulating Hormone 1.53 uIU/mL (0.358-3.740)
[2018-08-22] MEDS: Lisinopril 20 MG Tablet PO SCH (10:09)
[2018-08-22 11:55] LABS: Hemoglobin A1c 6.1 % (4.3-6.0)
--- NOTE | 2018-08-22 12:12 | P.HPPSY ---
Provisional Diagnosis Admission Date: August 21, 2018 12:39 Competence Certification of Person's Competence To Provide Express and Informed Consent I have personally examined Kasey Puckett, a person being served at [facility] on, August 22, 2018 1158. Express and informed consent means consent voluntarily given in writing, by a competent person, after sufficient explanation and disclosure of the subject matter involved to enable the person to make a knowing and willful decision without any element of force, fraud, deceit, duress, or other form of constraint or coercion. This person is 18 years of age or older, is not now known to be incompetent to consent to treatment with a guardian advocate, and does not have a health care surrogate or proxy currently making medical treatment decisions. I have found this person to be one of the following: [X] Competent to provide express and informed consent, as defined above, for voluntary admission to this facility and is competent to provide express and informed consent for treatment. He/she has the consistent capacity to make well reasoned, willful, and knowing decisions concerning his or her medical or mental health treatment. The person fully and consistently understands the purpose of the admission for examination/placement and is fully capable of personally exercising all rights assured under [place] [] Incompetent to provide express and informed consent to voluntary admission, and this is incompetent to provide express and informed consent to treatment. The person must be transferred to involuntary status and a petition for a guardian advocate filed with the Circuit Court. [] Refusing to provide express and informed consent to voluntary admission but is competent to provide express and informed consent for treatment. The person must be discharged or transferred to involuntary status. Form shall be completed within 24 hours of a person's arrival at the receiving facility and filed in the clinical record of each person: 1. Admitted on a voluntary basis 2. Permitted to provide express and informed consent to his/her own treatment 3. Allowed to transfer from involuntary to voluntary status 4. Prior to permitting a person to consent to his or her own treatment after having been previously found incompetent to consent to treatment. History of Present Illness Capacity: Has capacity Chief Complaint: suicidal ideation History of Present Illness: Patient is a 78-year-old female previous admissions to this hospital. Patient is admitted after she was overheard at her hotel vocally urging suicidal ideation. Per record patient has a history of alcohol dependence and possible neurocognitive disorder. Patient says that she has had a bad a year and has been depressed throughout the year. She ran out of her Zoloft prescription 30 days ago and has subsequently increased her drinking to 3 glasses of wine a day and more so before her admission. Her alcohol level was in the high 200s. Yesterday's patient was vomiting but today she is showing no signs of alcohol withdrawal. There are no tremors or nausea or vomiting or confusion. Patient admits to depressed mood but at this time denies suicidal or homicidal ideation intent or plan. Past psych: History of depression multiple admissions Past medical: See chart Past Social: History of alcohol abuse The patient is a 77 year-old woman, domiciled in motel rooms, , unemployed, poor family support, she has a daughter, with reported psychiatric history of depression, anxiety, alcohol use disorder, 1 previous psychiatric hospitalization about 3 years ago, no previous suicide attempts, no significant medical history, who presents under a [place] act by law enforcement alleging that the patient told officers she wanted to and was disoriented in an intoxicated state. Alcohol level on presentation here was 312. Patient was consulted to me for second opinion. On psychiatric evaluation today the patient is calm, cooperative, reporting symptomatology of depression. Patient says that she has been depressed for a long time, but does not elaborate about the reason of the depression. She denies suicidal and was ideation, she denies visual and auditory hallucinations. She is oriented 3, she knows who is the director business intelligence, but refused a more complete cognitive assessment stating that all the question her asked before.The patient is a 77 year-old woman, domiciled in motel rooms, , unemployed, poor family support, she has a daughter, with reported psychiatric history of depression, anxiety, alcohol use disorder, 1 previous psychiatric hospitalization about 3 years ago, no previous suicide attempts, no significant medical history, who presents under a [place] act by law enforcement alleging that the patient told officers she wanted to and was disoriented in an intoxicated state. Alcohol level on presentation here was 312. Patient was consulted to me for second opinion. On psychiatric evaluation today the patient is calm, cooperative, reporting symptomatology of depression. Patient says that she has been depressed for a long time, but does not elaborate about the reason of the depression. She denies suicidal and was ideation, she denies visual and auditory hallucinations. She is oriented 3, she knows who is the director business intelligence, but refused a more complete cognitive assessment stating that all the question her asked before. - Inpatient Certification I certify that the inpatient services were ordered in accordance with Medicare regulations governing the order. This includes certification that hospital inpatient services are reasonable and necessary and in the case of services not specified as inpatient-only under 42 CFR 419.22(n), that they are appropriately provided as inpatient services in accordance to with the 2-midnight benchmark under 43 CFR 412.3(e) I certify that inpatient psychiatric hospital services are medically necessary. Evaluation and treatment and/or diagnostic testing are expected to improve the patient's condition. The patient needs on a daily basis, active treatment furnished directly by or requiring the supervision of inpatient psychiatric facility personnel. Estimated Total Length of Stay (Days): 8 Plans for Post Hospital Care: Not yet determined [facility] - History History Provided By: Patient - Medical History Medical History: Medical History (Last Reviewed 08/21/18 @ 14:11 by Cristal Becerril RN) Anxiety Cholecystitis Depression HTN (hypertension) - Family History Family History: Family History (Last Updated 08/21/18 @ 14:12 by Cristal Becerril RN) Other Family history normal - Tobacco History Second Hand Smoke Exposure: No Tobacco Use In Past 30 Days: No Smoking Status: Former smoker Tobacco Type: Cigarettes - Alcohol History How Often Do You Have a Drink Containing Alcohol: 4 or more times a week - Substance Use History Substance History: No History of Abuse - Substance Use Type Alcohol Status: Active Route Used: By Mouth Frequency: per patient a few glasses of white wine per day Comment: Patient states she drinks to decrease her anxiety - Travel History Recent Travel in the [place] Within the Last 8 Weeks: No Recent Travel Out of the Country Within the Last 8 Weeks: No - Immunization History Tetanus Immunization: Unable to Assess Hx Influenza Vaccine This Season: Yes Medications and Allergies Active Medications: Active Medications Al Hydrox/Mg Hydrox/Simethicone (Mag-Al Plus Susp Liq) 30 ml PO Q6H PRN PRN Reason: DYSPEPSIA Last Admin: 08/21/18 22:51 Dose: 30 ml Al Hydroxide/Mg Hydroxide (Milk Of Magnesia Liq) 30 ml PO Q12H PRN PRN Reason: Mild Constipation Flumazenil (Romazecon Inj) 0.2 mg IV.PUSH Q1M PRN PRN Reason: OVERSEDATION Haloperidol Lactate (Haldol Inj) 1 mg IV.PUSH Q15M PRN PRN Reason: for severe agitation Lisinopril (Prinivil) 20 mg PO DAILY [facility] Last Admin: 08/22/18 10:09 Dose: 20 mg Lorazepam (Ativan) 1 mg PO Q4H PRN PRN Reason: for CIWA 8-10 Last Admin: 08/21/18 21:27 Dose: 1 mg Lorazepam (Ativan) 2 mg PO Q2H PRN PRN Reason: for CIWA 11-14 Lorazepam (Ativan Inj) 2 mg IV.PUSH Q2H PRN PRN Reason: for CIWA 11-14 Lorazepam (Ativan Inj) 2 mg IV.PUSH Q15M PRN PRN Reason: for CIWA > 20 Lorazepam (Ativan Inj) 1 mg IV.PUSH Q4H PRN PRN Reason: for CIWA 8-10 Lorazepam (Ativan Inj) 2 mg IV.PUSH Q1H PRN PRN Reason: for CIWA 15-20 Ondansetron HCl (Zofran Odt) 4 mg PO Q6H PRN PRN Reason: NAUSEA OR VOMITING Last Admin: 08/22/18 02:35 Dose: 4 mg Sennosides (Senokot) 17.2 mg PO Q12H PRN PRN Reason: Moderate Constipation Sertraline HCl (Zoloft) 50 mg PO DAILY [facility] Trazodone HCl (Desyrel) 50 mg PO [facility] Allergies Allergy/AdvReac Type Severity Reaction Status Date / Time penicillin G AdvReac Severe Nausea/Vomi Verified 08/20/18 20:32 ting Home Medications Medication Instructions Recorded Confirmed Type lisinopril 20 mg PO DAILY 06/10/18 08/20/18 History sertraline [Zoloft] 100 mg PO DAILY 06/10/18 08/20/18 History Results - Labs CBC & Chem 7: 08/20/18 21:05 08/22/18 08:30 Labs: Laboratory Results - last 24 hr 08/22/18 08:30 Sodium 133 L Potassium 3.4 L Chloride 92 L Carbon Dioxide 30.4 Anion Gap 11 BUN 3 L Creatinine 0.74 Estimated GFR 76 L Random Glucose 105 Calcium 8.1 L Triglycerides 42 Cholesterol 158 LDL Cholesterol, Calc 60 HDL Cholesterol 89.4 H Cholesterol/HDL Ratio 1.76 Vitamin B12 348 TSH 1.530 Exam Vital signs: Vital Signs 08/21/18 14:54 08/22/18 01:30 08/22/18 06:00 Temperature 98.9 F 99 F Pulse Rate 80 74 71 Respiratory Rate 18 16 Blood Pressure 163/77 H 134/63 111/55 L Pulse Oximetry 93 L 93 L 92 L Intake & Output 08/21/18 08/22/18 08/22/18 18:59 06:59 18:59 Weight 115.6 kg Other: Date of Last Bowel Movement 08/21/18 Weight On Admission 115.6 kg Mental Status Examination Appearance: Disheveled Consciousness: Alert Orientation: x4 Motor Activity: Normal gait Speech: Unremarkable Language: Adequate Fund of Knowledge: Adequate Attention and Concentration: Adequate Memory: Unremarkable Mood: Sad Affect: Sad Thought Process & Associations: Intact, Logical, Goal directed Thought Content: Appropriate Hallucination Type: None Delusion Type: None Suicidal Ideation: Yes (pasive) Suicidal Plan: No Suicidal Intention: No Homicidal Ideation: No Homicidal Plan: No Homicidal Intention: No Insight: Fair Judgment: Adequate Assessment and Plan - Assessment (1) Major depressive disorder, recurrent severe without psychotic features Code(s): F33.2 - Major depressive disorder, recurrent severe without psychotic features Status: Acute (2) Alcohol dependence with acute alcoholic intoxication Code(s): F10.229 - Alcohol dependence with intoxication, unspecified Status: Acute - Plan Plan: Estimated LOS: [] days Patient may sign voluntary, start Zoloft at 50 mg daily, trazodone 50 mg p.o. nightly. Justification for Continued Inpatient Stay: Patient would decompensate in a less restrictive setting
[2018-08-22] MEDS: Sertraline 50 MG Tablet PO SCH (13:33)
[2018-08-22] MEDS: traZODone 50 MG Tablet PO SCH (21:13)
--- NOTE | 2018-08-23 09:33 | P.TTN ---
- Patient Problems Problems: 1. Discharge planning 2. Medication compliance 3. Knowledge deficit 4. Lack of coping skills - Progress Toward Goals Provider Present: Dr. Leslie Mcclendon Provider Input: 08/23/18: Patient is new to provider at this time. Provider to meet with patient. Nurse Input: 08/23/18: Patient new to unit. Continue evaluation of patient. Patient is found at this time on [address]. Patient presented to [place] under Valadez Act. Psychiatric Counselors Present: LUIS MIGUEL Villarreal Psychiatric Therapist Input: 08/23/18: Patient new to unit. Therapist to follow up with patient, evaluate status and discuss safe discharge plans. Group Spec/RT/OT/EISENBERG Present: ELGIN Kumar - Discharge Plan Other (Patient is new to [address]. Provider to meet with patient and therapist to follow up with patient to further discuss safe discharge plan.) - Documentation Teaching Recipient: Patient
[2018-08-23] MEDS: Sertraline 50 MG Tablet PO SCH (09:40)
[2018-08-23] MEDS: Lisinopril 20 MG Tablet PO SCH (09:40)
--- NOTE | 2018-08-23 10:03 | P.PNPSY ---
Subjective Chief Complaint: suicidal ideation Remarks: Patient initially admitted by Dr. Alexis. His H&P reviewed and agreed with. Dr. Alexis is allow the patient to decide on a voluntary basis. I have reviewed his H&P and agree with it, I have also finished the initial psychiatric template admission orders and review of the med reconciliation. I will restart her Zoloft at 100 mg daily. Patient was seen in her room laying in bed with nurse Viviana present throughout session. She is alert somewhat irritable though cooperative with me she denies suicidality voices or visions. She states she does have the possibility of staying with his son after leaving here for now continue treatment. Continue the ciwa protocol Review of Systems All other systems reviewed negative except as stated in HPI Mental Status Examination Appearance: Disheveled Consciousness: Alert Orientation: x4 Motor Activity: Normal gait Speech: Unremarkable Language: Adequate Fund of Knowledge: Adequate Attention and Concentration: Adequate Memory: Unremarkable Mood: Sad, Irritable Affect: Other (Decreased range and intensity) Thought Process & Associations: Intact, Logical, Goal directed Thought Content: Appropriate Hallucination Type: None Delusion Type: None Suicidal Ideation: Yes (Denies today) Suicidal Plan: No Suicidal Intention: No Homicidal Ideation: No Homicidal Plan: No Homicidal Intention: No Insight: Fair Judgment: Adequate (Fair) Assessment and Plan - Assessment (1) Major depressive disorder, recurrent severe without psychotic features Code(s): F33.2 - Major depressive disorder, recurrent severe without psychotic features Status: Acute (2) Alcohol dependence with acute alcoholic intoxication Code(s): F10.229 - Alcohol dependence with intoxication, unspecified Status: Acute - Plan Plan: Patient remains somewhat depressed though denying suicidality today. She is low behavior problems, although she also was isolating. We will continue theciwa protocol at this time. Justification for Continued Inpatient Stay: At this time patient will decompensate if placed on the lower level of care Discharge Planning: To be determined perhaps home with her son Request Healthcare Surrogate/Guardian Advocate?: No
[2018-08-23] MEDS: Senna/Docusate Sodium 8.6/50 MG Tablet PO SCH (20:49)
[2018-08-23] MEDS: traZODone 50 MG Tablet PO SCH (20:49)
[2018-08-24] MEDS: Sertraline 100 MG Tablet PO SCH (09:54)
[2018-08-24] MEDS: Senna/Docusate Sodium 8.6/50 MG Tablet PO SCH ×2 (09:54→21:04)
[2018-08-24] MEDS: Lisinopril 20 MG Tablet PO SCH (09:54)
--- NOTE | 2018-08-24 11:16 | P.PNPSY ---
Subjective Chief Complaint: suicidal ideation Remarks: Patient seen in day room with nurse Viviana, chart reviewed, patient compliant medication. Patient so far has scored quite low on her ciwa scale. She is alert and overall oriented to person place time and situation however when talking to further discuss her alcohol use history she became somewhat resistant irritable and angry it appears she has no specific place to go when she leaves here. Though she says she has a son in [place] that she could perhaps go and stay with. That when she leaves here she may just go to the bus station get a take it and go to [place]. However she refuses to allow us to call her son at this time. For now will continue treatment continue to attempt to make appropriate discharge plans for this lady Review of Systems All other systems reviewed negative except as stated in HPI Mental Status Examination Appearance: Appropriate Consciousness: Alert Orientation: x4 Motor Activity: Normal gait Speech: Unremarkable Language: Adequate Fund of Knowledge: Adequate Attention and Concentration: Adequate Memory: Unremarkable Mood: Irritable, Other (Euthymic to mildly dysphoric) Affect: Other (Decreased range and intensity) Thought Process & Associations: Intact, Logical, Goal directed Thought Content: Appropriate Hallucination Type: None Delusion Type: None Suicidal Ideation: Yes (Denies today) Suicidal Plan: No Suicidal Intention: No Homicidal Ideation: No Homicidal Plan: No Homicidal Intention: No Insight: Fair Judgment: Adequate (Fair) Assessment and Plan - Assessment (1) Major depressive disorder, recurrent severe without psychotic features Code(s): F33.2 - Major depressive disorder, recurrent severe without psychotic features Status: Acute (2) Alcohol dependence with acute alcoholic intoxication Code(s): F10.229 - Alcohol dependence with intoxication, unspecified Status: Acute - Plan Plan: Patient remains alert oriented calm but somewhat resistant to talking about discharge plans and including her son and that discussion. Also somewhat reluctant, becoming irritable, when discussing her alcohol use Justification for Continued Inpatient Stay: At this time patient may decompensate a place to a lower level of care Discharge Planning: To be determined Request Healthcare Surrogate/Guardian Advocate?: No
[2018-08-24] MEDS: traZODone 50 MG Tablet PO SCH (21:04)
[2018-08-25] MEDS: Lisinopril 20 MG Tablet PO SCH (09:42)
[2018-08-25] MEDS: Senna/Docusate Sodium 8.6/50 MG Tablet PO SCH ×2 (09:43→20:47)
[2018-08-25] MEDS: Sertraline 100 MG Tablet PO SCH (09:43)
--- NOTE | 2018-08-25 11:53 | P.PNPSY ---
Subjective Chief Complaint: suicidal ideation Remarks: Patient seen in her room with floor staff, chart reviewed, patient compliant medication. We will discontinue ciwa protocol at this time. Patient laying in bed somewhat irritable and withdrawn today. She is complaining of some vague aches and pains and a headache. This may be related to her alcohol withdrawal. For now continue treatment no change consider discharge within 24-48 hours. Though it appears patient is homeless at this time though she says she may be able to stay with family members. Review of Systems Patient complains some vague aches and pains and headache though she is resting quietly in her bed All other systems reviewed negative except as stated in HPI Mental Status Examination Appearance: Appropriate Consciousness: Alert Orientation: x4 Motor Activity: Normal gait Speech: Unremarkable Language: Adequate Fund of Knowledge: Adequate Attention and Concentration: Adequate Memory: Unremarkable Mood: Irritable, Other (Euthymic to mildly dysphoric) Affect: Other (Decreased range and intensity) Thought Process & Associations: Intact, Logical, Goal directed Thought Content: Appropriate Hallucination Type: None Delusion Type: None Suicidal Ideation: Yes (Denies today) Suicidal Plan: No Suicidal Intention: No Homicidal Ideation: No Homicidal Plan: No Homicidal Intention: No Insight: Fair Judgment: Adequate (Fair) Assessment and Plan - Assessment (1) Major depressive disorder, recurrent severe without psychotic features Code(s): F33.2 - Major depressive disorder, recurrent severe without psychotic features Status: Acute (2) Alcohol dependence with acute alcoholic intoxication Code(s): F10.229 - Alcohol dependence with intoxication, unspecified Status: Acute - Plan Plan: Patient presents somewhat sad today though denies suicidality. She is compliant medication. We will discontinue all ciwa protocol. Placement may be issue the patient does have capacity Justification for Continued Inpatient Stay: At this time patient may decompensate a place to a lower level of care Discharge Planning: To be determined Request Healthcare Surrogate/Guardian Advocate?: No
--- NOTE | 2018-08-25 13:09 | P.TTN ---
- Patient Problems Problems: 1. Discharge planning 2. Medication compliance 3. Knowledge deficit 4. Lack of coping skills - Progress Toward Goals Provider Present: Dr. Leslie Mcclendon Provider Input: 08/25: Pt still meets criteria. Will follow up with her today to discuss discharge. Possibly return to her hotel. 08/23/18: Patient is new to provider at this time. Provider to meet with patient. Nurse(s) Present: Simona Nurse Input: 08/25: Seclusive, becoming a little more social, pleasant, cooperative and compliant, does not believe that Zoloft is working for her. 09/28: Patient new to unit. Continue evaluation of patient. Patient is found at this time on [address]. Patient presented to [place] under Valadez Act. Psychiatric Counselors Present: Josefina Gaspar [facility] Psychiatric Therapist Input: 08/25: Will meet with pt today to discuss discharge. 08/23/18: Patient new to unit. Therapist to follow up with patient, evaluate status and discuss safe discharge plans. Group Spec/RT/OT/EISENBERG Present: ELGIN Villa Group Spec/RT/OT/EISENBERG Input: 08/25: Pt does not attend groups, she is seclusive to room - Discharge Plan Other (Patient is new to [address]. Provider to meet with patient and therapist to follow up with patient to further discuss safe discharge plan.) 08/25: Discharge planning in progress, possible return to hotel room - Documentation Teaching Recipient: Patient
[2018-08-25] MEDS: traZODone 50 MG Tablet PO SCH (20:47)
[2018-08-25] MEDS: Ibuprofen 600 MG Tablet PO PRN (20:47)
[2018-08-26] MEDS: Lisinopril 20 MG Tablet PO SCH (09:38)
[2018-08-26] MEDS: Sertraline 100 MG Tablet PO SCH (09:38)
[2018-08-26] MEDS: Senna/Docusate Sodium 8.6/50 MG Tablet PO SCH ×2 (09:39→21:19)
--- NOTE | 2018-08-26 13:49 | P.PNPSY ---
Subjective Chief Complaint: suicidal ideation Remarks: Patient seen in day room with nurse Gisselle, chart reviewed, patient compliant medication. Patient is up sitting in Ver[place]ica chair in day room she is alert her hygiene is good she has her hair combed face clean and she is reading a newspaper. However she states that she is feeling worse today than when she first came in but she feels the medication of the Zoloft is not working. However when I did share with her her admitting blood alcohol level of 290 and his subsequent effects. She became angry and denied the alcohol level and denied the role that alcohol is playing in her life. We did discuss discharge plans patient does not want to go with his sister in [place]. Patient has a daughter who lives in [facility] that she feels my pill taker and. She initially refused to let us speak with him. However when I reiterated the fact that this is not a long-term placement that we have discharge patient's in a homeless status in the past but she needs to make the effort to talk to her daughter about perhaps temporarily staying with her. Patient states she would do that. When asked about suicidality she is sad she feels more now than on admission. I question that this might be some significant manipulation involved at this time for now continue treatment we will investigate possible placement with patient's family Review of Systems All other systems reviewed negative except as stated in HPI Mental Status Examination Appearance: Appropriate Consciousness: Alert Orientation: x4 Motor Activity: Normal gait Speech: Unremarkable Language: Adequate Fund of Knowledge: Adequate Attention and Concentration: Adequate Memory: Unremarkable Mood: Oppositional (Mildly oppositional when discussing placement), Irritable Affect: Other (Slight decreased range and increased intensity) Thought Process & Associations: Intact, Logical, Goal directed Thought Content: Appropriate Hallucination Type: None Delusion Type: None Suicidal Ideation: Yes (Denies today) Suicidal Plan: No Suicidal Intention: No Homicidal Ideation: No Homicidal Plan: No Homicidal Intention: No Insight: Fair Judgment: Adequate (Fair) Assessment and Plan - Assessment (1) Major depressive disorder, recurrent severe without psychotic features Code(s): F33.2 - Major depressive disorder, recurrent severe without psychotic features Status: Acute (2) Alcohol dependence with acute alcoholic intoxication Code(s): F10.229 - Alcohol dependence with intoxication, unspecified Status: Acute - Plan Plan: Patient is showing some overall improvement though today she is showing some manipulation related to discussing discharge plans and possible placement. She made some statements that she feels medicine is not doing what it should do though this is more likely reflection of her continued detoxing off her significant alcohol abuse for now continue treatment Justification for Continued Inpatient Stay: At this time patient would decompensate if not placed in an appropriate level of care Discharge Planning: To be determined Request Healthcare Surrogate/Guardian Advocate?: No
[2018-08-26] MEDS: Ibuprofen 600 MG Tablet PO PRN (17:47)
[2018-08-26] MEDS: traZODone 50 MG Tablet PO SCH (21:19)
[2018-08-27] MEDS: Lisinopril 20 MG Tablet PO SCH (09:01)
[2018-08-27] MEDS: Senna/Docusate Sodium 8.6/50 MG Tablet PO SCH ×2 (09:02→20:27)
[2018-08-27] MEDS: Sertraline 100 MG Tablet PO SCH (09:02)
--- NOTE | 2018-08-27 12:21 | P.PNPSY ---
Subjective Chief Complaint: suicidal ideation Remarks: Patient seen in day room with nurse erich, patient alert and oriented irritable saying she is not feeling any better than when she came in. Though her hygiene is acceptable at this time. She continues to deny any responsibility or culpability or consequences from her alcohol use. She states she did talk with his son is name is Dain and lives in [place]. Patient states he will be coming up here from the [place] area early next week to take her back with him. We need to verify this. I did talk to patient's daughter Della Varghese at [phone] who essentially stated that there were no family members willing to take this patient in that she has sabotaged all placements. That she was placed in a [employer] retirement situation and she left there unilaterally. For now will continue treatment with me no change in the medications need to verify the possible placement issues with her son. We will have counselor attempt to contact him to do this Review of Systems All other systems reviewed negative except as stated in HPI Mental Status Examination Appearance: Appropriate Consciousness: Alert Orientation: x4 Motor Activity: Normal gait Speech: Unremarkable Language: Adequate Fund of Knowledge: Adequate Attention and Concentration: Adequate Memory: Unremarkable Mood: Oppositional (Mildly oppositional when discussing placement), Irritable Affect: Other (Slight decreased range and increased intensity) Thought Process & Associations: Intact, Logical, Goal directed Thought Content: Appropriate Hallucination Type: None Delusion Type: None Suicidal Ideation: Yes (Denies today) Suicidal Plan: No Suicidal Intention: No Homicidal Ideation: No Homicidal Plan: No Homicidal Intention: No Insight: Fair Judgment: Adequate (Fair) Assessment and Plan - Assessment (1) Major depressive disorder, recurrent severe without psychotic features Code(s): F33.2 - Major depressive disorder, recurrent severe without psychotic features Status: Acute (2) Alcohol dependence with acute alcoholic intoxication Code(s): F10.229 - Alcohol dependence with intoxication, unspecified Status: Acute - Plan Plan: Patient continues alert and oriented though irritable with me and somewhat manipulative and demanding. Showing no insight into the sequelae of her chronic alcohol abuse. For now continue medications no change. Need to verify her statements about her son coming care from [facility] to pick her up and take her back down with him. This seems to be a contradiction to the information given to me by her daughter Della earlier today Justification for Continued Inpatient Stay: At this time patient would decompensate if not placed in an appropriate level of care Discharge Planning: To be determined Request Healthcare Surrogate/Guardian Advocate?: No
[2018-08-27] MEDS: traZODone 50 MG Tablet PO SCH (20:27)
[2018-08-28] MEDS: Senna/Docusate Sodium 8.6/50 MG Tablet PO SCH ×2 (09:45→21:09)
[2018-08-28] MEDS: Sertraline 100 MG Tablet PO SCH (09:45)
[2018-08-28] MEDS: Lisinopril 20 MG Tablet PO SCH (09:45)
--- NOTE | 2018-08-28 15:10 | P.PNPSY ---
Subjective Chief Complaint: suicidal ideation Remarks: Reviewed electronic medical records and discussed case with staff. Follow-up was conducted in the day room. She reports that she slept "so-so". Says that her appetite has been "all right". Still appears somewhat depressed but states that she has no complaints today. Mental Status Examination Appearance: Appropriate Consciousness: Alert Orientation: x4 Motor Activity: Normal gait Speech: Unremarkable Language: Adequate Fund of Knowledge: Adequate Attention and Concentration: Adequate Memory: Unremarkable Mood: Oppositional (Mildly oppositional when discussing placement), Irritable Affect: Other (Slight decreased range and increased intensity) Thought Process & Associations: Intact, Logical, Goal directed Thought Content: Appropriate Hallucination Type: None Delusion Type: None Suicidal Ideation: Yes (Denies today) Suicidal Plan: No Suicidal Intention: No Homicidal Ideation: No Homicidal Plan: No Homicidal Intention: No Insight: Fair Judgment: Adequate (Fair) Assessment and Plan - Plan Plan: Patient will be reevaluated by the attending psychiatrist. Continue with current treatment plan. Justification for Continued Inpatient Stay: Moving this patient to a less restrictive environment would likely result in decompensation. Request Healthcare Surrogate/Guardian Advocate?: No
[2018-08-28] MEDS: traZODone 50 MG Tablet PO SCH (20:03)
--- NOTE | 2018-08-29 08:30 | P.PNPSY ---
Subjective Chief Complaint: suicidal ideation Remarks: Electronic record reviewed and discussed with nursing staff. Rounded with [facility]. Patient in her bed. States that it was too noisy last night and she did not get enough sleep. Preoccupied with discharge. States her depression is unchanged. Per record long history of alcoholism and has an estranged relationship with her family members. When I asked patient about discharge plans she stated that she was planning to go to her son's home. Denies SI/HI. Cooperative. Review of Systems All other systems reviewed negative except as stated in HPI Mental Status Examination Appearance: Appropriate Consciousness: Alert Orientation: x4 Motor Activity: Normal gait Speech: Unremarkable Language: Adequate Fund of Knowledge: Adequate Attention and Concentration: Adequate Memory: Unremarkable Mood: Oppositional (Mildly oppositional when discussing placement), Irritable Affect: Other (Slight decreased range and increased intensity) Thought Process & Associations: Intact, Logical, Goal directed Thought Content: Appropriate Hallucination Type: None Delusion Type: None Suicidal Ideation: No Suicidal Plan: No Suicidal Intention: No Homicidal Ideation: No Homicidal Plan: No Homicidal Intention: No Insight: Fair Judgment: Adequate (Fair) Assessment and Plan - Assessment (1) Alcohol dependence with acute alcoholic intoxication Code(s): F10.229 - Alcohol dependence with intoxication, unspecified Status: Acute (2) Major depressive disorder, recurrent severe without psychotic features Code(s): F33.2 - Major depressive disorder, recurrent severe without psychotic features Status: Acute - Plan Plan: Patient will be reevaluated by the attending psychiatrist. Continue with current treatment plan. Justification for Continued Inpatient Stay: Moving patient to a less restrictive environment may result in her decompensation. Request Healthcare Surrogate/Guardian Advocate?: No
[2018-08-29] MEDS: Senna/Docusate Sodium 8.6/50 MG Tablet PO SCH ×2 (08:57→20:45)
[2018-08-29] MEDS: Lisinopril 20 MG Tablet PO SCH (08:57)
[2018-08-29] MEDS: Sertraline 100 MG Tablet PO SCH (08:57)
[2018-08-29] MEDS: traZODone 50 MG Tablet PO SCH (20:45)
[2018-08-30] MEDS: Senna/Docusate Sodium 8.6/50 MG Tablet PO SCH ×2 (08:42→20:47)
[2018-08-30] MEDS: Lisinopril 20 MG Tablet PO SCH ×2 (08:42→09:13)
[2018-08-30] MEDS: Sertraline 100 MG Tablet PO SCH (08:42)
--- NOTE | 2018-08-30 09:47 | P.TTN ---
- Patient Problems Problems: 1. Discharge planning 2. Medication compliance 3. Knowledge deficit 4. Lack of coping skills - Progress Toward Goals Provider Present: Dr. Leslie Mcclendon Provider Input: 08/30: Pt continues be concern per her chronic ETOH use/abuse. Bela, counselor, to follow up with pt as to d/c options. 08/25: Pt still meets criteria. Will follow up with her today to discuss discharge. Possibly return to her hotel. 08/23/18: Patient is new to provider at this time. Provider to meet with patient. Nurse(s) Present: Simona Nurse Input: 08/25: Seclusive, becoming a little more social, pleasant, cooperative and compliant, does not believe that Zoloft is working for her. 09/28: Patient new to unit. Continue evaluation of patient. Patient is found at this time on [address]. Patient presented to [facility]. Psychiatric Counselors Present: Josefina Gaspar [facility] Psychiatric Therapist Input: 08/25: Will meet with pt today to discuss discharge. 08/23/18: Patient new to unit. Therapist to follow up with patient, evaluate status and discuss safe discharge plans. Group Spec/RT/OT/EISENBERG Present: ELGIN Villa, Dominik Salinas, OT Group Spec/RT/OT/EISENBERG Input: 08/30: Pt continues to refuse to attend groups. : Pt does not attend groups, she is seclusive to room - Discharge Plan Other (Patient is new to [address]. Provider to meet with patient and therapist to follow up with patient to further discuss safe discharge plan.) 08/30: Bela, counselor, to follow up with pt as to d/c options. 08/25: Discharge planning in progress, possible return to hotel room - Documentation Teaching Recipient: Patient
--- NOTE | 2018-08-30 12:06 | P.PNPSY ---
Subjective Chief Complaint: suicidal ideation Remarks: Patient seen in day room with nurse Kathleen, chart reviewed, patient compliant medication. Patient remains angry irritable and reluctant to speak about any of her issues. Only stating that she is trying to call her daughter to come and pick her up to take care of her until she can be transported to down to her son's place in [place]. She does deny suicidality or voices I did talk to patient 's daughter Della who gives a history of patient's noncompliance medication severe alcohol related behaviors to the point where patient is no longer welcome in her daughter's house. The daughter has a 7-year-old child who has seen the grandmother drunk intoxicated defecating and urinating on himself with the police having been called multiple times. Patient is also been placed in various ALS including [employer] which she is lifting a letter left for a period of time. She is also burned her bridges with all 3 of her sons. Were unwilling to have her come to stay with them. Thus patient is homeless at the present time. We need to work with placement issues with this [id number] woman Review of Systems All other systems reviewed negative except as stated in HPI Mental Status Examination Appearance: Appropriate Consciousness: Alert Orientation: x4 Motor Activity: Normal gait Speech: Unremarkable Language: Adequate Fund of Knowledge: Adequate Attention and Concentration: Adequate Memory: Unremarkable Mood: Oppositional (Mildly oppositional when discussing placement), Irritable Affect: Other (Slight decreased range and increased intensity) Thought Process & Associations: Intact, Logical, Linear Thought Content: Appropriate, Delusional (Related to relationship with her children) Hallucination Type: None Delusion Type: None Suicidal Ideation: No Suicidal Plan: No Suicidal Intention: No Homicidal Ideation: No Homicidal Plan: No Homicidal Intention: No Insight: Poor Judgment: Poor (Fair) Assessment and Plan - Assessment (1) Major depressive disorder, recurrent severe without psychotic features Code(s): F33.2 - Major depressive disorder, recurrent severe without psychotic features Status: Acute (2) Alcohol dependence with acute alcoholic intoxication Code(s): F10.229 - Alcohol dependence with intoxication, unspecified Status: Acute - Plan Plan: Patient remains depressed and angry irritable with little insight. At this time she is homeless. He has basically burned her bridges with all of her children Justification for Continued Inpatient Stay: At this time patient would decompensate a place to a lower level of care Discharge Planning: To be determined Request Healthcare Surrogate/Guardian Advocate?: No
[2018-08-30] MEDS: traZODone 50 MG Tablet PO SCH (20:47)
[2018-08-31] MEDS: Senna/Docusate Sodium 8.6/50 MG Tablet PO SCH ×2 (09:19→21:21)
[2018-08-31] MEDS: Lisinopril 20 MG Tablet PO SCH (09:19)
[2018-08-31] MEDS: Sertraline 100 MG Tablet PO SCH (09:19)
--- NOTE | 2018-08-31 09:21 | P.PNPSY ---
Subjective Chief Complaint: suicidal ideation Remarks: Patient seen in day room with counselor and, chart reviewed, patient compliant medication. We again shared with the patient the information given to us by her daughter. That stating her children's refusal to be involved with her care. We also discussed patient and the treatment team today there is alternative, if patient is willing to accept it, a referral to general [facility] facility in but now. Patient shown some reluctance to the at. However it remains the only other alternative except for patient to be discharged herself and what would amount to a homeless discharge. Counselor and will share further information about [facility] with the patient. Patient does denies suicidality voices or visions. There appears to be somewhat of her reluctance to acknowledge the severity of her alcohol misuse. I do question his sincerity of her willingness to maintain sobriety after discharge Review of Systems All other systems reviewed negative except as stated in HPI Mental Status Examination Appearance: Appropriate Consciousness: Alert Orientation: x4 Motor Activity: Normal gait Speech: Unremarkable Language: Adequate Fund of Knowledge: Adequate Attention and Concentration: Adequate Memory: Unremarkable Mood: Oppositional (Mildly oppositional when discussing placement), Other ( Euthymic to mildly dysphoric) Affect: Other (Slight decreased range and increased intensity) Thought Process & Associations: Intact, Logical, Linear Thought Content: Appropriate, Delusional (Related to relationship with her children) Hallucination Type: None Delusion Type: None Suicidal Ideation: No Suicidal Plan: No Suicidal Intention: No Homicidal Ideation: No Homicidal Plan: No Homicidal Intention: No Insight: Poor Judgment: Poor (Fair) Assessment and Plan - Assessment (1) Major depressive disorder, recurrent severe without psychotic features Code(s): F33.2 - Major depressive disorder, recurrent severe without psychotic features Status: Acute (2) Alcohol dependence with acute alcoholic intoxication Code(s): F10.229 - Alcohol dependence with intoxication, unspecified Status: Acute - Plan Plan: Patient continues to show little insight into the severity of her alcohol related issues. There may be some reluctance to accepting possible appropriate placement at [facility]. She needs to consider that as opposed to the option of a homeless discharge or to a hotel/motel Justification for Continued Inpatient Stay: At this time patient may decompensate if not place an appropriate level of care Discharge Planning: She alternatives above Request Healthcare Surrogate/Guardian Advocate?: No
[2018-08-31] MEDS: traZODone 50 MG Tablet PO SCH (21:21)
[2018-09-01] MEDS: Senna/Docusate Sodium 8.6/50 MG Tablet PO SCH ×2 (08:10→20:24)
[2018-09-01] MEDS: Lisinopril 20 MG Tablet PO SCH (08:10)
[2018-09-01] MEDS: Sertraline 100 MG Tablet PO SCH (08:10)
--- NOTE | 2018-09-01 11:20 | P.PNPSY ---
Subjective Chief Complaint: suicidal ideation Remarks: Reviewed electronic medical records and discussed case with staff. Follow-up was conducted in the patient's room. She was found in her bed. Patient reports that her "stomach is killing me, I have diarrhea". Her affect is quite irritable today. When asked about her plans upon discharge she stated that I was "badgering her" and then reported she no longer wanted to talk. Mental Status Examination Appearance: Appropriate Consciousness: Alert Orientation: x4 Motor Activity: Normal gait Speech: Unremarkable Language: Adequate Fund of Knowledge: Adequate Attention and Concentration: Adequate Memory: Unremarkable Mood: Oppositional (Mildly oppositional when discussing placement), Other ( Euthymic to mildly dysphoric) Affect: Other (Slight decreased range and increased intensity) Thought Process & Associations: Intact, Logical, Linear Thought Content: Appropriate, Delusional (Related to relationship with her children) Hallucination Type: None Delusion Type: None Suicidal Ideation: No Suicidal Plan: No Suicidal Intention: No Homicidal Ideation: No Homicidal Plan: No Homicidal Intention: No Insight: Poor Judgment: Poor (Fair) Assessment and Plan - Assessment (1) Major depressive disorder, recurrent severe without psychotic features Code(s): F33.2 - Major depressive disorder, recurrent severe without psychotic features Status: Acute - Plan Plan: This patient is likely to be a homeless discharge. Her mental health case manager is working on possibly getting her some days at a hotel however, they seem to not be having much success with finding a more permanent solution. Justification for Continued Inpatient Stay: Moving this patient to a less restrictive environment would likely result in decompensation. Request Healthcare Surrogate/Guardian Advocate?: No
[2018-09-01] MEDS: Ibuprofen 600 MG Tablet PO PRN (18:18)
[2018-09-01] MEDS: traZODone 50 MG Tablet PO SCH (20:24)
[2018-09-02] MEDS: Senna/Docusate Sodium 8.6/50 MG Tablet PO SCH ×2 (10:26→20:48)
[2018-09-02] MEDS: Sertraline 100 MG Tablet PO SCH (10:26)
[2018-09-02] MEDS: Lisinopril 20 MG Tablet PO SCH (10:26)
--- NOTE | 2018-09-02 12:38 | P.PNPSY ---
Subjective Chief Complaint: suicidal ideation Remarks: Reviewed electronic medical records and discussed case with staff. Follow-up was conducted in the patient's room. She was found lying in bed. Her nurse reports she has been compliant with her medications and has had no behavioral disturbances. Patient reports that she feels "okay". She does complain that it takes her a bit to get to sleep at night. Reports that she has had an okay appetite. Spleen to her that the tentative plan is to discharge her on Thursday. It seems as though the hospital will be able to find her stay and a hotel for a couple of days after that she will be on her own as far as accommodations. No other complaints today. Mental Status Examination Appearance: Appropriate Consciousness: Alert Orientation: x4 Motor Activity: Normal gait Speech: Unremarkable Language: Adequate Fund of Knowledge: Adequate Attention and Concentration: Adequate Memory: Unremarkable Mood: Oppositional (Mildly oppositional when discussing placement), Other ( Euthymic to mildly dysphoric) Affect: Other (Slight decreased range and increased intensity) Thought Process & Associations: Intact, Logical, Linear Thought Content: Appropriate, Delusional (Related to relationship with her children) Hallucination Type: None Delusion Type: None Suicidal Ideation: No Suicidal Plan: No Suicidal Intention: No Homicidal Ideation: No Homicidal Plan: No Homicidal Intention: No Insight: Poor Judgment: Poor (Fair) Assessment and Plan - Assessment (1) Major depressive disorder, recurrent severe without psychotic features Code(s): F33.2 - Major depressive disorder, recurrent severe without psychotic features Status: Acute - Plan Plan: Anticipate patient discharge on Thursday. It will be a homeless discharge however , the hospital will put her up in a hotel for several days to allow her time to come up with other accommodations. Justification for Continued Inpatient Stay: Moving this patient to a less restrictive environment would likely result in decompensation. Request Healthcare Surrogate/Guardian Advocate?: No
[2018-09-02] MEDS: traZODone 50 MG Tablet PO SCH (20:47)
[2018-09-03] MEDS: Lisinopril 20 MG Tablet PO SCH (08:35)
[2018-09-03] MEDS: Senna/Docusate Sodium 8.6/50 MG Tablet PO SCH ×2 (08:35→20:40)
[2018-09-03] MEDS: Sertraline 100 MG Tablet PO SCH (08:35)
--- NOTE | 2018-09-03 16:32 | P.PNPSY ---
Subjective Chief Complaint: suicidal ideation Remarks: Reviewed electronic medical records and discussed case with staff. Follow-up was conducted in the patient's room where she was found lying on her bed. She reports that she did not sleep very good last night but that her appetite's been "all right". She denies any suicidal ideation. She seems somewhat dysphoric when told she could possibly be discharged today she states "I would like to stay 1 more day". Staff report that arrangements were unable to be made so she will be here till Thursday at which time I anticipate discharging her. Mental Status Examination Appearance: Appropriate Consciousness: Alert Orientation: x4 Motor Activity: Normal gait Speech: Unremarkable Language: Adequate Fund of Knowledge: Adequate Attention and Concentration: Adequate Memory: Unremarkable Mood: Oppositional (Mildly oppositional when discussing placement), Other ( Euthymic to mildly dysphoric) Affect: Other (Slight decreased range and increased intensity) Thought Process & Associations: Intact, Logical, Linear Thought Content: Appropriate, Delusional (Related to relationship with her children) Hallucination Type: None Delusion Type: None Suicidal Ideation: No Suicidal Plan: No Suicidal Intention: No Homicidal Ideation: No Homicidal Plan: No Homicidal Intention: No Insight: Poor Judgment: Poor (Fair) Assessment and Plan - Assessment (1) Major depressive disorder, recurrent severe without psychotic features Code(s): F33.2 - Major depressive disorder, recurrent severe without psychotic features Status: Acute - Plan Plan: Patient will be reevaluated by the attending psychiatrist. Continue with current treatment plan. Anticipating discharge Thursday. Justification for Continued Inpatient Stay: Moving this patient to a less restrictive environment would likely result in decompensation. Request Healthcare Surrogate/Guardian Advocate?: No
[2018-09-03] MEDS: traZODone 50 MG Tablet PO SCH (20:29)
[2018-09-04] MEDS: Lisinopril 20 MG Tablet PO SCH ×2 (08:12→08:21)
[2018-09-04] MEDS: Senna/Docusate Sodium 8.6/50 MG Tablet PO SCH ×2 (08:15→20:14)
[2018-09-04] MEDS: Sertraline 100 MG Tablet PO SCH (08:15)
--- NOTE | 2018-09-04 13:15 | P.PNPSY ---
Subjective Chief Complaint: suicidal ideation Remarks: Reviewed electronic medical records and discussed case with staff. Follow-up was conducted in the day room with nurse present. Patient states that she feels "so-so". States that she did not sleep very well. But reports that her appetite's been okay. She seems okay with her discharge on Thursday. I have explained to her that there is still some coordination needed by the administrative side of the department to make the discharge happen. She denies being concerned about being discharged. Mental Status Examination Appearance: Appropriate Consciousness: Alert Orientation: x4 Motor Activity: Normal gait Speech: Unremarkable Language: Adequate Fund of Knowledge: Adequate Attention and Concentration: Adequate Memory: Unremarkable Mood: Oppositional (Mildly oppositional when discussing placement), Other ( Euthymic to mildly dysphoric) Affect: Other (Slight decreased range and increased intensity) Thought Process & Associations: Intact, Logical, Linear Thought Content: Appropriate, Delusional (Related to relationship with her children) Hallucination Type: None Delusion Type: None Suicidal Ideation: No Suicidal Plan: No Suicidal Intention: No Homicidal Ideation: No Homicidal Plan: No Homicidal Intention: No Insight: Poor Judgment: Poor (Fair) Assessment and Plan - Assessment (1) Major depressive disorder, recurrent severe without psychotic features Code(s): F33.2 - Major depressive disorder, recurrent severe without psychotic features Status: Acute - Plan Plan: Patient will be reevaluated by the attending psychiatrist. Continue with current treatment plan. Justification for Continued Inpatient Stay: Moving this patient to a less restrictive environment would likely result in decompensation. Request Healthcare Surrogate/Guardian Advocate?: No
[2018-09-04] MEDS: traZODone 50 MG Tablet PO SCH (20:14)
--- NOTE | 2018-09-05 08:23 | P.PNPSY ---
Subjective Chief Complaint: suicidal ideation Remarks: Reviewed electronic medical records and discussed case with staff. Follow-up was conducted in the day room with nurse present. Patient eating breakfast. Patient feels she has a urinary tract infection, will order a urine culture. Patient is quiet and keeps to herself. Nursing staff share that plans for discharge this week. She receives [facility] and they counselors are helping her find a place to stay, most likely a weekly hotel. She denies any SI/HI. Mood is sad and affect is flat. Review of Systems All other systems reviewed negative except as stated in HPI Mental Status Examination Appearance: Appropriate Consciousness: Alert Orientation: x4 Motor Activity: Normal gait Speech: Unremarkable Language: Adequate Fund of Knowledge: Adequate Attention and Concentration: Adequate Memory: Unremarkable Mood: Sad Affect: Flat, Other (Slight decreased range and increased intensity) Thought Process & Associations: Intact, Logical, Linear Thought Content: Appropriate, Delusional (Related to relationship with her children) Hallucination Type: None Delusion Type: None Suicidal Ideation: No Suicidal Plan: No Suicidal Intention: No Homicidal Ideation: No Homicidal Plan: No Homicidal Intention: No Insight: Fair Judgment: Impulsive Assessment and Plan - Assessment (1) Alcohol dependence with acute alcoholic intoxication Code(s): F10.229 - Alcohol dependence with intoxication, unspecified Status: Acute (2) Major depressive disorder, recurrent severe without psychotic features Code(s): F33.2 - Major depressive disorder, recurrent severe without psychotic features Status: Acute - Plan Plan: Patient will be reevaluated by the attending psychiatrist. Continue with current treatment plan. Justification for Continued Inpatient Stay: Moving patient to a less restrictive environment may result in her decompensation. Request Healthcare Surrogate/Guardian Advocate?: No
[2018-09-05] MEDS: Lisinopril 20 MG Tablet PO SCH (08:28)
[2018-09-05] MEDS: Senna/Docusate Sodium 8.6/50 MG Tablet PO SCH ×2 (08:28→20:48)
[2018-09-05] MEDS: Sertraline 100 MG Tablet PO SCH (08:28)
[2018-09-05] MEDS: traZODone 50 MG Tablet PO SCH (20:48)
[2018-09-06] MEDS: Lisinopril 20 MG Tablet PO SCH (08:58)
[2018-09-06] MEDS: Senna/Docusate Sodium 8.6/50 MG Tablet PO SCH (08:58)
[2018-09-06] MEDS: Sertraline 100 MG Tablet PO SCH (08:58)
--- NOTE | 2018-09-06 14:37 | P.DSPSY ---
Psychiatry Discharge Summary Inpatient Psychiatric care?: Yes Advance Directives: No Mental Health Advance Directive: No Health Care Proxy: No - Admission Admission Date: August 21, 2018 12:39 - Admission Diagnosis (1) Alcohol dependence with acute alcoholic intoxication Code(s): F10.229 - Alcohol dependence with intoxication, unspecified (2) Major depressive disorder, recurrent severe without psychotic features Code(s): F33.2 - Major depressive disorder, recurrent severe without psychotic features Brief History: Patient is a 78-year-old female previous admissions to this hospital. Patient is admitted after she was overheard at her hotel vocally urging suicidal ideation. Per record patient has a history of alcohol dependence and possible neurocognitive disorder. Patient says that she has had a bad a year and has been depressed throughout the year. She ran out of her Zoloft prescription 30 days ago and has subsequently increased her drinking to 3 glasses of wine a day and more so before her admission. Her alcohol level was in the high 200s. Yesterday's patient was vomiting but today she is showing no signs of alcohol withdrawal. There are no tremors or nausea or vomiting or confusion. Patient admits to depressed mood but at this time denies suicidal or homicidal ideation intent or plan. Past psych: History of depression multiple admissions Past medical: See chart Past Social: History of alcohol abuse The patient is a 77 year-old woman, domiciled in motel rooms, , unemployed, poor family support, she has a daughter, with reported psychiatric history of depression, anxiety, alcohol use disorder, 1 previous psychiatric hospitalization about 3 years ago, no previous suicide attempts, no significant medical history, who presents under a [place] act by law enforcement alleging that the patient told officers she wanted to and was disoriented in an intoxicated state. Alcohol level on presentation here was 312. Patient was consulted to me for second opinion. On psychiatric evaluation today the patient is calm, cooperative, reporting symptomatology of depression. Patient says that she has been depressed for a long time, but does not elaborate about the reason of the depression. She denies suicidal and was ideation, she denies visual and auditory hallucinations. She is oriented 3, she knows who is the salon stylist, but refused a more complete cognitive assessment stating that all the question her asked before.The patient is a 77 year-old woman, domiciled in motel rooms, , unemployed, poor family support, she has a daughter, with reported psychiatric history of depression, anxiety, alcohol use disorder, 1 previous psychiatric hospitalization about 3 years ago, no previous suicide attempts, no significant medical history, who presents under a Val[place] act by law enforcement alleging that the patient told officers she wanted to and was disoriented in an intoxicated state. Alcohol level on presentation here was 312. Patient was consulted to me for second opinion. On psychiatric evaluation today the patient is calm, cooperative, reporting symptomatology of depression. Patient says that she has been depressed for a long time, but does not elaborate about the reason of the depression. She denies suicidal and was ideation, she denies visual and auditory hallucinations. She is oriented 3, she knows who is the salon stylist, but refused a more complete cognitive assessment stating that all the question her asked before. Tobacco Use In Past 30 Days: No How Often Do You Have a Drink Containing Alcohol: 4 or more times a week Hospital Course: Patient's hospital course was uneventful, she was no behavioral problems though she never really participated much in groups or activities. However she also showed no significant signs of withdrawal, she remained oriented x4 throughout her stay. She remained somewhat irritable and feisty. She persistently minimized and got angry when we attempted to speak about the significance of her alcohol misuse. Conversations with the family showed their reluctance to take any participation and discharge plans for her care. Patient has no housing at the present time. We have offered her transportation to [place] to a nursing home that would accept her. She has refused this she has refused offers of [facility] placement or inpatient substance abuse treatment. At this time she has reached the maximum benefit of this hospitalization. Thus I could no longer justify her continued hospitalization on a psychiatric unit. She has refused all attempts at alternative placements from shelters to rehab programs. She has burned her bridges with her family. Thus patient to be discharged AMA today I will prescribe her scheduled medical medications along with her antidepressant and trazodone. Patient was advised that she could always return to our emergency department if she felt the need for it - Discharge Discharge Date: 09/06/18 - Discharge Diagnosis (1) Alcohol dependence with acute alcoholic intoxication Diagnosis: Secondary Code(s): F10.229 - Alcohol dependence with intoxication, unspecified Status: Acute (2) Major depressive disorder, recurrent severe without psychotic features Diagnosis: Principal Code(s): F33.2 - Major depressive disorder, recurrent severe without psychotic features Status: Acute Discharge Disposition: AMA - Discharge Instructions Discharge Diet: Regular Diet Activities You Can Perform: Regular- No Restrictions - Discharge Time > 30 minutes Mental Status Examination Appearance: Appropriate Consciousness: Alert Orientation: x4 Motor Activity: Normal gait Speech: Unremarkable Language: Adequate Fund of Knowledge: Adequate Attention and Concentration: Adequate Memory: Unremarkable Mood: Sad Affect: Flat, Other (Slight decreased range and increased intensity) Thought Process & Associations: Intact, Logical, Linear Thought Content: Appropriate, Delusional (Related to relationship with her children) Hallucination Type: None Delusion Type: None Suicidal Ideation: No Suicidal Plan: No Suicidal Intention: No Homicidal Ideation: No Homicidal Plan: No Homicidal Intention: No Insight: Fair Judgment: Impulsive Discharge/Advance Care Plan - Results Vital Signs: Last Vital Signs Temp 98.7 F 09/06/18 05:24 Pulse 60 09/06/18 05:24 Resp 18 09/06/18 05:24 BP 119/51 L 09/06/18 05:24 Pulse Ox 93 L 09/06/18 05:24 Lab Results: Laboratory Results Hemoglobin A1c 6.1 % (4.3-6.0) H 08/22/18 08:30 Triglycerides 42 mg/dL (42-150) 08/22/18 08:30 Cholesterol 158 mg/dL (120-200) 08/22/18 08:30 LDL Cholesterol, Calc 60 mg/dL (0-99) 08/22/18 08:30 HDL Cholesterol 89.4 mg/dL (40.0-60.0) H 08/22/18 08:30 TSH 1.530 uIU/mL (0.358-3.740) 08/22/18 08:30 Summary of Procedures: None done Pending Results: None - Medications Number of antipsychotic medications at discharge: 0 - Discharge Care Plan Goals to Promote Your Health: * To prevent worsening of your condition and complications * To maintain your health at the optimal level Directions to Meet Your Goals: Take your medications as prescribed Follow your dietary instruction Follow activity as directed Keep your appointments as scheduled Take your immunizations and boosters as scheduled If your symptoms worsen call your PCP, if no PCP go to Urgent Care Center or Emergency Room For 04/05 questions related to your inpatient stay or results of tests pending at discharge, please contact Dr. Willam Mcclendon MD at Smoking is Dangerous to Your Health. Avoid second hand smoking
== END 2018-09-06 16:30 | disposition left against medical advice (07) ==
LOC: NEPD 20:17 → NEDA 08-21 12:39 → H250 08-21 13:24
PROVIDERS: ADMIT Psychiatry & Neurology Psychiatry; ATTEND Psychiatry & Neurology Psychiatry

== ENCOUNTER 2018-09-25 21:35 | Inpatient (IN) ==
[2018-09-25] MEDS ORDERED: Sod Chloride 0.9% Inj 1,000 ML IV.SIG SCH (22:00)
--- NOTE | 2018-09-25 22:08 | ED ---
HPI General Chief Complaint: Psychiatric Symptoms Stated Complaint: Pysch Eval/VCSO Time Seen by Provider: 09/26/18 14:10 Source: patient and police Mode of arrival: other (Patient was brought in by police) Limitations: altered mental status History of Present Illness HPI Narrative: 78-year-old female brought in by police for psychiatric evaluation. Patient was found intoxicated and voicing suicidal threats. Patient had previous admissions to [facility] for suicidal ideation and alcohol intoxication in the past. Patient also has history of major depressive disorder. Patient complains of diarrhea for the past several days. Patient denies abdominal pain. Patient denies any nausea vomiting. Patient denies any blood in the stool. Patient denies any fever or chills. complaint: Reports suicidal ideation and altered mental status Onset (ago): hour(s) Duration: constant History of same: Yes Relieving factors: none Exacerbating factors: none Context: Reports recent alcohol abuse Associated symptoms: Reports denies other symptoms Treatments prior to arrival: Reports none If self harm: admits thoughts of self harm Related Data Home Medications Medication Instructions Recorded Confirmed lisinopril 20 mg PO DAILY 09/25/18 09/26/18 melatonin 10 mg PO HS PRN 09/26/18 09/26/18 ranitidine HCl 150 mg PO DAILY 09/26/18 09/26/18 Previous Rx's Medication Instructions Recorded sennosides-docusate sodium [Senna 1 tab PO BID #28 tab 09/06/18 Plus] sertraline [Zoloft] 100 mg PO DAILY #14 tab 09/06/18 trazodone 50 mg PO HS #14 tab 09/06/18 Allergies Allergy/AdvReac Type Severity Reaction Status Date / Time penicillin G AdvReac Severe Nausea/Vomi Verified 09/07/18 16:47 ting Review of Systems ROS: all other systems reviewed are negative [facility] Medical History Medical History Anxiety (Acute) Cholecystitis (Acute) Depression (Acute) HTN (hypertension) (Acute) Surgical History Surgical History H/O section (Acute) History of appendectomy (Acute) Family History Family History Other Family history normal Social History Social History Substance History: No History of Abuse Second Hand Smoke Exposure: No Smoking Status: Never smoker Tobacco Type: Cigarettes How Often Do You Have a Drink Containing Alcohol: 4 or more times a week Recent Travel in [facility] within the Last 8 Weeks: No Recent Out of Country Travel within the Last 8 Weeks: No Immunization History Tetanus Immunization: <5 Years Exam Narrative Exam Narrative: GENERAL: Well-nourished, well-developed patient. SKIN: Focused skin assessment warm/dry. HEAD: Normocephalic. EYES: No scleral icterus. No injection or drainage. NECK: Supple, trachea midline. No JVD or lymphadenopathy. CARDIOVASCULAR: Regular rate and rhythm without murmurs, gallops, or rubs. RESPIRATORY: Breath sounds equal bilaterally. No accessory muscle use. GASTROINTESTINAL: Abdomen soft, non-tender, nondistended. MUSCULOSKELETAL: No cyanosis, or edema. BACK: Nontender without obvious deformity. No CVA tenderness. Neurologic exam: Patient is intoxicated, and she questions occasionally. Patient moves all extremities well. No obvious focal neurological deficit. Course Initial Documented Vital Signs Temperature 97.6 F 09/25/18 21:57 Pulse Rate 92 H 09/25/18 21:57 Respiratory Rate 17 09/25/18 21:57 Blood Pressure 171/80 H 09/25/18 21:57 Pulse Oximetry 93 L 09/25/18 21:57 Last Documented Vital Signs Temperature 97.6 F 09/25/18 21:57 Pulse Rate 82 09/26/18 05:40 Respiratory Rate 17 09/26/18 06:00 Blood Pressure 136/78 09/26/18 05:40 Pulse Oximetry 93 L 09/25/18 21:57 Medical Decision Making [facility] Narrative Medical decision making narrative: 78-year-old female was Valadez acted and brought in by police for intoxication and suicidal threat. Patient has history of major depressive disorder. Patient was admitted to [facility] several times in the past for the same problem. Patient has mild abnormal electrolytes including sodium and calcium. Normal saline solution 500 cc IV bolus. Os-Ta 500 mg twice a day. Unable to obtain urine sample at this point. Patient otherwise medically cleared for psychiatric evaluation. We will evaluate UA when available. Medical Screen Exam Complete: Yes Emergency Medical Condition: Yes Differential Diagnosis Differential Diagnosis: Differential diagnosis including alcohol intoxication, suicidal threats, major depressive disorder. Lab Data Lab results reviewed: Yes I reviewed the patient's lab results. Result diagrams: 09/25/18 22:30 09/25/18 22:30 Lab Results 09/25/18 09/25/18 09/26/18 Range/Units 22:30 22:30 00:15 WBC 9.7 (4.0-11.0) th/mm3 RBC 4.38 (4.00-5.30) mil/mm3 Hgb 12.7 (11.6-15.3) gm/dL Hct 38.1 (35.0-46.0) % MCV 87.0 (80.0-100.0) fL MCH 29.0 (27.0-34.0) pg MCHC 33.3 (32.0-36.0) % RDW 18.5 H (11.6-17.2) % Plt Count 476 H (150-450) th/mm3 MPV 7.9 (7.0-11.0) fL Neut % (Auto) 82.0 H (16.0-70.0) % Lymph % (Auto) 7.7 L (9.0-44.0) % [place] % (Auto) 9.4 H (0.0-8.0) % Eos % (Auto) 0.4 (0.0-4.0) % Baso % (Auto) 0.5 (0.0-2.0) % Neut # (Auto) 8.0 H (1.8-7.7) th/mm3 Lymph # (Auto) 0.8 L (1.0-4.8) th/mm3 [place] # (Auto) 0.9 (0.0-0.9) th/mm3 Eos # (Auto) 0.0 (0.0-0.4) th/mm3 Baso # (Auto) 0.1 (0.0-0.2) th/mm3 WBC Differential . Differential Comment Auto diff final Sodium 131 L (136-145) meq/L Potassium 3.9 (3.5-5.1) meq/L Chloride 99 (98-107) meq/L Carbon Dioxide 21.2 (21.0-32.0) meq/L Anion Gap 11 (5-15) meq/L BUN 3 L (7-18) mg/dL Creatinine 0.54 (0.50-1.00) mg/dL Estimated GFR Greater than 89 (>89) mL/min Random Glucose 100 (74-106) mg/dL Calcium 7.3 L* (8.5-10.1) mg/dL Calcium Adj for Albumin 8.1 L (8.5-10.1) mg/dL Total Bilirubin 0.5 (0.2-1.0) mg/dL AST 22 (15-37) U/L ALT 12 (10-53) U/L Alkaline Phosphatase 120 H (45-117) U/L Total Protein 7.0 (6.4-8.2) g/dL Albumin 3.0 L (3.4-5.0) g/dL TSH 2.670 (0.358-3.740) uIU/mL Urine Color (Yellw/Straw) Urine Clarity (Clear) Urine pH (5.0-8.5) Ur Specific [place] (1.002-1.035) Urine Protein (Neg-Trace) mg/dL Urine Glucose (UA) (Negative) mg/dL Urine Ketones (Negative) mg/dL Urine Occult Blood (Negative) Urine Nitrate (Negative) Urine Bilirubin (Negative) Urine Urobilinogen (Less than 2) mg/dL Ur Leukocyte Esterase (Negative) Urine RBC (0-3) /hpf Urine WBC (0-5) /hpf Urine Mucus (Occasional) /lpf Micro UA Comment Ur Microscopic Review Urine Culture Comments Urine Opiates Screen Neg (Neg) Ur Barbiturates Screen Neg (Neg) Ur Amphetamines Screen Neg (Neg) U Benzodiazepines Scrn Neg (Neg) Urine Cocaine Screen Neg (Neg) U Cannabinoids Screen Neg (Neg) Serum Alcohol 273 H (0-5) mg/dL 18 Range/Units 00:15 WBC (4.0-11.0) th/mm3 RBC (4.00-5.30) mil/mm3 Hgb (11.6-15.3) gm/dL Hct (35.0-46.0) % MCV (80.0-100.0) fL MCH (27.0-34.0) pg MCHC (32.0-36.0) % RDW (11.6-17.2) % Plt Count (150-450) th/mm3 MPV (7.0-11.0) fL Neut % (Auto) (16.0-70.0) % Lymph % (Auto) (9.0-44.0) % [place] % (Auto) (0.0-8.0) % Eos % (Auto) (0.0-4.0) % Baso % (Auto) (0.0-2.0) % Neut # (Auto) (1.8-7.7) th/mm3 Lymph # (Auto) (1.0-4.8) th/mm3 [place] # (Auto) (0.0-0.9) th/mm3 Eos # (Auto) (0.0-0.4) th/mm3 Baso # (Auto) (0.0-0.2) th/mm3 WBC Differential Differential Comment Sodium (136-145) meq/L Potassium (3.5-5.1) meq/L Chloride (98-107) meq/L Carbon Dioxide (21.0-32.0) meq/L Anion Gap (5-15) meq/L BUN (7-18) mg/dL Creatinine (0.50-1.00) mg/dL Estimated GFR (>89) mL/min Random Glucose (74-106) mg/dL Calcium (8.5-10.1) mg/dL Calcium Adj for Albumin (8.5-10.1) mg/dL Total Bilirubin (0.2-1.0) mg/dL AST (15-37) U/L ALT (10-53) U/L Alkaline Phosphatase (45-117) U/L Total Protein (6.4-8.2) g/dL Albumin (3.4-5.0) g/dL TSH (0.358-3.740) uIU/mL Urine Color Colorless (Yellw/Straw) Urine Clarity Clear (Clear) Urine pH 5.0 (5.0-8.5) Ur Specific [place] 1.002 (1.002-1.035) Urine Protein Negative (Neg-Trace) mg/dL Urine Glucose (UA) Negative (Negative) mg/dL Urine Ketones Negative (Negative) mg/dL Urine Occult Blood Small H (Negative) Urine Nitrate Negative (Negative) Urine Bilirubin Negative (Negative) Urine Urobilinogen Less than 2 (Less than 2) mg/dL Ur Leukocyte Esterase Trace H (Negative) Urine RBC Less than 1 (0-3) /hpf Urine WBC Less than 1 (0-5) /hpf Urine Mucus Few H (Occasional) /lpf Micro UA Comment Culture not ind Ur Microscopic Review Not Reportable Urine Culture Comments Culture not ind Urine Opiates Screen (Neg) Ur Barbiturates Screen (Neg) Ur Amphetamines Screen (Neg) U Benzodiazepines Scrn (Neg) Urine Cocaine Screen (Neg) U Cannabinoids Screen (Neg) Serum Alcohol (0-5) mg/dL Discharge Plan Discharge Disposition Patient Disposition: Sign Out(ED Internal Use Only) Discharge Order Discharge Orders: ED Use Only Admit Order (Routine); Ordered 09/26/18 Ordered By: Karen Smith Discharge Details Diagnosis: Alcohol abuse, Suicidal ideation Physicians Team ED Provider: Yasmani Lawson Primary Care Provider: UNKNOWN, Attending Provider: Ruben De La Cruz Discharge Interventions Interventions: ED Discharge Assessment Last Done: 09/26/18 15:18 Status ED Status: Admitted Patient
[2018-09-25 22:41] LABS: Baso # (Auto) 0.1 th/mm3 (0.0-0.2); Baso % (Auto) 0.5 % (0.0-2.0); Eos % (Auto) 0.4 % (0.0-4.0); Hematocrit 38.1 % (35.0-46.0); Hemoglobin 12.7 gm/dL (11.6-15.3); Lymph # (Auto) 0.8 th/mm3 (1.0-4.8); Lymph % (Auto) 7.7 % (9.0-44.0); Mean Corpuscular HGB Conc 33.3 % (32.0-36.0); Mean Platelet Volume 7.9 fL (7.0-11.0); Mono # (Auto) 0.9 th/mm3 (0.0-0.9); Mono % (Auto) 9.4 % (0.0-8.0); Platelet Count 476 th/mm3 (150-450); Red Blood Count 4.38 mil/mm3 (4.00-5.30); Red Cell Distribution Width 18.5 % (11.6-17.2); White Blood Count 9.7 th/mm3 (4.0-11.0)
[2018-09-25 23:14] LABS: Alanine Aminotransferase 12 U/L (10-53); Alkaline Phosphatase 120 U/L (45-117); Anion Gap 11 meq/L (5-15); Aspartate Aminotransferase 22 U/L (15-37); Blood Urea Nitrogen 3 mg/dL (7-18); Calcium 7.3 mg/dL (8.5-10.1); Carbon Dioxide 21.2 meq/L (21.0-32.0); Chloride 99 meq/L (98-107); Glomerular Filtration Rate Greater Than 89 mL/min (>89); Glucose,Random 100 mg/dL (74-106); Sodium 131 meq/L (136-145)
[2018-09-25 23:15] LABS: Alcohol 273 mg/dL (0-5); Potassium 3.9 meq/L (3.5-5.1)
[2018-09-25] MEDS ORDERED: Sodium Chlor 0.9% Inj 500 ML IV.SIG SCH (23:45)
[2018-09-26] MEDS: Calcium Carbonate 500 MG Tablet PO SCH ×2 (00:59→09:04)
[2018-09-26 01:03] LABS: Bilirubin,Urine Negative (Negative); Clarity,Urine Clear (Clear); Color,Urine Colorless (Yellw/Straw); Glucose,Urine (UA) Negative (Negative); Leukocyte Esterase,Urine Trace (Negative); Mucus,Urine Few /lpf (Occasional); Nitrite,Urine Negative (Negative); Specific Gravity,Urine 1.002 (1.002-1.035)
[2018-09-26 01:07] LABS: Amphetamine Screen,Urine Neg (Neg); Barbiturate Screen,Urine Neg (Neg); Cannabinoid Screen,Urine Neg (Neg); Cocaine Screen,Urine Neg (Neg)
[2018-09-26 01:10] LABS: Opiate Screen,Urine Neg (Neg)
[2018-09-26] MEDS ORDERED: Aluminum/Magnesium/Simethacone Susp 30 ML UDC PO PRN (14:47)
--- NOTE | 2018-09-26 14:47 | ED ---
HPI - Psych - General Source: patient, RN notes reviewed, old records reviewed, police Mode of arrival: other (Patient was brought in by police) Limitations: physical limitation - History of Present Illness MD complaint: suicidal ideation, feels depressed Onset (ago): week(s) Duration: constant History of same: Yes Relieving factors: none Exacerbating factors: none, alcohol Context: recent alcohol abuse, not taking psychiatric medications Associated psychiatric symptoms: depression, suicidal ideation Associated symptoms: denies other symptoms, other (diarrhea) Treatments prior to arrival: none, placed on mental health hold If self harm: admits thoughts of self harm - General Chief Complaint: Psychiatric Symptoms Stated Complaint: Pysch Eval/VCSO Time Seen by Provider: 09/26/18 14:10 - History of Present Illness HPI Narrative: History of Present Illness HPI Narrative: 78-year-old, , retired, homeless female, history of depression, 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 The police report alleges that the patient was found outside of a public store on the ground with several containers of alcohol around her. She is reported as being visibly intoxicated and had soiled her clothing, refusing to answer questions for fire rescue personnel, refusing to identify herself and then stated several times that she wanted to . On arrival to [facility] ED her blood alcohol level was 237. The patient was allowed to sober up clinically and was referred for psychiatric evaluation of the Valadez act. EMR is reviewed. The patient was last admitted here to our inpatient psychiatric unit on August 21. At that time she left AMA after attempts were made to place her in a supervised setting such as an [facility]. Patient is seen. Clinically sober. She is alert, oriented x4, calm and cooperative. Her speech is clear and logical, of normal rate and tone. Patient does not appear to be responding to internal stimuli, no hallucinations , no delusions, no paranoia. Reports her mood as depressed. When asked regarding suicidal ideation she states " why wouldn't I want to do that. I have not much to live for. My family does not want to see me." She admits that she has continued to drink with increased quantity in the last several weeks. She does not quantify the quantity. She also states that she stopped taking her psychiatric medications after her last discharge because she felt that they were not helping her. Patient has not been attending to her personal care needs as well. When I attempted to further evaluate her cognitive status she refused to answer any questions and said" I have already been asked those questions." Patient with reported decrease sleep as well as decreased appetite and decreased level of energy. Patient was evaluated on January [address] 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." (Karen Smith) - Related Data Home Medications Medication Instructions Recorded Confirmed lisinopril 20 mg PO DAILY 09/25/18 09/26/18 melatonin 10 mg PO HS PRN 09/26/18 09/26/18 ranitidine HCl 150 mg PO DAILY 09/26/18 09/26/18 Previous Rx's Medication Instructions Recorded sennosides-docusate sodium [Senna 1 tab PO BID #28 tab 09/06/18 Plus] sertraline [Zoloft] 100 mg PO DAILY #14 tab 09/06/18 trazodone 50 mg PO HS #14 tab 09/06/18 Allergies Allergy/AdvReac Type Severity Reaction Status Date / Time penicillin G AdvReac Severe Nausea/Vomi Verified 09/07/18 16:47 ting PMFSH - History History Provided By: Patient - Medical History Medical History: Medical History (Last Reviewed 09/25/18 @ 22:07 by Yasmani Lawson MD) Anxiety Cholecystitis Depression HTN (hypertension) - Surgical History Surgical History: Surgical History (Last Reviewed 09/25/18 @ 22:07 by Yasmani Lawson MD) H/O section History of appendectomy - Family History Family History: Family History (Last Reviewed 09/25/18 @ 22:07 by Yasmani Lawson MD) Other Family history normal - Social History I have reviewed the patient's Social History: Yes - Tobacco History Second Hand Smoke Exposure: No Smoking Status: Never smoker Tobacco Type: Cigarettes - Alcohol History How Often Do You Have a Drink Containing Alcohol: 4 or more times a week - Substance Use History Substance History: No History of Abuse - Travel History Recent Travel in the [place] Within the Last 8 Weeks: No Recent Travel Out of the Country Within the Last 8 Weeks: No - Immunization History Tetanus Immunization: <5 Years Psychiatric History - Psychiatric History Psychiatric Treatment History: History of Psychiatric Treatment, History of Hospitalization in a Psychiatric Facility History of Inpatient Treatment: Yes Firearms in Home: No - Psychiatric History Patient reports history of depression. Has had several admissions to [facility]. Her last admission was in August 2018. At that time she left AMA. She has not continued her psychiatric medications after her discharge. No previous history of suicide attempts. (Karen Smith) - Legal History None reported (Karen Smith) - Family Psychiatric History One nephew completed suicide. (Karen Smith) Physical Exam - General Limitations: altered mental status Mental Status Examination Appearance: Disheveled Consciousness: Alert Orientation: x4 Motor Activity: Other (in bed) Speech: Unremarkable Language: Adequate Fund of Knowledge: Adequate Attention and Concentration: Adequate Memory: Unremarkable Mood: Sad Affect: Appropriate Thought Process & Associations: Intact, Logical, Goal directed Thought Content: Appropriate Hallucination Type: None Delusion Type: None Suicidal Ideation: Yes Suicidal Plan: No Suicidal Intention: No Homicidal Ideation: No Homicidal Plan: No Homicidal Intention: No Insight: Poor Judgment: Impulsive Initial Documented Vital Signs Temperature 97.6 F 09/25/18 21:57 Pulse Rate 92 H 09/25/18 21:57 Respiratory Rate 17 09/25/18 21:57 Blood Pressure 171/80 H 09/25/18 21:57 Pulse Oximetry 93 L 09/25/18 21:57 Last Documented Vital Signs Temperature 97.6 F 09/25/18 21:57 Pulse Rate 82 09/26/18 05:40 Respiratory Rate 17 09/26/18 06:00 Blood Pressure 136/78 09/26/18 05:40 Pulse Oximetry 93 L 09/25/18 21:57 [facility] - Psych - Diagnosis (1) Alcohol dependence with acute alcoholic intoxication Code(s): F10.229 - Alcohol dependence with intoxication, unspecified Status: Acute (2) Major depressive disorder, recurrent severe without psychotic features Code(s): F33.2 - Major depressive disorder, recurrent severe without psychotic features Status: Acute - Lab Data Result diagrams: 09/25/18 22:30 09/25/18 22:30 - [facility] Narrative Medical decision making narrative: At the time of this evaluation the patient meets criteria to remain under the Valadez act as well as for inpatient psychiatric treatment. She has stopped taking her psychiatric medication, has not been taking care of herself, and has continued to consume alcohol on a daily basis. She endorses increase of symptoms of depression, passive suicidal ideation, with hopelessness, impaired sleep, decreased appetite, anhedonia, decreased level of energy. Admit for further evaluation, safety as ell as for stabilization. I will order a [facility] protocol. (Karen Smith) - Lab Data Lab Results 09/25/18 09/25/18 09/26/18 Range/Units 22:30 22:30 00:15 WBC 9.7 (4.0-11.0) th/mm3 RBC 4.38 (4.00-5.30) mil/mm3 Hgb 12.7 (11.6-15.3) gm/dL Hct 38.1 (35.0-46.0) % MCV 87.0 (80.0-100.0) fL MCH 29.0 (27.0-34.0) pg MCHC 33.3 (32.0-36.0) % RDW 18.5 H (11.6-17.2) % Plt Count 476 H (150-450) th/mm3 MPV 7.9 (7.0-11.0) fL Neut % (Auto) 82.0 H (16.0-70.0) % Lymph % (Auto) 7.7 L (9.0-44.0) % [place] % (Auto) 9.4 H (0.0-8.0) % Eos % (Auto) 0.4 (0.0-4.0) % Baso % (Auto) 0.5 (0.0-2.0) % Neut # (Auto) 8.0 H (1.8-7.7) th/mm3 Lymph # (Auto) 0.8 L (1.0-4.8) th/mm3 [place] # (Auto) 0.9 (0.0-0.9) th/mm3 Eos # (Auto) 0.0 (0.0-0.4) th/mm3 Baso # (Auto) 0.1 (0.0-0.2) th/mm3 WBC Differential . Differential Comment Auto diff final Sodium 131 L (136-145) meq/L Potassium 3.9 (3.5-5.1) meq/L Chloride 99 (98-107) meq/L Carbon Dioxide 21.2 (21.0-32.0) meq/L Anion Gap 11 (5-15) meq/L BUN 3 L (7-18) mg/dL Creatinine 0.54 (0.50-1.00) mg/dL Estimated GFR Greater than 89 (>89) mL/min Random Glucose 100 (74-106) mg/dL Calcium 7.3 L* (8.5-10.1) mg/dL Calcium Adj for Albumin 8.1 L (8.5-10.1) mg/dL Total Bilirubin 0.5 (0.2-1.0) mg/dL AST 22 (15-37) U/L ALT 12 (10-53) U/L Alkaline Phosphatase 120 H (45-117) U/L Total Protein 7.0 (6.4-8.2) g/dL Albumin 3.0 L (3.4-5.0) g/dL TSH 2.670 (0.358-3.740) uIU/mL Urine Color (Yellw/Straw) Urine Clarity (Clear) Urine pH (5.0-8.5) Ur Specific [place] (1.002-1.035) Urine Protein (Neg-Trace) mg/dL Urine Glucose (UA) (Negative) mg/dL Urine Ketones (Negative) mg/dL Urine Occult Blood (Negative) Urine Nitrate (Negative) Urine Bilirubin (Negative) Urine Urobilinogen (Less than 2) mg/dL Ur Leukocyte Esterase (Negative) Urine RBC (0-3) /hpf Urine WBC (0-5) /hpf Urine Mucus (Occasional) /lpf Micro UA Comment Ur Microscopic Review Urine Culture Comments Urine Opiates Screen Neg (Neg) Ur Barbiturates Screen Neg (Neg) Ur Amphetamines Screen Neg (Neg) U Benzodiazepines Scrn Neg (Neg) Urine Cocaine Screen Neg (Neg) U Cannabinoids Screen Neg (Neg) Serum Alcohol 273 H (0-5) mg/dL 18 Range/Units 00:15 WBC (4.0-11.0) th/mm3 RBC (4.00-5.30) mil/mm3 Hgb (11.6-15.3) gm/dL Hct (35.0-46.0) % MCV (80.0-100.0) fL MCH (27.0-34.0) pg MCHC (32.0-36.0) % RDW (11.6-17.2) % Plt Count (150-450) th/mm3 MPV (7.0-11.0) fL Neut % (Auto) (16.0-70.0) % Lymph % (Auto) (9.0-44.0) % [place] % (Auto) (0.0-8.0) % Eos % (Auto) (0.0-4.0) % Baso % (Auto) (0.0-2.0) % Neut # (Auto) (1.8-7.7) th/mm3 Lymph # (Auto) (1.0-4.8) th/mm3 [place] # (Auto) (0.0-0.9) th/mm3 Eos # (Auto) (0.0-0.4) th/mm3 Baso # (Auto) (0.0-0.2) th/mm3 WBC Differential Differential Comment Sodium (136-145) meq/L Potassium (3.5-5.1) meq/L Chloride (98-107) meq/L Carbon Dioxide (21.0-32.0) meq/L Anion Gap (5-15) meq/L BUN (7-18) mg/dL Creatinine (0.50-1.00) mg/dL Estimated GFR (>89) mL/min Random Glucose (74-106) mg/dL Calcium (8.5-10.1) mg/dL Calcium Adj for Albumin (8.5-10.1) mg/dL Total Bilirubin (0.2-1.0) mg/dL AST (15-37) U/L ALT (10-53) U/L Alkaline Phosphatase (45-117) U/L Total Protein (6.4-8.2) g/dL Albumin (3.4-5.0) g/dL TSH (0.358-3.740) uIU/mL Urine Color Colorless (Yellw/Straw) Urine Clarity Clear (Clear) Urine pH 5.0 (5.0-8.5) Ur Specific [place] 1.002 (1.002-1.035) Urine Protein Negative (Neg-Trace) mg/dL Urine Glucose (UA) Negative (Negative) mg/dL Urine Ketones Negative (Negative) mg/dL Urine Occult Blood Small H (Negative) Urine Nitrate Negative (Negative) Urine Bilirubin Negative (Negative) Urine Urobilinogen Less than 2 (Less than 2) mg/dL Ur Leukocyte Esterase Trace H (Negative) Urine RBC Less than 1 (0-3) /hpf Urine WBC Less than 1 (0-5) /hpf Urine Mucus Few H (Occasional) /lpf Micro UA Comment Culture not ind Ur Microscopic Review Not Reportable Urine Culture Comments Culture not ind Urine Opiates Screen (Neg) Ur Barbiturates Screen (Neg) Ur Amphetamines Screen (Neg) U Benzodiazepines Scrn (Neg) Urine Cocaine Screen (Neg) U Cannabinoids Screen (Neg) Serum Alcohol (0-5) mg/dL
[2018-09-26] MEDS ORDERED: Haloperidol Inj 5 MG/ML Ampul IV.PUSH PRN (16:04)
[2018-09-26] MEDS ORDERED: LORazepam 1 MG Tablet PO PRN (16:04)
[2018-09-27 07:20] LABS: Anion Gap 8 meq/L (5-15); Blood Urea Nitrogen 2 mg/dL (7-18); Calcium 7.5 mg/dL (8.5-10.1); Carbon Dioxide 25.9 meq/L (21.0-32.0); Chloride 99 meq/L (98-107); Cholesterol 130 mg/dL (120-200); Glomerular Filtration Rate Greater Than 89 mL/min (>89); Glucose,Random 89 mg/dL (74-106); Potassium 3.3 meq/L (3.5-5.1); Sodium 133 meq/L (136-145); Triglycerides 49 mg/dL (42-150)
[2018-09-27 07:23] LABS: HDL Cholesterol 71.9 mg/dL (40.0-60.0); LDL Cholesterol,Calculated 48 mg/dL (0-99)
[2018-09-27] MEDS ORDERED: Lisinopril 20 MG Tablet PO SCH ×2 (09:00→14:49)
[2018-09-27] MEDS: Calcium Carbonate 500 MG Tablet PO SCH ×2 (09:00→20:07)
[2018-09-27] MEDS ORDERED: Aluminum/Magnesium/Simethacone Susp 30 ML UDC PO PRN (10:18)
--- NOTE | 2018-09-27 10:43 | P.HPPSY ---
Provisional Diagnosis Admission Date: September 26, 2018 15:21 [place] I.: Alcohol dependence with acute intoxication, major depressive disorder recurrent severe without psychosis Competence Certification of Person's Competence To Provide Express and Informed Consent I have personally examined Kasey Puckett, a person being served at [facility], [place] on, September 27, 2018 1024. Express and informed consent means consent voluntarily given in writing, by a competent person, after sufficient explanation and disclosure of the subject matter involved to enable the person to make a knowing and willful decision without any element of force, fraud, deceit, duress, or other form of constraint or coercion. This person is 18 years of age or older, is not now known to be incompetent to consent to treatment with a guardian advocate, and does not have a health care surrogate or proxy currently making medical treatment decisions. I have found this person to be one of the following: [] Competent to provide express and informed consent, as defined above, for voluntary admission to this facility and is competent to provide express and informed consent for treatment. He/she has the consistent capacity to make well reasoned, willful, and knowing decisions concerning his or her medical or mental health treatment. The person fully and consistently understands the purpose of the admission for examination/placement and is fully capable of personally exercising all rights assured under [place]xxx] Incompetent to provide express and informed consent to voluntary admission , and this is incompetent to provide express and informed consent to treatment. The person must be transferred to involuntary status and a petition for a guardian advocate filed with the Circuit Court. [] Refusing to provide express and informed consent to voluntary admission but is competent to provide express and informed consent for treatment. The person must be discharged or transferred to involuntary status. Form shall be completed within 24 hours of a person's arrival at the receiving facility and filed in the clinical record of each person: 1. Admitted on a voluntary basis 2. Permitted to provide express and informed consent to his/her own treatment 3. Allowed to transfer from involuntary to voluntary status 4. Prior to permitting a person to consent to his or her own treatment after having been previously found incompetent to consent to treatment. History of Present Illness Capacity: Lacks capacity Chief Complaint: Patient intoxicated unable to care for self History of Present Illness: Patient is a 78-year-old white female comes here under Valadez act by the [facility] Sheriff's office dated 09/25/2018 at 2040 9 PM that document reviewed essentially stating Kasey was located outside of a [employer] store of the ground in the position with several containers of alcohol around her. Kasey was visibly intoxicated had sold her clothing. 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 She has refused to identify herself. She does then stated several times that she wanted to . Patient seen screen in the ED at [facility]. Urine toxicology negative blood alcohol level of 273 at about 10 PM in the evening patient's EMR reviewed she has had prior visits or hospitalizations with us she was seen here on 01/10/2018 with a blood alcohol level of 312 she was hospitalized here 08/20/2018 with a blood alcohol level of 290. Patient is homeless chronic alcoholic. While she does have multiple children she has burned her bridges with them. They want nothing to do with her. Though it appears patient was found with the prior assessment at her daughter's house though there is a restraining order against her. At the present time patient laying in her bed on 2700 nurse Bharati present throughout session. Patient is laying quietly on her side, when I introduced myself to her she said "you again I do not want to talk to you." And then she rolled over away from me. Staff stated they have noticed she does have ecchymosis over her left orbit, and multiple bruises on her body. That night she came in she was quite unkempt with significant body odor and self neglect. Though her hair appears to be in fairly good condition. At this time patient does not meet criteria for acute inpatient psychiatric hospitalization under the Valadez act I will do first opinion request second opinion. At this time I also feel she does not have capacity to make decisions concerning her care thus I will ask for healthcare surrogate and guardian advocate. We will continue her on the ciwa protocol. While she is on lisinopril her blood pressure stable at this time list per request of the hospitalist will refrain from consultation unless the patient becomes more symptomatic. - Inpatient Certification I certify that the inpatient services were ordered in accordance with Medicare regulations governing the order. This includes certification that hospital inpatient services are reasonable and necessary and in the case of services not specified as inpatient-only under 42 CFR 419.22(n), that they are appropriately provided as inpatient services in accordance to with the 2-midnight benchmark under 43 CFR 412.3(e) I certify that inpatient psychiatric hospital services are medically necessary. Evaluation and treatment and/or diagnostic testing are expected to improve the patient's condition. The patient needs on a daily basis, active treatment furnished directly by or requiring the supervision of inpatient psychiatric facility personnel. Estimated Total Length of Stay (Days): 8 Plans for Post Hospital Care: Not yet determined Review of Systems unobtainable due to mental condition PMFSH - History History Provided By: Patient, Medical Record - Medical / Surgical Hx Neg / Unobtainable Medical Problems Denied: Unable to Obtain - Medical History Medical History: Medical History (Last Reviewed 09/27/18 @ 10:46 by Willam Mcclendon MD) Anxiety Cholecystitis Depression HTN (hypertension) - Surgical History Surgical History: Surgical History (Last Reviewed 09/27/18 @ 10:46 by Willam Mcclendon MD) H/O section History of appendectomy - Family History Family History: Family History (Last Reviewed 09/27/18 @ 10:46 by Willam Mcclendon MD) Other Family history normal - Social History I have reviewed the patient's Social History: Yes - Tobacco History Second Hand Smoke Exposure: No Smoking Status: Never smoker Tobacco Type: Cigarettes - Alcohol History How Often Do You Have a Drink Containing Alcohol: 4 or more times a week - Substance Use History Substance History: No History of Abuse - Travel History Recent Travel in the [place] Within the Last 8 Weeks: No Recent Travel Out of the Country Within the Last 8 Weeks: No - Immunization History Tetanus Immunization: <5 Years Quality Measures - Psychiatric History Psychological trauma history: Unable to determine at this time due to patient's resistance Violence risk to others in the last 6 months: Unable to ascertain due to patient's resistance Violence risk to self in the last 6 months: Patient did make vague suicidal statement to police - Substance Abuse History Drug or alcohol use in the past 12 months: Patient active alcoholic - Patient Strengths Patient's strengths (minimum of 2): Patient able [place] [facility] overall healthy Medications and Allergies Active Medications: Active Medications Acetaminophen (Tylenol) 650 mg PO Q4H PRN PRN Reason: Pain 1-5 or Temp >101F Al Hydrox/Mg Hydrox/Simethicone (Mag-Al Plus Susp Liq) 30 ml PO Q6H PRN PRN Reason: DYSPEPSIA Al Hydrox/Mg Hydrox/Simethicone (Mag-Al Plus Susp Liq) 30 ml PO Q6H PRN PRN Reason: DYSPEPSIA Al Hydroxide/Mg Hydroxide (Milk Of Magnesia Liq) 30 ml PO Q12H PRN PRN Reason: Mild Constipation Al Hydroxide/Mg Hydroxide (Milk Of Magnesia Liq) 30 ml PO Q12H PRN PRN Reason: Mild Constipation Calcium Carbonate (Oscal) 1,000 mg PO BID [facility] Last Admin: 09/27/18 09:00 Dose: 1,000 mg Diphenhydramine HCl (Benadryl) 50 mg PO HS PRN PRN Reason: INSOMNIA Flumazenil (Romazecon Inj) 0.2 mg IV.PUSH Q1M PRN PRN Reason: OVERSEDATION Haloperidol Lactate (Haldol Inj) 1 mg IV.PUSH Q15M PRN PRN Reason: for severe agitation Hydroxyzine HCl (Atarax) 50 mg PO Q6H PRN PRN Reason: ANXIETY Lisinopril (Prinivil) 10 mg PO DAILY [facility] Last Admin: 09/27/18 09:00 Dose: 10 mg Lorazepam (Ativan) 1 mg PO Q4H PRN PRN Reason: for CIWA 8-10 Last Admin: 09/26/18 16:59 Dose: 1 mg Lorazepam (Ativan) 2 mg PO Q2H PRN PRN Reason: for CIWA 11-14 Lorazepam (Ativan Inj) 2 mg IM Q2H PRN PRN Reason: for CIWA 11-14 Lorazepam (Ativan Inj) 2 mg IV.PUSH Q1H PRN PRN Reason: for CIWA 15-20 Lorazepam (Ativan Inj) 2 mg IV.PUSH Q15M PRN PRN Reason: for CIWA > 20 Lorazepam (Ativan Inj) 1 mg IM Q4H PRN PRN Reason: for CIWA 8-10 Non-Formulary Medication (Ranitidine Hcl [Ranitidine Hcl]) 150 mg PO DAILY [facility] Sennosides (Senokot) 17.2 mg PO Q12H PRN PRN Reason: Moderate Constipation Sertraline HCl (Zoloft) 100 mg PO DAILY [facility] Trazodone HCl (Desyrel) 50 mg PO HS JAVID Allergies Allergy/AdvReac Type Severity Reaction Status Date / Time penicillin G AdvReac Severe Nausea/Vomi Verified 09/07/18 16:47 ting Home Medications Medication Instructions Recorded Confirmed Type lisinopril 20 mg PO DAILY 09/25/18 09/26/18 History melatonin 10 mg PO HS PRN 09/26/18 09/26/18 History ranitidine HCl 150 mg PO DAILY 09/26/18 09/26/18 History Results - Labs CBC & Chem 7: 09/25/18 22:30 09/27/18 06:20 Labs: Laboratory Results - last 24 hr 09/27/18 06:20 Sodium 133 L Potassium 3.3 L Chloride 99 Carbon Dioxide 25.9 Anion Gap 8 BUN 2 L Creatinine 0.46 L Estimated GFR Greater than 89 Random Glucose 89 Calcium 7.5 L Triglycerides 49 Cholesterol 130 LDL Cholesterol, Calc 48 HDL Cholesterol 71.9 H Cholesterol/HDL Ratio 1.80 Exam Vital signs: Vital Signs 09/27/18 06:00 Temperature 98.8 F Pulse Rate 85 Respiratory Rate 17 Blood Pressure 154/66 H Pulse Oximetry 93 L Intake & Output 09/26/18 09/27/18 09/27/18 18:59 06:59 18:59 Intake Total 480 / 480 Balance 480 / 480 Weight 67.23 kg Intake: Oral 480 / 480 Other: Weight On Admission 67.23 kg Narrative: Patient laying quietly on his side in her room she is in no acute distress, she is in no respiratory distress, no complaints of chest pain or abdominal pain. Patient moving all 4 extremities without difficulty Mental Status Examination Appearance: Disheveled Consciousness: Alert Orientation: x4 Motor Activity: Other (in bed) Speech: Other (Except for one sentence patient selectively mute with me) Language: Adequate, Other (Patient is selectively mute and language overall has been adequate) Fund of Knowledge: Adequate Attention and Concentration: Adequate Memory: Unremarkable Mood: Sad, Irritable Affect: Other (Decreased range and increased intensity) Thought Process & Associations: Intact, Logical Thought Content: Appropriate Hallucination Type: None Delusion Type: None Suicidal Ideation: Yes (Vague) Suicidal Plan: No Suicidal Intention: No Homicidal Ideation: No Homicidal Plan: No Homicidal Intention: No Insight: Poor Judgment: Poor Assessment and Plan - Assessment (1) Alcohol dependence with acute alcoholic intoxication Code(s): F10.229 - Alcohol dependence with intoxication, unspecified Status: Acute (2) Major depressive disorder, recurrent severe without psychotic features Code(s): F33.2 - Major depressive disorder, recurrent severe without psychotic features Status: Acute - Plan Plan: Estimated LOS: [5-7] days At this time patient meets criteria for involuntary psychiatric hospitalization of the Valadez act. Thus I will do first opinion request second opinion. Also for she does not have capacity I will ask for healthcare surrogate Guardian advocate we will continue the [facility] protocol also. Hopefully we can develop an appropriate discharge plan for this lady continue with the opportunity to develop and maintain sobriety Justification for Continued Inpatient Stay: At this time patient with decompensated placed on a lower level of care Discharge Planning: To be determined Request Healthcare Surrogate/Guardian Advocate?: Yes (1) Alcohol dependence with acute alcoholic intoxication Qualifiers: Complication of substance-induced condition: uncomplicated Qualified Code(s) : F10.220 - Alcohol dependence with intoxication, uncomplicated
--- NOTE | 2018-09-27 12:23 | ECG ---
Date Performed: 09/26/2018 Time Performed: 15:00:29 PTAGE: 78 years EKG: Sinus rhythm LOW QRS VOLTAGE IN PRECORDIAL LEADS BORDERLINE ECG Since the PREVIOUS TRACING , no significant change noted PREVIOUS TRACIN01/05/18 DOCTOR: Richard Busby Interpretating Date/Time 09/27/2018 12:21:05
[2018-09-27] MEDS: Sertraline 100 MG Tablet PO SCH (13:51)
--- NOTE | 2018-09-27 14:56 | P.CONIM ---
History of Present Illness Service: [facility] Consult date: 09/27/18 Reason for Consult: medical management/HTN Primary Care Provider: UNKNOWN Chief Complaint: "dont feel good" History of Present Illness: This patient is a 78 years old female with past medical history of hypertension, anxiety, depression, and cholecystitis who presented to the emergency room under Valadez act by the [facility]'s officer on 2017 for alcohol intoxication and was found outside located at public store on the ground in a position with several containers of alcohol around her. Patient was admitted with blood alcohol level of 273. Patient had a previous ED visits for the same problem with elevated blood alcohol level, last visit on August 20, 2018 with blood alcohol level of 290. Patient was admitted to the psychiatric unit for treatment and management. Medicine team was consulted for medical management. Patient seen and examined laying in bed, stated patient does not feel good. Patient denies any abdominal pain, nausea, vomiting, diarrhea or constipation. Patient denies any headache or dizziness. Patient admitted she was drinking alcohol, wine every day. Patient denies any drinking beer every day states that she is drinking wine. Patient denies any smoking, marijuana use or any use of street drugs. Patient denies any chest pain or shortness of breath, denies any fever or chills. Nurse reported patient have elevated blood pressure, and was restarted on the home medication. However when verified dose with the patient for lisinopril patient stated she is taking 20 mg of lisinopril every day and 100 mg of Zoloft patient denies any other health illnesses. Review of Systems GENERAL: well developed, well nourished Elderly female, in no apparent distress SKIN: Warm and dry. HEAD: Atraumatic. Normocephalic. EYES: Pupils equal and round. Ecchymosis around the left eye ENT: No nasal bleeding or discharge. Mucous membranes pink and moist. NECK: Trachea midline. No JVD. CARDIOVASCULAR: Regular rate and rhythm. RESPIRATORY: No accessory muscle use. Clear to auscultation. Breath sounds equal bilaterally. GASTROINTESTINAL: Abdomen soft, non-tender, nondistended. Hepatic and splenic margins not palpable. MUSCULOSKELETAL: Extremities without clubbing, cyanosis, or edema. No obvious deformities. NEUROLOGICAL: Awake and alert. No obvious cranial nerve deficits. Motor grossly within normal limits. Five out of 5 muscle strength in the arms and legs. Normal speech. PSYCHIATRIC: flat mood and affect; insight and judgment poor [facility] Medical History Medical History Anxiety (Acute) Cholecystitis (Acute) Depression (Acute) HTN (hypertension) (Acute) Surgical History Surgical History H/O section (Acute) History of appendectomy (Acute) Family History Family History Other Family history normal Social History Social History Substance History: No History of Abuse Second Hand Smoke Exposure: No Smoking Status: Never smoker Tobacco Type: Cigarettes How Often Do You Have a Drink Containing Alcohol: 4 or more times a week Recent Travel in [facility] within the Last 8 Weeks: No Recent Out of Country Travel within the Last 8 Weeks: No Immunization History Tetanus Immunization: <5 Years Medications and Allergies Allergies Allergy/AdvReac Type Severity Reaction Status Date / Time penicillin G AdvReac Severe Nausea/Vomi Verified 09/07/18 16:47 ting Home Medications Medication Instructions Recorded Confirmed Type lisinopril 20 mg PO DAILY 09/25/18 09/26/18 History melatonin 10 mg PO HS PRN 09/26/18 09/26/18 History ranitidine HCl 150 mg PO DAILY 09/26/18 09/26/18 History Active Medications: Active Medications Acetaminophen (Tylenol) 650 mg PO Q4H PRN PRN Reason: Pain 1-5 or Temp >101F Al Hydrox/Mg Hydrox/Simethicone (Mag-Al Plus Susp Liq) 30 ml PO Q6H PRN PRN Reason: DYSPEPSIA Al Hydroxide/Mg Hydroxide (Milk Of Magnesia Liq) 30 ml PO Q12H PRN PRN Reason: Mild Constipation Calcium Carbonate (Oscal) 1,000 mg PO BID [facility] Last Admin: 09/27/18 09:00 Dose: 1,000 mg Clonidine HCl (Catapres) 0.1 mg PO Q6H PRN PRN Reason: SBP>160, DBP>90 Diphenhydramine HCl (Benadryl) 50 mg PO HS PRN PRN Reason: INSOMNIA Famotidine (Pepcid) 20 mg PO BID [facility] Flumazenil (Romazecon Inj) 0.2 mg IV.PUSH Q1M PRN PRN Reason: OVERSEDATION Haloperidol Lactate (Haldol Inj) 1 mg IV.PUSH Q15M PRN PRN Reason: for severe agitation Hydroxyzine HCl (Atarax) 50 mg PO Q6H PRN PRN Reason: ANXIETY Last Admin: 09/27/18 13:50 Dose: 50 mg Lisinopril (Prinivil) 20 mg PO DAILY [facility] Lorazepam (Ativan) 1 mg PO Q4H PRN PRN Reason: for CIWA 8-10 Last Admin: 09/26/18 16:59 Dose: 1 mg Lorazepam (Ativan) 2 mg PO Q2H PRN PRN Reason: for CIWA 11-14 Lorazepam (Ativan Inj) 2 mg IM Q2H PRN PRN Reason: for CIWA 11-14 Lorazepam (Ativan Inj) 2 mg IV.PUSH Q1H PRN PRN Reason: for CIWA 15-20 Lorazepam (Ativan Inj) 2 mg IV.PUSH Q15M PRN PRN Reason: for CIWA > 20 Lorazepam (Ativan Inj) 1 mg IM Q4H PRN PRN Reason: for CIWA 8-10 Sennosides (Senokot) 17.2 mg PO Q12H PRN PRN Reason: Moderate Constipation Sertraline HCl (Zoloft) 100 mg PO DAILY [facility] Last Admin: 09/27/18 13:51 Dose: 100 mg Trazodone HCl (Desyrel) 50 mg PO [facility] Physical Exam Vital signs: Last Vital Signs Temp 98.8 F 09/27/18 06:00 Pulse 76 09/27/18 13:07 Resp 18 09/27/18 13:07 BP 157/72 H 09/27/18 13:07 Pulse Ox 98 09/27/18 13:07 Intake & Output 09/25/18 09/26/18 09/27/18 09/28/18 06:59 06:59 06:59 06:59 Intake Total 1500 / 1500 960 / 960 Balance 1500 / 1500 960 / 960 Weight 67.23 kg Results Labs CBC & Chem 7: 09/25/18 22:30 09/27/18 06:20 Assessment and Plan (1) Alcohol dependence with acute alcoholic intoxication: Code(s): F10.229 - Alcohol dependence with intoxication, unspecified Status: Acute (2) Major depressive disorder, recurrent severe without psychotic features: Code(s): F33.2 - Major depressive disorder, recurrent severe without psychotic features Status: Acute Plan This is a 78-year old male with past medical history of hypertension, anxiety, depression that was admitted under Valadez act, after found to be laying outside [employer] on a position with several containers of alcohol around her. Hypertension Patient with history of her hypertension taking lisinopril at home -Restarted on lisinopril 10 mg daily, increased to 20 mg per home dose -Blood pressure elevated -Start on clonidine as needed for SBP greater than 160 or DBP greater than 90 -Monitor blood pressure, adjust medication as necessary Alcohol dependence with acute alcoholic intoxication Major depressive disorder, recurrent Anxiety and depression EtOH -CIWA protocol -Counseled on alcohol cessation given -Management by psychiatry team - cont home Zoloft DVT Proph: pt ambulatory _ (1) Alcohol dependence with acute alcoholic intoxication Qualifiers: Complication of substance-induced condition: uncomplicated Qualified Code(s) : F10.220 - Alcohol dependence with intoxication, uncomplicated
[2018-09-27 15:39] LABS: Hemoglobin A1c 5.8 % (4.3-6.0)
[2018-09-27] MEDS: traZODone 50 MG Tablet PO SCH (20:06)
[2018-09-28] MEDS: Sertraline 100 MG Tablet PO SCH (08:22)
[2018-09-28] MEDS: Famotidine 20 MG Tablet PO SCH ×2 (08:22→20:07)
[2018-09-28] MEDS: Calcium Carbonate 500 MG Tablet PO SCH ×3 (08:22→20:07)
--- NOTE | 2018-09-28 09:35 | P.CONPSY ---
Provisional Diagnosis Admission Date: September 26, 2018 15:21 Berkey I.: 1. Major depressive disorder, recurrent, severe without psychotic features 2. Alcohol use disorder, severe, with intoxication, intoxication now resolved Berkey II.: Deferred History of Present Illness Service: Psychiatry Consult date: 09/28/18 Requesting Physician: Willam Mcclendon Reason for Consult: Second opinion for involuntary psychiatric hospitalization Primary Care Provider: UNKNOWN Chief Complaint: "dont feel good" History of Present Illness: From Dr. Mcclendon's H&P: Patient is a 78-year-old white female comes here under Valadez act by the [facility]'s office dated 09/25/2018 at 2040 9 PM that document reviewed essentially stating Kasey was located outside of a [employer] store of the ground in the position with several containers of alcohol around her. Kasey was visibly intoxicated had sold her clothing. 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 She has refused to identify herself. She does then stated several times that she wanted to . Patient seen screen in the ED at [facility]. Urine toxicology negative blood alcohol level of 273 at about 10 PM in the evening patient's EMR reviewed she has had prior visits or hospitalizations with us she was seen here on 01/10/2018 with a blood alcohol level of 312 she was hospitalized here 08/20/2018 with a blood alcohol level of 290. Patient is homeless chronic alcoholic. While she does have multiple children she has burned her bridges with them. They want nothing to do with her. Though it appears patient was found with the prior assessment at her daughter's house though there is a restraining order against her. At the present time patient laying in her bed on 2700 nurse Bharati present throughout session. Patient is laying quietly on her side, when I introduced myself to her she said "you again I do not want to talk to you." And then she rolled over away from me. Staff stated they have noticed she does have ecchymosis over her left orbit, and multiple bruises on her body. That night she came in she was quite unkempt with significant body odor and self neglect. Though her hair appears to be in fairly good condition. At this time patient does not meet criteria for acute inpatient psychiatric hospitalization under the Valadez act I will do first opinion request second opinion. At this time I also feel she does not have capacity to make decisions concerning her care thus I will ask for healthcare surrogate and guardian advocate. We will continue her on the [facility] protocol. While she is on lisinopril her blood pressure stable at this time list per request of the hospitalist will refrain from consultation unless the patient becomes more symptomatic. On my exam today, 09/28: Patient seen and examined with nurse. Chart reviewed. Case discussed with nursing staff. I have discussed the purpose of my evaluation today with the patient. On my examination today, the patient presents as disheveled, withdrawn and psychomotor slowed. She endorses low mood, poor focus/ concentration, poor sleep except with hypnotic medications. She cannot recall the last time she felt well. She endorses ongoing suicidal ideation without specific plan. She denies any urge to hurt herself on the inpatient unit. No hypomanic or manic symptoms. She denies any audiovisual hallucinations. I can elicit no delusional material. The remainder of the psychiatric ROS is negative. No acute physical complaints. Past psychiatric history: The patient reports a history of major depression. She is not presently under the care of a psychiatrist. Most recent psychiatric admission was here at [facility]. She denies a history of suicide attempts. Family history: The patient denies a family history of serious mental illness or suicide. She does report that 1 of her nephews on her mother's side completed suicide. Chemical dependency history: Patient admits to consuming alcohol "more than usual." She is drinking at least a bottle of wine a day. She denies any history of DTs or seizures. No other substance use reported. Social history: The patient has been residing in a hotel. She is with 4 children: 3 daughters and a son. She does report that she maintains contact with her children. She has 3-1/2 years of college education, having studied elementary education. 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 Mental status testing: Registration is 3/3 and recall is 2/3 at 3 minutes. Patient is oriented to person, place and date except she gives the date as the 17th. She is able to spell the word WORLD forward and backward with no errors. She is able to name 2 items and repeat a phrase. She is able to name the current president and the previous president but cannot recall any before that. Review of Systems All other systems reviewed negative except as stated in HPI [facility] - History History Provided By: Patient, Medical Record - Medical / Surgical Hx Neg / Unobtainable Medical Problems Denied: Unable to Obtain - Medical History Medical History: Medical History (Last Reviewed 09/27/18 @ 15:34 by ERICKA Zepeda) Anxiety Cholecystitis Depression HTN (hypertension) - Surgical History Surgical History: Surgical History (Last Reviewed 09/27/18 @ 15:34 by ERICKA Zepeda) H/O section History of appendectomy - Family History Family History: Family History (Last Reviewed 09/27/18 @ 15:34 by ERICKA Zepeda) Other Family history normal - Tobacco History Second Hand Smoke Exposure: No Smoking Status: Never smoker Tobacco Type: Cigarettes - Alcohol History How Often Do You Have a Drink Containing Alcohol: 4 or more times a week - Substance Use History Substance History: No History of Abuse - Substance Use Type Alcohol Type: Unsure due to patient not wanting to speak Status: Active Route Used: By Mouth Frequency: frequent pt tox screen 273 - Travel History Recent Travel in the [place] Within the Last 8 Weeks: No Recent Travel Out of the Country Within the Last 8 Weeks: No - Immunization History Tetanus Immunization: <5 Years Medications and Allergies Active Medications: Active Medications Acetaminophen (Tylenol) 650 mg PO Q4H PRN PRN Reason: Pain 1-5 or Temp >101F Al Hydrox/Mg Hydrox/Simethicone (Mag-Al Plus Susp Liq) 30 ml PO Q6H PRN PRN Reason: DYSPEPSIA Al Hydroxide/Mg Hydroxide (Milk Of Magnesia Liq) 30 ml PO Q12H PRN PRN Reason: Mild Constipation Calcium Carbonate (Oscal) 1,000 mg PO BID [facility] Last Admin: 09/28/18 08:27 Dose: Not Given Clonidine HCl (Catapres) 0.1 mg PO Q6H PRN PRN Reason: SBP>160, DBP>90 Diphenhydramine HCl (Benadryl) 50 mg PO HS PRN PRN Reason: INSOMNIA Famotidine (Pepcid) 20 mg PO BID [facility] Last Admin: 09/28/18 08:22 Dose: 20 mg Flumazenil (Romazecon Inj) 0.2 mg IV.PUSH Q1M PRN PRN Reason: OVERSEDATION Haloperidol Lactate (Haldol Inj) 1 mg IV.PUSH Q15M PRN PRN Reason: for severe agitation Hydroxyzine HCl (Atarax) 50 mg PO Q6H PRN PRN Reason: ANXIETY Last Admin: 09/27/18 20:06 Dose: 50 mg Lisinopril (Prinivil) 20 mg PO DAILY [facility] Last Admin: 09/28/18 08:22 Dose: 20 mg Lorazepam (Ativan) 1 mg PO Q4H PRN PRN Reason: for CIWA 8-10 Last Admin: 09/26/18 16:59 Dose: 1 mg Lorazepam (Ativan) 2 mg PO Q2H PRN PRN Reason: for CIWA 11-14 Lorazepam (Ativan Inj) 2 mg IM Q2H PRN PRN Reason: for CIWA 11-14 Lorazepam (Ativan Inj) 2 mg IV.PUSH Q1H PRN PRN Reason: for CIWA 15-20 Lorazepam (Ativan Inj) 2 mg IV.PUSH Q15M PRN PRN Reason: for CIWA > 20 Lorazepam (Ativan Inj) 1 mg IM Q4H PRN PRN Reason: for CIWA 8-10 Sennosides (Senokot) 17.2 mg PO Q12H PRN PRN Reason: Moderate Constipation Sertraline HCl (Zoloft) 100 mg PO DAILY [facility] Last Admin: 09/28/18 08:22 Dose: 100 mg Trazodone HCl (Desyrel) 50 mg PO HS [facility] Last Admin: 09/27/18 20:06 Dose: 50 mg Allergies Allergy/AdvReac Type Severity Reaction Status Date / Time penicillin G AdvReac Severe Nausea/Vomi Verified 09/07/18 16:47 ting Home Medications Medication Instructions Recorded Confirmed Type lisinopril 20 mg PO DAILY 09/25/18 09/26/18 History melatonin 10 mg PO HS PRN 09/26/18 09/26/18 History ranitidine HCl 150 mg PO DAILY 09/26/18 09/26/18 History Exam Vital signs: Vital Signs 09/27/18 13:07 09/27/18 17:23 09/28/18 05:24 Temperature 99.6 F 98.4 F Pulse Rate 76 75 76 Respiratory Rate 18 16 17 Blood Pressure 157/72 H 109/54 L 127/57 L Pulse Oximetry 98 94 L 92 L Intake & Output 09/27/18 09/28/18 09/28/18 18:59 06:59 18:59 Intake Total 1440 / 1440 Balance 1440 / 1440 Intake: Oral 1440 / 1440 Narrative: Physical examination has been completed by the hospitalist jewelry consultant. On my examination today, the patient appears to be in no acute physical distress. No motor abnormalities noted. No signs of intoxication or withdrawal noted. Labs and vital signs reviewed: Laboratory Tests 09/25/18 09/25/18 09/26/18 22:30 22:30 00:15 WBC 9.7 RBC 4.38 Hgb 12.7 Hct 38.1 MCV 87.0 MCH 29.0 MCHC 33.3 RDW 18.5 H Plt Count 476 H MPV 7.9 Neut % (Auto) 82.0 H Lymph % (Auto) 7.7 L [place] % (Auto) 9.4 H Eos % (Auto) 0.4 Baso % (Auto) 0.5 Neut # (Auto) 8.0 H Lymph # (Auto) 0.8 L [place] # (Auto) 0.9 Eos # (Auto) 0.0 Baso # (Auto) 0.1 WBC Differential . Differential Comment Auto diff final Sodium 131 L Potassium 3.9 Chloride 99 Carbon Dioxide 21.2 Anion Gap 11 BUN 3 L Creatinine 0.54 Estimated GFR Greater than 89 Random Glucose 100 Hemoglobin A1c Calcium 7.3 L* Calcium Adj for Albumin 8.1 L Total Bilirubin 0.5 AST 22 ALT 12 Alkaline Phosphatase 120 H Total Protein 7.0 Albumin 3.0 L Triglycerides Cholesterol LDL Cholesterol, Calc HDL Cholesterol Cholesterol/HDL Ratio TSH 2.670 Urine Color Urine Clarity Urine pH Ur Specific [place] Urine Protein Urine Glucose (UA) Urine Ketones Urine Occult Blood Urine Nitrate Urine Bilirubin Urine Urobilinogen Ur Leukocyte Esterase Urine RBC Urine WBC Urine Mucus Micro UA Comment Ur Microscopic Review Urine Culture Comments Urine Opiates Screen Neg Ur Barbiturates Screen Neg Ur Amphetamines Screen Neg U Benzodiazepines Scrn Neg Urine Cocaine Screen Neg U Cannabinoids Screen Neg Serum Alcohol 273 H 09/26/18 09/27/18 09/27/18 00:15 06:20 06:20 WBC RBC Hgb Hct MCV MCH MCHC RDW Plt Count MPV Neut % (Auto) Lymph % (Auto) [place] % (Auto) Eos % (Auto) Baso % (Auto) Neut # (Auto) Lymph # (Auto) [place] # (Auto) Eos # (Auto) Baso # (Auto) WBC Differential Differential Comment Sodium 133 L Potassium 3.3 L Chloride 99 Carbon Dioxide 25.9 Anion Gap 8 BUN 2 L Creatinine 0.46 L Estimated GFR Greater than 89 Random Glucose 89 Hemoglobin A1c 5.8 Calcium 7.5 L Calcium Adj for Albumin Total Bilirubin AST ALT Alkaline Phosphatase Total Protein Albumin Triglycerides 49 Cholesterol 130 LDL Cholesterol, Calc 48 HDL Cholesterol 71.9 H Cholesterol/HDL Ratio 1.80 TSH Urine Color Colorless Urine Clarity Clear Urine pH 5.0 Ur Specific [place] 1.002 Urine Protein Negative Urine Glucose (UA) Negative Urine Ketones Negative Urine Occult Blood Small H Urine Nitrate Negative Urine Bilirubin Negative Urine Urobilinogen Less than 2 Ur Leukocyte Esterase Trace H Urine RBC Less than 1 Urine WBC Less than 1 Urine Mucus Few H Micro UA Comment Culture not ind Ur Microscopic Review Not Reportable Urine Culture Comments Culture not ind Urine Opiates Screen Ur Barbiturates Screen Ur Amphetamines Screen U Benzodiazepines Scrn Urine Cocaine Screen U Cannabinoids Screen Serum Alcohol Mental Status Examination Appearance: Disheveled Consciousness: Alert Orientation: x4 Motor Activity: Other (No motor abnormalities noted) Speech: Hesitant Language: Adequate Fund of Knowledge: Adequate Attention and Concentration: Adequate Memory: Unremarkable Mood: Other (Depressed) Affect: Other (Restricted and withdrawn) Thought Process & Associations: Intact, Other (Slowed) Thought Content: Other (Some poverty of thought) Hallucination Type: None Delusion Type: None Suicidal Ideation: Yes (Ongoing) Suicidal Plan: No Suicidal Intention: No Homicidal Ideation: No Homicidal Plan: No Homicidal Intention: No Insight: Poor Judgment: Poor Assessment and Plan - Assessment (1) Major depressive disorder, recurrent severe without psychotic features Code(s): F33.2 - Major depressive disorder, recurrent severe without psychotic features Status: Acute (2) Alcohol dependence with acute alcoholic intoxication Code(s): F10.229 - Alcohol dependence with intoxication, unspecified Status: Acute - Plan Plan: Given the circumstances of her presentation here and her presentation on my examination today, I concur with Dr. Mcclendon that the patient meets criteria for involuntary psychiatric hospitalization under the Valadez act. Criteria include impairment in self-care and suicidal ideation. I have completed the second opinion paperwork. Further care as per Dr. Mcclendon. Thank you very much for this consultation. Signing off. Justification for Continued Inpatient Stay: Per Dr. Mcclendon. Request Healthcare Surrogate/Guardian Advocate?: Yes (2) Alcohol dependence with acute alcoholic intoxication Qualifiers: Complication of substance-induced condition: uncomplicated Qualified Code(s) : F10.220 - Alcohol dependence with intoxication, uncomplicated
--- NOTE | 2018-09-28 12:30 | P.PNPSY ---
Subjective Chief Complaint: Patient intoxicated unable to care for self Remarks: Patient seen in day room with floor staff, patient sitting in a [place] chair drinking but appears to be a glass of tea. Patient is alert she is oriented. She did recognize me. She has some attitude of irritability and anger and reluctance to speak with me. She continues to state "I do not want to talk today". Her hematoma and ecchymosis over the left lateral orbit is dark and spreading somewhat. When asked about how it happened she stated "I felt" giving no further details. When asked about her drinking and her admitting blood alcohol level she again refused to talk about it. When asked about placement issues upon discharge since in the past she has been homeless, she again stated I do not want to talk about it. I explained that she continues under the Valadez act and that she will probably be scheduled for [place] [facility] in 2 days. For now continue treatment. When asked about suicidality she vaguely denied that Review of Systems All other systems reviewed negative except as stated in HPI Mental Status Examination Appearance: Appropriate Consciousness: Alert Orientation: x4 Motor Activity: Other (Somewhat hesitant) Speech: Unremarkable (The responses are brief reluctant and irritable) Language: Adequate, Other (Patient is selectively mute and language overall has been adequate) Fund of Knowledge: Adequate Attention and Concentration: Adequate (Slightly distracted) Memory: Unremarkable (Fair) Mood: Sad, Irritable Affect: Other (Decreased range and increased intensity) Thought Process & Associations: Intact, Logical Thought Content: Appropriate Hallucination Type: None Delusion Type: None Suicidal Ideation: Yes (Vague) Suicidal Plan: No Suicidal Intention: No Homicidal Ideation: No Homicidal Plan: No Homicidal Intention: No Insight: Poor Judgment: Poor Assessment and Plan - Assessment (1) Alcohol dependence with acute alcoholic intoxication Code(s): F10.229 - Alcohol dependence with intoxication, unspecified Status: Acute (2) Major depressive disorder, recurrent severe without psychotic features Code(s): F33.2 - Major depressive disorder, recurrent severe without psychotic features Status: Acute - Plan Plan: Patient remains somewhat depressed and angry irritable demanding reluctant to share any of her behaviors Justification for Continued Inpatient Stay: At this time patient with decompensated placed on a lower level of care Discharge Planning: To be determined Request Healthcare Surrogate/Guardian Advocate?: Yes (1) Alcohol dependence with acute alcoholic intoxication Qualifiers: Complication of substance-induced condition: uncomplicated Qualified Code(s) : F10.220 - Alcohol dependence with intoxication, uncomplicated
--- NOTE | 2018-09-28 16:35 | ECG ---
Date Performed: 09/27/2018 Time Performed: 13:28:01 PTAGE: 78 years EKG: Sinus rhythm NORMAL ECG PREVIOUS TRACING : 09/26/2018 15.00 Since the previous tracing, no significant change noted DOCTOR: Aftab Skinner Interpretating Date/Time 09/28/2018 16:34:16
--- NOTE | 2018-09-28 17:19 | P.PNIM ---
Subjective Interval history: F/u visit for hypertension, anxiety,and depression Pt sitting in the day room, awake , alert and oriented x 3 Denies any pain or SOB, denies headache or dizziness, denies any discomfort Pt stated Eating well, sleeping well, Bowels are good Nurse reported Bp is better since medication was adjusted. C/p pt being incontinent. Physical Exam Vital signs: Last Vital Signs Temp 98.4 F 09/28/18 05:24 Pulse 76 09/28/18 05:24 Resp 17 09/28/18 05:24 BP 127/57 L 09/28/18 05:24 Pulse Ox 92 L 09/28/18 05:24 Intake & Output 09/26/18 09/27/18 09/28/18 09/29/18 06:59 06:59 06:59 06:59 Intake Total 1500 / 1500 1440 / 1440 1080 / 1080 Balance 1500 / 1500 1440 / 1440 1080 / 1080 Weight 67.23 kg Narrative: GENERAL: well developed, well nourished Elderly female, in no apparent distress SKIN: Warm and dry. HEAD: Atraumatic. Normocephalic. EYES: Pupils equal and round. Ecchymosis around the left eye. no injection or drainage ENT: No nasal bleeding or discharge. Mucous membranes pink and moist. NECK: Trachea midline. No JVD. CARDIOVASCULAR: Regular rate and rhythm. RESPIRATORY: No accessory muscle use. Clear to auscultation. Breath sounds equal bilaterally. GASTROINTESTINAL: Abdomen soft, non-tender, nondistended. Hepatic and splenic margins not palpable. MUSCULOSKELETAL: Extremities without clubbing, cyanosis, or edema. No obvious deformities. NEUROLOGICAL: Awake and alert. No obvious cranial nerve deficits. Motor grossly within normal limits. Generalized weakness, moving all 4 extremities. Normal speech. PSYCHIATRIC: flat mood and affect; insight and judgment poor Results Labs CBC & Chem 7: 09/25/18 22:30 09/27/18 06:20 Assessment and Plan (1) Major depressive disorder, recurrent severe without psychotic features: Code(s): F33.2 - Major depressive disorder, recurrent severe without psychotic features Status: Acute (2) Alcohol dependence with acute alcoholic intoxication: Code(s): F10.229 - Alcohol dependence with intoxication, unspecified Status: Acute Plan This is a 78-year old male with past medical history of hypertension, anxiety, depression that was admitted under Valadez act, after found to be laying outside [employer] on a position with several containers of alcohol around her. Hypertension Patient with history of her hypertension taking lisinopril at home BP elevated on admission, now slightly in the low side -decrease Lisinopril dose -Blood pressure elevated -Start on clonidine as needed for SBP greater than 160 or DBP greater than 90 -Monitor blood pressure, adjust medication as necessary Alcohol dependence with acute alcoholic intoxication Major depressive disorder, recurrent Anxiety and depression EtOH -CIWA protocol -Counseled on alcohol cessation given -Management by psychiatry team - cont home Zoloft Urinary incontinence -likely neurogenic bladder -send urine for UA with C and S if indicated to r/o infection -monitor signs and symptoms DVT Proph: pt ambulatory Progress Note: Quality VTE Deep Vein Thrombosis/Pulmonary Embolism Present on Admission: Yes _ (1) Alcohol dependence with acute alcoholic intoxication Qualifiers: Complication of substance-induced condition: uncomplicated Qualified Code(s) : F10.220 - Alcohol dependence with intoxication, uncomplicated
[2018-09-28 19:10] LABS: Bacteria,Urine Few /hpf; Bilirubin,Urine Negative (Negative); Clarity,Urine Hazy (Clear); Color,Urine Yellow (Yellw/Straw); Glucose,Urine (UA) Negative (Negative); Leukocyte Esterase,Urine Trace (Negative); Mucus,Urine Few /lpf (Occasional); Nitrite,Urine Negative (Negative)
[2018-09-28] MEDS: traZODone 50 MG Tablet PO SCH (20:07)
[2018-09-29] MEDS: Sertraline 100 MG Tablet PO SCH (09:17)
[2018-09-29] MEDS: Lisinopril 5 MG Tablet PO SCH (09:17)
[2018-09-29] MEDS: Famotidine 20 MG Tablet PO SCH ×2 (09:17→21:09)
[2018-09-29] MEDS: Calcium Carbonate 500 MG Tablet PO SCH ×3 (09:18→21:09)
--- NOTE | 2018-09-29 13:07 | P.PNIM ---
Subjective Interval history: Follow up hypertension, cold like symptoms Patient seen and examined while resting in bed. She complains of a runny nose, cough and cold/Flu type symptoms. She reports her cough has started a couple of days but she is feeling worse today. Denies chest pain or shortness of breath. Denies generalized body aches or pains, just generalized unwell feeling. Physical Exam Vital signs: Last Vital Signs Temp 99.9 F H 09/29/18 05:20 Pulse 72 09/29/18 05:20 Resp 16 09/29/18 05:20 BP 123/66 09/29/18 05:20 Pulse Ox 92 L 09/29/18 05:20 Intake & Output 09/27/18 09/28/18 09/29/18 09/30/18 06:59 06:59 06:59 06:59 Intake Total 1440 / 1440 1880 / 1880 1200 / 1200 Balance 1440 / 1440 1880 / 1880 1200 / 1200 Weight 67.23 kg Narrative: GENERAL: well developed, well nourished Elderly female, in no apparent distress SKIN: Warm and dry. HEAD: Atraumatic. Normocephalic. EYES: Pupils equal and round. Ecchymosis around the left eye. no injection or drainage ENT: No nasal bleeding or discharge. Mucous membranes pink and moist. NECK: Trachea midline. No JVD. CARDIOVASCULAR: Regular rate and rhythm. RESPIRATORY: No accessory muscle use. Clear to auscultation. Breath sounds equal bilaterally. GASTROINTESTINAL: Abdomen soft, non-tender, nondistended. Hepatic and splenic margins not palpable. MUSCULOSKELETAL: Extremities without clubbing, cyanosis, or edema. No obvious deformities. NEUROLOGICAL: Awake and alert. No obvious cranial nerve deficits. Motor grossly within normal limits. Generalized weakness, moving all 4 extremities. Normal speech. PSYCHIATRIC: flat mood and affect; insight and judgment poor Results Labs CBC & Chem 7: 09/25/18 22:30 09/27/18 06:20 Assessment and Plan (1) Major depressive disorder, recurrent severe without psychotic features: Code(s): F33.2 - Major depressive disorder, recurrent severe without psychotic features Status: Acute (2) Alcohol dependence with acute alcoholic intoxication: Code(s): F10.229 - Alcohol dependence with intoxication, unspecified Status: Acute Plan This is a 78-year old male with past medical history of hypertension, anxiety, depression that was admitted under [place] act, after found to be laying outside [employer] on a position with several containers of alcohol around her. Hypertension hx of hypertension, taking lisinopril at home BP elevated on admission, now normotensive s/p adjusting B/P med -Lisinopril dose decreased -continue clonidine as needed for SBP greater than 160 or DBP greater than 90 -continue to monitor blood pressure per unit protocol Cold like symptoms -rhinorrhea, cough, sore throat, generalized unwell feeling -Tmax 99.9F -throa lozenges -Influenza A&B antigen screen Alcohol use disorder w/ acute alcohol intoxication -CIWA protocol -Counseled on alcohol cessation given -Management by psychiatry team - cont home Zoloft Urinary incontinence -likely neurogenic bladder -send urine for UA with C and S if indicated to r/o infection -monitor signs and symptoms Major depressive disorder, recurrent Anxiety and depression -mgmt per psych DVT Proph: pt ambulatory Discussed Condition With: RN, patient Progress Note: Quality VTE Deep Vein Thrombosis/Pulmonary Embolism Present on Admission: Yes _ (1) Alcohol dependence with acute alcoholic intoxication Qualifiers: Complication of substance-induced condition: uncomplicated Qualified Code(s) : F10.220 - Alcohol dependence with intoxication, uncomplicated
--- NOTE | 2018-09-29 13:20 | P.TTN ---
- Patient Problems Problems: 1. Discharge planning 2. Medication compliance 3. Knowledge deficit 4. Lack of coping skills - Progress Toward Goals Provider Present: Dr. Leslie Mcclendon Provider Input: 09/29/18 Patient continues to down play her drinking. Patient is limited on speaking. Patient has [place] [address] tomorrow. Nurse Input: 09/29/18 Patient is alert and oriented. Patient is very limited on verbalizing. Psychiatric Counselors Present: Yuliana Obregon [facility] Psychiatric Therapist Input: 09/29/18 Patient is alert and oriented. Patient is very selective in talking to this counselor. Patient will attend [employer] [address] tomorrow. Patient gave permission to contact daughter. Group Spec/RT/OT/EISENBERG Present: Dominik Salinas OT Group Spec/RT/OT/EISENBERG Input: 09/29/18 Patient is not able to tolerate groups. - Documentation Teaching Recipient: Patient
--- NOTE | 2018-09-29 13:41 | P.PNPSY ---
Subjective Chief Complaint: Patient intoxicated unable to care for self Remarks: Patient seen in her room with nurse Bharati, chart reviewed, patient compliant medication. Patient remains irritable and resistant to treatment with her responses being very briefly short with me. She continues to show no insight into her disease. It appears she still does not want any type of recommendation for treatment of her alcohol related issues. She states when she leaves here she can maybe stay with her son in [facility] with her sister. Though we have had to little to no success with getting referrals for families for this homeless woman. Patient is scheduled for [place] [facility] tomorrow Review of Systems All other systems reviewed negative except as stated in HPI Mental Status Examination Appearance: Appropriate Consciousness: Alert Orientation: x4 Motor Activity: Other (No motor abnormalities noted) Speech: Hesitant Language: Adequate Fund of Knowledge: Adequate Attention and Concentration: Adequate Memory: Unremarkable Mood: Other (Depressed) Affect: Other (Restricted and withdrawn) Thought Process & Associations: Intact, Other (Slowed) Thought Content: Other (Some poverty of thought) Hallucination Type: None Delusion Type: None Suicidal Ideation: Yes (Ongoing) Suicidal Plan: No Suicidal Intention: No Homicidal Ideation: No Homicidal Plan: No Homicidal Intention: No Insight: Poor Judgment: Poor Assessment and Plan - Assessment (1) Major depressive disorder, recurrent severe without psychotic features Code(s): F33.2 - Major depressive disorder, recurrent severe without psychotic features Status: Acute (2) Alcohol dependence with acute alcoholic intoxication Code(s): F10.229 - Alcohol dependence with intoxication, unspecified Status: Acute - Plan Plan: Patient remains somewhat depressed. Though she denies suicidality voices or visions. While she still shows no significant insight into the role that alcohol plays in her life her heart is devastated her family relations Justification for Continued Inpatient Stay: At this time patient with decompensated placed in a lower level of care Discharge Planning: To be determined Request Healthcare Surrogate/Guardian Advocate?: Yes (2) Alcohol dependence with acute alcoholic intoxication Qualifiers: Complication of substance-induced condition: uncomplicated Qualified Code(s) : F10.220 - Alcohol dependence with intoxication, uncomplicated
[2018-09-29] MEDS ORDERED: Benzocaine/Menthol 15 MG/3.6 MG SF Lozenge BUCCAL PRN (14:22)
[2018-09-29] MEDS: Acetaminophen 325 MG Tablet PO PRN (17:15)
[2018-09-29] MEDS: traZODone 50 MG Tablet PO SCH (21:02)
[2018-09-30] MEDS: Sertraline 100 MG Tablet PO SCH (08:38)
[2018-09-30] MEDS: Lisinopril 5 MG Tablet PO SCH (08:38)
[2018-09-30] MEDS: Calcium Carbonate 500 MG Tablet PO SCH ×3 (08:38→20:49)
[2018-09-30] MEDS: Famotidine 20 MG Tablet PO SCH ×2 (08:38→20:49)
--- NOTE | 2018-09-30 14:25 | P.PNPSY ---
Subjective Chief Complaint: Patient intoxicated unable to care for self Remarks: Patient seen and [place] [address] with Assistant Nurse Manager Mike. Anthony [facility] decided to allow patient 24-48 hours to find a sober living facility. Patient gave verbal agreement and willingness to go to a sober living facility and to stay there for treatment. Patient earlier this morning was given that information. He appears she has not made much of an effort. Patient seen by me this afternoon laying in bed making no effort. She remains irritable. She denies suicidality or homicidality voices or visions. She is aware of the fact that if she does not find a sober living facility by tomorrow she will be discharged to herself with no placement. Review of Systems All other systems reviewed negative except as stated in HPI Mental Status Examination Appearance: Appropriate Consciousness: Alert Orientation: x4 Motor Activity: Other (No motor abnormalities noted) Speech: Hesitant Language: Adequate Fund of Knowledge: Adequate Attention and Concentration: Adequate Memory: Unremarkable Mood: Irritable, Other (Depressed) Affect: Other (Restricted and withdrawn) Thought Process & Associations: Intact, Other (Slowed) Thought Content: Appropriate Hallucination Type: None Delusion Type: None Suicidal Ideation: Yes (Denies today) Suicidal Plan: No Suicidal Intention: No Homicidal Ideation: No Homicidal Plan: No Homicidal Intention: No Insight: Poor Judgment: Poor Assessment and Plan - Assessment (1) Major depressive disorder, recurrent severe without psychotic features Code(s): F33.2 - Major depressive disorder, recurrent severe without psychotic features Status: Acute (2) Alcohol dependence with acute alcoholic intoxication Code(s): F10.229 - Alcohol dependence with intoxication, unspecified Status: Acute - Plan Plan: Per Anthony [place] patient was given 1-2 days to find a sober living facility. Patient made verbal agreement with the drugs to do this. It appears she is really not making significant effort on the unit. Thus patient will probably be discharged tomorrow to herself Justification for Continued Inpatient Stay: Continue to have her try to find a sober living facility Discharge Planning: Possible discharge to herself tomorrow Request Healthcare Surrogate/Guardian Advocate?: Yes (2) Alcohol dependence with acute alcoholic intoxication Qualifiers: Complication of substance-induced condition: uncomplicated Qualified Code(s) : F10.220 - Alcohol dependence with intoxication, uncomplicated
--- NOTE | 2018-09-30 14:27 | P.PNIM ---
Subjective Interval history: Follow up cold like symptoms, hypertension Patient seen and examined while sitting up in her bed in her room. She reports feeling significantly better today. Denies congestion, cough, fevers or chills. She states her throat pain is imroved. Physical Exam Vital signs: Last Vital Signs Temp 98.7 F 09/30/18 05:51 Pulse 65 09/30/18 05:51 Resp 14 09/30/18 05:51 BP 136/63 09/30/18 05:51 Pulse Ox 93 L 09/29/18 17:11 Intake & Output 09/28/18 09/29/18 09/30/18 10/01/18 06:59 06:59 06:59 06:59 Intake Total 1440 / 1440 1880 / 1880 2310 / 2310 240 / 240 Balance 1440 / 1440 1880 / 1880 2310 / 2310 240 / 240 Narrative: GENERAL: well developed, well nourished elderly female, in no apparent distress SKIN: warm and dry HEAD: atraumatic, normocephalic EYES: Pupils equal and round. Ecchymosis around the left eye. no injection or drainage ENT: No nasal bleeding or discharge. Mucous membranes pink and moist. NECK: Trachea midline. No JVD. CARDIOVASCULAR: Regular rate and rhythm. RESPIRATORY: No accessory muscle use. Clear to auscultation. Breath sounds equal bilaterally. GASTROINTESTINAL: Abdomen soft, non-tender, nondistended. Hepatic and splenic margins not palpable. MUSCULOSKELETAL: Extremities without clubbing, cyanosis, or edema. No obvious deformities. NEUROLOGICAL: Awake and alert. No obvious cranial nerve deficits. Motor grossly within normal limits. Generalized weakness, moving all 4 extremities. Normal speech. PSYCHIATRIC: flat mood and affect; insight and judgment poor Results Labs CBC & Chem 7: 09/25/18 22:30 09/30/18 15:50 Assessment and Plan (1) Major depressive disorder, recurrent severe without psychotic features: Code(s): F33.2 - Major depressive disorder, recurrent severe without psychotic features Status: Acute (2) Alcohol dependence with acute alcoholic intoxication: Code(s): F10.229 - Alcohol dependence with intoxication, unspecified Status: Acute Plan This is a 78-year old male with past medical history of hypertension, anxiety, depression that was admitted under Valadez act, after found to be laying outside [employer] on a position with several containers of alcohol around her. Hypertension - controlled hx of hypertension, taking lisinopril at home BP elevated on admission, now normotensive s/p adjusting B/P med -Lisinopril dose decreased, continue current dose of 15 mg PO daily -continue clonidine as needed for SBP greater than 160 or DBP greater than 90 -continue to monitor blood pressure per unit protocol Cold like symptoms -resolved -continue throat lozenges Alcohol use disorder w/ acute alcohol intoxication -CIWA protocol -Management by psychiatry team Urinary incontinence -likely neurogenic bladder -monitor signs and symptoms Major depressive disorder, recurrent Anxiety and depression -mgmt per psych DVT Proph: pt ambulatory Thank you for this consult. Patient appears to be medically stable and no changes to current medical plan are needed at this time. Please reconsult if there are additional concerns. Discussed Condition With: RN, patient Progress Note: Quality VTE Deep Vein Thrombosis/Pulmonary Embolism Present on Admission: Yes _ (1) Alcohol dependence with acute alcoholic intoxication Qualifiers: Complication of substance-induced condition: uncomplicated Qualified Code(s) : F10.220 - Alcohol dependence with intoxication, uncomplicated
[2018-09-30 17:07] LABS: Anion Gap 6 meq/L (5-15); Blood Urea Nitrogen 8 mg/dL (7-18); Calcium 7.9 mg/dL (8.5-10.1); Carbon Dioxide 29.5 meq/L (21.0-32.0); Chloride 98 meq/L (98-107); Glomerular Filtration Rate Greater Than 89 mL/min (>89); Glucose,Random 88 mg/dL (74-106); Potassium 3.8 meq/L (3.5-5.1); Sodium 133 meq/L (136-145)
[2018-09-30] MEDS: traZODone 50 MG Tablet PO SCH (20:49)
[2018-10-01] MEDS: Famotidine 20 MG Tablet PO SCH ×2 (09:29→21:19)
[2018-10-01] MEDS: Lisinopril 5 MG Tablet PO SCH (09:29)
[2018-10-01] MEDS: Sertraline 100 MG Tablet PO SCH (09:30)
[2018-10-01] MEDS: Calcium Carbonate 500 MG Tablet PO SCH ×2 (10:18→21:19)
--- NOTE | 2018-10-01 11:20 | P.DSPSY ---
Psychiatry Discharge Summary Inpatient Psychiatric care?: Yes Advance Directives: No Mental Health Advance Directive: No Health Care Proxy: No - Admission Admission Date: September 26, 2018 15:21 - Admission Diagnosis (1) Alcohol dependence with acute alcoholic intoxication Code(s): F10.229 - Alcohol dependence with intoxication, unspecified (2) Major depressive disorder, recurrent severe without psychotic features Code(s): F33.2 - Major depressive disorder, recurrent severe without psychotic features Brief History: Patient is a 78-year-old white female comes here under Val[place]z act by the [facility]'s office dated 09/25/2018 at 2040 9 PM that document reviewed essentially stating Kasey was located outside of a [employer] store of the ground in the position with several containers of alcohol around her. Kasey was visibly intoxicated had sold her clothing. 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 She has refused to identify herself. She does then stated several times that she wanted to . Patient seen screen in the ED at [facility]. Urine toxicology negative blood alcohol level of 273 at about 10 PM in the evening patient's EMR reviewed she has had prior visits or hospitalizations with us she was seen here on 01/10/2018 with a blood alcohol level of 312 she was hospitalized here 08/20/2018 with a blood alcohol level of 290. Patient is homeless chronic alcoholic. While she does have multiple children she has burned her bridges with them. They want nothing to do with her. Though it appears patient was found with the prior assessment at her daughter's house though there is a restraining order against her. At the present time patient laying in her bed on 2700 nurse Bharati present throughout session. Patient is laying quietly on her side, when I introduced myself to her she said "you again I do not want to talk to you." And then she rolled over away from me. Staff stated they have noticed she does have ecchymosis over her left orbit, and multiple bruises on her body. That night she came in she was quite unkempt with significant body odor and self neglect. Though her hair appears to be in fairly good condition. At this time patient does not meet criteria for acute inpatient psychiatric hospitalization under the [place]z act I will do first opinion request second opinion. At this time I also feel she does not have capacity to make decisions concerning her care thus I will ask for healthcare surrogate and guardian advocate. We will continue her on the ciga protocol. While she is on lisinopril her blood pressure stable at this time list per request of the hospitalist will refrain from consultation unless the patient becomes more symptomatic. Tobacco Use In Past 30 Days: Yes How Often Do You Have a Drink Containing Alcohol: 4 or more times a week Hospital Course: Patient is hospitalization was uneventful. [id number] no initiative or willingness to participate in any activities on the unit she was able to do her ADLs and take her meals. Any attempts to discuss the role alcohol has played in her life was met with irritability resistance and denial. She was compliant with her medications. She did denies suicidality voices or visions. This is similar to the behavior she exhibited with her prior hospitalization. Patient was taken to [place] court yesterday. She did verbalize a willingness to call sober living facilities and a willingness to go to 1 of those facilities. However patient made no significant effort to make phone calls or attempt to find a facility. She was told in court and by me this would lead to her being discharged without placement. Patient has made no effort. Thus patient will be discharged today to herself. We again have offered her transportation and referral to sober living facilities both here and in [place] and also to homeless shelters she is refusing to accept those referrals. She continues to be denies suicidality homicidality voices or visions. At this time I feel she is reached maximum benefit of this hospitalization. Though she does continue to resist any attempts to help her maintain sobriety. Thus patient to be discharged today to herself with recommendations as mentioned above - Discharge Discharge Date: 10/01/18 - Discharge Diagnosis (1) Alcohol dependence with acute alcoholic intoxication Diagnosis: Principal Code(s): F10.229 - Alcohol dependence with intoxication, unspecified Status: Acute (2) Major depressive disorder, recurrent severe without psychotic features Diagnosis: Principal () Code(s): F33.2 - Major depressive disorder, recurrent severe without psychotic features Status: Acute Discharge Disposition: Patient to discharged to herself - Discharge Instructions Discharge Diet: Regular Diet Activities You Can Perform: Regular- No Restrictions - Discharge Time > 30 minutes Mental Status Examination Appearance: Appropriate Consciousness: Alert Orientation: x4 Motor Activity: Other (No motor abnormalities noted) Speech: Hesitant Language: Adequate Fund of Knowledge: Adequate Attention and Concentration: Adequate Memory: Unremarkable Mood: Irritable, Other (Depressed) Affect: Other (Restricted and withdrawn) Thought Process & Associations: Intact, Other (Slowed) Thought Content: Appropriate Hallucination Type: None Delusion Type: None Suicidal Ideation: Yes (Denies today) Suicidal Plan: No Suicidal Intention: No Homicidal Ideation: No Homicidal Plan: No Homicidal Intention: No Insight: Poor Judgment: Poor Discharge/Advance Care Plan - Results Vital Signs: Last Vital Signs Temp 98 F 10/01/18 06:00 Pulse 69 10/01/18 06:00 Resp 16 10/01/18 06:00 BP 152/70 H 10/01/18 06:00 Pulse Ox 95 10/01/18 06:00 Lab Results: Abnormal Lab Results 09/30/18 15:50 Sodium 133 L Potassium 3.8 Chloride 98 Carbon Dioxide 29.5 Anion Gap 6 BUN 8 Creatinine 0.54 Estimated GFR Greater than 89 Random Glucose 88 Calcium 7.9 L Laboratory Results Hemoglobin A1c 5.8 % (4.3-6.0) 09/27/18 06:20 Triglycerides 49 mg/dL (42-150) 09/27/18 06:20 Cholesterol 130 mg/dL (120-200) 09/27/18 06:20 LDL Cholesterol, Calc 48 mg/dL (0-99) 09/27/18 06:20 HDL Cholesterol 71.9 mg/dL (40.0-60.0) H 09/27/18 06:20 TSH 2.670 uIU/mL (0.358-3.740) 09/25/18 22:30 Urine Culture Comments Culture not ind 09/28/18 18:20 Summary of Procedures: None done Pending Results: None - Medications Number of antipsychotic medications at discharge: 0 - Discharge Care Plan Goals to Promote Your Health: * To prevent worsening of your condition and complications * To maintain your health at the optimal level Directions to Meet Your Goals: Take your medications as prescribed Follow your dietary instruction Follow activity as directed Keep your appointments as scheduled Take your immunizations and boosters as scheduled If your symptoms worsen call your PCP, if no PCP go to Urgent Care Center or Emergency Room For 04/05 questions related to your inpatient stay or results of tests pending at discharge, please contact Dr. Willam Mcclendon MD at Smoking is Dangerous to Your Health. Avoid second hand smoking (1) Alcohol dependence with acute alcoholic intoxication Qualifiers: Complication of substance-induced condition: uncomplicated Qualified Code(s) : F10.220 - Alcohol dependence with intoxication, uncomplicated (1) Alcohol dependence with acute alcoholic intoxication Qualifiers: Complication of substance-induced condition: uncomplicated Qualified Code(s) : F10.220 - Alcohol dependence with intoxication, uncomplicated
[2018-10-01] MEDS: traZODone 50 MG Tablet PO SCH (21:20)
[2018-10-02] MEDS: Sertraline 100 MG Tablet PO SCH (08:34)
[2018-10-02] MEDS: Famotidine 20 MG Tablet PO SCH ×2 (08:35→20:27)
[2018-10-02] MEDS: Calcium Carbonate 500 MG Tablet PO SCH ×2 (08:35→20:27)
[2018-10-02] MEDS: Lisinopril 5 MG Tablet PO SCH ×2 (08:38→09:00)
--- NOTE | 2018-10-02 14:04 | P.PNPSY ---
Subjective Chief Complaint: Follow-up treatment of depression in association with chronic alcohol use disorder. Remarks: Patient seen for follow-up, chart reviewed, patient discussed with nursing staff ; we reviewed the patient's mood, thoughts, and behaviors from overnight and this morning. Nurse reports that patient was discharged as planned yesterday but immediately returned to the emergency room complaining of depression and not feeling safe. The patient had not officially been discharged yet so her discharge orders were discontinued and she was brought back to the unit. The patient has been calm and cooperative with treatment. She was seen at bedside after breakfast and complained of a lack of efficacy from her Zoloft dose. She reports continued anxiety and worries that can be overwhelming as was the case yesterday. She rates her depression as 5 out of 10. She considers herself a high risk for relapse of alcohol use. She denies active suicidal ideations. Review of Systems All other systems reviewed negative except as stated in HPI Mental Status Examination Appearance: Appropriate Consciousness: Alert Orientation: x4 Motor Activity: Other (No motor abnormalities noted) Speech: Hesitant Language: Adequate Fund of Knowledge: Adequate Attention and Concentration: Adequate Memory: Unremarkable Mood: Irritable, Other (Depressed) Affect: Other (Restricted and withdrawn) Thought Process & Associations: Intact, Other (Slowed) Thought Content: Appropriate Hallucination Type: None Delusion Type: None Suicidal Ideation: Yes (Denies today) Suicidal Plan: No Suicidal Intention: No Homicidal Ideation: No Homicidal Plan: No Homicidal Intention: No Insight: Poor Judgment: Poor Assessment and Plan - Assessment (1) Major depressive disorder, recurrent severe without psychotic features Code(s): F33.2 - Major depressive disorder, recurrent severe without psychotic features Status: Acute (2) Alcohol dependence with acute alcoholic intoxication Code(s): F10.229 - Alcohol dependence with intoxication, unspecified Status: Acute - Plan Plan: 10/02/2018: Unsatisfactory response to treatment of her depression and chronic alcoholism; the patient continues to complain of depressed mood with intermittent suicidal thoughts and anxiety that can be overwhelming as was the case with attempts to discharge her yesterday. The patient is currently treated with Zoloft 100 mg a day for mood and anxiety, trazodone 50 mg at bedtime for sleep, and Atarax 25-50 mg every 6 hours as needed for anxiety. Recommended to patient that she continue these medications and discussed the possibility of increased doses or alternative treatments with her regular attending on Thursday. Justification for Continued Inpatient Stay: Patient remains an elevated risk for self-harm and will require further inpatient stabilization and preparation of a safe discharge plan. Moving patient to a less restrictive environment at this time may result in decompensation. Request Healthcare Surrogate/Guardian Advocate?: Yes (2) Alcohol dependence with acute alcoholic intoxication Qualifiers: Complication of substance-induced condition: uncomplicated Qualified Code(s) : F10.220 - Alcohol dependence with intoxication, uncomplicated
[2018-10-02] MEDS: traZODone 50 MG Tablet PO SCH (20:27)
[2018-10-03] MEDS: Lisinopril 5 MG Tablet PO SCH (08:37)
[2018-10-03] MEDS: Famotidine 20 MG Tablet PO SCH ×2 (08:37→20:30)
[2018-10-03] MEDS: Sertraline 100 MG Tablet PO SCH ×2 (08:38→10:24)
[2018-10-03] MEDS: Calcium Carbonate 500 MG Tablet PO SCH ×3 (08:38→20:30)
--- NOTE | 2018-10-03 10:20 | P.PNPSY ---
Subjective Chief Complaint: Follow-up treatment of depression in association with chronic alcohol use disorder. Remarks: Reviewed electronic record and discussed with nursing staff. Rounded with BEAR Pardo. Patient in common area eating breakfast. She is distant and states, " I don't want any help." She is under the impression that she is being discharged to live with her son. She does not feel that her drinking is any concern of the medical staff and states, " I am going to do what I want to do." Nursing staff state she is sleeping and eating well. No signs of tremors, CIWA is zero. She does not feel that she is getting any efficacy from her current medications. She is discharge focused. Denies SI/HI. Review of Systems All other systems reviewed negative except as stated in HPI Mental Status Examination Appearance: Appropriate Consciousness: Alert Orientation: x4 Motor Activity: Other (No motor abnormalities noted) Speech: Hesitant Language: Adequate Fund of Knowledge: Adequate Attention and Concentration: Adequate Memory: Unremarkable Mood: Irritable, Other (Depressed) Affect: Other (Restricted and withdrawn) Thought Process & Associations: Intact, Other (Slowed) Thought Content: Appropriate Hallucination Type: None Delusion Type: None Suicidal Ideation: No Suicidal Plan: No Suicidal Intention: No Homicidal Ideation: No Homicidal Plan: No Homicidal Intention: No Insight: Poor Judgment: Poor Assessment and Plan - Assessment (1) Alcohol abuse Code(s): F10.10 - Alcohol abuse, uncomplicated Status: Acute (2) Major depressive disorder, recurrent severe without psychotic features Code(s): F33.2 - Major depressive disorder, recurrent severe without psychotic features Status: Acute - Plan Plan: 10/03/18 continue current treatment plan. Regular attending to review medications on Thursday. 10/02/2018: Unsatisfactory response to treatment of her depression and chronic alcoholism; the patient continues to complain of depressed mood with intermittent suicidal thoughts and anxiety that can be overwhelming as was the case with attempts to discharge her yesterday. The patient is currently treated with Zoloft 100 mg a day for mood and anxiety, trazodone 50 mg at bedtime for sleep, and Atarax 25-50 mg every 6 hours as needed for anxiety. Recommended to patient that she continue these medications and discussed the possibility of increased doses or alternative treatments with her regular attending on Thursday. Justification for Continued Inpatient Stay: Moving patient to a less restrictive environment may result in her decompensation. Request Healthcare Surrogate/Guardian Advocate?: Yes
[2018-10-03] MEDS: Acetaminophen 325 MG Tablet PO PRN (19:39)
[2018-10-03] MEDS: traZODone 50 MG Tablet PO SCH (20:30)
[2018-10-04] MEDS: Lisinopril 5 MG Tablet PO SCH (09:21)
[2018-10-04] MEDS: Calcium Carbonate 500 MG Tablet PO SCH ×2 (09:21→20:38)
[2018-10-04] MEDS: Sertraline 100 MG Tablet PO SCH (09:21)
[2018-10-04] MEDS: Famotidine 20 MG Tablet PO SCH ×2 (09:21→20:38)
--- NOTE | 2018-10-04 13:24 | P.PNPSY ---
Subjective Chief Complaint: Follow-up treatment of depression in association with chronic alcohol use disorder. Remarks: Patient seen laying in bed with nurse Eve. Chart reviewed. Patient compliant medication. Patient is not needed any medication per the ciwa protocol. Patient is alert oriented calm though guarded complaints of being homeless and not having any money until October 12. I discussed with her the increasing documentation of the severity of her alcohol related problems and her inability to appropriately address them or treat them. I also explained to her the [place] act and how it was similar to and how it was different from the [place] act. Our treatment team is considering initiating a [place] act on this lady. I feel as does the treatment team that this lady has very little insight or desire to maintain sobriety and had almost 79 years of age and showing how fragile she is free of is a high risk that her continuation of her drinking could be devastating to her thus we are exploring possibly initiating a [place] act Review of Systems All other systems reviewed negative except as stated in HPI Mental Status Examination Appearance: Appropriate Consciousness: Alert Orientation: x4 Motor Activity: Other (No motor abnormalities noted) Speech: Hesitant Language: Adequate Fund of Knowledge: Adequate Attention and Concentration: Adequate Memory: Unremarkable Mood: Irritable, Other (Depressed) Affect: Other (Decreased range and intensity) Thought Process & Associations: Intact, Other (Slowed) Thought Content: Appropriate Hallucination Type: None Delusion Type: None Suicidal Ideation: No Suicidal Plan: No Suicidal Intention: No Homicidal Ideation: No Homicidal Plan: No Homicidal Intention: No Insight: Poor Judgment: Poor Assessment and Plan - Assessment (1) Major depressive disorder, recurrent severe without psychotic features Code(s): F33.2 - Major depressive disorder, recurrent severe without psychotic features Status: Acute (2) Alcohol dependence with acute alcoholic intoxication Code(s): F10.229 - Alcohol dependence with intoxication, unspecified Status: Acute - Plan Plan: Patient continues quite depressed when she is does denies suicidality at this time. Refilled a major contributing factor to all of this is her severe alcohol related problems. We are considering initiating a [place] act. I have discontinued all ciwa protocol orders at this time Justification for Continued Inpatient Stay: At this time patient with decompensated placed on a lower level of care Discharge Planning: To be determined Request Healthcare Surrogate/Guardian Advocate?: Yes (2) Alcohol dependence with acute alcoholic intoxication Qualifiers: Complication of substance-induced condition: uncomplicated Qualified Code(s) : F10.220 - Alcohol dependence with intoxication, uncomplicated
[2018-10-04] MEDS: Acetaminophen 325 MG Tablet PO PRN (15:16)
[2018-10-04] MEDS: traZODone 50 MG Tablet PO SCH (20:38)
[2018-10-05] MEDS: Lisinopril 5 MG Tablet PO SCH (08:15)
[2018-10-05] MEDS: Calcium Carbonate 500 MG Tablet PO SCH ×2 (08:16→20:50)
[2018-10-05] MEDS: Famotidine 20 MG Tablet PO SCH ×2 (08:16→20:50)
[2018-10-05] MEDS: Sertraline 100 MG Tablet PO SCH (08:16)
--- NOTE | 2018-10-05 12:22 | P.PNPSY ---
Subjective Chief Complaint: Follow-up treatment of depression in association with chronic alcohol use disorder. Remarks: Patient is seen today in her room with nurse Kathleen, chart reviewed, patient compliant medication. Patient showing some increased affect better eye contact and somewhat more active. Continue to discuss with her severity of her alcohol related issues past history of noncompliance medication and recidivism into her alcoholism. I also shared with her life consideration of initiating a [place] act she became somewhat irritable and irritated with that. For now continue treatment Review of Systems All other systems reviewed negative except as stated in HPI Mental Status Examination Appearance: Appropriate Consciousness: Alert Orientation: x4 Motor Activity: Other (No motor abnormalities noted) Speech: Hesitant (Improved) Language: Adequate Fund of Knowledge: Adequate Attention and Concentration: Adequate Memory: Unremarkable Mood: Irritable, Other (Depressed improved) Affect: Other (Decreased range and intensity) Thought Process & Associations: Intact Thought Content: Appropriate Hallucination Type: None Delusion Type: None Suicidal Ideation: No Suicidal Plan: No Suicidal Intention: No Homicidal Ideation: No Homicidal Plan: No Homicidal Intention: No Insight: Poor Judgment: Poor Assessment and Plan - Assessment (1) Major depressive disorder, recurrent severe without psychotic features Code(s): F33.2 - Major depressive disorder, recurrent severe without psychotic features Status: Acute (2) Alcohol dependence with acute alcoholic intoxication Code(s): F10.229 - Alcohol dependence with intoxication, unspecified Status: Acute - Plan Plan: Patient depression improved somewhat, she is becoming somewhat more calm and appropriate however when discussing her alcohol related problems and the possibility of a [place] act she became more irritable and angry. For now continue treatment Justification for Continued Inpatient Stay: At this time patient would decompensate if placed in a lower level of care Discharge Planning: To be determined perhaps through a [place] act Request Healthcare Surrogate/Guardian Advocate?: Yes (2) Alcohol dependence with acute alcoholic intoxication Qualifiers: Complication of substance-induced condition: uncomplicated Qualified Code(s) : F10.220 - Alcohol dependence with intoxication, uncomplicated
[2018-10-05] MEDS: Acetaminophen 325 MG Tablet PO PRN (14:24)
[2018-10-05] MEDS: traZODone 50 MG Tablet PO SCH (20:50)
[2018-10-06] MEDS: Sertraline 100 MG Tablet PO SCH (08:45)
[2018-10-06] MEDS: Famotidine 20 MG Tablet PO SCH ×2 (08:45→20:58)
[2018-10-06] MEDS: Lisinopril 5 MG Tablet PO SCH (08:45)
[2018-10-06] MEDS: Calcium Carbonate 500 MG Tablet PO SCH ×3 (08:45→20:58)
--- NOTE | 2018-10-06 12:33 | P.PNPSY ---
Subjective Chief Complaint: Follow-up treatment of depression in association with chronic alcohol use disorder. Remarks: Patient is seen in her room with nurse Karrie, chart reviewed, patient compliant medication. When I was attempting to discuss [place] hearing for tomorrow and the [place] act patient became quite angry and irritable with me and said "please do not Magdiel me anymore" patient continues to show no insight into her disease arts devastation. We will discuss this with [place] charge tomorrow. For now continue treatment Review of Systems All other systems reviewed negative except as stated in HPI Mental Status Examination Appearance: Appropriate Consciousness: Alert Orientation: x4 Motor Activity: Other (No motor abnormalities noted) Speech: Hesitant (Improved) Language: Adequate Fund of Knowledge: Adequate Attention and Concentration: Adequate Memory: Unremarkable Mood: Angry, Oppositional, Irritable, Other (Depressed improved) Affect: Other (Increased intensity decreased range) Thought Process & Associations: Intact Thought Content: Appropriate Hallucination Type: None Delusion Type: None Suicidal Ideation: No Suicidal Plan: No Suicidal Intention: No Homicidal Ideation: No Homicidal Plan: No Homicidal Intention: No Insight: Poor Judgment: Poor Assessment and Plan - Assessment (1) Major depressive disorder, recurrent severe without psychotic features Code(s): F33.2 - Major depressive disorder, recurrent severe without psychotic features Status: Acute (2) Alcohol dependence with acute alcoholic intoxication Code(s): F10.229 - Alcohol dependence with intoxication, unspecified Status: Acute - Plan Plan: Patient depression is improving remains angry irritable when discussing the role alcohol plays in her life. And also with our attempts at finding a sober living facility for this 78-year-old lady Justification for Continued Inpatient Stay: At this time patient with decompensated placed in a lower level of care Discharge Planning: To be determined Request Healthcare Surrogate/Guardian Advocate?: Yes (2) Alcohol dependence with acute alcoholic intoxication Qualifiers: Complication of substance-induced condition: uncomplicated Qualified Code(s) : F10.220 - Alcohol dependence with intoxication, uncomplicated
[2018-10-06] MEDS: Acetaminophen 325 MG Tablet PO PRN (12:43)
[2018-10-06] MEDS: traZODone 50 MG Tablet PO SCH (20:59)
[2018-10-07] MEDS: Famotidine 20 MG Tablet PO SCH ×2 (08:53→21:37)
[2018-10-07] MEDS: Sertraline 100 MG Tablet PO SCH (08:53)
[2018-10-07] MEDS: Lisinopril 5 MG Tablet PO SCH (08:53)
[2018-10-07] MEDS: Calcium Carbonate 500 MG Tablet PO SCH ×2 (10:16→21:37)
--- NOTE | 2018-10-07 10:41 | P.PNPSY ---
Subjective Chief Complaint: Follow-up treatment of depression in association with chronic alcohol use disorder. Remarks: Patient is scheduled for [employer] today, patient refused to come to [employer] today, [place] was held without her. We discussed with [place] court charge Mike her recidivistic history with alcohol use and her refusal to accept treatment, and her need for treatment. We also discussed the [employer] act that I have initiated. Anthony Mckeon is ordered patient to be retained here under the [employer] act. She also recommends continuation of the [employer] act until its hearing next week at that time have the patient brought to [place] for further adjudication. For now we will continue treatment no other changes. Attempted to speak with patient after [employer] today she remains angry irritable showing no insight into her disease. Review of Systems All other systems reviewed negative except as stated in HPI Mental Status Examination Appearance: Appropriate Consciousness: Alert Orientation: x4 Motor Activity: Other (No motor abnormalities noted) Speech: Hesitant (Improved) Language: Adequate Fund of Knowledge: Adequate Attention and Concentration: Adequate Memory: Unremarkable Mood: Angry, Oppositional, Irritable, Other (Depressed improved) Affect: Other (Decreased range and intensity) Thought Process & Associations: Intact, Linear Thought Content: Appropriate Hallucination Type: None Delusion Type: None Suicidal Ideation: No Suicidal Plan: No Suicidal Intention: No Homicidal Ideation: No Homicidal Plan: No Homicidal Intention: No Insight: Poor Judgment: Poor Assessment and Plan - Assessment (1) Major depressive disorder, recurrent severe without psychotic features Code(s): F33.2 - Major depressive disorder, recurrent severe without psychotic features Status: Acute (2) Alcohol dependence with acute alcoholic intoxication Code(s): F10.229 - Alcohol dependence with intoxication, unspecified Status: Acute - Plan Plan: Patient remains angry irritable somewhat depressed though alert and oriented. Patient retained by Anthony Mike in anticipation of follow-up through [place] court. For now continue treatment Justification for Continued Inpatient Stay: At this point patient would decompensated placed in a lower level of care Discharge Planning: To be determined perhaps through [place] court Request Healthcare Surrogate/Guardian Advocate?: Yes (2) Alcohol dependence with acute alcoholic intoxication Qualifiers: Complication of substance-induced condition: uncomplicated Qualified Code(s) : F10.220 - Alcohol dependence with intoxication, uncomplicated
[2018-10-07] MEDS: Acetaminophen 325 MG Tablet PO PRN (14:18)
[2018-10-07] MEDS: traZODone 50 MG Tablet PO SCH (21:37)
[2018-10-08] MEDS: Famotidine 20 MG Tablet PO SCH ×2 (08:46→20:41)
[2018-10-08] MEDS: Calcium Carbonate 500 MG Tablet PO SCH ×3 (08:46→20:51)
[2018-10-08] MEDS: Sertraline 100 MG Tablet PO SCH (08:46)
[2018-10-08] MEDS: Lisinopril 5 MG Tablet PO SCH (08:46)
[2018-10-08] MEDS: Acetaminophen 325 MG Tablet PO PRN ×2 (10:51→20:55)
--- NOTE | 2018-10-08 11:11 | P.PNPSY ---
Subjective Chief Complaint: Follow-up treatment of depression in association with chronic alcohol use disorder. Remarks: Patient seen in her room with nurse and, chart reviewed, patient compliant medication. Attempted to discuss findings discussions during [place] [place] hearing with Sales Lead Generator Mike. Patient continues to show no insight into the severity of her alcoholism. She even denies the ostracism of that she is experiencing with her children. She was made aware of the fact that she has been retained under the [employer] act. That she will be scheduled for [employer] act October 14. The patient will be discharged from [facility], transported to the [facility] court hearings. I would be there to testify also. Review of Systems All other systems reviewed negative except as stated in HPI Mental Status Examination Appearance: Appropriate Consciousness: Alert Orientation: x4 Motor Activity: Other (No motor abnormalities noted) Speech: Hesitant (Improved) Language: Adequate Fund of Knowledge: Adequate Attention and Concentration: Adequate Memory: Unremarkable Mood: Angry, Oppositional, Irritable, Other (Depressed improved) Affect: Other (Decreased range and intensity) Thought Process & Associations: Intact, Linear Thought Content: Appropriate Hallucination Type: None Delusion Type: None Suicidal Ideation: No Suicidal Plan: No Suicidal Intention: No Homicidal Ideation: No Homicidal Plan: No Homicidal Intention: No Insight: Poor Judgment: Poor Assessment and Plan - Assessment (1) Major depressive disorder, recurrent severe without psychotic features Code(s): F33.2 - Major depressive disorder, recurrent severe without psychotic features Status: Acute (2) Alcohol dependence with acute alcoholic intoxication Code(s): F10.229 - Alcohol dependence with intoxication, unspecified Status: Acute - Plan Plan: Patient continues to show little to no insight into the severity of her alcohol related problems. Per discussion with an order from Judge Mckeon and [place] [place] patient to be retained due to the high risk of her being unable to care for herself related to her alcohol use of discharge at this time she will be retained. [facility] act has been initiated she is scheduled for [facility] next Thursday patient will be discharged from [facility] on that date to be taken to the [facility] for further adjudication Justification for Continued Inpatient Stay: See above Discharge Planning: Probable discharge on October 14 for transported to [facility] court Request Healthcare Surrogate/Guardian Advocate?: Yes (2) Alcohol dependence with acute alcoholic intoxication Qualifiers: Complication of substance-induced condition: uncomplicated Qualified Code(s) : F10.220 - Alcohol dependence with intoxication, uncomplicated
[2018-10-08] MEDS: traZODone 50 MG Tablet PO SCH (20:42)
[2018-10-09] MEDS: Lisinopril 5 MG Tablet PO SCH (09:45)
[2018-10-09] MEDS: Calcium Carbonate 500 MG Tablet PO SCH ×2 (09:49→20:53)
[2018-10-09] MEDS: Sertraline 100 MG Tablet PO SCH (09:49)
[2018-10-09] MEDS: Famotidine 20 MG Tablet PO SCH ×2 (09:49→20:54)
--- NOTE | 2018-10-09 12:08 | P.PNPSY ---
Subjective Chief Complaint: Follow-up treatment of depression in association with chronic alcohol use disorder. Remarks: Reviewed electronic medical records and discussed case with staff. Follow-up was conducted in the day room with BEAR Jean present. Her nurse reports she has been cooperative and compliant if somewhat seclusive. Patient presents as irritable stating "I never sleep good". She does endorse good appetite. She complains that the "little dose of trazodone he gives me does not help me at all ". Mental Status Examination Appearance: Appropriate Consciousness: Alert Orientation: x4 Motor Activity: Other (No motor abnormalities noted) Speech: Hesitant (Improved) Language: Adequate Fund of Knowledge: Adequate Attention and Concentration: Adequate Memory: Unremarkable Mood: Angry, Oppositional, Irritable, Other (Depressed improved) Affect: Other (Decreased range and intensity) Thought Process & Associations: Intact, Linear Thought Content: Appropriate Hallucination Type: None Delusion Type: None Suicidal Ideation: No Suicidal Plan: No Suicidal Intention: No Homicidal Ideation: No Homicidal Plan: No Homicidal Intention: No Insight: Poor Judgment: Poor Assessment and Plan - Assessment (1) Major depressive disorder, recurrent severe without psychotic features Code(s): F33.2 - Major depressive disorder, recurrent severe without psychotic features Status: Acute - Plan Plan: Patient will be reevaluated by the attending psychiatrist. Continue with current treatment plan. Patient continues to show little to no insight into the severity of her alcohol related problems. Per discussion with an order from Technical Support Specialist Mike and [place] court patient to be retained due to the high risk of her being unable to care for herself related to her alcohol use of discharge at this time she will be retained. [place] act has been [place] she is scheduled for [place] next Thursday [facility] to be taken to the [facility] for further adjudication Justification for Continued Inpatient Stay: Moving this patient to a less restrictive environment would likely result in decompensation. Request Healthcare Surrogate/Guardian Advocate?: Yes
[2018-10-09] MEDS: Acetaminophen 325 MG Tablet PO PRN ×2 (13:25→18:43)
[2018-10-09] MEDS: traZODone 50 MG Tablet PO SCH (20:54)
[2018-10-10] MEDS: Sertraline 100 MG Tablet PO SCH (08:48)
[2018-10-10] MEDS: Lisinopril 5 MG Tablet PO SCH (08:48)
[2018-10-10] MEDS: Famotidine 20 MG Tablet PO SCH ×2 (08:48→21:33)
[2018-10-10] MEDS: Calcium Carbonate 500 MG Tablet PO SCH ×2 (08:50→21:34)
[2018-10-10] MEDS: Acetaminophen 325 MG Tablet PO PRN (14:47)
--- NOTE | 2018-10-10 15:42 | P.PNPSY ---
Subjective Chief Complaint: Follow-up treatment of depression in association with chronic alcohol use disorder. Remarks: Reviewed electronic medical records and discussed case with staff. Follow-up was conducted in the patient's room. She was found in bed awake. She states that she is "all right". Reports that she did not sleep very well and that her appetite's been "so-so". She has no complaints at this time. Her mood and affect remain dysthymic. Mental Status Examination Appearance: Appropriate Consciousness: Alert Orientation: x4 Motor Activity: Other (No motor abnormalities noted) Speech: Hesitant (Improved) Language: Adequate Fund of Knowledge: Adequate Attention and Concentration: Adequate Memory: Unremarkable Mood: Angry, Oppositional, Irritable, Other (Depressed improved) Affect: Other (Decreased range and intensity) Thought Process & Associations: Intact, Linear Thought Content: Appropriate Hallucination Type: None Delusion Type: None Suicidal Ideation: No Suicidal Plan: No Suicidal Intention: No Homicidal Ideation: No Homicidal Plan: No Homicidal Intention: No Insight: Poor Judgment: Poor Assessment and Plan - Assessment (1) Major depressive disorder, recurrent severe without psychotic features Code(s): F33.2 - Major depressive disorder, recurrent severe without psychotic features Status: Acute - Plan Plan: Patient will be reevaluated by the attending psychiatrist. Continue with current treatment plan. Justification for Continued Inpatient Stay: Moving this patient to a less restrictive environment would likely result in decompensation. Request Healthcare Surrogate/Guardian Advocate?: Yes
[2018-10-10] MEDS: traZODone 50 MG Tablet PO SCH (21:34)
[2018-10-11] MEDS: Sertraline 100 MG Tablet PO SCH (08:55)
[2018-10-11] MEDS: Lisinopril 5 MG Tablet PO SCH (08:55)
[2018-10-11] MEDS: Calcium Carbonate 500 MG Tablet PO SCH (08:55)
[2018-10-11] MEDS: Famotidine 20 MG Tablet PO SCH (08:55)
--- NOTE | 2018-10-11 11:56 | P.PNPSY ---
Subjective Chief Complaint: Follow-up treatment of depression in association with chronic alcohol use disorder. Remarks: Patient seen in day room with floor staff, chart reviewed, patient compliant medication. Patient remains somewhat irritable with me I again reiterated and reviewed the impending procedures related to her discharge and appearance of the act court on Friday 10/13. I will be there to testify also since I initiated the act. Prior to going to the act patient will be discharged from [facility] Review of Systems All other systems reviewed negative except as stated in HPI Mental Status Examination Appearance: Appropriate Consciousness: Alert Orientation: x4 Motor Activity: Other (No motor abnormalities noted) Speech: Hesitant (Improved) Language: Adequate Fund of Knowledge: Adequate Attention and Concentration: Adequate Memory: Unremarkable Mood: Angry, Oppositional, Irritable, Other (Depressed improved) Affect: Other (Decreased range and intensity) Thought Process & Associations: Intact, Linear Thought Content: Appropriate Hallucination Type: None Delusion Type: None Suicidal Ideation: No Suicidal Plan: No Suicidal Intention: No Homicidal Ideation: No Homicidal Plan: No Homicidal Intention: No Insight: Poor Judgment: Poor Assessment and Plan - Assessment (1) Major depressive disorder, recurrent severe without psychotic features Code(s): F33.2 - Major depressive disorder, recurrent severe without psychotic features Status: Acute (2) Alcohol dependence with acute alcoholic intoxication Code(s): F10.229 - Alcohol dependence with intoxication, unspecified Status: Acute - Plan Plan: While patient remains somewhat depressed there is some on anger and irritability with the fact that she is being accountable for her behaviors related to her alcohol use. Justification for Continued Inpatient Stay: At this time patient with decompensated placed in a lower level of care Discharge Planning: To be determined Request Healthcare Surrogate/Guardian Advocate?: Yes (2) Alcohol dependence with acute alcoholic intoxication Qualifiers: Complication of substance-induced condition: uncomplicated Qualified Code(s) : F10.220 - Alcohol dependence with intoxication, uncomplicated
--- NOTE | 2018-10-15 09:27 | P.DSPSY ---
Psychiatry Discharge Summary Inpatient Psychiatric care?: Yes Advance Directives: No Mental Health Advance Directive: No Health Care Proxy: No - Admission Admission Date: September 26, 2018 15:21 - Admission Diagnosis (1) Alcohol dependence with acute alcoholic intoxication Code(s): F10.229 - Alcohol dependence with intoxication, unspecified (2) Major depressive disorder, recurrent severe without psychotic features Code(s): F33.2 - Major depressive disorder, recurrent severe without psychotic features Brief History: Patient is a 78-year-old white female comes here under [facility] act by the [facility]'s office dated 09/25/2018 at 2040 9 PM that document reviewed essentially stating Kasey was located outside of a [employer] store of the ground in the position with several containers of alcohol around her. Kasey was visibly intoxicated had sold her clothing. 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 She has refused to identify herself. She does then stated several times that she wanted to . Patient seen screen in the ED at [facility]. Urine toxicology negative blood alcohol level of 273 at about 10 PM in the evening patient's EMR reviewed she has had prior visits or hospitalizations with us she was seen here on 01/10/2018 with a blood alcohol level of 312 she was hospitalized here 08/20/2018 with a blood alcohol level of 290. Patient is homeless chronic alcoholic. While she does have multiple children she has burned her bridges with them. They want nothing to do with her. Though it appears patient was found with the prior assessment at her daughter's house though there is a restraining order against her. At the present time patient laying in her bed on 2700 nurse Bharati present throughout session. Patient is laying quietly on her side, when I introduced myself to her she said "you again I do not want to talk to you." And then she rolled over away from me. Staff stated they have noticed she does have ecchymosis over her left orbit, and multiple bruises on her body. That night she came in she was quite unkempt with significant body odor and self neglect. Though her hair appears to be in fairly good condition. At this time patient does not meet criteria for acute inpatient psychiatric hospitalization under the [place] act I will do first opinion request second opinion. At this time I also feel she does not have capacity to make decisions concerning her care thus I will ask for healthcare surrogate and guardian advocate. We will continue her on the cipr protocol. While she is on lisinopril her blood pressure stable at this time list per request of the hospitalist will refrain from consultation unless the patient becomes more symptomatic. Tobacco Use In Past 30 Days: Yes How Often Do You Have a Drink Containing Alcohol: 4 or more times a week Hospital Course: Patient's hospital course was uneventful it was quite similar to her recent prior admissions. There is no significant detox symptomatology noted. There is also most significant insight into her disease. She became irritable and somewhat angry and manipulative when attempts were made to discuss the intensity of her alcohol misuse behaviors. She also did nothing to make an effort to find a sober living facility. Thus I did initiate the act. This act was reviewed by the machine turner on 1230 and the machine turner signed the act. We did receive communication from the court system that deputies were coming to pick her up on 10/11. Patient was discharged to the [facility] deputies to be brought to [facility] for further care and assessment under the act. Rx times 1 month were also given for follow-up care through that facility. I felt patient had reached maximum benefit of her inpatient psychiatric hospitalization by that time - Discharge Discharge Date: 10/11/18 - Discharge Diagnosis (1) Alcohol dependence with acute alcoholic intoxication Diagnosis: Principal Code(s): F10.229 - Alcohol dependence with intoxication, unspecified Status: Acute (2) Major depressive disorder, recurrent severe without psychotic features Diagnosis: Principal Code(s): F33.2 - Major depressive disorder, recurrent severe without psychotic features Status: Acute Discharge Disposition: Patient transferred to [facility] act under the act by [facility] deputies - Discharge Instructions Discharge Diet: Regular Diet Activities You Can Perform: Regular- No Restrictions - Discharge Time > 30 minutes Mental Status Examination Appearance: Appropriate Consciousness: Alert Orientation: x4 Motor Activity: Other (No motor abnormalities noted) Speech: Hesitant (Improved) Language: Adequate Fund of Knowledge: Adequate Attention and Concentration: Adequate Memory: Unremarkable Mood: Angry, Oppositional, Irritable, Other (Depressed improved) Affect: Other (Decreased range and intensity) Thought Process & Associations: Intact, Linear Thought Content: Appropriate Hallucination Type: None Delusion Type: None Suicidal Ideation: No Suicidal Plan: No Suicidal Intention: No Homicidal Ideation: No Homicidal Plan: No Homicidal Intention: No Insight: Poor Judgment: Poor Discharge/Advance Care Plan - Results Vital Signs: Last Vital Signs Temp 98.8 F 10/11/18 05:55 Pulse 67 10/11/18 05:55 Resp 16 10/11/18 05:55 BP 151/69 H 10/11/18 05:55 Pulse Ox 94 L 10/11/18 05:55 Lab Results: Laboratory Results Hemoglobin A1c 5.8 % (4.3-6.0) 09/27/18 06:20 Triglycerides 49 mg/dL (42-150) 09/27/18 06:20 Cholesterol 130 mg/dL (120-200) 09/27/18 06:20 LDL Cholesterol, Calc 48 mg/dL (0-99) 09/27/18 06:20 HDL Cholesterol 71.9 mg/dL (40.0-60.0) H 09/27/18 06:20 TSH 2.670 uIU/mL (0.358-3.740) 09/25/18 22:30 Urine Culture Comments Culture not ind 09/28/18 18:20 Summary of Procedures: None done Pending Results: None - Medications Number of antipsychotic medications at discharge: 0 - Discharge Care Plan Goals to Promote Your Health: * To prevent worsening of your condition and complications * To maintain your health at the optimal level Directions to Meet Your Goals: Take your medications as prescribed Follow your dietary instruction Follow activity as directed Keep your appointments as scheduled Take your immunizations and boosters as scheduled If your symptoms worsen call your PCP, if no PCP go to Urgent Care Center or Emergency Room For 04/05 questions related to your inpatient stay or results of tests pending at discharge, please contact Dr. Willam Mcclendon MD at Smoking is Dangerous to Your Health. Avoid second hand smoking (1) Alcohol dependence with acute alcoholic intoxication Qualifiers: Complication of substance-induced condition: uncomplicated Qualified Code(s) : F10.220 - Alcohol dependence with intoxication, uncomplicated (1) Alcohol dependence with acute alcoholic intoxication Qualifiers: Complication of substance-induced condition: uncomplicated Qualified Code(s) : F10.220 - Alcohol dependence with intoxication, uncomplicated
== END 2018-10-11 15:25 | disposition short-term general hospital (02) | DRG 897 ==
LOC: NEPD 21:35 → H250 09-26 15:21 → H260 09-30 14:37 → UNDODISIN 10-01 15:40
PROVIDERS: ADMIT Psychiatry & Neurology Psychiatry; ATTEND Psychiatry & Neurology Psychiatry
DX: I10 Essential (primary) hypertension; N31.9 Neuromuscular dysfunction of bladder, unspecified; F41.9 Anxiety disorder, unspecified; S00.12XA Contusion of left eyelid and periocular area, initial encounter; F10.220 Alcohol dependence with intoxication, uncomplicated; Z88.0 Allergy status to penicillin; Z79.899 Other long term (current) drug therapy; R45.851 Suicidal ideations; R19.7 Diarrhea, unspecified; F10.27 Alcohol dependence with alcohol-induced persisting dementia; Z90.49 Acquired absence of other specified parts of digestive tract; Z59.0 Homelessness; Z91.14 Patient's other noncompliance with medication regimen; Y90.8 Blood alcohol level of 240 mg/100 ml or more; F33.2 Major depressive disorder, recurrent severe without psychotic features
CPT/HCPCS: 80048; 80053; 80061; 80307; 81001; 83036; 84443; 85025; 90760; 90761; 93005; 96360; 96361; 97110; 97162; 99285; J7030; J7040; Q0163